=== PATIENT | female | born 1935 | race Caucasian/White ===

== ENCOUNTER 2018-12-02 11:49 | Inpatient (IN) | payer OTHER, BC ==
--- NOTE | 2018-12-02 12:26 | PDOC ---
History of Present Illness - General Stated Complaint: POSS CVA WEAKNESS History Source: Patient, Family Exam Limitations: No Limitations - History of Present Illness Initial Comments: 12/02/18 12:31 83 year old woman with a history of HTN, HLD, vertebral compression fractures ( followed by Dr. Joe) who presents with worsening confusion, weakness and worsening of chronic neck and back pain for the past 3 days. The patient lives with her son who called EMS today because the patient was refusing to medications and symptoms were worsened. When EMS arrived they noted that the patient was having difficulty holding herself up and was short of breath and had foul smelling urine. Back pain was previously managed with percocets but patient has been off of those medications for over a year. The patient is not on anticoagulants. Per son the patient has been having progressive worsening of the ability to walk over the past year and has required a walker. Denies fever, cough, congestion, headaches, chest pain, vomiting. Patient has chronic abdominal pain and occasional diarrhea. PCP: Kelin Adhikari tPA Exclusion checklist 3-4.5h - Time Elapsed Date last known well: 11/30/18 Time last known well: 12:00 Elaspsed time: 2 Day(s) and 6 Hour(s) and 36 Minutes - Thrombolytic Therapy Candidate Is patient eligible for thrombolytic therapy: No - Exclusion Criteria 3-4.5 hr SBP greater than 185 or DBP greater than 110mmHg despite tx: Yes Hx IC hemorrhage, IC neoplasm, AV malformation or aneurysm: No Active internal bleeding: No Blding diathesis(low plt ct, inc PTT,INR>1.7 or use of NOAC): No Symptoms suggest subarachnoid hemorrhage: No CT demonstrates multilobar infarct(>1/3 cerebral hemiphere): No Arterial puncture at noncompressible site in previous 7 days: No Blood glucose concentration less than 50mg/dL (2.7mmol/L): No - Relative Exclusion Criteria 3-4.5 hr Life expectancy <1 yr or severe co-morbid illness: No : No Patient/family refused: No Rapid improvement: No Stroke severity too mild: Yes Recent acute TN (w/in previous 3 months): No Seizure at onset with postictal residual neuro impairments: No Major surgery or serious trauma w/in previous 14 days: No Recent GI or hemorrhage (w/in previous 21 days): No - Add'l Relative Exclusion 3-4.5 hr Age > 80: Yes Hx of both diabetes AND prior ischemic stroke: No Taking an oral anticoagulant regardless of INR: No NIHSS >25: No - Ineligibility reason(s) Reasons No tPA given: Outside of window - delayed arrival NIH Stroke Scale - Last Known Well Date/Time & Onset Date Last Known Well: 11/30/18 Time Last Known Well: 12:00 - Initial Evaluation Level of consciousness: Alert Ask patient the month and their age: Answers both correctly Ask patient to open & close eyes; make fist and let go: Obeys both correctly Best gaze (horizontal eye movement): Normal Visual field testing: No visual field loss Facial paresis (Show teeth/raise eyebrows/close eyes tight): Normal symmetrical movement Motor Function: Left Arm: Normal Motor Function: Right Arm: Normal (extends arm 90 (or 45) degrees for 10 seconds without drift Motor Function: Left Leg: Normal (extends leg 30 degrees for 5 seconds without drift) Motor Function: Right Leg: Normal (extends leg 30 degrees for 5 seconds without drift) Limb Ataxia: No ataxia Sensory(Use pinprick test arms,legs,trunk,face/side to side): Normal Best language (Describe picture, name items, read sentences): No Aphasia Dysarthria (read several words): Normal articulation Extinction and Inattention: No abnormality - Total Score NIH Stroke Scale Score: 0 Past History - Past Medical History Allergies/Adverse Reactions: Allergies Allergy/AdvReac Type Severity Reaction Status Date / Time No Known Allergies Allergy Verified 06/04/15 15:52 Home Medications: Ambulatory Orders Amlodipine Besylate [Norvasc -] 5 mg PO DAILY 09/30/12 Atorvastatin Ca [Lipitor] 20 mg PO HS 05/03/14 Acetaminophen [Tylenol -] 500 mg PO Q6H #20 tablet 06/04/15 Methocarbamol [Robaxin -] 500 mg PO BID #14 tablet 06/04/15 GI Disorders: Yes ("STOMACHACHES-REFLUX") HTN: Yes Hypercholesterolemia: Yes - Suicide/Smoking/Psychosocial Hx Smoking Status: No Smoking History: Never smoked Number of Cigarettes Smoked Daily: 0 Hx Alcohol Use: No Drug/Substance Use Hx: No Substance Use Type: None Hx Substance Use Treatment: No Review of Systems - Review of Systems Able to Perform ROS?: Yes Comments:: 12/02/18 12:48 GENERAL/CONSTITUTIONAL: No fever or chills. No weakness. HEAD, EYES, EARS, NOSE AND THROAT: No change in vision. No ear pain or discharge. No sore throat. CARDIOVASCULAR: No chest pain + shortness of breath RESPIRATORY: No cough, wheezing, or hemoptysis. GASTROINTESTINAL: No vomiting, constipation. GENITOURINARY: No dysuria, frequency, or change in urination. MUSCULOSKELETAL: No joint or muscle swelling or pain. No neck or back pain. SKIN: No rash NEUROLOGIC: No headache, vertigo, loss of consciousness, or change in strength/ sensation. ENDOCRINE: No increased thirst. No abnormal weight change HEMATOLOGIC/LYMPHATIC: No anemia, easy bleeding, or history of blood clots. ALLERGIC/IMMUNOLOGIC: No hives or skin allergy. Is the patient limited Frisian proficient: No *Physical Exam - Physical Exam Comments: 12/02/18 12:49 GENERAL: Awake, alert, and fully oriented, in no acute distress HEAD: No signs of trauma, normocephalic, atraumatic EYES: PERRLA, EOMI, sclera anicteric, conjunctiva clear ENT: oropharynx clear without exudates. Moist mucosa NECK: Normal ROM, supple LUNGS: No distress, speaks full sentences, clear to auscultation bilaterally HEART: Regular rate and rhythm, normal S1 and S2, no murmurs, rubs or gallops, peripheral pulses normal and equal bilaterally. ABDOMEN: Soft, slight R sided tenderness (chronic), normoactive bowel sounds. No guarding, no rebound. No masses EXTREMITIES : Normal inspection, Normal range of motion, no edema. No clubbing or cyanosis. NEUROLOGICAL: Cranial nerves II through XII grossly intact. patient unable to perform cerebellar function 2/2 comprehension, Normal speech, no focal sensorimotor deficits SKIN: Warm, Dry, normal turgor, no rashes or lesions noted ED Treatment Course - LABORATORY CBC & Chemistry Diagram: 12/02/18 12:57 12/02/18 12:57 Medical Decision Making - Medical Decision Making 12/02/18 12:50 83 year old woman with a history of HTN, HLD, vertebral compression fractures ( followed by Dr. Joe) who presents with worsening confusion, weakness and worsening of chronic neck and back pain for the past 3 days. The patient lives with her son who called EMS today because the patient was refusing to take ibuprofen for pain and symptoms were worsened. When EMS arrived they noted that the patient was having difficulty holding herself up and was short of breath. The patient is not on anticoagulants. ED Course: ddx ibnlt: consider cva vs infectious vs acs vs arrythmia vs electrolyte derangement patient with elevated bp of 200/103 taking norvasc 5 and atorvastatin sepsis set, trop, ekg, cxr, head ct ivf, tylenol, norvasc 12/02/18 13:30 patient with unremarkable cbc no leukocytosis 12/02/18 13:39 ua - unremarkable- does not show uti lactic negative CXR: midline airway, appropriate vascular markings, no blunting of costophrenic angle, no cardiomegaly- per radiology reading poor inspiratory effort and with small hilar bronchial cuffing on L lungfield pending ekg, cmp, CT 12/02/18 13:50 consider other possible etiologies of fever consider help desk specialist disease - pending head CT patient had some abdominal tenderness- will order CTAP cxr read as negative, however will order chest CT for better visualization as patient tahcypneic and requiring oxygen defer LP at this time as patient without meningismus and uncooperative. trop negaitive, bnp negative pending ekg 12/02/18 15:[address]: no evidence of acute intracranial hemorrhage, edema, midline shift, mass effect or skull fracture/ Moderate supratentorial chronic diffuse white matter microangiopathic ischemic changes gliosis. This CSF spaces unchanged from 2015, no evidence of hydrocephalus. 12/02/18 15:[address] chest: chronic lung disease, no evidence of pna, large hiatal hernia , R ovarian cyst will plan to order urine dipstick as patient without urine findings and Plan to admit for fever of unkown origin and ams. 12/02/18 15:47 patient unable to comply with ekg 12/02/18 16:33 repeat bp of 203/100 Discusssed case with neurology Dr. Joe who recommends htn control with labetolol consider posterior reversible encephalopathy syndrome Pending ID call back 12/02/18 17:25 will cover with vancomycin, rocephin and acyclovir for empiric mengitits coverage pending ID call back and admission repeat ekg attempt: nsr without significant findings or ST segment elevations bp recheck at 160s/80s 12/02/18 17:44 Dr. Bradshaw ID at bedside evaluating patient Recommending d/c vancomycin and acyclovir, maintain ceftriaxone Lumbar compression fx in the lower thoracic and upper lumbar spine Therefore will defer LP unless otherwise indicated. Patient admitted to medicine. *DC/Admit/Observation/Transfer Diagnosis at time of Disposition: Altered mental status, Hypertension, Fever of unknown origin - Discharge Dispostion Condition at time of disposition: Stable Decision to Admit order: Yes - Referrals Referrals: Kelin Adhikari MD [Primary Care Provider] - - Patient Instructions - Post Discharge Activity
[2018-12-02] MEDS ORDERED: amLODIPine BESYLATE 5 MG TABLET (FP) PO ONE (12:53)
[2018-12-02] MEDS ORDERED: ACETAMINOPHEN 1000 MG/100 ML VIAL (NON FORMULARY) IVPB ONE (12:53)
[2018-12-02] MEDS ORDERED: SODIUM CHLORIDE 1,000 ML IV SCH ×2 (13:00→19:45)
[2018-12-02 13:23] LABS: BASO % 0.5 % (0-2.0); EOS % 0.5 % (0-4.5); HEMATOCRIT 42.4 % (32.4-45.2); HEMOGLOBIN 13.7 GM/dL (10.7-15.3); LYMPH % 15.1 % (8-40); MCH 29.7 pg (25.7-33.7); MCHC 32.3 g/dl (32.0-36.0); MEAN CELL VOLUME 91.8 fl (80-96); MEAN PLT VOLUME 7.5 fl (7.5-11.1); MONO % 9.7 % (3.8-10.2); NEUT % 74.2 % (42.8-82.8); PLATELET COUNT 301 K/MM3 (134-434); RBC 4.62 M/mm3 (3.60-5.2); RDW 14.6 % (11.6-15.6); WHITE BLOOD COUNT 7.4 K/mm3 (4.0-10.0)
[2018-12-02 13:24] LABS: PH,URINE 7.5 (5.0-8.0); URINE APPEARANCE CLEAR; URINE BILIRUBIN NEGATIVE (NEGATIVE); URINE COLOR YELLOW; URINE GLUCOSE (UA) NEGATIVE (NEGATIVE); URINE KETONE NEGATIVE (NEGATIVE); URINE LEUK ESTERASE NEGATIVE (NEGATIVE); URINE NITRITE NEGATIVE (NEGATIVE); URINE PROTEIN NEGATIVE (NEGATIVE); URINE UROBILINOGEN 0.2 mg/dL (0.2-1.0)
[2018-12-02] MEDS ORDERED: amLODIPine BESYLATE 5 MG TABLET (FP) ONE (13:28)
[2018-12-02] MEDS ORDERED: ACETAMINOPHEN INJECTION 100 ML IVPB ONE (13:29)
[2018-12-02 13:33] LABS: VENOUS PH 7.37 (7.31-7.41)
[2018-12-02 13:34] LABS: VENOUS PO2 25.2 mmHg (30-40)
[2018-12-02 13:38] LABS: INR 0.97 (0.83-1.09); PROTHROMBIN TIME (PATIENT) 11.5 SEC (9.7-13.0)
[2018-12-02 13:40] LABS: ACTIVATED PTT 32.1 SECONDS (25.2-36.5)
[2018-12-02 13:43] LABS: ALBUMIN 3.5 g/dl (3.4-5.0); ALK PHOS 108 U/L (45-117); ANION GAP 6 MMOL/L (8-16); BILIRUBIN,TOTAL 0.6 mg/dL (0.2-1); BLOOD UREA NITROGEN 10 mg/dL (7-18); CALCIUM 8.9 mg/dL (8.5-10.1); CHLORIDE 106 mmol/L (98-107); CO2 28 mmol/L (21-32); CREATININE 0.9 mg/dL (0.55-1.3); GLUCOSE,RANDOM 97 mg/dL (74-106); POTASSIUM 4.5 mmol/L (3.5-5.1); SGOT/AST 16 U/L (15-37); SGPT/ALT 23 U/L (13-61); SODIUM 140 mmol/L (136-145); TOT PROT 6.7 g/dl (6.4-8.2)
--- NOTE | 2018-12-02 15:45 | PDOC ---
Documentation entered by Og Spear SCRIBE, acting as scribe for Yaniv Lawrence MD. Yaniv Lawrence MD: This documentation has been prepared by the Rainer rose Renju, SCRIBE, under my direction and personally reviewed by me in its entirety. I confirm that the documentation accurately reflects all work, treatment, procedures, and medical decision making performed by me. Attending Attestation - Resident Resident Name: Rosa Webster - ED Attending Attestation I have performed the following: I have examined & evaluated the patient, The case was reviewed & discussed with the resident, I agree w/resident's findings & plan, Exceptions are as noted - HPI HPI: 12/02/18 15:15 The patient is an 83 year old female with a significant past medical history of HTN, hypoglossal EMEA, osteoporosis, and vertebral compression fractures who presents to the emergency department for evaluation of altered mental status since Saturday. As per son at bedside, patient has had worsening confusion and has been complaining of severe back pain since Saturday. Per son, the patient has been taking ibuprofen with minimal alleviation to her back pain, which is chronic due to compression fxs. Patients son activated EMS as patient refused to take medications this morning. Patients son denies history of UTIs or recent infections. Denies prior back surgeries. PCP: Kelin Adhikari - Physicial Exam PE: 12/02/18 15:16 GENERAL: Awake, alert, in no acute distress. HEAD: No signs of trauma EYES: PERRLA, EOMI, sclera anicteric, conjunctiva clear ENT: Auricles normal inspection, hearing grossly normal, nares patent, oropharynx clear without exudates. Moist mucosa NECK: Nontender, no stepoffs, Normal ROM, supple, no lymphadenopathy, JVD, or masses LUNGS: Breath sounds equal, clear to auscultation bilaterally. No wheezes, and no crackles HEART: Regular rate and rhythm, normal S1 and S2, no murmurs, rubs or gallops ABDOMEN: + mild diffuse TTP, normoactive bowel sounds. No guarding, no rebound. No masses EXTREMITIES: Normal range of motion, no edema. No clubbing or cyanosis. No cords, erythema, or tenderness NEUROLOGICAL: Cranial nerves II through XII intact. 5/5 strength and sensation in all extremities, Normal speech, normal gait, normal cerebellar function SKIN: Warm, Dry, normal turgor, no rashes or lesions noted. - Critical Care Time Total Critical Care Time: 60 Critical Care Statement: The care of this patient involved high complexity decision making to prevent further life threatening deterioration of the patient 's condition and/or to evaluate & treat vital organ system(s) failure or risk of failure. - Medical Decision Making 12/02/18 15:22 83 F with AMS x 2 days. No new neuro deficits on exam. Given fever in ED, suspect infectious process. - Labs, cultures - CXR, UA - CTAP - CT head - IV tylenol 12/02/18 16:18 Labs wnl UA unremarkable CTAP and chest normal AMS may be 2/[address] Joe consulted, recommends aggressive BP control Labetalol IV given Meningitis remains on ddx, though is unlikely as pt without neck stiffness or other signs of meningismus at this time. LP cannot be obtained 2/2 pt agitation Will consult ID for further management of FUO Admit to hospitalist
[2018-12-02] MEDS ORDERED: LABETALOL HCL 5 MG/1 ML (100MG/20 ML VIAL) IVPUSH ONE (16:32)
[2018-12-02] MEDS ORDERED: LABETALOL HCL 5 MG/1 ML (200MG/40ML VIAL) IVPB ONE (16:40)
[2018-12-02] MEDS ORDERED: VANCOMYCIN 1 GM in D5W (PRE-DOCKED) 1,000 MG/250 ML IVPB ONE ×2 (17:13→17:16)
[2018-12-02 17:22] LABS: PH,URINE 7.5 (5.0-8.0); URINE APPEARANCE CLEAR; URINE BILIRUBIN NEGATIVE (NEGATIVE); URINE COLOR YELLOW; URINE GLUCOSE (UA) NEGATIVE (NEGATIVE); URINE KETONE NEGATIVE (NEGATIVE); URINE LEUK ESTERASE NEGATIVE (NEGATIVE); URINE NITRITE NEGATIVE (NEGATIVE); URINE PROTEIN NEGATIVE (NEGATIVE); URINE UROBILINOGEN 0.2 mg/dL (0.2-1.0)
[2018-12-02] MEDS ORDERED: CEFTRIAXONE 2 GM-D5W BAG 2 GM/50 ML BAG IVPB ONE (17:22)
[2018-12-02] MEDS ORDERED: CEFTRIAXONE 2 GM/100 ML BAG IVPB ONE (17:29)
[2018-12-02] MEDS ORDERED: ACYCLOVIR INJECTION 800 MG in DEXTROSE 5%-WATER - 100 ML IVPB SCH (17:30)
[2018-12-02] MEDS ORDERED: ACYCLOVIR INJECTION 800 MG in DEXTROSE 5%-WATER - 250 ML IVPB SCH (18:00)
--- NOTE | 2018-12-02 18:41 | PN ---
Progress Note (short form) - Note Progress Note: ID consult dictated Elderly woman with compression fractures since 2011, severe headaches and back pain uses a walker at home hitsory of chronic urinary incontinence admitted with worsening confusion and intermittent garbled speech since Saturday night she was in May 2018 and lives at home with her son followed by dr Adhikari and dr varghese but has not seen either doctor in months son is not sure of her meds or weather she is taking them regularly in ED she had a temp of 100.6 she is alert knows she is at the hospital able to tell me her age and the names of her PMD and address follows commands no neck pain back pain and headaches have been worsening over last several years used to take percocet but has not had any narcotics for over one year BP in ED 203/100 isolated fever- resolved not encephalopathic no signs of meningitis l no signs UTI ct scan chest abd/pelvis no acute pathology head ct chronic changes 2 old cvas noted agree with cultures received ceftriaoxne in ED would hold further antibiotics ?secondary to HTN, ?CVA- consider MRI but will defer to neurology would await neurology opinion see no need for LP at this point but if she has further fever or confusion worsens would consider LP and treatment with rocephin/vanco/acyclovir
--- NOTE | 2018-12-02 19:13 | PN ---
Teaching Attending Note Name of Resident: Michelle Otero ATTENDING PHYSICIAN STATEMENT I saw and evaluated the patient. I reviewed the resident's note and discussed the case with the resident. I agree with the resident's findings and plan as documented. SUBJECTIVE: Patient is an 83 year old woman with a PMH of HTN, HLD, vertebral compression fractures (followed by Dr. Joe) who presents with worsening confusion, weakness and worsening of chronic neck and back pain for the past 3 days. The patient lives with her son who called EMS today because the patient was refusing to medications and symptoms were worsened. When EMS arrived they noted that the patient was having difficulty holding herself up and was short of breath and had foul smelling urine. Back pain was previously managed with Percocet but patient has been off of those medications for over a year. The patient is not on anticoagulants. Per son the patient has been having progressive worsening of the ability to walk over the past year and has required a walker. Denies fever, cough, congestion, headaches, chest pain or vomiting. Has chronic abdominal pain and occasional diarrhea. OBJECTIVE: Alert Vital Signs Period Temp Pulse Resp BP Sys/Vera Pulse Ox Last 24 Hr 98.7 F-100.6 F 78-82 16-24 125-213/83-110 98-98 HEENT: No Jaundice, eye redness or discharge, PERRLA, EOMI. Normocephalic, atraumatic. External ears are normal and hearing is grossly intact. No nasal discharge. Neck: Supple, nontender. No palpable adenopathy or thyromegaly. No JVD Chest: Good effort. Clear to auscultation and percussion. Heart: Regular. No S3, rub or murmur Abdomen: Not distended, soft, nontender and no HSM. No rebound or guarding. Normal bowel sounds. Ext: Peripheral pulses intact. No leg edema. Skin: Warm and dry. No petechiae, rash or ecchymosis. Neuro: Alert. Oriented x3. CN 2-12 grossly intact. Sensation grossly intact in all four extremities and DTR are symmetric. Psych: Appropriate mood and affect. Good insight. Home Medications Medication Instructions Recorded Amlodipine Besylate [Norvasc -] 5 mg PO DAILY 09/30/12 Atorvastatin Ca [Lipitor] 20 mg PO HS 05/03/14 Acetaminophen [Tylenol -] 500 mg PO Q6H #20 tablet 06/04/15 Methocarbamol [Robaxin -] 500 mg PO BID #14 tablet 06/04/15 Abnormal Lab Results 12/02/18 12/02/18 12:57 12:57 POC VBG pO2 25.2 L VBG O2 Sat (Marilee) 37.2 L Anion Gap 6 L ASSESSMENT AND PLAN: 1. Altered Mental Status - Etiology is unclear. No acute pathology on CXR, head or abdomen/pelvis CT. NIHSS in the ER was 0. EKG is NSR with no significant ST- T wave changes. Patient being evaluated by Neurology and ID. Got one dose of IV Rocephin in the ER. As per ID will not treat empirically for meningitis at this time, but do an LP if patient spikes a fever or has worsening confusion. Will get a brain MRI to rule out CVA and practice permissive hypertension. Consult PT , do speech and swallow evaluation, get fasting lipids, ECHO and carotid doppler. 2. Obesity Counseled on the risks associated with obesity. Will provide patient all the necessary assistance, counseling and positive reinforcement to facilitate weight loss. Consult desktop support engineer. 3. Hypertension - Will practice permissive hypertension for now pending brain MRI. Nonpharmacologic measures to control hypertension like weight loss, salt restriction and exercise discussed. 4. DVT prophylaxis - Lovenox 40 mg SQ q 24 hours. 5. Advance directives - Full code
--- NOTE | 2018-12-02 19:37 | CONS ---
INFECTIOUS DISEASE CONSULTATION DATE OF CONSULTATION: 12/02/2018 This is an 83-year-old woman admitted from home. She lives with her son. She was in May 2018. She has a history of compression fractures since 2011. Son reports she has lost 6 inches in height. This is all thought to be secondary to osteoporosis. She has a history of severe headaches and severe back pain since that time. Most recently, she has been using a walker at home. She has had worsening difficulty ambulating which was felt to be a combination of muscle control and pain by her son. She last saw her doctors in May. She sees Dr. Joe and Dr. Adhikari who is her PMD. She has a long history as well of abdominal pain. She has chronic urinary incontinence, but not fecal incontinence. She used to take Percocet, but has not been on any pain medications for at least a year. The son reports since May she has been worsening. Her headaches have worsened. Her back pain has worsened, and she is overall declining. Over the weekend, he noted that she had several episodes of that these symptoms of her neck and back pain were worse. He also noted that she had several episodes where her speech became dysarthric and then corrected. He also thought she was periodically was having episodes of confusion. She refused any pain medications this morning, which upset her son, and he brought her to the emergency room. In the ER, she was noted to have a temperature of 100.6. 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 She has loss of volume of the brain parenchyma; moderate, diffuse, chronic white matter changes. There was no evidence of any sinusitis. She had a CT of her chest, abdomen, and pelvis as well, looking for a source of her temperature of 100.6. That showed chronic lung disease, no evidence of pneumonia, large hiatal hernia, right ovarian cyst, and she was noted to have multiple compression fractures of the lower thoracic and upper lumbar spine. ALLERGIES: She has no known drug allergies. MEDICATIONS: Include Robaxin, Lipitor, Norvasc, and Tylenol. She apparently takes several other medications, but the son is not sure what. PAST MEDICAL HISTORY: She has a history of hypertension. She has a history of hyperlipidemia, vertebral compression fractures, chronic back pain, chronic headaches. SOCIAL HISTORY: She lives with her son. She is . She is from [facility], and she has been in this country [place] years. She was able to give me her social history. There is no history of any cigarette or substance use. REVIEW OF SYSTEMS: She has had no nausea, vomiting, diarrhea. She has had no chest pain or cough. PHYSICAL EXAMINATION: General: She is awake and alert. She is able to hold a conversation. Complains of the headache. Notes no neck pain. Denies any cough. Denies any difficulty swallowing. Vital Signs: Her temperature is 98.8. Pulse is 78. Blood pressure was 203/100; it is now 180/89. Respiratory rate is non-labored and 16. She is saturating 98% on 2 L. HEENT: She is normocephalic. Her eyes are anicteric. She has no thrush. Neck: Supple. Lungs: Clear to auscultation. Heart: Regular rate and rhythm. Abdomen: Soft, nontender. Skin: She has no rash. Extremities: Without edema. LABORATORY DATA: White count is 7.4, hemoglobin 13.7, platelets are 301. Her INR is 0.9. Her BUN is 10 and creatinine 0.9 with normal LFTs, and her urinalysis is negative. IMAGING: As previously reported. In summary, this is an elderly woman admitted with chronic compression fractures, chronic headaches, chronic back pain, and hypertension, admitted with a blood pressure of 203/100 with some intermittent confusion. She is not encephalopathic, she is not lethargic, and she is able to hold a conversation and follow commands. No signs of meningitis. No signs of UTI. Imaging shows no acute pathology. I would agree with cultures. She received ceftriaxone in the emergency room. Would hold further antibiotics. I am suspicious that her symptoms are secondary to hypertension or perhaps stroke. I would consider MRI, but will defer to Neurology. Would await neurology opinion. I do not think she needs a spinal tap at this point, but if she has further fever or her confusion worsens, would consider LP and empiric treatment for meningitis and encephalitis. NORMA HEATH M.D. [id number]
--- NOTE | 2018-12-02 19:46 | CONSULT ---
Consult - text type - Consultation Consultation Note: NEUROLOGY CONSULT APPRECIATED: Events reviewed and discussed with Dr. Webster and DEEDEE Lawler. Son Jaylen at bedside. Last seen in consult at office 08/22/18. This 83 yo RH F is known to me with migraine headaches, Restless limbs, chronic low back pain, depression, urinary incontinence. Surgical history includes removal of basal cell carcinoma on nose and compression fractures Thoracic/LS spine treated conservatively. Maintained on nadolol 40 mg, pramipexole 0.25 BID, amlodipine, ASA, bupropion 150 mg ER. Presents to ED per son with new confusional state with generalized weakness and poor appetite x 2 days. Noted BP on admission 200/103. Last office visit BP noted 170/100. (07/31/18) Head CT in ED (reviewed)= Mild atrophy. 2 chronic R cerebellar infarcts with encephalomalacia. Supratentorial chronic ischemic changes. Pt unable to provide cogent history at this time. WBC= 7.6 UA x 2 neg. LINDSEY: T 100.6->98.8. BP 203/103. Cor reg. No bruit. -Kernigs. +/- Hunter's on L. NEURO: Awake, alert, responsive. Ox "H[facility]." "[facility]" corrected to "[facility] November,. TRUMP->PURT. 0/3 recall @ 3 min. CNII-CNXII: EOM full without nystagmus. Full Melgar. No facial. Motor: No drift. Strong grasps. Strength normal. Reflexes normal. Toes downgoing. Coordination: No FTN dystaxia. Sensation: Decreased sensation in toes. Impression: Mild B/L Cerebral dysfunction (Chronic R cerebellar infarcts, VIDEO PRODUCTION INTERN microvascular changes) Hypertensive encephalopathy vs. Seizure vs. CVA Chronic Thoracic/LS compression fractures. Gait dysfunction secondary to above. Migraine Headaches Suggest: Aggressively reduce systolic BP < 140s Admit and monitor on telemetry MRI of brain (C-) Carotid duplex Pt eval for gait safety with walker web services manager eval for [facility] Thank you very much, David Joe MD
--- NOTE | 2018-12-02 19:49 | HP ---
CHIEF COMPLAINT: confusion, weakness, neck and back pain PCP: HISTORY OF PRESENT ILLNESS: 83 y/o F with PMH HTN, HLD, facial basal cell CA (s/p MOH), vertebral compression fx (lower thoracic, upper lumbar. has had past (-) EMG per neuro) , osteopenia and osteoporosis, migraines (follows with Dr. Joe), who presents to the ED with worsening confusion, weakness, neck and back pain that has acutely worsened over the last three days. Hx provided by son at bedside. As per son, pt has baseline has had these sx for "many years," however they acutely worsened over the last three days. Without any inciting or exacerbating fx. At baseline, pt is selective about what she "chooses to verbalize," and during t his time, she kept telling her son that she felt miserable, pointing to her back. States that her physical fnc has been limited for this reason. Once pt became so debilitated that she was unable to take ibuprofen for her pain , he became worried, deciding to call EMS for fear that he was "missing something big" that was going on with her. When EMS arrived, pt was found to be SOB and with foul smelling urine. At baseline, she is incontinent. Endorses intermittent migraines, however without known hx of fever, chills, chest pain or pressure, or changes in bowel function. Lives with son. Ambulates using a walker. ER course was notable for: (1) BP 200/100 > given norvasc 5, labetalol 10 (2) IV NS 1L (3) IV Tylenol (4) LP not attempted by ED d/t agitation Recent Travel: denies PAST MEDICAL HISTORY: as above PAST SURGICAL HISTORY: moh's surgery facial BCC Social History: used to work as a beauty culture teacher in past. Smoking: denies Alcohol: denies Drugs: denies Family History: father young, mother - osteoporosis - broke ribs when coughed, migraine hx Allergies No Known Allergies Allergy (Verified 06/04/15 15:52) HOME MEDICATIONS: Home Medications Medication Instructions Recorded Amlodipine Besylate [Norvasc -] 5 mg PO DAILY 09/30/12 Atorvastatin Ca [Lipitor] 20 mg PO HS 05/03/14 Acetaminophen [Tylenol -] 500 mg PO Q6H #20 tablet 06/04/15 Methocarbamol [Robaxin -] 500 mg PO BID #14 tablet 06/04/15 son does not know pt medications need to be confirmed with [facility] REVIEW OF SYSTEMS CONSTITUTIONAL: Absent: fever, chills, diaphoresis, generalized weakness, malaise, loss of appetite, weight change HEENT: Absent: rhinorrhea, nasal congestion, throat pain, throat swelling, difficulty swallowing, mouth swelling, ear pain, eye pain, visual changes CARDIOVASCULAR: Absent: chest pain, syncope, palpitations, irregular heart rate, lightheadedness , peripheral edema RESPIRATORY: Absent: cough, shortness of breath, dyspnea with exertion, orthopnea, wheezing, stridor, hemoptysis GASTROINTESTINAL: Absent: abdominal pain, abdominal distension, nausea, vomiting, diarrhea, constipation, melena, hematochezia GENITOURINARY: Absent: dysuria, frequency, urgency, hesitancy, hematuria, flank pain, genital pain MUSCULOSKELETAL: +back pain, neck pain Absent: myalgia, arthralgia, joint swelling, back pain, neck pain SKIN: Absent: rash, itching, pallor HEMATOLOGIC/IMMUNOLOGIC: Absent: easy bleeding, easy bruising, lymphadenopathy, frequent infections ENDOCRINE: Absent: unexplained weight gain, unexplained weight loss, heat intolerance, cold intolerance NEUROLOGIC: +confusion Absent: headache, focal weakness or paresthesias, dizziness, unsteady gait, seizure, mental status changes, bladder or bowel incontinence PSYCHIATRIC: Absent: anxiety, depression, suicidal or homicidal ideation, hallucinations. PHYSICAL EXAMINATION Vital Signs 12/02/18 12/02/18 15:30 16:38 Temperature 98.8 F 98.8 F Pulse Rate Pulse Rate [ 78 78 Apical] Respiratory 16 23 H Rate Blood Pressure Blood Pressure 181/103 H 203/100 H [Left Arm] O2 Sat by Pulse 98 98 Oximetry (%) GENERAL: AAO x 3. in NAD HEAD: Normal with no signs of trauma. EYES: Pupils equal, round and reactive to light, extraocular movements intact, sclera anicteric, conjunctiva clear. EARS, NOSE, THROAT: Ears normal, nares patent, oropharynx clear without exudates. Moist mucous membranes. NECK: Normal range of motion, supple. +without nuchal rigidity LUNGS: Breath sounds equal, clear to auscultation bilaterally. No wheezes, and no crackles. No accessory muscle use. poor insp effort HEART: Regular rate and rhythm, normal S1 and S2 without murmur, rub or gallop. ABDOMEN: Soft, obese, nontender, not distended, normoactive bowel sounds MUSCULOSKELETAL: +decreased ROM RLE LOWER EXTREMITIES: 2+ pt pulses, warm, well-perfused. trace pedal edema NEUROLOGICAL: Cranial nerves II-XII intact. +RUE pronator drift. 2+ reflexes. + decreased ROM RLE. +decreased sensation in feet b/l. (-) Brudzinski, and kernig signs. selectively follows commands. PSYCHIATRIC: Cooperative at times Laboratory Results 12/02/18 12/02/18 12/02/18 12:57 12:57 12:57 WBC 7.4 Hgb 13.7 Hct 42.4 D Plt Count 301 D Sodium 140 Potassium 4.5 Chloride 106 Carbon Dioxide 28 Anion Gap 6 L BUN 10 Creatinine 0.9 Lactic Acid 1.1 Urine Color 12/02/18 16:17 Lactic Acid Urine Color Yellow Urine Appearance Clear Urine pH 7.5 Ur Specific [place] 1.026 Urine Protein Negative Urine Glucose (UA) Negative Urine Ketones Negative Urine Blood Negative Urine Nitrite Negative Urine Bilirubin Negative Urine Urobilinogen 0.2 Ur Leukocyte Esterase Negative head ct: chronic diffuse white matter ischemic changes. chronic cerebellar infarcts. CTAP, chest CT: chronic lung dz (interstitial), large hiatal hernia, R ovarian cyst. mult compression fx in lower thoracic and upper lumbar spine - chronic. ASSESSMENT/PLAN: 83 y/o F with PMH HTN, HLD, facial basal cell CA (s/p MOH), vertebral compression fx (lower thoracic, upper lumbar. has had past (-) EMG per neuro) , osteopenia and osteoporosis, migraines (follows with Dr. Joe), who presents to the ED with worsening confusion, weakness, neck and back pain that has acutely worsened over the last three days. #AMS r/o meningitis -without meningeal signs, fever improved with IV tylenol prior to rocephin. however as w/confusion need to r/o meningitis -s/p ceftriaxone 2gm IVPB x 1 in ED -seen by ID, rec to hold off on abx at this time. if pt spikes temp, or becomes more confused then c/w empiric tx rocephin/vanc/acyclovir and LP. coags done -f/u ucx, blood cx. -iso precautions -freq neurochecks -ID: Dr. Bradshaw -Neuro: Dr. Joe possible 2/2 hypertensive encephalopathy, HTN urgency -as per neuro, aggressive BP control rec systolic <140. -s/p labetalol 10, norvasc 5 in ED -c/w home norvasc 5. however confirm home dose. son not aware. need to call pharma in AM -monitor on tele r/o CVA -without new acute changes on CTH -f/u carotid duplex, brain MRI, lipid profile -PT, NPO, S/S -as per neuro, rec aggressive BP control < 140. not rec permissive htn at this time. #HLD -as per neuro, pt was taken off statin by cardio recently #F/E/N no IVF at this time as w/elev BP cont to follow lytes NPO, S/S consult #PPX DVT: SCD's in case of procedure #Dispo admit to tele Visit type - Emergency Visit Emergency Visit: Yes ED Registration Date: 12/02/18 Care time: The patient presented to the Emergency Department on the above date and was hospitalized for further evaluation of their emergent condition. - New Patient This patient is new to me today: Yes Date on this admission: 12/02/18 - Critical Care Critical Care patient: No
[2018-12-02 22:53] LABS: CHOLESTEROL 243 mg/dL (50-200); HDL CHOLESTEROL 50 mg/dL (40-60); TRIGLYCERIDES 229 mg/dL (0-150)
[2018-12-02] MEDS ORDERED: hydrALAZINE HCL 20 MG/ML VIAL IVPUSH ONE (23:58)
[2018-12-03] MEDS: ACETAMINOPHEN 325 MG TABLET (FP) PO PRN ×2 (00:30→09:43)
[2018-12-03 02:13] VITALS: BMI 25.0
[2018-12-03 06:47] LABS: BASO % 0.5 % (0-2.0); EOS % 0.5 % (0-4.5); HEMATOCRIT 41.9 % (32.4-45.2); HEMOGLOBIN 13.9 GM/dL (10.7-15.3); LYMPH % 13.5 % (8-40); MCH 30.2 pg (25.7-33.7); MCHC 33.1 g/dl (32.0-36.0); MEAN PLT VOLUME 7.5 fl (7.5-11.1); MONO % 9.6 % (3.8-10.2); NEUT % 75.9 % (42.8-82.8); PLATELET COUNT 323 K/MM3 (134-434); RBC 4.61 M/mm3 (3.60-5.2); RDW 14.5 % (11.6-15.6); WHITE BLOOD COUNT 9.7 K/mm3 (4.0-10.0)
[2018-12-03 07:13] LABS: CALCIUM 9.1 mg/dL (8.5-10.1); PHOSPHOROUS 3.3 mg/dL (2.5-4.9); POTASSIUM 4.2 mmol/L (3.5-5.1)
--- NOTE | 2018-12-03 08:28 | EKG ---
Test Reason : Blood Pressure : / mmHG Vent. Rate : 083 BPM Atrial Rate : 083 BPM P-R Int : 142 ms QRS Dur : 114 ms QT Int : 410 ms P-R-T Axes : 017 -13 002 degrees QTc Int : 481 ms POOR DATA QUALITY, INTERPRETATION MAY BE ADVERSELY AFFECTED NORMAL SINUS RHYTHM POSSIBLE LATERAL INFARCT , AGE UNDETERMINED ABNORMAL ECG WHEN COMPARED WITH ECG OF 30-SEP-2012 12:28, QRS DURATION HAS INCREASED BORDERLINE CRITERIA FOR LATERAL INFARCT ARE NOW PRESENT NONSPECIFIC T WAVE ABNORMALITY, WORSE IN ANTERIOR LEADS NONSPECIFIC T WAVE ABNORMALITY NO LONGER EVIDENT IN LATERAL LEADS QT HAS LENGTHENED Confirmed by PAULA GALLEGOS, VANDANA ([id number]) on 12/03/2018 8:28:23 AM Referred By: Confirmed By:VANDANA MITCHELL MD
--- NOTE | 2018-12-03 08:29 | EKG ---
Test Reason : Blood Pressure : / mmHG Vent. Rate : 075 BPM Atrial Rate : 075 BPM P-R Int : 184 ms QRS Dur : 088 ms QT Int : 376 ms P-R-T Axes : -02 -03 043 degrees QTc Int : 419 ms NORMAL SINUS RHYTHM NORMAL ECG WHEN COMPARED WITH ECG OF 02-DEC-2018 15:37, ST NO LONGER DEPRESSED IN INFERIOR LEADS NONSPECIFIC T WAVE ABNORMALITY, IMPROVED IN ANTERIOR LEADS QT HAS SHORTENED Confirmed by PAULA GALLEGOS, VANDANA ([id number]) on 12/03/2018 8:28:38 AM Referred By: Confirmed By:VANDANA MITCHELL MD
--- NOTE | 2018-12-03 09:07 | CONSULT ---
Admitting History and Physical - Primary Care Physician PCP: Kelby Delaney - Admission History of Present Illness: Per EMR- 83 y/o F with PMH HTN, HLD, facial basal cell CA (s/p MOH), vertebral compression fx (lower thoracic, upper lumbar. has had past (-) EMG per neuro) , osteopenia and osteoporosis, migraines , who presents to the ED with worsening confusion, weakness, neck and back pain that has acutely worsened over the last three days. Selected Entries 12/02/18 12/02/18 12/02/18 11:49 12:26 15:30 Breakfast Temperature 100.6 F H 100.6 F H 98.8 F Blood Pressure 213/110 H Blood Pressure 181/103 H [Left Arm] 12/02/18 12/02/18 12/02/18 16:38 19:43 21:30 Breakfast Temperature 98.8 F 98.7 F 98.2 F Blood Pressure Blood Pressure 203/100 H 125/83 120/82 [Left Arm] 12/02/18 12/03/18 12/03/18 23:30 01:50 05:00 Breakfast Temperature 97.9 F 97.6 F 98.6 F Blood Pressure 200/107 H 121/70 156/80 Blood Pressure [Left Arm] 12/03/18 12/03/18 09:00 11:52 Breakfast 100% Temperature 98 F Blood Pressure 156/100 Blood Pressure [Left Arm] Laboratory Tests 12/02/18 12/03/18 12:57 05:30 WBC 7.4 9.7 History Source: Medical Record Limitations to Obtaining History: Clinical Condition - Smoking History Smoking history: Never smoked Have you smoked in the past 12 months: No Aproximately how many cigarettes per day: 0 - Alcohol/Substance Use Hx Alcohol Use: No History - Admission Reason For Visit: FEVER OF UNKN ORIGIN/ALTERED MENTAL STATE - Diagnostics X-ray: Report Reviewed CT Scan: Report Reviewed (Head CT in ED (reviewed)= Mild atrophy. 2 chronic R cerebellar infarcts with encephalomalacia. Supratentorial chronic ischemic changes.) MRI: Report Reviewed (includes Left Parietal subacute/acute infarct at level of [place]. Moderate MV changes.) - General Mental Status: Alert and Oriented ("yonkers" "trump" "September," Knows she came in for back pain), Awake and Alert, Able to Follow Commands (intermittent) Attention: Distractible, Mild Impairment - Hearing Hearing: Normal Hearing Aide: No With Patient: No Speech Evaluation - Communication Primary Language: AZERI Communication: Yes: Aphasia Oral Expression Ability: Yes: Mild Impairment, Moderate Impairment - Speech Production Able to Make Needs Known: Yes: Mildly Impaired, Moderately Impaired Intelligibility: Yes: WNL - Speech Characteristics Voice Loudness: Normal Voice Pitch: Yes: Normal Voice Phonatory-based Quality: Yes: Normal Speech Pattern: Impaired Nasal Resonance: Normal Articulation: Yes: Precise Rate of Speech: Intact - Language/Auditory Comprehension Observation: Able to respond to yes/no queries: Yes (intermittent), Yes/No Confusion: Yes, Comprehends Conversational Speech: Yes (simple), Benefits from Slow Speech: Yes, Benefits from Repetiton: Yes - Language/Verbal Expression Aphasia: Yes: Fluent, Anomia, Paraphrasic Errors, Neologisms Able to Respond to Simple Queries: Yes: Mildly Impaired, Moderately Impaired Able to Communicate Wants and Needs: Yes: Mildly Impaired, Moderately Impaired Functional Communication Status: Yes: Mildly Impaired, Moderately Impaired Aware of Errors: No - Swallow Evaluation/Bedside Assessment Current Nutritional Intake: NPO Oral Secretions: Yes: WFL Dentition: Yes: Adequate Facial Symmetry at Rest: Symmetrical Lingual Movement: Symmetric Lingual Speed of Movement: Normal Lingual Movement Strgth Against Opposition: Normal Velopharyngeal Movement: Normal Laryngeal Movement: Labored,delay initiation Labial Seal: WFL Oral Prep Time: WFL A-P Transit: WFL Timing of Swallow: Delayed Coughing/Throat Clear: Yes (1 instance with thin liquid. limited acceptance) Recommendations - Speech Evaluation, Impression/Plan Impression: Pt following simple 1 stage commands intermittently but not 2 stage or fluent conversation. Speech is fluent with neologisms, paraphasic errors and Spanish words interspersed without awareness. Anomia in conversation and upon confrontation.Able to provide fluent appropriate sentences at times. No dysarthria. Little po trials accepted. 1 instance of responsive cough with thin liquid, may have become distracted. Oriented to age,trump, not date. Poor insight. Impulsive. MRI-Left Parietal subacute/acute infarct at level of [place] - Disposition Discharge to: To be Determined - Dysphagia Impressions/Plan Dysphagia Impressions: Mild Impairment, Risk of Aspiration *Silent aspiration: cannot be R/O at bedside Dysphagia Treatment Plan: OOB for meals, OOB for 1 h. after meals - Recommendations Diet Consistency: Dysphagia Pureed Liquids: Thin Liquids (trial. If cough, downgrade to nectar)
[2018-12-03] MEDS: amLODIPine BESYLATE 10 MG TABLET (FP) PO SCH (09:43)
[2018-12-03] MEDS ORDERED: amLODIPine BESYLATE 5 MG TABLET (FP) PO SCH (10:00)
[2018-12-03 10:10] LABS: CREATININE 0.9 mg/dL (0.55-1.3)
[2018-12-03] MEDS ORDERED: CEFTRIAXONE 1 GM in DEXTROSE 5%-WATER - 50 ML IVPB SCH (11:45)
[2018-12-03] MEDS ORDERED: DEXTROSE 5%-WATER - 50 ML IVPB ONE ×2 (12:16→14:30)
[2018-12-03] MEDS ORDERED: cefTRIAXone SODIUM 1 GM VIAL ONE ×2 (12:16→14:30)
--- NOTE | 2018-12-03 13:49 | PN ---
Physical Exam: SUBJECTIVE: Patient seen and examined. Pt. states she "hadn't slept a wink." Pt. endorses severe back ache, in middle of spine. Pt denies any pain now in the neck but says she did have some yesterday and it was only slight pain. Pt. state she leaks urine and last a BM yesterday. OBJECTIVE: Vital Signs Period Temp Pulse Resp BP Sys/Vera Pulse Ox Last 24 Hr 97.6 F-98.8 F 77-97 16-23 120-203/70-107 94-98 GENERAL: The patient is awake, alert, and oriented to name only, in no acute distress. HEAD: Normal with no signs of trauma. EYES: PERRL, extraocular movements intact, sclera anicteric, conjunctiva clear. No ptosis. ENT: Ears normal, nares patent, oropharynx clear without exudates, moist mucous membranes. NECK: Trachea midline, full range of motion, supple, no spinal or paraspinal tenderness LUNGS: Breath sounds equal, clear to auscultation bilaterally, no wheezes, no crackles, no accessory muscle use. HEART: Tachycardic, regular rate and rhythm, S1, S2 without murmur ABDOMEN: Soft, nontender, nondistended, normoactive bowel sounds, no guarding, no rebound, no hepatosplenomegaly, no masses. EXTREMITIES: 2+ radial pulses, warm, no calf tenderness well-perfused, b/l trace edema. NEUROLOGICAL: Cranial nerves II through XII grossly intact. Normal speech, gait not observed. PSYCH: Normal mood, normal affect. SKIN: Warm, dry, normal turgor, no rashes or lesions noted Laboratory Results - last 24 hr 12/02/18 12/02/18 12/02/18 12:57 16:17 20:23 WBC RBC Hgb Hct MCV MCH MCHC RDW Plt Count MPV Absolute Neuts (auto) Neutrophils % Lymphocytes % Monocytes % Eosinophils % Basophils % Nucleated RBC % Sodium 140 Potassium 4.5 Chloride 106 Carbon Dioxide 28 Anion Gap 6 L BUN 10 Creatinine 0.9 Creat Clearance w eGFR 59.51 Est GFR (CKD-EPI)AfAm Est GFR (CKD-EPI)NonAf Random Glucose 97 Calcium 8.9 Phosphorus Magnesium Total Bilirubin 0.6 AST 16 ALT 23 Alkaline Phosphatase 108 Total Protein 6.7 Albumin 3.5 Triglycerides 229 H Cholesterol 243 H Total LDL Cholesterol 166 H HDL Cholesterol 50 Urine Color Yellow Urine Appearance Clear Urine pH 7.5 Ur Specific [place] 1.026 Urine Protein Negative Urine Glucose (UA) Negative Urine Ketones Negative Urine Blood Negative Urine Nitrite Negative Urine Bilirubin Negative Urine Urobilinogen 0.2 Ur Leukocyte Esterase Negative Influenza A (Rapid) Influenza B (Rapid) Blood Type O POSITIVE Antibody Screen Negative 12/02/18 12/03/18 12/03/18 21:26 05:30 05:30 WBC 9.7 RBC 4.61 Hgb 13.9 Hct 41.9 MCV 91.0 MCH 30.2 MCHC 33.1 RDW 14.5 Plt Count 323 MPV 7.5 Absolute Neuts (auto) 7.3 Neutrophils % 75.9 Lymphocytes % 13.5 Monocytes % 9.6 Eosinophils % 0.5 Basophils % 0.5 Nucleated RBC % 0 Sodium Potassium Chloride Carbon Dioxide Anion Gap BUN Creatinine Creat Clearance w eGFR Est GFR (CKD-EPI)AfAm Est GFR (CKD-EPI)NonAf Random Glucose Calcium Phosphorus Magnesium Total Bilirubin AST ALT Alkaline Phosphatase Total Protein Albumin Triglycerides Cholesterol Total LDL Cholesterol HDL Cholesterol Urine Color Urine Appearance Urine pH Ur Specific [place] Urine Protein Urine Glucose (UA) Urine Ketones Urine Blood Urine Nitrite Urine Bilirubin Urine Urobilinogen Ur Leukocyte Esterase Influenza A (Rapid) Negative Influenza B (Rapid) Negative Blood Type O POSITIVE Antibody Screen 12/03/18 05:30 WBC RBC Hgb Hct MCV MCH MCHC RDW Plt Count MPV Absolute Neuts (auto) Neutrophils % Lymphocytes % Monocytes % Eosinophils % Basophils % Nucleated RBC % Sodium 140 Potassium 4.2 Chloride 107 Carbon Dioxide 25 Anion Gap 7 L BUN 10 Creatinine 0.9 Creat Clearance w eGFR Est GFR (CKD-EPI)AfAm 67.57 Est GFR (CKD-EPI)NonAf 58.30 Random Glucose 106 Calcium 9.1 Phosphorus 3.3 Magnesium 2.0 Total Bilirubin AST ALT Alkaline Phosphatase Total Protein Albumin Triglycerides 174 H Cholesterol 255 H Total LDL Cholesterol 176 H HDL Cholesterol 53 Urine Color Urine Appearance Urine pH Ur Specific [place] Urine Protein Urine Glucose (UA) Urine Ketones Urine Blood Urine Nitrite Urine Bilirubin Urine Urobilinogen Ur Leukocyte Esterase Influenza A (Rapid) Influenza B (Rapid) Blood Type Antibody Screen Active Medications Home Medications Medication Instructions Recorded Unobtainable 12/02/18 Current Medications Acetaminophen (Tylenol -) 650 mg PO Q6H PRN PRN Reason: PAIN LEVEL 6-10 Last Admin: 12/03/18 09:43 Dose: 650 mg Amlodipine Besylate (Norvasc -) 10 mg PO DAILY BHAVYA Last Admin: 12/03/18 09:43 Dose: 10 mg Ceftriaxone Sodium 1 gm/ (Dextrose) 50 mls @ 100 mls/hr IVPB DAILY BHAVYA; Protocol Last Admin: 12/03/18 12:17 Dose: 100 mls/hr ASSESSMENT/PLAN: 83 y/o F with PMH HTN, HLD, facial basal cell CA (s/p MOH), vertebral compression fx (lower thoracic, upper lumbar. has had past (-) EMG per neuro) , osteopenia and osteoporosis, migraines (Dr. Joe), who presents to the ED with worsening confusion, weakness, neck and back pain that has acutely worsened over the last three days. #Acute Encephalopathy 2/2 Hypertensive Emergency vs. UTI w. Progressive dementia as baseline cannot r/o meningitis without meningeal signs, fever improved with IV tylenol prior to rocephin. s/p ceftriaxone 2 gm IVPB x 1 in ED C/w Ceftriaxone 2 gm f/u BCx. UCx growing Proteus Mirabalis. Freq Neurochecks BP went to 200s/100s x 3 ID Consult (Dr. Bradshaw) appreciated- D/c Abx. can reinstate if spiking fevers or mental status worsens. Would do LP at this time. Neuro Consult (Dr. Joe) appreciated- aggressive BP control without new acute changes on CTH f/u carotid duplex, and brain MRI to r/o CVA (consider echo?) Elevated Trigs, cholesterol and LDL f/u Physical Therapy as per neuro, rec aggressive BP control < 140. not rec permissive htn at this time. CT A/P- shows chronic lung disease w/o acute pathology, large hiatal hernia, R. ovarian 3.6cm cyst w/o acute pathology. #HTN As per neuro, aggressive BP control rec systolic <140. s/p Labetalol 10mg, Norvasc 5mg in ED Increased Norvasc to 10mg Telemetry monitoring #HLD As per neuro, Pt. was taken off statin by Cardio recently? Per Pt.'s son Pt. takes Lipitor 20mg #F/E/N no IVF at this time as w/elev BP cont to follow lytes Dysphagia Puree Diet #PPX DVT: SCD's #Dispo admit to tele Visit type - Emergency Visit Emergency Visit: Yes ED Registration Date: 12/02/18 Care time: The patient presented to the Emergency Department on the above date and was hospitalized for further evaluation of their emergent condition. - New Patient This patient is new to me today: Yes Date on this admission: 12/03/18 - Critical Care Critical Care patient: No - Discharge Referral Referred to [facility] No
[2018-12-03] MEDS ORDERED: CEFTRIAXONE 1 GM in DEXTROSE 5%-WATER - 50 ML IVPB ONE (14:20)
[2018-12-03] MEDS ORDERED: LORazepam 2 MG/ML SDV VIAL IVPUSH ONE (14:23)
--- NOTE | 2018-12-03 14:59 | PN ---
Teaching Attending Note Name of Resident: David Mena ATTENDING PHYSICIAN STATEMENT I saw and evaluated the patient. I reviewed the resident's note and discussed the case with the resident. I agree with the resident's findings and plan as documented. SUBJECTIVE: Confused, unable to participate fully in medical interview. No complaints. OBJECTIVE: Afebrile, Hemodynamically Stable. Last Vital Signs Temp Pulse Resp BP Pulse Ox 98 F 97 H 18 156/100 94 L 12/03/18 09:00 12/03/18 09:00 12/03/18 09:00 12/03/18 09:00 12/03/18 09:00 HEENT - Atraumatic, Normocephalic, scar on tip of nose sec to prior dermatological procedure Heart - S1, S2, RRR, SM Lungs - clear to auscultation Abdomen - High BMI. Soft, non-tender. bowel Sounds normal. Extremities - no calf tenderness. Laboratory Results - last 24 hr 12/02/18 12/02/18 12/02/18 12:57 16:17 20:23 WBC RBC Hgb Hct MCV MCH MCHC RDW Plt Count MPV Absolute Neuts (auto) Neutrophils % Lymphocytes % Monocytes % Eosinophils % Basophils % Nucleated RBC % Sodium 140 Potassium 4.5 Chloride 106 Carbon Dioxide 28 Anion Gap 6 L BUN 10 Creatinine 0.9 Creat Clearance w eGFR 59.51 Est GFR (CKD-EPI)AfAm Est GFR (CKD-EPI)NonAf Random Glucose 97 Calcium 8.9 Phosphorus Magnesium Total Bilirubin 0.6 AST 16 ALT 23 Alkaline Phosphatase 108 Total Protein 6.7 Albumin 3.5 Triglycerides 229 H Cholesterol 243 H Total LDL Cholesterol 166 H HDL Cholesterol 50 Urine Color Yellow Urine Appearance Clear Urine pH 7.5 Ur Specific [place] 1.026 Urine Protein Negative Urine Glucose (UA) Negative Urine Ketones Negative Urine Blood Negative Urine Nitrite Negative Urine Bilirubin Negative Urine Urobilinogen 0.2 Ur Leukocyte Esterase Negative Influenza A (Rapid) Influenza B (Rapid) Blood Type O POSITIVE Antibody Screen Negative 12/02/18 12/03/18 12/03/18 21:26 05:30 05:30 WBC 9.7 RBC 4.61 Hgb 13.9 Hct 41.9 MCV 91.0 MCH 30.2 MCHC 33.1 RDW 14.5 Plt Count 323 MPV 7.5 Absolute Neuts (auto) 7.3 Neutrophils % 75.9 Lymphocytes % 13.5 Monocytes % 9.6 Eosinophils % 0.5 Basophils % 0.5 Nucleated RBC % 0 Sodium Potassium Chloride Carbon Dioxide Anion Gap BUN Creatinine Creat Clearance w eGFR Est GFR (CKD-EPI)AfAm Est GFR (CKD-EPI)NonAf Random Glucose Calcium Phosphorus Magnesium Total Bilirubin AST ALT Alkaline Phosphatase Total Protein Albumin Triglycerides Cholesterol Total LDL Cholesterol HDL Cholesterol Urine Color Urine Appearance Urine pH Ur Specific [place] Urine Protein Urine Glucose (UA) Urine Ketones Urine Blood Urine Nitrite Urine Bilirubin Urine Urobilinogen Ur Leukocyte Esterase Influenza A (Rapid) Negative Influenza B (Rapid) Negative Blood Type O POSITIVE Antibody Screen 12/03/18 05:30 WBC RBC Hgb Hct MCV MCH MCHC RDW Plt Count MPV Absolute Neuts (auto) Neutrophils % Lymphocytes % Monocytes % Eosinophils % Basophils % Nucleated RBC % Sodium 140 Potassium 4.2 Chloride 107 Carbon Dioxide 25 Anion Gap 7 L BUN 10 Creatinine 0.9 Creat Clearance w eGFR Est GFR (CKD-EPI)AfAm 67.57 Est GFR (CKD-EPI)NonAf 58.30 Random Glucose 106 Calcium 9.1 Phosphorus 3.3 Magnesium 2.0 Total Bilirubin AST ALT Alkaline Phosphatase Total Protein Albumin Triglycerides 174 H Cholesterol 255 H Total LDL Cholesterol 176 H HDL Cholesterol 53 Urine Color Urine Appearance Urine pH Ur Specific [place] Urine Protein Urine Glucose (UA) Urine Ketones Urine Blood Urine Nitrite Urine Bilirubin Urine Urobilinogen Ur Leukocyte Esterase Influenza A (Rapid) Influenza B (Rapid) Blood Type Antibody Screen Current Medications Generic Name Dose Route Start Last Admin Trade Name Freq PRN Reason Stop Dose Admin Acetaminophen 650 mg 12/02/18 23:58 12/03/18 09:43 Tylenol - PO 650 mg Q6H PRN Administration PAIN LEVEL 6-10 Amlodipine Besylate 10 mg 12/03/18 10:00 12/03/18 09:43 Norvasc - PO 10 mg DAILY BHAVYA Administration Ceftriaxone Sodium 1 gm/ 50 mls @ 100 mls/hr 12/03/18 14:20 12/03/18 14:32 Dextrose IVPB 12/03/18 14:49 100 mls/hr ONCE ONE Administration Protocol Ceftriaxone Sodium 2 gm/ 100 mls @ 200 mls/hr 12/04/18 10:00 Dextrose IVPB DAILY BHAVYA Protocol ASSESSMENT/PLAN: 83 year old female with HTN, HLD, Basal Cell Ca s/p MOHS, Hx vertebral compression fractures, Osteoporosis, Migraines, presented with increasing confusion, lethargy, generalized weakness, and fever. CT HEAD - chronic diffuse white matter ischemic changes. chronic cerebellar infarcts. CT C/A/P - chronic lung dz (interstitial), large hiatal hernia, R ovarian cyst, multiple compression fractures in lower thoracic and upper lumbar spine. 1. Acute Encephalopathy, multifactorial - sec to hypertensive encephalopathy + likely UTI BP on presentation >200 systolic Given IV labetalol and Hydralazine overnight Started on oral Norvasc 10mg. Will monitor BP response. Urine Cx positive for Proteus - awaiting final ID and sens Fever resolved, CXR - no infiltrate, Blood Cx negative Day 2 Ceftriaxone Evaluated by ID - no signs of meningitis currently. Evaluated by Neuro - MRI Brain/Carotid Duplex recommended to exclude CVA. 2. HLD - Statin recently stopped apparently. All medications to be confirmed with PCP/Pharmacy. DVT Px - Heparin SQ.
--- NOTE | 2018-12-03 19:11 | CONSULT ---
Consult - text type - Consultation Consultation Note: NEUROLOGY PROGRESS: Events reviewed and patient examined. Case discussed with Ms. Dunlap and son, Raul. Her son provides a list of home medications and notes Pt "ran out" of amlodipine. BP's now controlled but patient remains confused. MRI of brain (Reviewed): Chronic posterior fossa strokes with encephalomalacia. Severe, diffuse, supratentorial microvascular disease and cortical infarcts. EXAM: Awake, alert. Follows commands. Forms sentences but is confused Full melgoza to treat. No facial weakness. Full EOM's. Gag OK Moves all 4's well. Normal grasps. Normal reflexes except AJ's. Toes downgoing. IMP: Non-focal exam. Cannot exclude a contribution from aphasia but exam, with comprehension preserved is more c/w a diffuse encephalopathy, possibly on the basis of hypertension. SUGGEST: Check B12, TSH, ESR, CRP Give thiamine 250mg IVPB q 8 hrs x 3 days. PT for gait with walker. Thank you very much, David Joe MD
[2018-12-03] MEDS: HEPARIN NA (PORCINE) 5,000 UNITS/ML 1ML VIAL SQ SCH (21:45)
[2018-12-03] MEDS: THIAMINE HCL 200 MG/2 ML VIAL IVPB SCH (21:45)
[2018-12-04] MEDS: HEPARIN NA (PORCINE) 5,000 UNITS/ML 1ML VIAL SQ SCH ×3 (06:18→21:24)
[2018-12-04] MEDS: THIAMINE HCL 200 MG/2 ML VIAL IVPB SCH ×3 (06:18→21:24)
[2018-12-04 06:56] LABS: BASO % 0.7 % (0-2.0); EOS % 1.1 % (0-4.5); HEMATOCRIT 41.9 % (32.4-45.2); HEMOGLOBIN 13.8 GM/dL (10.7-15.3); LYMPH % 14.7 % (8-40); MCH 30.1 pg (25.7-33.7); MEAN CELL VOLUME 91.2 fl (80-96); MEAN PLT VOLUME 7.5 fl (7.5-11.1); MONO % 9.6 % (3.8-10.2); NEUT % 73.9 % (42.8-82.8); PLATELET COUNT 316 K/MM3 (134-434); RBC 4.59 M/mm3 (3.60-5.2); WHITE BLOOD COUNT 7.6 K/mm3 (4.0-10.0)
[2018-12-04 07:41] LABS: ALBUMIN 3.3 g/dl (3.4-5.0); BILIRUBIN,TOTAL 0.6 mg/dL (0.2-1); CALCIUM 8.8 mg/dL (8.5-10.1); CREATININE 0.9 mg/dL (0.55-1.3); MAGNESIUM 2.3 mg/dL (1.8-2.4); POTASSIUM 4.1 mmol/L (3.5-5.1); TOT PROT 6.6 g/dl (6.4-8.2)
[2018-12-04] MEDS ORDERED: DEXTROSE 5%-WATER 100 ML IVPB ONE (09:24)
[2018-12-04] MEDS: CEFTRIAXONE 2 GM in DEXTROSE 5%-WATER 100 ML IVPB SCH (09:45)
[2018-12-04] MEDS: amLODIPine BESYLATE 10 MG TABLET (FP) PO SCH (09:46)
[2018-12-04] MEDS: CYANOCOBALAMIN 1,000 MCG TABLET (FP) PO SCH (09:46)
--- NOTE | 2018-12-04 11:47 | PN ---
Physical Exam: SUBJECTIVE: Patient seen and examined. Pt. endorses headache yesterday around midday. Pt. endorses cough w/ sputum production. Pt. denies any complaints at this time. OBJECTIVE: Vital Signs Period Temp Pulse Resp BP Sys/Vera Pulse Ox Last 24 Hr 98.1 F-98.4 F 72-110 18-20 123-144/68-94 95-95 GENERAL: The patient is awake, alert, and oriented to name only, in no acute distress. HEAD: Normal with no signs of trauma. EYES: PERRL, extraocular movements intact, sclera anicteric, conjunctiva clear. ENT: Ears normal, nares patent, oropharynx clear without exudates, moist mucous membranes. NECK: Trachea midline, full range of motion, supple, no spinal or paraspinal tenderness LUNGS: Breath sounds equal, clear to auscultation bilaterally, no wheezes, no crackles, no accessory muscle use. HEART: Tachycardic, regular rate and rhythm, S1, S2 without murmur ABDOMEN: Soft, nontender, nondistended, normoactive bowel sounds, no guarding, no rebound EXTREMITIES: 2+ radial pulses, warm, no calf tenderness well-perfused, b/l trace edema. NEUROLOGICAL: Cranial nerves II through XII grossly intact. Normal speech, gait not observed. PSYCH: Normal mood, normal affect. SKIN: Warm, dry, normal turgor Laboratory Results - last 24 hr 12/03/18 12/04/18 12/04/18 05:30 05:30 05:30 WBC 7.6 RBC 4.59 Hgb 13.8 Hct 41.9 MCV 91.2 MCH 30.1 MCHC 33.0 RDW 15.0 Plt Count 316 MPV 7.5 Absolute Neuts (auto) 5.6 Neutrophils % 73.9 Lymphocytes % 14.7 Monocytes % 9.6 Eosinophils % 1.1 D Basophils % 0.7 Nucleated RBC % 0 ESR Sodium 138 Potassium 4.1 Chloride 107 Carbon Dioxide 26 Anion Gap 5 L BUN 17 Creatinine 0.9 Est GFR (CKD-EPI)AfAm 67.57 Est GFR (CKD-EPI)NonAf 58.30 Random Glucose 85 Calcium 8.8 Phosphorus 4.0 Magnesium 2.3 Total Bilirubin 0.6 AST 22 ALT 25 Alkaline Phosphatase 99 C-Reactive Protein 2.8 H Total Protein 6.6 Albumin 3.3 L Vitamin B12 323 TSH 2.23 Blood Type O POSITIVE 12/04/18 12/04/18 05:30 05:30 WBC RBC Hgb Hct MCV MCH MCHC RDW Plt Count MPV Absolute Neuts (auto) Neutrophils % Lymphocytes % Monocytes % Eosinophils % Basophils % Nucleated RBC % ESR 57 H Sodium Potassium Chloride Carbon Dioxide Anion Gap BUN Creatinine Est GFR (CKD-EPI)AfAm Est GFR (CKD-EPI)NonAf Random Glucose Calcium Phosphorus Magnesium Total Bilirubin AST ALT Alkaline Phosphatase C-Reactive Protein Cancelled Total Protein Albumin Vitamin B12 Cancelled TSH Cancelled Blood Type Active Medications Home Medications Medication Instructions Recorded Amlodipine Besylate [Norvasc -] 5 mg PO DAILY 12/03/18 Atorvastatin Calcium [Lipitor] 20 mg PO DAILY 12/03/18 Nadolol [Corgard -] 40 mg PO DAILY 12/03/18 Pramipexole Dihydrochloride 0.25 mg PO HS 12/03/18 [Mirapex -] Current Medications Acetaminophen (Tylenol -) 650 mg PO Q6H PRN PRN Reason: PAIN LEVEL 6-10 Last Admin: 12/03/18 09:43 Dose: 650 mg Amlodipine Besylate (Norvasc -) 10 mg PO DAILY [facility] Last Admin: 12/04/18 09:46 Dose: 10 mg Cyanocobalamin (Vitamin B12 -) 1,000 mcg PO DAILY [facility] Last Admin: 12/04/18 09:46 Dose: 1,000 mcg Heparin Sodium (Porcine) (Heparin -) 5,000 unit SQ TID [facility] Last Admin: 12/04/18 06:18 Dose: 5,000 unit Ceftriaxone Sodium 2 gm/ (Dextrose) 100 mls @ 200 mls/hr IVPB DAILY BHAVYA; Protocol Last Admin: 12/04/18 09:45 Dose: 200 mls/hr Thiamine HCl (Vitamin B1 Injection -) 200 mg IVPB TID [facility] Stop: 12/06/18 21:59 Last Admin: 12/04/18 06:18 Dose: 200 mg ASSESSMENT/PLAN: 83 y.o. F with PMHx. of HTN, HLD, facial basal cell CA (s/p MOH), vertebral compression fx (lower thoracic, upper lumbar. has had past (-) EMG per neuro), osteopenia and osteoporosis, migraines (Dr. Joe), who presents to the ED with worsening confusion, weakness, neck and back pain that has acutely worsened over the last three days. #Acute Encephalopathy 2/2 Hypertensive Emergency vs. UTI w/ Progressive dementia at baseline cannot r/o meningitis without meningeal signs, fever improved with IV tylenol prior to rocephin. s/p ceftriaxone 2 gm IVPB x 1 in ED C/w Ceftriaxone 2 gm f/u BCx. UCx growing Proteus Mirabalis. Freq Neurochecks BP went to 200s/100s x 3 during initial 24 hours of presentation ID Consult (Dr. Bradshaw) appreciated- D/c Abx. can reinstate if spiking fevers or mental status worsens. Would do LP at this time. Neuro Consult (Dr. Joe) appreciated- aggressive BP control without new acute changes on CTH f/u carotid duplex, and brain MRI to r/o CVA (consider echo?) Elevated Trigs, cholesterol and LDL f/u Physical Therapy Neuro recommends aggressive BP control < 140. not recommending permissive htn at this time. CT A/P- shows chronic lung disease w/o acute pathology, large hiatal hernia, R. ovarian 3.6cm cyst w/o acute pathology. #HTN As per neuro, aggressive BP control rec systolic <140. s/p Labetalol 10mg, Norvasc 5mg in ED C/w Norvasc to 10mg Telemetry monitoring - Irregular HR in sinus rhythm noted overnight. #HLD Restarted Lipitor 20mg Per Pt.'s son Pt. takes Lipitor 20mg #F/E/N no IVF at this time as w/elev BP cont to follow lytes Dysphagia Puree Diet #PPX DVT: SCD's #Dispo Tele Visit type - Emergency Visit Emergency Visit: Yes ED Registration Date: 12/02/18 Care time: The patient presented to the Emergency Department on the above date and was hospitalized for further evaluation of their emergent condition. - New Patient This patient is new to me today: No - Critical Care Critical Care patient: No - Discharge Referral Referred to [facility] No
--- NOTE | 2018-12-04 12:03 | PN ---
Progress Note, [employer] MEDIA SPECIALIST - Note Progress Note: Selected Entries 12/04/18 12/04/18 12/04/18 01:00 05:00 08:22 Breakfast Diet Tolerated Temperature 98.4 F 98.1 F 98.1 F 12/04/18 08:27 Breakfast 100% Diet Tolerated Well Temperature Laboratory Tests 12/04/18 05:30 WBC 7.6 MRI results-includes Left Parietal subacute/acute infarct at level of Centrum [place]ov[place]. Moderate MV changes. Pt seen bedside. Initially comprehension and language formulation was accurate, stating that "I had a miserable time speaking" telling me she saw me while she was in a W/C outside her room. She recalled seeing Dr. Joe. She was able to name upon confrontation, (unable yesterday consistently) and followed commands and responded to questions. As I continued to work with her, language expression broke down, with paraphasic errors eg brother for son, and neologisms without awareness. Improving language function but still Aphasic. Seems good cognitively to me with "confusion" seeming to be more so language based although pt was more confused yesterday as well. Tolerating diet. Upgrade to Trial of regular Chopped/thin liquid, OOB for meals. Continued Aphasia tx upon d/c. I discussed case with pt's son, Raul.There was a "big change on Saturday" at times able to speak, at times she rambled and made no sense. She agitated easily , and was labile. Prior to this she had some changes cognitively since Apr/May, crying when she couldn't manage her checkbook. He reported that function varied over the last few months. (Mod Microvasular changes)
--- NOTE | 2018-12-04 13:42 | PN ---
Teaching Attending Note Name of Resident: David Mena ATTENDING PHYSICIAN STATEMENT I saw and evaluated the patient. I reviewed the resident's note and discussed the case with the resident. I agree with the resident's findings and plan as documented. SUBJECTIVE: More lucid. No complaints. More interactive in medical interview. OBJECTIVE: Afebrile, Hemodynamically Stable. AAO x 2 Last Vital Signs Temp Pulse Resp BP Pulse Ox 98 F 112 H 18 159/84 95 12/04/18 12:52 12/04/18 12:52 12/04/18 12:52 12/04/18 12:52 12/04/18 08:22 HEENT - Atraumatic, Normocephalic, scar on tip of nose sec to prior dermatological procedure Heart - S1, S2, RRR, SM Lungs - decreased air entry at bases Abdomen - High BMI. Soft, non-tender. bowel Sounds normal. Extremities - no edema, no calf tenderness. Laboratory Results - last 24 hr 12/04/18 12/04/18 12/04/18 05:30 05:30 05:30 WBC 7.6 RBC 4.59 Hgb 13.8 Hct 41.9 MCV 91.2 MCH 30.1 MCHC 33.0 RDW 15.0 Plt Count 316 MPV 7.5 Absolute Neuts (auto) 5.6 Neutrophils % 73.9 Lymphocytes % 14.7 Monocytes % 9.6 Eosinophils % 1.1 D Basophils % 0.7 Nucleated RBC % 0 ESR Sodium 138 Potassium 4.1 Chloride 107 Carbon Dioxide 26 Anion Gap 5 L BUN 17 Creatinine 0.9 Est GFR (CKD-EPI)AfAm 67.57 Est GFR (CKD-EPI)NonAf 58.30 Random Glucose 85 Calcium 8.8 Phosphorus 4.0 Magnesium 2.3 Total Bilirubin 0.6 AST 22 ALT 25 Alkaline Phosphatase 99 C-Reactive Protein 2.8 H Cancelled Total Protein 6.6 Albumin 3.3 L Vitamin B12 323 Cancelled TSH 2.23 Cancelled 12/04/18 05:30 WBC RBC Hgb Hct MCV MCH MCHC RDW Plt Count MPV Absolute Neuts (auto) Neutrophils % Lymphocytes % Monocytes % Eosinophils % Basophils % Nucleated RBC % ESR 57 H Sodium Potassium Chloride Carbon Dioxide Anion Gap BUN Creatinine Est GFR (CKD-EPI)AfAm Est GFR (CKD-EPI)NonAf Random Glucose Calcium Phosphorus Magnesium Total Bilirubin AST ALT Alkaline Phosphatase C-Reactive Protein Total Protein Albumin Vitamin B12 TSH Current Medications Generic Name Dose Route Start Last Admin Trade Name [place] PRN Reason Stop Dose Admin Acetaminophen 650 mg 12/02/18 23:58 12/03/18 09:43 Tylenol - PO 650 mg Q6H PRN Administration PAIN LEVEL 6-10 Amlodipine Besylate 10 mg 12/03/18 10:00 12/04/18 09:46 Norvasc - PO 10 mg DAILY BHAVYA Administration Cyanocobalamin 1,000 mcg 12/04/18 10:00 12/04/18 09:46 Vitamin B12 - PO 1,000 mcg DAILY BHAVYA Administration Heparin Sodium (Porcine) 5,000 unit 12/03/18 22:00 12/04/18 06:18 Heparin - SQ 5,000 unit TID BHAVYA Administration Ceftriaxone Sodium 2 gm/ 100 mls @ 200 mls/hr 12/04/18 10:00 12/04/18 09:45 Dextrose IVPB 200 mls/hr DAILY BHAVYA Administration Protocol Thiamine HCl 200 mg 12/03/18 22:00 12/04/18 06:18 Vitamin B1 Injection - IVPB 12/06/18 21:59 200 mg TID BHAVYA Administration ASSESSMENT/PLAN: 83 year old female with HTN, HLD, Basal Cell Ca s/p MOHS, Hx vertebral compression fractures, Osteoporosis, Migraines, presented with increasing confusion, lethargy, generalized weakness, and fever. CT HEAD - chronic diffuse white matter ischemic changes. chronic cerebellar infarcts. CT C/A/P - chronic lung dz (interstitial), large hiatal hernia, R ovarian cyst, multiple compression fractures in lower thoracic and upper lumbar spine. 1. Acute Encephalopathy on background Dementia - multifactorial - sec to hypertensive encephalopathy + likely UTI - Improving. BP on presentation >200 systolic Given IV labetalol and Hydralazine in ED - now BP better controlled on Norvac 10mg. Urine Cx positive for Proteus Fever resolved, CXR - no infiltrate, Blood Cx negative Day 3 Ceftriaxone Evaluated by Neuro and ID - no signs of meningitis currently. 2. Hx Cerebrovascular Disease Unclear how much this is contributing to her acute mental status deterioration. MRI - focal cystic encephalomalacia, tiny thalamic lacunar infarcts, L parietal acute/subacute infarct. Carotid Duplex - moderately large plaques with no evidence of significant stenosis. Neurology to comment on infarct acuity and further recommendations regarding need for further work-up. 3. HLD - LDL > 60. Statin recently stopped apparently. All medications to be confirmed with PCP/Pharmacy. 4. B12 level borderline - replacement started. DVT Px - Heparin SQ. Dispo - will discuss current living circumstance with CM and start discharge arrangements for SNF.
[2018-12-04] MEDS: ATORVASTATIN CA 20 MG TABLET (FP) PO SCH (14:07)
[2018-12-04] MEDS ORDERED: FUROSEMIDE 40 MG/4 ML INJECTABLE VIAL IVPUSH ONE (14:50)
[2018-12-04] MEDS ORDERED: ACETAMINOPHEN 325 MG TABLET (FP) PO PRN (18:21)
[2018-12-04] MEDS: LIDOCAINE 5% TOPICAL PATCH TP SCH (18:55)
[2018-12-04] MEDS ORDERED: LIDOCAINE PATCH REMOVAL MC SCH (22:00)
[2018-12-05] MEDS: HEPARIN NA (PORCINE) 5,000 UNITS/ML 1ML VIAL SQ SCH ×2 (06:16→14:41)
[2018-12-05] MEDS: THIAMINE HCL 200 MG/2 ML VIAL IVPB SCH ×2 (06:16→14:41)
[2018-12-05 07:09] LABS: BASO % 0.6 % (0-2.0); EOS % 1.2 % (0-4.5); HEMATOCRIT 41.3 % (32.4-45.2); HEMOGLOBIN 13.6 GM/dL (10.7-15.3); LYMPH % 14.6 % (8-40); MCHC 32.9 g/dl (32.0-36.0); MEAN CELL VOLUME 91.4 fl (80-96); MEAN PLT VOLUME 7.5 fl (7.5-11.1); MONO % 9.1 % (3.8-10.2); NEUT % 74.5 % (42.8-82.8); PLATELET COUNT 327 K/MM3 (134-434); RBC 4.52 M/mm3 (3.60-5.2); RDW 14.3 % (11.6-15.6); WHITE BLOOD COUNT 8.3 K/mm3 (4.0-10.0)
[2018-12-05 07:59] LABS: ALBUMIN 3.3 g/dl (3.4-5.0); CALCIUM 8.7 mg/dL (8.5-10.1); CREATININE 1.2 mg/dL (0.55-1.3); MAGNESIUM 2.1 mg/dL (1.8-2.4); PHOSPHOROUS 3.6 mg/dL (2.5-4.9); POTASSIUM 4.3 mmol/L (3.5-5.1); TOT PROT 6.3 g/dl (6.4-8.2)
[2018-12-05] MEDS ORDERED: ASPIRIN 81 MG CHEWABLE TABLETS PO SCH (10:00)
[2018-12-05] MEDS ORDERED: DEXTROSE 5%-WATER 100 ML IVPB ONE (10:06)
[2018-12-05] MEDS: LIDOCAINE 5% TOPICAL PATCH TP SCH (10:07)
[2018-12-05] MEDS: CEFTRIAXONE 2 GM in DEXTROSE 5%-WATER 100 ML IVPB SCH (10:07)
[2018-12-05] MEDS: CYANOCOBALAMIN 1,000 MCG TABLET (FP) PO SCH (10:07)
[2018-12-05] MEDS: ATORVASTATIN CA 20 MG TABLET (FP) PO SCH (10:07)
[2018-12-05] MEDS: amLODIPine BESYLATE 10 MG TABLET (FP) PO SCH (10:07)
[2018-12-05] MEDS ORDERED: CYCLOBENZAPRINE HCL 10 MG TABLET (FP) PO ONE (11:40)
--- NOTE | 2018-12-05 11:46 | PN ---
Progress Note (short form) - Note Progress Note: NEUROLOGY PROGRESS: Events reviewed. Pt ambulated with PT 80 feet yesterday and minimal assist to bathroom. BP's better controlled with amlodipine 10 mg. (120s-140s/8s) Pt still reporting vague back complaints and difficulty sleeping. Knows she recently came up from Xray of back. Still with intermittent headaches. Xray of LS spine: Multi-level DJD and osteopenia. ESr= 57; B12= 323 CNG=416 EXAM: Awake, alert. Follows commands. OX "[facility]." "May" "9" Year "33." Trump. 08/31 recall @ 3. Full melgoza to treat. No facial weakness. Full EOM's. Gag OK Moves all 4's well. Normal grasps. Normal reflexes except AJ's. Toes downgoing. 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 Pending discharge to SNF for rehab Neuro f/u as out-patient Thank you very much, David Joe MD
--- NOTE | 2018-12-05 12:16 | PN ---
Progress Note, BIG DATA DEVELOPER - Note Progress Note: Selected Entries 12/04/18 12/04/18 12/04/18 08:27 13:25 19:54 Breakfast 100% Lunch 75% Supper 50% Temperature 12/05/18 12/05/18 12/05/18 02:00 06:00 10:00 Breakfast Lunch Supper Temperature 98.1 F 98.1 F 98.1 F Laboratory Tests 12/05/18 06:19 WBC 8.3 Continued improvement in language vfunction with appropriate responses today. No neologisms/paraphgic errors.Attempted to assess writing function, seated up, with table in front of her. Initially she wrote remember as REMBER, wrote one more word but then said I can't do this, and . session was cut short by pt grimacing in pain, which seemed to improve when HOB was lowered. Significant improvement in language function. Tolerating diet. Please upgrade to reg/thin liquid.
--- NOTE | 2018-12-05 13:47 | PN ---
Teaching Attending Note Name of Resident: David Mena ATTENDING PHYSICIAN STATEMENT I saw and evaluated the patient. I reviewed the resident's note and discussed the case with the resident. I agree with the resident's findings and plan as documented. SUBJECTIVE: Lucid. Complains of back pain. Interactive in medical interview. OBJECTIVE: Afebrile, Hemodynamically Stable. AAO x 2 Last Vital Signs Temp Pulse Resp BP Pulse Ox 98.1 F 83 20 137/74 95 12/05/18 10:00 12/05/18 10:00 12/05/18 10:00 12/05/18 10:00 12/05/18 09:00 HEENT - Atraumatic, Normocephalic, scar on tip of nose sec to prior dermatological procedure Heart - S1, S2, RRR, SM Lungs - decreased air entry at bases Abdomen - High BMI. Soft, non-tender. bowel Sounds normal. Extremities - no edema, no calf tenderness. Laboratory Results - last 24 hr 12/05/18 12/05/18 06:19 06:19 WBC 8.3 RBC 4.52 Hgb 13.6 Hct 41.3 MCV 91.4 MCH 30.0 MCHC 32.9 RDW 14.3 Plt Count 327 MPV 7.5 Absolute Neuts (auto) 6.2 Neutrophils % 74.5 Lymphocytes % 14.6 Monocytes % 9.1 Eosinophils % 1.2 Basophils % 0.6 Nucleated RBC % 0 Sodium 139 Potassium 4.3 Chloride 106 Carbon Dioxide 26 Anion Gap 7 L BUN 24 H Creatinine 1.2 Est GFR (CKD-EPI)AfAm 47.72 Est GFR (CKD-EPI)NonAf 41.18 Random Glucose 96 Calcium 8.7 Phosphorus 3.6 Magnesium 2.1 Total Bilirubin 1.0 AST 20 ALT 21 Alkaline Phosphatase 96 Total Protein 6.3 L Albumin 3.3 L Current Medications Generic Name Dose Route Start Last Admin Trade Name Freq PRN Reason Stop Dose Admin Acetaminophen 650 mg 12/02/18 23:58 12/03/18 09:43 Tylenol - PO 650 mg Q6H PRN Administration PAIN LEVEL 6-10 Acetaminophen 650 mg 12/04/18 18:21 Tylenol - PO Q4H PRN FEVER Amlodipine Besylate 10 mg 12/03/18 10:00 12/05/18 10:07 Norvasc - PO 10 mg DAILY BHAVYA Administration Aspirin 81 mg 12/05/18 10:00 12/05/18 10:07 Asa - PO 81 mg DAILY BHAVYA Administration Atorvastatin Calcium 20 mg 12/04/18 14:00 12/05/18 10:07 Lipitor - PO 20 mg DAILY BHAVYA Administration Cyanocobalamin 1,000 mcg 12/04/18 10:00 12/05/18 10:07 Vitamin B12 - PO 1,000 mcg DAILY BHAVYA Administration Heparin Sodium (Porcine) 5,000 unit 12/03/18 22:00 12/05/18 06:16 Heparin - SQ 5,000 unit TID BHAVYA Administration Ceftriaxone Sodium 2 gm/ 100 mls @ 200 mls/hr 12/04/18 10:00 12/05/18 10:07 Dextrose IVPB 200 mls/hr DAILY BHAVYA Administration Protocol Lidocaine 1 patch 12/04/18 18:30 12/05/18 10:07 Lidoderm Patch - TP 1 patch DAILY BHAVYA Administration Miscellaneous 1 each 12/04/18 22:00 12/04/18 22:00 Lidoderm Patch Removal MC 1 each DAILY@2200 BHAVYA Administration Nadolol 20 mg 12/06/18 10:00 Corgard - PO DAILY BHAVYA Thiamine HCl 200 mg 12/03/18 22:00 12/05/18 06:16 Vitamin B1 Injection - IVPB 12/06/18 21:59 200 mg TID BHAVYA Administration ASSESSMENT/PLAN: 83 year old female with HTN, HLD, Basal Cell Ca s/p MOHS, Hx vertebral compression fractures, Osteoporosis, Migraines, presented with increasing confusion, lethargy, generalized weakness, and fever. CT HEAD - chronic diffuse white matter ischemic changes. chronic cerebellar infarcts. CT C/A/P - chronic lung dz (interstitial), large hiatal hernia, R ovarian cyst, multiple compression fractures in lower thoracic and upper lumbar spine. 1. Acute Encephalopathy on background Dementia - multifactorial - sec to hypertensive encephalopathy + likely UTI - Improving. BP on presentation >200 systolic Given IV labetalol and Hydralazine in ED - now BP better controlled on Norvac 10mg. Urine Cx positive for Proteus Fever resolved, CXR - no infiltrate, Blood Cx negative Day 4 Ceftriaxone - for 1 additional day of oral cephalosporin Evaluated by Neuro and ID - no signs of meningitis. 2. Subacute CVA on Imaging with reported Expressive Dysphasia Unclear how much this is contributing to her acute mental status deterioration. MRI - focal cystic encephalomalacia, tiny thalamic lacunar infarcts, L parietal acute/subacute infarct. Carotid Duplex - moderately large plaques with no evidence of significant stenosis. Discussed patient with Dr. Joe who recommends discharge on Aspirin/Plavix, with no further intervention required. Importance of medication compliance expressed to patient and her son. 3. HLD - LDL > 160. Resumed on Statin 4. B12 level borderline - replacement started - to continue on discharge. 5. Chronic Back Pain secondary to chronic compression fractures of the lumbar T spine and upper lumbosacral spine. Chronicity of fractures confirmed on CT A/P imaging. Analgesia. Medically and Neurologically Stable for discharge to SNF with Neurology out- patient follow up.
--- NOTE | 2018-12-05 14:09 | DS ---
Physical Exam: SUBJECTIVE: Patient seen and examined OBJECTIVE: Vital Signs Period Temp Pulse Resp BP Sys/Vera Pulse Ox Last 24 Hr 97.9 F-98.1 F 77-92 18-20 127-147/74-90 95-95 PHYSICAL EXAM GENERAL: The patient is awake, alert, and oriented to name only, in no acute distress. HEAD: Normal with no signs of trauma. EYES: extraocular movements intact, sclera anicteric, conjunctiva clear. ENT: Ears normal, nares patent, oropharynx clear without exudates, moist mucous membranes. NECK: Trachea midline, full range of motion, supple, no spinal or paraspinal tenderness LUNGS: Breath sounds equal, clear to auscultation bilaterally, no wheezes, no crackles, no accessory muscle use. HEART: Tachycardic, regular rate and rhythm, S1, S2 without murmur ABDOMEN: Soft, nontender, nondistended, normoactive bowel sounds, no guarding, no rebound EXTREMITIES: 2+ radial pulses, warm, no calf tenderness well-perfused, b/l trace edema. NEUROLOGICAL: Cranial nerves II through XII grossly intact. Normal speech, gait not observed. PSYCH: Normal mood, normal affect. SKIN: Warm, dry, normal turgor LABS Laboratory Results - last 24 hr 12/05/18 12/05/18 06:19 06:19 WBC 8.3 RBC 4.52 Hgb 13.6 Hct 41.3 MCV 91.4 MCH 30.0 MCHC 32.9 RDW 14.3 Plt Count 327 MPV 7.5 Absolute Neuts (auto) 6.2 Neutrophils % 74.5 Lymphocytes % 14.6 Monocytes % 9.1 Eosinophils % 1.2 Basophils % 0.6 Nucleated RBC % 0 Sodium 139 Potassium 4.3 Chloride 106 Carbon Dioxide 26 Anion Gap 7 L BUN 24 H Creatinine 1.2 Est GFR (CKD-EPI)AfAm 47.72 Est GFR (CKD-EPI)NonAf 41.18 Random Glucose 96 Calcium 8.7 Phosphorus 3.6 Magnesium 2.1 Total Bilirubin 1.0 AST 20 ALT 21 Alkaline Phosphatase 96 Total Protein 6.3 L Albumin 3.3 L HOSPITAL COURSE: Date of Admission:12/02/18 Date of Discharge: 12/05/18 You came in for worsening confusion, fever, back pain and high blood pressure. We found that you were growing bacteria in your urine. We treated you for a UTI. We imaged your brain and found that you have had signs of old "mini-strokes" in the past. We are starting you back on ASA 81 mg ONCE a day. We are starting you back on Atorvastatin 20mg ONCE a day. We are starting you on B12 1,000 mcg ONCE a Day. Please take Cefuroxime 250mg TWICE a day for 1 Day. Please resume your home medications as prescribed. Please follow up with your PCP within 1 week. Please follow up with your Neurologist, Dr. Joe, within 1 week. Discharge Summary Reason For Visit: FEVER OF UNKN ORIGIN/ALTERED MENTAL STATE Current Active Problems Altered mental status (Acute) Fever of unknown origin (Acute) Hypertension (Acute) Condition: Improved - Instructions Diet, Activity, Other Instructions: You came in for worsening confusion, fever, back pain and high blood pressure. We found that you were growing bacteria in your urine. We treated you for a UTI. We imaged your brain and found that you have had signs of old "mini-strokes" in the past. We are starting you back on ASA 81 mg ONCE a day. We are starting you back on Atorvastatin 20mg ONCE a day. We are starting you on B12 1,000 mcg ONCE a Day. Please take Cefuroxime 250mg TWICE a day for 1 Day. Please resume your home medications as prescribed. Please follow up with your PCP within 1 week. Please follow up with your Neurologist, Dr. Joe, within 1 week. Please return to the ED if you are having worsening weakness in your legs, numbness and tingling or any concerning symptoms. Referrals: David Joe MD [Staff Physician] - 1 Week Disposition: HALF-WAY FACILITY - Home Medications Comprehensive Discharge Medication List: Ambulatory Orders Amlodipine Besylate [Norvasc -] 5 mg PO DAILY 12/03/18 Atorvastatin Calcium [Lipitor] 20 mg PO DAILY 12/03/18 Nadolol [Corgard -] 40 mg PO DAILY 12/03/18 Pramipexole Dihydrochloride [Mirapex -] 0.25 mg PO HS 12/03/18 Aspirin [ASA -] 81 mg PO DAILY #0 tab.chew 12/05/18 Cefuroxime Axetil [Cefuroxime] 250 mg PO BID #2 tablet 12/05/18 Cyanocobalamin (Vitamin B-12) [B-12] 1,000 mcg PO DAILY #30 tablet 12/05/18 Lidocaine 5% Patch [Lidoderm -] 1 patch TP DAILY PRN patch 12/05/18
--- NOTE | 2018-12-05 14:53 | EKG ---
Test Reason : Blood Pressure : / mmHG Vent. Rate : 094 BPM Atrial Rate : 094 BPM P-R Int : 180 ms QRS Dur : 100 ms QT Int : 356 ms P-R-T Axes : 018 -13 005 degrees QTc Int : 445 ms NORMAL SINUS RHYTHM INCOMPLETE RIGHT BUNDLE BRANCH BLOCK WHEN COMPARED WITH ECG OF 02-DEC-2018 17:02, NON-SPECIFIC CHANGE IN ST SEGMENT IN INFERIOR LEADS INVERTED T WAVES HAVE REPLACED NONSPECIFIC T WAVE ABNORMALITY IN INFERIOR LEADS Confirmed by GONZALO GUNTER MD ([id number]) on 12/05/2018 2:52:47 PM Referred By: MARLEN MARS Confirmed By:GONZALO GUNTER MD
[2018-12-05 15:56] VITALS: BP 115/75; PULSE 96; TEMP 98.8
[2018-12-06] MEDS ORDERED: NADOLOL 20 MG TABLET (FP) PO SCH (10:00)
== END 2018-12-05 16:41 | DRG 77 ==
LOC: JER 11:49 → JERBED 18:19 → J8W 22:01 → J4W 23:22
DX: I67.4 Hypertensive encephalopathy (principal); I63.89 Other cerebral infarction; N39.0 Urinary tract infection, site not specified; R47.01 Aphasia; J84.9 Interstitial pulmonary disease, unspecified; I16.1 Hypertensive emergency; B96.4 Proteus (mirabilis) (morganii) as the cause of diseases classified elsewhere; R13.19 Other dysphagia; I10 Essential (primary) hypertension; E78.5 Hyperlipidemia, unspecified; R45.1 Restlessness and agitation; E66.9 Obesity, unspecified; Z68.25 Body mass index [BMI] 25.0-25.9, adult; R32 Unspecified urinary incontinence; M85.80 Other specified disorders of bone density and structure, unspecified site; M81.0 Age-related osteoporosis without current pathological fracture; K44.9 Diaphragmatic hernia without obstruction or gangrene; Z85.828 Personal history of other malignant neoplasm of skin; N83.201 Unspecified ovarian cyst, right side; G43.909 Migraine, unspecified, not intractable, without status migrainosus; M54.5 Low back pain; F32.9 Major depressive disorder, single episode, unspecified; Z86.73 Personal history of transient ischemic attack (TIA), and cerebral infarction without residual deficits
CPT/HCPCS: 36415; 70450-TC; 70551-TC; 71045-TC-FY; 71260-TC; 72100-TC-FY; 74177-TC; 80048; 80053; 80061; 81003; 82607; 82803; 83605; 83721; 83735; 83880; 84100; 84443; 84484; 85025; 85610; 85651; 85730; 86140; 86850; 86900; 86901; 87040; 87086; 87186; 87804; 93005; 93010; 93880-TC; 97116-GP; 97161-GP; 99285-25; J0131; J1644; J7030

== ENCOUNTER 2019-03-16 15:37 | Inpatient (IN) | payer OTHER, BC ==
--- NOTE | 2019-03-16 16:22 | PDOC ---
History of Present Illness - General Chief Complaint: Shortness of Breath Stated Complaint: BACK PAIN Time Seen by Provider: 03/16/19 16:21 - History of Present Illness Initial Comments: 03/16/19 17:24 HPI 83 year old woman with a history of HTN, HLD, vertebral compression fractures ( followed by Dr. Joe) baseline walks with a walker who presents with L hip and pelvic pain s/p a fall last night while getting up from the bed and walking to the bathroom. She reports that she was leaned on a door knob that was not closed and she fell backward and landed on your buttocks. She was unable to stand up and was on the ground for approx 2-3 hours. Her son found her and helped her up but noted that she had L leg weakness. She takes percocet for her back pain. She last took percocet at 1400. She endorses 12/10 pain to the L hip and pelvis. She dnies any chest pain. She reports occasional shortness of breath but nothing different from baseline. She has no other complaints. ROS GENERAL/CONSTITUTIONAL: No fever or chills. No weakness. HEAD, EYES, EARS, NOSE AND THROAT: No change in vision. No ear pain or discharge. No sore throat. CARDIOVASCULAR: No chest pain or shortness of breath RESPIRATORY: No cough, wheezing, or hemoptysis. GASTROINTESTINAL: No nausea, vomiting, diarrhea or constipation. GENITOURINARY: No dysuria, frequency, or change in urination. MUSCULOSKELETAL: See HPI SKIN: No rash NEUROLOGIC: No headache, vertigo, loss of consciousness, or change in strength/ sensation. PE GENERAL: Awake, alert, and fully oriented, in no acute distress HEAD: No signs of trauma, normocephalic, atraumatic EYES: EOMI, sclera anicteric, conjunctiva clear ENT: oropharynx clear without exudates. Moist mucosa NECK: Normal ROM, supple LUNGS: No distress, speaks full sentences, clear to auscultation bilaterally HEART: Regular rate and rhythm, normal S1 and S2, no murmurs, rubs or gallops, peripheral pulses normal and equal bilaterally. ABDOMEN: Soft, slight RUQ tenderness, no rebound. No masses EXTREMITIES : L hip tenderness to palpation, limited hip ROM 2/2 pain, FROM of the L knee, palpable pulses. NEUROLOGICAL: Cranial nerves II through XII grossly intact. Normal speech, no focal sensorimotor deficits SKIN: Warm, Dry, normal turgor, no rashes or lesions noted MDM 83 year old woman with a history of HTN, HLD, vertebral compression fractures ( followed by Dr. Joe) baseline walks with a walker who presents with L hip and pelvic pain s/p a fall last night while getting up from the bed and walking to the bathroom. DDX including but not limited to: L hip fx vs sprain r/o intracranial pathology r/o acs r/o infectious W/U: - cbc, cmp, trop, ekg, cxr, bnp, ua, ucrulture, XR hip and femur, CT spine, CT head TX: - tylenol ED Course: Ammontent satting 88 on RA, per son baseline, 3L NC for comfort labs largely wnl Head CT: chronic R cerebellar infarct, no acute findings CT spine: acute/subacute T7 vertebral body compression fx since 12/02/2018, chronic vertebral body compression on T5, T8, T9, T10, T11, T12, L1, L2 ABD pelvis CT: inferior and superior pubic rami fx patient discussed with resident Dr. Castellanos plan for admission Rosa Webster, PGY2 Emergency Medicine Past History - Past Medical History Allergies/Adverse Reactions: Allergies Allergy/AdvReac Type Severity Reaction Status Date / Time No Known Allergies Allergy Verified 06/04/15 15:52 Home Medications: Ambulatory Orders Amlodipine Besylate [Norvasc -] 5 mg PO DAILY 12/03/18 Atorvastatin Calcium [Lipitor] 20 mg PO DAILY 12/03/18 Nadolol [Corgard -] 40 mg PO DAILY 12/03/18 Pramipexole Dihydrochloride [Mirapex -] 0.25 mg PO HS 12/03/18 Aspirin [ASA -] 81 mg PO DAILY #0 tab.chew 12/05/18 Cefuroxime Axetil [Cefuroxime] 250 mg PO BID #2 tablet 12/05/18 Cyanocobalamin (Vitamin B-12) [B-12] 1,000 mcg PO DAILY #30 tablet 12/05/18 Lidocaine 5% Patch [Lidoderm -] 1 patch TP DAILY PRN patch 12/05/18 COPD: No GI Disorders: Yes ("STOMACHACHES-REFLUX") HTN: Yes Hypercholesterolemia: Yes - Suicide/Smoking/Psychosocial Hx Smoking Status: No Smoking History: Never smoked Have you smoked in the past 12 months: No Number of Cigarettes Smoked Daily: 0 Hx Alcohol Use: No Drug/Substance Use Hx: No Substance Use Type: None Hx Substance Use Treatment: No *Physical Exam - Vital Signs Last Vital Signs Temp Pulse Resp BP Pulse Ox 97.1 F L 76 28 H 152/78 92 L 03/16/19 15:43 03/16/19 15:43 03/16/19 15:43 03/16/19 15:43 03/16/19 15:43 ED Treatment Course - LABORATORY CBC & Chemistry Diagram: 03/16/19 16:50 03/16/19 16:50 *DC/Admit/Observation/Transfer Diagnosis at time of Disposition: Pubic ramus fracture - Discharge Dispostion Condition at time of disposition: Stable Decision to Admit order: Yes - Referrals - Patient Instructions - Post Discharge Activity
[2019-03-16] MEDS ORDERED: ACETAMINOPHEN 1000 MG/100 ML VIAL (NON FORMULARY) IVPB ONE (16:39)
[2019-03-16] MEDS ORDERED: ACETAMINOPHEN 500 MG TABLET (FP) PO ONE (16:56)
[2019-03-16] MEDS ORDERED: ACETAMINOPHEN 325 MG TABLET (FP) ONE (16:57)
[2019-03-16 17:14] LABS: BASO % 0.8 % (0-2.0); EOS % 1.7 % (0-4.5); HEMATOCRIT 36.6 % (32.4-45.2); HEMOGLOBIN 12.1 GM/dL (10.7-15.3); LYMPH % 11.9 % (8-40); MCH 30.1 pg (25.7-33.7); MCHC 33.1 g/dl (32.0-36.0); MEAN PLT VOLUME 7.6 fl (7.5-11.1); MONO % 6.6 % (3.8-10.2); PLATELET COUNT 261 K/MM3 (134-434); RBC 4.02 M/mm3 (3.60-5.2); RDW 15.4 % (11.6-15.6)
[2019-03-16 17:22] LABS: EPI CELLS 9.6 /HPF (0-5/HPF); HYALINE CASTS 125 /lpf (0-8); URINE APPEARANCE CLOUDY; URINE BACTERIA 3134.3 /hpf (NEGATIVE); URINE BILIRUBIN 1+ (NEGATIVE); URINE COLOR DK YELLOW; URINE GLUCOSE (UA) NEGATIVE (NEGATIVE); URINE KETONE TRACE (NEGATIVE); URINE LEUK ESTERASE TRACE (NEGATIVE); URINE NITRITE NEGATIVE (NEGATIVE); URINE PROTEIN TRACE (NEGATIVE); URINE RBC 4 /hpf (0-4); URINE WBC 0 /hpf (0-5)
[2019-03-16 17:24] LABS: INR 1.03 (0.83-1.09); PROTHROMBIN TIME (PATIENT) 12.1 SEC (9.7-13.0)
[2019-03-16 17:36] LABS: ALBUMIN 3.2 g/dl (3.4-5.0); BILIRUBIN,TOTAL 0.7 mg/dL (0.2-1); BLOOD UREA NITROGEN 22.8 mg/dL (7-18); CALCIUM 9.1 mg/dL (8.5-10.1); CREATININE 1.2 mg/dL (0.55-1.3); N-TERMINAL BNP 315.8 pg/ml (5-450); POTASSIUM 4.9 mmol/L (3.5-5.1); TOT PROT 6.1 g/dl (6.4-8.2)
--- NOTE | 2019-03-16 19:58 | PDOC ---
Documentation entered by Dominga Suarez SCRIBE, acting as scribe for Maricruz Persaud DO. Maricruz Persaud DO: This documentation has been prepared by the Daniela rose Adrianna, SCRIBE, under my direction and personally reviewed by me in its entirety. I confirm that the documentation accurately reflects all work, treatment, procedures, and medical decision making performed by me. Attending Attestation - Resident Resident Name: Rosa Webster - ED Attending Attestation I have performed the following: I have examined & evaluated the patient, The case was reviewed & discussed with the resident, I agree w/resident's findings & plan - HPI HPI: The patient is an 83 year old female, with a significant PMH of HTN, hypoglossal EMEA, osteoporosis, and vertebral compression fractures who presents to the ED for evaluation s/p unwitnessed fall last night. Patient notes she got up from bed to use the bathroom, when she fell onto her buttocks. Patient states she was on the floor for approximately 2-3 hours secondary to being unable to stand up. Her son found her on the floor and helped her get up, but reports she was having weakness of the left weakness. She endorses left hip and pelvic pain following the fall. Patient ambulates with a walker at baseline. Allergies: NKA, NKDA Surgical History: None reported Social History: Denies EtOH, tobacco, or illicit drug use PCP: Dr. Kelin Adhikari - Physicial Exam PE: Agree with resident exam. - Medical Decision Making 03/16/19 19:55 83 yo female s/p fall with left pelvic pain per family pt has ambulated independently since the fall plan for CT head/cspine c/a/p will likely admit even if negative for PT eval
--- NOTE | 2019-03-16 22:30 | PN ---
Teaching Attending Note Name of Resident: Emmy Rosario ATTENDING PHYSICIAN STATEMENT I saw and evaluated the patient. I reviewed the resident's note and discussed the case with the resident. I agree with the resident's findings and plan as documented. SUBJECTIVE: Patient is an 83 year old woman with a PMH of HTN, HLD, Osteoporosis and Vertebral compression fractures (followed by Dr. Joe) presents with left hip and pelvic pain after a fall last night while getting up from the bed and walking to the bathroom. Walks with a walker. Patient reports that she leaned on a door knob that was not closed and she fell backward and landed on your buttocks. She was unable to stand up and was on the ground for approx 2-3 hours. Her son found her and helped her up but noted that she had left leg weakness. She takes Percocet for her back pain. She last took Percocet at 1400. She has 12/10 pain to the left hip and pelvis. She denies any chest pain, fever , chills, nausea, vomiting, dysuria or diarrhea. She reports occasional shortness of breath but nothing different from baseline. Per family patient has ambulated independently since the fall. OBJECTIVE: Alert Vital Signs Period Temp Pulse Resp BP Sys/Vera Pulse Ox Last 24 Hr 97.1 F 76-82 18-28 132-152/78-84 92-98 HEENT: No Jaundice, eye redness or discharge, PERRLA, EOMI. Deformed nose. Normocephalic, atraumatic. External ears are normal and hearing is grossly intact. No nasal discharge. Neck: Supple, nontender. No palpable adenopathy or thyromegaly. No JVD Chest: Good effort. Clear to auscultation and percussion. Heart: Regular. No S3, rub or murmur Abdomen: Not distended, soft, nontender and no HSM. No rebound or guarding. Normal bowel sounds. Ext: Peripheral pulses intact. No leg edema. Left hip tenderness and reduced range of motion. Distal sensory and motor function intact. Skin: Warm and dry. No petechiae, rash or ecchymosis. Neuro: Alert. Oriented x3. CN 2-12 grossly intact. Sensation grossly intact in all four extremities and DTR are symmetric. Psych: Appropriate mood and affect. Good insight. Home Medications Medication Instructions Recorded Amlodipine Besylate [Norvasc -] 5 mg PO DAILY 12/03/18 Atorvastatin Calcium [Lipitor] 20 mg PO DAILY 12/03/18 Nadolol [Corgard -] 40 mg PO DAILY 12/03/18 Pramipexole Dihydrochloride 0.25 mg PO HS 12/03/18 [Mirapex -] Aspirin [ASA -] 81 mg PO DAILY #0 tab.chew 12/05/18 Cefuroxime Axetil [Cefuroxime] 250 mg PO BID #2 tablet 12/05/18 Cyanocobalamin (Vitamin B-12) 1,000 mcg PO DAILY #30 tablet 12/05/18 [B-12] Lidocaine 5% Patch [Lidoderm -] 1 patch TP DAILY PRN patch 12/05/18 Abnormal Lab Results 03/16/19 03/16/19 03/16/19 16:50 16:50 17:05 WBC 12.0 H Absolute Neuts (auto) 9.5 H Anion Gap 7 L BUN 22.8 H Random Glucose 112 H Total Protein 6.1 L Albumin 3.2 L Urine Ketones Trace H Urine Bilirubin 1+ H ASSESSMENT AND PLAN: 1. Fall/Pubic Rami Fracture - Falls likely mechanical. Pelvic CT showed Pubic rami fracture with associated hematoma. Noncontrast Head CT showed chronic right cerebellar infarct, but no acute abnormality. CT of the spine showed acute /subacute T7 vertebral body compression fx since 12/02/2018, chronic vertebral body compression on T5, T8, T9, T10, T11, T12, L1, L2. Will use tylenol to control pain and consult Ortho and PT. Will repeat CT pelvis/abdomen in 24 hours to assess the hematoma. Will continue comprehensive care of all her comorbid conditions. Leukocytosis likely stress related - will repeat. 2. Hypoalbuminemia - Possibly due to combined effects of malnutrition and inflammation associated with comorbid chronic conditions. Will ensure adequate dietary protein intake and also consult cruise coordinator. 3. Obesity Counseled on the risks associated with obesity. Will provide patient all the necessary assistance, counseling and positive reinforcement to facilitate weight loss. Consult cruise coordinator. 4. Hypertension - Restart suitable outpatient antihypertensive drugs when clinically appropriate. Revise regimen to ensure [id number] excellent BP control and executive assistant to general counsel patient on the injurious effects of uncontrolled hypertension. Nonpharmacologic measures to control hypertension like weight loss , salt restriction and exercise discussed. Importance of adherence to treatment regimen and attainment of normotension emphasized. 5. DVT prophylaxis - Her hematocrit is stable for now, so will use Lovenox 40 mg SQ q 24 hours. 6. Advance directives - Full code
--- NOTE | 2019-03-16 23:39 | HP ---
CHIEF COMPLAINT: L hip pain s/p fall PCP: Dr. Adhikari Neurology: Dr. Joe HISTORY OF PRESENT ILLNESS: Patient is an 83 year old female with PMH of HTN, HLD, multiple chronic vertebral compression fractures, who presents with L hip and pelvic pain s/p fall last night. Pt was getting up to go to the bathroom around midnight. She leaned on the door knob that was not closed and fell through, landing on her buttocks. She was unable to stand up after the fall and was on the ground for 2 hours before her son found her and helped her back to bed. Pt denies hitting her head and denies LOC. She complains of LLE weakness and severe L hip and pelvic pain, exacerbated by movement. She typically amblulates well with a walker, but is unable to bear weight or ambulate since the fall. No numbness or tingling in her lower extremities. She denies any recent urinary symptoms and denies any incontinence or hematuria since the fall. She had no pre-syncopal symptoms (chest pain, palpitations, SOB, lightheadedness or dizziness). Pt does not have a history of falls. ER course was notable for: (1) CTAP: acue fx in L superior and inferior pubic rami, associated acute extraperitoneal hematoma (2) CT spine: Acute/subacute T7 verteral body compression fx not seen on prior imaging. Unchanged chronic vertebral body compression fx's at T5, T8-L2. (3) CT head: neg Recent Travel: denies PAST MEDICAL HISTORY: HTN HLD Chronic vertebral compression fractures (follows up with Dr. Joe) PAST SURGICAL HISTORY: Tonsillectomy Social History: Smoking: denies Alcohol: occasional Drugs: denies Family History: Denies a significant family medical hx Allergies No Known Allergies Allergy (Verified 06/04/15 15:52) HOME MEDICATIONS: Home Medications Medication Instructions Recorded Amlodipine Besylate [Norvasc -] 5 mg PO DAILY 12/03/18 Atorvastatin Calcium [Lipitor] 20 mg PO DAILY 12/03/18 Nadolol [Corgard -] 40 mg PO DAILY 12/03/18 Pramipexole Dihydrochloride 0.25 mg PO HS 12/03/18 [Mirapex -] Aspirin [ASA -] 81 mg PO DAILY #0 tab.chew 12/05/18 Cefuroxime Axetil [Cefuroxime] 250 mg PO BID #2 tablet 12/05/18 Cyanocobalamin (Vitamin B-12) 1,000 mcg PO DAILY #30 tablet 12/05/18 [B-12] Lidocaine 5% Patch [Lidoderm -] 1 patch TP DAILY PRN patch 12/05/18 REVIEW OF SYSTEMS CONSTITUTIONAL: Absent: fever, chills, diaphoresis, generalized weakness, malaise, loss of appetite, weight change HEENT: Absent: rhinorrhea, nasal congestion, throat pain, throat swelling, difficulty swallowing, mouth swelling, ear pain, eye pain, visual changes CARDIOVASCULAR: Absent: chest pain, syncope, palpitations, irregular heart rate, lightheadedness , peripheral edema RESPIRATORY: Absent: cough, shortness of breath, dyspnea with exertion, orthopnea, wheezing, stridor, hemoptysis GASTROINTESTINAL: Absent: abdominal pain, abdominal distension, nausea, vomiting, diarrhea, constipation, melena, hematochezia GENITOURINARY: Absent: dysuria, frequency, urgency, hesitancy, hematuria, flank pain, genital pain MUSCULOSKELETAL: L hip pain Absent: myalgia, arthralgia, joint swelling, back pain, neck pain SKIN: Absent: rash, itching, pallor HEMATOLOGIC/IMMUNOLOGIC: Absent: easy bleeding, easy bruising, lymphadenopathy, frequent infections ENDOCRINE: Absent: unexplained weight gain, unexplained weight loss, heat intolerance, cold intolerance NEUROLOGIC: Absent: headache, focal weakness or paresthesias, dizziness, unsteady gait, seizure, mental status changes, bladder or bowel incontinence PSYCHIATRIC: Absent: anxiety, depression, suicidal or homicidal ideation, hallucinations. PHYSICAL EXAMINATION Vital Signs - 24 hr 03/16/19 03/16/19 15:43 20:43 Temperature 97.1 F L Pulse Rate 76 Pulse Rate [ 82 Right Radial] Respiratory 28 H 18 Rate Blood Pressure 152/78 Blood Pressure 132/84 [Right Arm] O2 Sat by Pulse 92 L 98 Oximetry (%) GENERAL: Awake, alert, and fully oriented, in no acute distress. Breathing on 3L NC. HEAD: Normal with no signs of trauma. EYES: Pupils equal, round and reactive to light, extraocular movements intact, sclera anicteric, conjunctiva clear. No lid lag. EARS, NOSE, THROAT: Ears normal, nares patent, oropharynx clear without exudates. Moist mucous membranes. R nostril is deformed from prior skin biopsy. NECK: Normal range of motion, supple without lymphadenopathy, JVD, or masses. LUNGS: Breath sounds equal, clear to auscultation bilaterally. No wheezes, and no crackles. No accessory muscle use. HEART: Regular rate and rhythm, normal S1 and S2 without murmur, rub or gallop. ABDOMEN: Soft, nontender, not distended, normoactive bowel sounds, no guarding, no rebound, no masses. No hepatomegaly or splenomegaly. MUSCULOSKELETAL: No bony deformities. No CVA tenderness. Decreased ROM in LLE. Tenderness to palpation at L hip and pelvic area. UPPER EXTREMITIES: 2+ pulses, warm, well-perfused. No cyanosis. No clubbing. No peripheral edema. LOWER EXTREMITIES: 2+ pulses, warm, well-perfused. No calf tenderness. No peripheral edema. 5/5 strength in BL dorsi- and plantar flex, 2/5 strength at L hip flexion, 4/5 R hip flexion. Sensation intact and equal BL. NEUROLOGICAL: Cranial nerves II-XII intact. Normal speech. Gait not observed. PSYCHIATRIC: Cooperative. Good eye contact. Appropriate mood and affect. SKIN: Warm, dry, normal turgor, no rashes or lesions noted, normal capillary refill. Laboratory Results - last 24 hr CBC, BMP 03/16/19 16:50 03/16/19 16:50 Urine Test Results Urine Color Dk yellow Urine Appearance Cloudy Urine pH 5.0 (5.0-8.0) D Ur Specific [place] 1.031 (1.010-1.035) Urine Protein Trace (NEGATIVE) Urine Glucose (UA) Negative (NEGATIVE) Urine Ketones Trace (NEGATIVE) H Urine Blood Negative (NEGATIVE) Urine Nitrite Negative (NEGATIVE) Urine Bilirubin 1+ (NEGATIVE) H Ur Leukocyte Esterase Trace (NEGATIVE) ASSESSMENT/PLAN: Patient is an 83 year old female with PMH of HTN, HLD, multiple chronic vertebral compression fractures, who presents with L hip and pelvic pain s/p fall last night. #Fall Likely mechanical given pt's story. No pre-syncopal symptoms. Pt does not show any signs of infection (UTI) that could cause fall. No prior hx of falls. On review of meds, no medication side effects for fall are noted, but will med rec in am. PT eval in am to discuss possible rehab Pt's leukocytosis (WBC: 12) likely reactive #Pelvic fracture CTAP: acute fx in L superior and inferior pubic rami, associated acute extraperitoneal hematoma Consulting ortho for evaluation of fx in am and whether surgery is necessary Recommend repeat CT tomorrow to assess for extension of extraperitoneal hematoma Continuous bedrest and fall precautions Pt is on percocet 5mg at home for chronic back pain, will cont for pain control #Vertebral compression fractures Pt has history of multiple chronic vertebral compression fractures. Follows up with Dr. Joe CT spine: Acute/subacute T7 verteral body compression fx not seen on prior imaging. Unchanged chronic vertebral body compression fx's at T5, T8-L2 With new T7 fx, will have Dr. Joe see her in am Pt is on percocet 5mg at home for chronic back pain, will cont for pain control #HTN Cont home meds: nadolol 40mg daily #HLD Cont home meds: lipitor 20mg daily #FEN IV NS @ 42ml/hr (given mildly elevated BUN and Cr) Sodium-controlled diet #DVT ppx Lovenox 40mg SQ #Dispo Monitor on med-surg Visit type - Emergency Visit Emergency Visit: Yes ED Registration Date: 03/16/19 Care time: The patient presented to the Emergency Department on the above date and was hospitalized for further evaluation of their emergent condition. - New Patient This patient is new to me today: Yes Date on this admission: 03/17/19 - Critical Care Critical Care patient: No ATTENDING PHYSICIAN STATEMENT I saw and evaluated the patient. I reviewed the resident's note and discussed the case with the resident. I agree with the resident's findings and plan as documented. SUBJECTIVE: OBJECTIVE: ASSESSMENT AND PLAN:
[2019-03-17] MEDS: SODIUM CHLORIDE 1,000 ML IV SCH (00:30)
[2019-03-17] MEDS ORDERED: ACETAMINOPHEN 325 MG TABLET (FP) ONE (00:39)
[2019-03-17] MEDS ORDERED: oxyCODONE HCL 5 MG TABLET PO ONE (01:17)
[2019-03-17] MEDS ORDERED: ACETAMINOPHEN 325 MG TABLET (FP) PO ONE (01:18)
[2019-03-17] MEDS: ACETAMINOPHEN 325 MG TABLET (FP) PO PRN ×2 (01:49→22:12)
[2019-03-17 07:53] LABS: BASO % 0.9 % (0-2.0); EOS % 3.2 % (0-4.5); HEMATOCRIT 35.8 % (32.4-45.2); HEMOGLOBIN 11.8 GM/dL (10.7-15.3); LYMPH % 11.4 % (8-40); MCH 30.7 pg (25.7-33.7); MCHC 32.9 g/dl (32.0-36.0); MEAN CELL VOLUME 93.2 fl (80-96); MEAN PLT VOLUME 7.7 fl (7.5-11.1); NEUT % 77.5 % (42.8-82.8); PLATELET COUNT 222 K/MM3 (134-434); RBC 3.84 M/mm3 (3.60-5.2); RDW 15.1 % (11.6-15.6)
[2019-03-17 08:00] LABS: BILIRUBIN,TOTAL 0.9 mg/dL (0.2-1); BLOOD UREA NITROGEN 26.8 mg/dL (7-18); CALCIUM 8.9 mg/dL (8.5-10.1); CREATININE 1.2 mg/dL (0.55-1.3); POTASSIUM 4.6 mmol/L (3.5-5.1); TOT PROT 6.1 g/dl (6.4-8.2)
[2019-03-17] MEDS ORDERED: ENOXAPARIN NA (PORCINE) 40 MG/0.4 ML DISP.SYRIN SQ SCH (10:00)
[2019-03-17] MEDS: NADOLOL 40 MG TABLET (FP) PO SCH (10:00)
[2019-03-17] MEDS: ASPIRIN 81 MG CHEWABLE TABLETS PO SCH (10:00)
[2019-03-17] MEDS: amLODIPine BESYLATE 5 MG TABLET (FP) PO SCH (10:00)
--- NOTE | 2019-03-17 12:05 | CONSULT ---
Consult - text type - Consultation Consultation Note: ORTHOPEDIC SURGERY CONSULTATION NOTE Department of Orthopedic Surgery HISTORY OF PRESENT ILLNESS Ms. Ponce is a 83 year old female with PMH of HTN, HLD, multiple chronic vertebral compression fractures, who presents with L hip and pelvic pain s/p fall last night. She presents to [facility] with a left superior/inferior pubic rami fracture. The injury occurred yesterday after a mechanical fall onto her buttocks. The patient notes pain in the left side of her pelvis, and difficulty ambulating. Denies any other injuries. Denies numbness, tingling or other constitutional complaints. The patient is retired. Denies tobacco use, drug use , alcohol abuse. The patient lives with her son at home, and uses a walker for assistive devices at baseline. FAMILY HISTORY non-contributory REVIEW OF SYMPTOMS A twelve-point review of systems was performed and was negative except as noted in HPI. PHYSICAL EXAM Constitutional: Alert and oriented to person, place, and time. Appears well- developed and well-nourished. No acute distress, appropriate mood and affect. Right Upper Extremity: Skin warm, dry, and intact; no lesions, rashes or ulcers noted. Muscle mass equal and symmetric to contralateral side. No atrophy noted. No masses or effusions noted. No tenderness to palpation all joints; nontender throughout rest of extremity. Full passive and active ROM, free from pain. Joints stable with no pathologic laxity. M/R/U/MSK/AX motor intact; SILT distally; 2+ radial pulses; Cap refill brisk. Tone and reflexes normal. Left Upper Extremity: Skin warm, dry, and intact; no lesions, rashes or ulcers noted. Muscle mass equal and symmetric to contralateral side. No atrophy noted. No masses or effusions noted. No tenderness to palpation all joints; nontender throughout rest of extremity. Full passive and active ROM, free from pain. Joints stable with no pathologic laxity. M/R/U/MSK/AX motor intact; SILT distally; 2+ radial pulses; Cap refill brisk. Tone and reflexes normal. Right Lower Extremity: Skin warm, dry, and intact; no lesions, rashes or ulcers noted. Muscle mass equal and symmetric to contralateral side. No atrophy noted. No masses or effusions noted. No tenderness to palpation all joints; nontender throughout rest of extremity. No cords or calf tenderness No significant calf/ankle edema. Full passive and active ROM, free from pain. Patient is able to SLR with mild discomfort in the left side of her pelvis. Negative log roll test. Joints stable with no pathologic laxity. EHL/TA/GS motor intact; SILT distally; 2+ DP pulses; Cap refill brisk. Tone and reflexes normal. Left Lower Extremity: Skin warm, dry, and intact; no lesions, rashes or ulcers noted. Muscle mass equal and symmetric to contralateral side. No atrophy noted. No masses or effusions noted. Tender to palpation at tge left pelvis near pubic bone; nontender throughout rest of extremity. No cords or calf tenderness No significant calf/ankle edema. Full passive and active ROM of the knee, ankle , and toes, free from pain. Unable to SLR; Negative log roll test. Joints stable with no pathologic laxity. EHL/TA/GS motor intact; SILT distally; 2+ DP pulses; Cap refill brisk. Tone and reflexes normal. Social History Smoking history Never smoked Aproximately how many 0 cigarettes per day Hx Alcohol Use No Allergies Allergy/AdvReac Type Severity Reaction Status Date / Time No Known Allergies Allergy Verified 06/04/15 15:52 Active Medications Generic Name Dose Route Start Last Admin Trade Name Freq PRN Reason Stop Dose Admin Acetaminophen 650 mg 03/16/19 23:28 03/17/19 01:49 Tylenol - PO 325 mg Q6H PRN Administration PAIN LEVEL 4 - 6 Amlodipine Besylate 5 mg 03/17/19 10:00 03/17/19 10:00 Norvasc - PO 5 mg DAILY BHAVYA Administration Aspirin 81 mg 03/17/19 10:00 03/17/19 10:00 Asa - PO 81 mg DAILY BHAVYA Administration Atorvastatin Calcium 20 mg 03/17/19 22:00 Lipitor - PO HS BHAVYA Enoxaparin Sodium 40 mg 03/17/19 10:00 03/17/19 10:00 Lovenox - SQ 40 mg DAILY BHAVYA Administration Sodium Chloride 1,000 mls @ 42 mls/hr 03/16/19 23:30 03/17/19 00:30 Normal Saline - IV 42 mls/hr ASDIR BHAVYA Administration Nadolol 40 mg 03/17/19 10:00 03/17/19 10:00 Corgard - PO 40 mg DAILY BHAVYA Administration Pramipexole Dihydrochloride 0.25 mg 03/17/19 22:00 Mirapex - PO HS BHAVYA Vital Signs (last) Temp Pulse Resp BP Pulse Ox 98.4 F 71 18 158/80 97 03/17/19 09:15 03/17/19 09:15 03/17/19 09:15 03/17/19 09:15 03/17/19 09:15 Intake and Output 03/15/19 03/16/19 03/17/19 23:59 23:59 23:59 Other: Voiding Method Bedpan Weight 343 lb 14.738 oz Height 5 ft 6 in Body Mass Index (BMI) 55.5 Laboratory 03/17/19 07:06 03/17/19 07:00 PT with INR 12.10 SEC (9.7-13.0) 03/16/19 16:50 PTT (Actin FS) 32.3 SECONDS (25.2-36.5) 03/16/19 16:50 IMAGING I personally reviewed all radiographs, CT, and other imaging. They demonstrate a left superior/inferior pubic rami fracture, minimally displaced. There is also an acute/subacute T7 VCF. ASSESSMENT AND PLAN Ms. Ponce is a 83 year old female presenting status post mechanical fall with a left sided superior/inferior pubic rami fracture. There is also a T7 VCF; We have reviewed the imaging and clinical findings in detail, as well as their potential implications. After appropriate informed discussion, we agreed on the following plan: 1. Pain control 2. DVT ppx 3. WBAT b/l LE 4. Recommend neurosurgery consult for T7 VCF 5. Recommend urology consult for intrapelvic hematoma with effacement of bladder 6. No further orthopedic intervention at this time. All questions were answered. Thank you for involving our team in the care of this patient. Please have patient follow up in our office in 1-2 weeks . Please have the patient obtain Pelvic X-rays prior to office appointment after discharge from the hospital, and bring CD with images to her visit.
[2019-03-17 12:35] VITALS: BMI 24.0
--- NOTE | 2019-03-17 13:03 | PN ---
Physical Exam: SUBJECTIVE: 83 y/o F w PMH HTN, HLD, multiple vertebral compression fractures, whom presented to the ED w LEFT hip, pelvic, and inguinal pain s/p mechanical fall at home. Pt leaned on open door and fell on her buttocks. NO LOC, syncope, pre-syncope, and head trauma. She states her LEFT leg hurts w movement but has no pain otherwise. She reports she has NO loss of sensation. She denies numbness , tingling, and external bleeding. CT on admission demonstrates LEFT superior and inferior pubic rami with acute extraperitoneal hematoma. She denies stool and urinary incontinence, and NVFD. OBJECTIVE: Vital Signs Temp Pulse Resp BP Pulse Ox 98.5 F 71 18 158/80 96 03/17/19 11:55 03/17/19 09:15 03/17/19 11:55 03/17/19 09:15 03/17/19 11:55 GENERAL: Awake, alert, and fully oriented, in no acute distress. HEAD: Normal with no signs of trauma. EYES: YOVANI, EOMI, sclera anicteric, conjunctiva clear. No lid lag. EARS, NOSE, THROAT: Ears normal, nares patent, oropharynx clear without exudates. Moist mucous membranes. RIGHT nostril is deformity. NECK: Normal range of motion, supple without lymphadenopathy, JVD, or masses. LUNGS: Breath sounds equal, clear to auscultation bilaterally. No wheezes, and no crackles. No accessory muscle use. HEART: RRR, normal S1 and S2 without murmur, rub or gallop. ABDOMEN: Soft, tender medially in lower quadrants, not distended, normoactive bowel sounds, no guarding, no rebound, no masses. No hepatomegaly or splenomegaly. MUSCULOSKELETAL: No bony deformities. No CVA tenderness. Decreased ROM in LEFT LE. Tenderness to palpation at LEFT hip and pelvic area. UPPER EXTREMITIES: 2+ pulses, warm, well-perfused. No cyanosis. No clubbing. No peripheral edema. LOWER EXTREMITIES: 2+ pulses, warm, well-perfused. No calf tenderness. No peripheral edema. 5/5 strength in BL dorsi- and plantar flex, 2/5 strength at LEFT hip flexion, 4/5 RIGHT hip flexion. Sensation intact and equal BL. NEUROLOGICAL: Cranial nerves III-XII intact. Normal speech. Gait not observed. PSYCHIATRIC: Cooperative. Good eye contact. Appropriate mood and affect. SKIN: Diffuse solar lentigines. Warm, dry, normal turgor, no rashes or lesions noted, normal capillary refill. Laboratory Results - last 24 hr 03/16/19 03/16/19 03/16/19 16:50 16:50 16:50 WBC 12.0 H RBC 4.02 Hgb 12.1 Hct 36.6 MCV 91.0 MCH 30.1 MCHC 33.1 RDW 15.4 Plt Count 261 D MPV 7.6 Absolute Neuts (auto) 9.5 H Neutrophils % 79.0 Lymphocytes % 11.9 Monocytes % 6.6 Eosinophils % 1.7 Basophils % 0.8 Nucleated RBC % 0 PT with INR 12.10 INR 1.03 PTT (Actin FS) Sodium 139 Potassium 4.9 Chloride 107 Carbon Dioxide 26 Anion Gap 7 L BUN 22.8 H Creatinine 1.2 Est GFR (CKD-EPI)AfAm 47.72 Est GFR (CKD-EPI)NonAf 41.18 Random Glucose 112 H Calcium 9.1 Total Bilirubin 0.7 AST 18 ALT 23 Alkaline Phosphatase 90 Troponin I 0.04 B-Natriuretic Peptide 315.8 Total Protein 6.1 L Albumin 3.2 L Urine Color Urine Appearance Urine pH Ur Specific [place] Urine Protein Urine Glucose (UA) Urine Ketones Urine Blood Urine Nitrite Urine Bilirubin Urine Urobilinogen Ur Leukocyte Esterase Urine WBC (Auto) Urine RBC (Auto) Urine Casts (Auto) U Pathogenic Cast Auto U Epithel Cells (Auto) Urine Bacteria (Auto) 03/16/19 03/16/19 03/17/19 16:50 17:05 07:00 WBC RBC Hgb Hct MCV MCH MCHC RDW Plt Count MPV Absolute Neuts (auto) Neutrophils % Lymphocytes % Monocytes % Eosinophils % Basophils % Nucleated RBC % PT with INR INR PTT (Actin FS) 32.3 Sodium 142 Potassium 4.6 Chloride 109 H Carbon Dioxide 25 Anion Gap 8 BUN 26.8 H Creatinine 1.2 Est GFR (CKD-EPI)AfAm 47.72 Est GFR (CKD-EPI)NonAf 41.18 Random Glucose 100 Calcium 8.9 Total Bilirubin 0.9 AST 19 ALT 20 Alkaline Phosphatase 87 Troponin I B-Natriuretic Peptide Total Protein 6.1 L Albumin 3.0 L Urine Color Dk yellow Urine Appearance Cloudy Urine pH 5.0 D Ur Specific [place] 1.031 Urine Protein Trace Urine Glucose (UA) Negative Urine Ketones Trace H Urine Blood Negative Urine Nitrite Negative Urine Bilirubin 1+ H Urine Urobilinogen 1.0 Ur Leukocyte Esterase Trace Urine WBC (Auto) 0 Urine RBC (Auto) 4 Urine Casts (Auto) 125 U Pathogenic Cast Auto None seen U Epithel Cells (Auto) 9.6 Urine Bacteria (Auto) 3134.3 03/17/19 07:06 WBC 10.0 RBC 3.84 Hgb 11.8 Hct 35.8 MCV 93.2 MCH 30.7 MCHC 32.9 RDW 15.1 Plt Count 222 MPV 7.7 Absolute Neuts (auto) 7.8 Neutrophils % 77.5 Lymphocytes % 11.4 Monocytes % 7.0 Eosinophils % 3.2 D Basophils % 0.9 Nucleated RBC % 0 PT with INR INR PTT (Actin FS) Sodium Potassium Chloride Carbon Dioxide Anion Gap BUN Creatinine Est GFR (CKD-EPI)AfAm Est GFR (CKD-EPI)NonAf Random Glucose Calcium Total Bilirubin AST ALT Alkaline Phosphatase Troponin I B-Natriuretic Peptide Total Protein Albumin Urine Color Urine Appearance Urine pH Ur Specific [place] Urine Protein Urine Glucose (UA) Urine Ketones Urine Blood Urine Nitrite Urine Bilirubin Urine Urobilinogen Ur Leukocyte Esterase Urine WBC (Auto) Urine RBC (Auto) Urine Casts (Auto) U Pathogenic Cast Auto U Epithel Cells (Auto) Urine Bacteria (Auto) Active Medications Acetaminophen (Tylenol -) 650 mg PO Q6H PRN PRN Reason: PAIN LEVEL 4 - 6 Last Admin: 03/17/19 01:49 Dose: 325 mg Amlodipine Besylate (Norvasc -) 5 mg PO DAILY [facility] Last Admin: 03/17/19 10:00 Dose: 5 mg Aspirin (Asa -) 81 mg PO DAILY [facility] Last Admin: 03/17/19 10:00 Dose: 81 mg Atorvastatin Calcium (Lipitor -) 20 mg PO [facility] Enoxaparin Sodium (Lovenox -) 40 mg SQ DAILY [facility] Last Admin: 03/17/19 10:00 Dose: 40 mg Sodium Chloride (Normal Saline -) 1,000 mls @ 42 mls/hr IV ASDIR [facility] Last Admin: 03/17/19 00:30 Dose: 42 mls/hr Nadolol (Corgard -) 40 mg PO DAILY [facility] Last Admin: 03/17/19 10:00 Dose: 40 mg Pramipexole Dihydrochloride (Mirapex -) 0.25 mg PO HS BHAVYA ASSESSMENT/PLAN: 83 y/o F w PMH HTN, HLD, multiple vertebral compression fractures, whom presented to the ED w LEFT hip, pelvic, and inguinal pain s/p fall at home, and CT finding of pubic rami fracture with extraperitoneal hematoma admitted for mechanical fall. # Mechanical fall, pelvic fx, and hematoma - Mechanical fall w NO LOC, syncope, pre-syncope, and head trauma. - CT: Acute fx in LEFT superior & inferior pubic rami, acute extraperitoneal hematoma. T7 VCF new - Ortho on board (Dr. Mcgregor). Agreed on plan for pain control, WBAT b/l LE, neurosurgery consult rec for T7 VCF, urology consult for intrapelvic hematoma w effacement of bladder. Otherwise no further surgical intervention advised. f/u in ortho office in 1-2 W. - Pt wetting pull-up/Depends well. Bladder scan 178 cc - Pt agrees to rehab - Pt's leukocytosis (WBC: 12) likely reactive - CT in 24 hours to assess for evolution of extraperitoneal hematoma - Cont. bedrest and fall precautions - Cont. percocet for pain, [place], (pt is on percocet 5mg at home for chronic back pain; known pt of Dr. Joe) #HTN - Cont. nadolol 40mg QD #HLD - Cont. Lipitor 20mg QD #F/E/N - IV NS @ 42ml/hr (given mildly elevated BUN and Cr) - Sodium-controlled diet #DVT ppx - SCD Yuniel Petty MD Visit type - Emergency Visit Emergency Visit: No - New Patient This patient is new to me today: No - Critical Care Critical Care patient: No - Discharge Referral Referred to [facility] Med [facility] No ATTENDING PHYSICIAN STATEMENT I saw and evaluated the patient. I reviewed the resident's note and discussed the case with the resident. I agree with the resident's findings and plan as documented. SUBJECTIVE: OBJECTIVE: ASSESSMENT AND PLAN:
--- NOTE | 2019-03-17 15:05 | PN ---
Teaching Attending Note Name of Resident: Yuniel Petty ATTENDING PHYSICIAN STATEMENT I saw and evaluated the patient. I reviewed the resident's note and discussed the case with the resident. I agree with the resident's findings and plan as documented. SUBJECTIVE:c/o suprapubic tenderness. very adamant she wont do any surgeries. denies Cp, SOB, fever, chills, N/V/C/D staets she takes motrin once or twice a week as needed for pain. does not take asa or other products OBJECTIVE: Last Vital Signs Temp Pulse Resp BP Pulse Ox 98.5 F 68 20 143/73 96 03/17/19 11:55 03/17/19 11:55 03/17/19 11:55 03/17/19 11:55 03/17/19 11:55 General NAD CV S1 S2 RRR lungs CTA Anteriorly Abdomen +suprapubic tenderness no rebound or guarding soft Extremities no pedal edema ASSESSMENT AND PLAN: 83yo F wtih PMH HTN. osteoporosis, dyslipidemia, vertebral compression fractures presented to the ER after mechanical fall and found to have pelvic rami fracture with hematoma 1. pelvic rami fracture- due to mechanical fall. likely no intervention. awaiting ortho recommendations for weight bearing status. pain control 2. pelvic hematoma- likely due to fall. will repeat imaging to see if increasing. check bladder scan as imaging states its pressing on bladder but pt has no urinary symptoms. trend Hgb. if worsening will need urology vs IR for intervention 3. LLL nodule- will need repeat CT chest in 3-6months 4. R ovarin cyst- can workup as outpatient 5. HTN- controlled. cont home medication 6. dyslipidemia- statin 7. DVT ppx- EAM 8. will need EMILEE when medically cleared. spoke with SHANELLE about sending out ROSE
--- NOTE | 2019-03-17 16:13 | EKG ---
Test Reason : Blood Pressure : / mmHG Vent. Rate : 078 BPM Atrial Rate : 078 BPM P-R Int : 174 ms QRS Dur : 092 ms QT Int : 374 ms P-R-T Axes : -05 -18 005 degrees QTc Int : 426 ms NORMAL SINUS RHYTHM NORMAL ECG WHEN COMPARED WITH ECG OF 05-DEC-2018 09:03, NONSPECIFIC T WAVE ABNORMALITY NOW EVIDENT IN ANTERIOR LEADS Confirmed by MD ANTONIO, VERO ([id number]) on 03/17/2019 4:13:03 PM Referred By: Confirmed By:VERO ALVAREZ MD
--- NOTE | 2019-03-17 18:09 | CON.NEURO ---
Consult - History of Present Illness History of Present Illness: Neurology Coverage for DR FUENTES 83 year old female with PMH of HTN, HLD, multiple chronic vertebral compression fractures, who presents with L hip and pelvic pain s/p fall last night. Pt was getting up to go to the bathroom around midnight. She leaned on the door knob that was not closed and fell through, landing on her buttocks. She was unable to stand up after the fall and was on the ground for 2 hours before her son found her and helped her back to bed. Pt denies hitting her head and denies LOC. She complains of LLE weakness and severe L hip and pelvic pain, exacerbated by movement. She typically amblulates well with a walker, but is unable to bear weight or ambulate since the fall. No numbness or tingling in her lower extremities. She denies any recent urinary symptoms and denies any incontinence or hematuria since the fall. She had no pre-syncopal symptoms ( chest pain, palpitations, SOB, lightheadedness or dizziness). Pt does not have a history of falls. CT SPINE Impression: No cervical spine fracture is identified. In comparison to a chest CT exam of 12/02/2018 interval development of an acute/subacute marked T7 vertebral body compression fracture is noted with mild bony retropulsion. Moderate to marked unchanged chronic vertebral body compression fractures are seen at levels T5, T8 , T9, T10, T11, T12, L1 and L2. CT ABD PELVIS Impression: Mildly diminished size of an acute extraperitoneal hematoma is noted within the left lower pelvis currently measuring 11 x 5 x 3 cm, previously 11 x 5 x 4 cm. A small amount of left-sided extraperitoneal hematoma is seen ventrally without interval change. Acute left superior and inferior pubic rami are again visualized. Note is again made of a small amount of presacral soft tissue edema. 3.7 cm right adnexal cyst without obvious interval change. Correlation with 3 month follow-up CT or sonography is suggested to document continued stability. Large hiatal hernia. Multilevel thoracolumbar vertebral body compression fractures. Please refer to the thoracolumbar spine CT reports of 03/16/2019 in this regard. - Alcohol/Substance Use Hx Alcohol Use: No - Smoking History Smoking history: Never smoked Have you smoked in the past 12 months: No Aproximately how many cigarettes per day: 0 Home Medications - Allergies Allergies/Adverse Reactions: Allergies Allergy/AdvReac Type Severity Reaction Status Date / Time No Known Allergies Allergy Verified 06/04/15 15:52 - Home Medications Home Medications: Ambulatory Orders Amlodipine Besylate [Norvasc -] 5 mg PO DAILY 12/03/18 Atorvastatin Calcium [Lipitor] 20 mg PO DAILY 12/03/18 Nadolol [Corgard -] 40 mg PO DAILY 12/03/18 Pramipexole Dihydrochloride [Mirapex -] 0.25 mg PO HS 12/03/18 Aspirin [ASA -] 81 mg PO DAILY #0 tab.chew 12/05/18 Cefuroxime Axetil [Cefuroxime] 250 mg PO BID #2 tablet 12/05/18 Cyanocobalamin (Vitamin B-12) [B-12] 1,000 mcg PO DAILY #30 tablet 12/05/18 Lidocaine 5% Patch [Lidoderm -] 1 patch TP DAILY PRN patch 12/05/18 Ibandronate Sodium 150 mg PO MONTHLY 03/17/19 Physical Exam-Neuro Vital Signs: Vital Signs Temperature 74 F L 03/17/19 14:37 Pulse Rate 87 03/17/19 14:37 Respiratory Rate 18 03/17/19 14:37 Blood Pressure 137/77 03/17/19 14:37 O2 Sat by Pulse Oximetry (%) 96 03/17/19 11:55 Labs: CBC, BMP 03/17/19 07:06 03/17/19 07:00 INR, PTT INR 1.03 (0.83-1.09) 03/16/19 16:50 - Neuro Exam Level Of Consciousness: Yes: Alert (awake, alert, EOMI, no facial, UE 5/5, LE RLE 5/5, LLE , limited motion left hip flexion bc of pain, hams/quads appaer 5/5 , L tA 5/5, reduced reflexes throughout ) Imaging - Results Cat Scan: Report Reviewed, Image Reviewed Problem List - Problems (1) Thoracic vertebral fracture Code(s): S22.009A - UNSP FRACTURE OF UNSP THORACIC VERTEBRA, INIT FOR CLOS FX (2) Gait disorder Code(s): R26.9 - UNSPECIFIED ABNORMALITIES OF GAIT AND MOBILITY (3) Hematoma Code(s): T14.8XXA - OTHER INJURY OF UNSPECIFIED BODY REGION, INITIAL ENCOUNTER Assessment/Plan 83 year old female with PMH of HTN, HLD, multiple chronic vertebral compression fractures, who presents with L hip and pelvic pain s/p fall last night. Pt was getting up to go to the bathroom around midnight. She leaned on the door knob that was not closed and fell through, landing on her buttocks. She was unable to stand up after the fall and was on the ground for 2 hours before her son found her and helped her back to bed. Pt denies hitting her head and denies LOC. She complains of LLE weakness and severe L hip and pelvic pain, exacerbated by movement. She typically amblulates well with a walker, but is unable to bear weight or ambulate since the fall. No numbness or tingling in her lower extremities. She denies any recent urinary symptoms and denies any incontinence or hematuria since the fall. She had no pre-syncopal symptoms ( chest pain, palpitations, SOB, lightheadedness or dizziness). Pt does not have a history of falls. CT SPINE Impression: No cervical spine fracture is identified. In comparison to a chest CT exam of 12/02/2018 interval development of an acute/subacute marked T7 vertebral body compression fracture is noted with mild bony retropulsion. Moderate to marked unchanged chronic vertebral body compression fractures are seen at levels T5, T8 , T9, T10, T11, T12, L1 and L2. CT ABD PELVIS Impression: Mildly diminished size of an acute extraperitoneal hematoma is noted within the left lower pelvis currently measuring 11 x 5 x 3 cm, previously 11 x 5 x 4 cm. A small amount of left-sided extraperitoneal hematoma is seen ventrally without interval change. Acute left superior and inferior pubic rami are again visualized. Note is again made of a small amount of presacral soft tissue edema. 3.7 cm right adnexal cyst without obvious interval change. Correlation with 3 month follow-up CT or sonography is suggested to document continued stability. Large hiatal hernia. Multilevel thoracolumbar vertebral body compression fractures. Please refer to the thoracolumbar spine CT reports of 03/16/2019 in this regard. AP : s/p fall with thoracic VB acute fracture and sup and inf pubic L fracture - - along with extrpertoneal hematoma-stable no evidence of cord compression,acute radiculopathy serial CT as needed ORTHO follow up , she is reluctant for any surgical intervention pain control , cautious use of opioids /bowel regimen neurology sign off DR JEWELL
[2019-03-17] MEDS: oxyCODONE HCL 5 MG TABLET PO PRN (18:21)
[2019-03-17] MEDS: ATORVASTATIN CA 20 MG TABLET (FP) PO SCH (22:13)
[2019-03-17] MEDS: PRAMIPEXOLE DIHYDROCHLORIDE 0.25 MG TABLET PO SCH (22:13)
[2019-03-18] MEDS: SODIUM CHLORIDE 1,000 ML IV SCH (02:51)
[2019-03-18] MEDS ORDERED: MELATONIN 5 MG TABLETS PO ONE (02:58)
[2019-03-18] MEDS: oxyCODONE HCL 5 MG TABLET PO PRN ×3 (03:13→18:46)
[2019-03-18] MEDS ORDERED: PT OWN MED DRAWER 7, Y5N ONE (09:24)
[2019-03-18] MEDS: ASPIRIN 81 MG CHEWABLE TABLETS PO SCH (09:25)
[2019-03-18] MEDS: amLODIPine BESYLATE 5 MG TABLET (FP) PO SCH (09:25)
[2019-03-18] MEDS: ACETAMINOPHEN 325 MG TABLET (FP) PO PRN ×3 (09:26→18:47)
[2019-03-18] MEDS: NADOLOL 40 MG TABLET (FP) PO SCH (09:26)
[2019-03-18 09:32] LABS: BASO % 0.7 % (0-2.0); EOS % 2.7 % (0-4.5); HEMATOCRIT 36.7 % (32.4-45.2); HEMOGLOBIN 11.8 GM/dL (10.7-15.3); LYMPH % 10.9 % (8-40); MCH 30.5 pg (25.7-33.7); MCHC 32.3 g/dl (32.0-36.0); MEAN CELL VOLUME 94.4 fl (80-96); MEAN PLT VOLUME 7.9 fl (7.5-11.1); MONO % 9.2 % (3.8-10.2); NEUT % 76.5 % (42.8-82.8); PLATELET COUNT 196 K/MM3 (134-434); RBC 3.88 M/mm3 (3.60-5.2); RDW 15.1 % (11.6-15.6)
[2019-03-18 10:01] LABS: ALBUMIN 3.1 g/dl (3.4-5.0); BILIRUBIN,TOTAL 1.1 mg/dL (0.2-1); BLOOD UREA NITROGEN 16.3 mg/dL (7-18); CREATININE 0.8 mg/dL (0.55-1.3); MAGNESIUM 2.2 mg/dL (1.8-2.4); PHOSPHOROUS 3.2 mg/dL (2.5-4.9); POTASSIUM 4.6 mmol/L (3.5-5.1); TOT PROT 6.5 g/dl (6.4-8.2)
--- NOTE | 2019-03-18 11:23 | PN ---
Physical Exam: SUBJECTIVE: 83 y/o F w PMH HTN, HLD, multiple vertebral compression fractures, whom presented to the ED w LEFT hip, pelvic, and inguinal pain s/p mechanical fall at home. Pt leaned on open door and fell on her buttocks. NO LOC, syncope, pre-syncope, and head trauma. She states her LEFT leg hurts w movement but has no pain otherwise. She reports she has NO loss of sensation. She denies numbness , tingling, and external bleeding. CT on admission demonstrates LEFT superior and inferior pubic rami with acute extraperitoneal hematoma. Today she reports some dyspnea at rest. This started shortly after breakfast. She has no cough or CP. She has also not passed stool since admission and declines stool softener. She denies stool and urinary incontinence, and NVFD. OBJECTIVE: Vital Signs Temp Pulse Resp BP Pulse Ox 97.7 F 73 28 H 96/60 95 03/18/19 10:04 03/18/19 10:29 03/18/19 10:29 03/18/19 10:29 03/17/19 21:00 GENERAL: Awake, alert, and fully oriented, in no acute distress. HEAD: Normal with no signs of trauma. EYES: YOVANI, EOMI, sclera anicteric, conjunctiva clear. No lid lag. EARS, NOSE, THROAT: Ears normal, nares patent, oropharynx clear without exudates. Moist mucous membranes. RIGHT nostril is deformity. NECK: Normal range of motion, supple without lymphadenopathy, JVD, or masses. LUNGS: Breath sounds equal, clear to auscultation bilaterally. No wheezes, and no crackles. No accessory muscle use. HEART: RRR, normal S1 and S2 without murmur, rub or gallop. ABDOMEN: Soft, tender medially in lower quadrants, not distended, normoactive bowel sounds, no guarding, no rebound, no masses. No hepatomegaly or splenomegaly. MUSCULOSKELETAL: No bony deformities. No CVA tenderness. Decreased ROM in LEFT LE. Tenderness to palpation at LEFT hip and pelvic area. UPPER EXTREMITIES: 2+ pulses, warm, well-perfused. No cyanosis. No clubbing. No peripheral edema. LOWER EXTREMITIES: 2+ pulses, warm, well-perfused. No calf tenderness. No peripheral edema. 5/5 strength in BL dorsi- and plantar flex, 2/5 strength at LEFT hip flexion, 4/5 RIGHT hip flexion. Sensation intact and equal BL. NEUROLOGICAL: Cranial nerves III-XII intact. Normal speech. Gait not observed. PSYCHIATRIC: Cooperative. Good eye contact. Appropriate mood and affect. SKIN: Diffuse solar lentigines. Warm, dry, normal turgor, no rashes or lesions noted, normal capillary refill. Laboratory Results - last 24 hr 03/18/19 03/18/19 09:00 09:00 WBC 10.0 RBC 3.88 Hgb 11.8 Hct 36.7 MCV 94.4 MCH 30.5 MCHC 32.3 RDW 15.1 Plt Count 196 MPV 7.9 Absolute Neuts (auto) 7.6 Neutrophils % 76.5 Lymphocytes % 10.9 Monocytes % 9.2 Eosinophils % 2.7 Basophils % 0.7 Nucleated RBC % 0 Sodium 139 Potassium 4.6 Chloride 105 Carbon Dioxide 27 Anion Gap 7 L BUN 16.3 Creatinine 0.8 Est GFR (CKD-EPI)AfAm 77.92 Est GFR (CKD-EPI)NonAf 67.23 Random Glucose 101 Calcium 9.0 Phosphorus 3.2 Magnesium 2.2 Total Bilirubin 1.1 H AST 17 ALT 20 Alkaline Phosphatase 90 Total Protein 6.5 Albumin 3.1 L Active Medications Acetaminophen (Tylenol -) 650 mg PO Q6H PRN PRN Reason: PAIN LEVEL 4 - 6 Last Admin: 03/18/19 09:26 Dose: 650 mg Acetaminophen (Tylenol -) 325 mg PO Q8H PRN PRN Reason: PAIN LEVEL 6-10 Amlodipine Besylate (Norvasc -) 5 mg PO DAILY [facility] Last Admin: 03/18/19 09:25 Dose: 5 mg Atorvastatin Calcium (Lipitor -) 20 mg PO [facility] Last Admin: 03/17/19 22:13 Dose: 20 mg Nadolol (Corgard -) 40 mg PO DAILY [facility] Last Admin: 03/18/19 09:26 Dose: 40 mg Oxycodone HCl (Roxicodone -) 5 mg PO Q4H PRN PRN Reason: PAIN LEVEL 6-10 Pramipexole Dihydrochloride (Mirapex -) 0.25 mg PO [facility] Last Admin: 03/17/19 22:13 Dose: 0.25 mg ASSESSMENT/PLAN: 83 y/o F w PMH HTN, HLD, multiple vertebral compression fractures, whom presented to the ED w LEFT hip, pelvic, and inguinal pain s/p fall at home, and CT finding of pubic rami fracture with extraperitoneal hematoma admitted for mechanical fall. # Mechanical fall and pelvic fx - Mechanical fall w NO LOC, syncope, pre-syncope, and head trauma. - CT: Acute fx in LEFT superior & inferior pubic rami, acute extraperitoneal hematoma. T7 VCF new - Ortho on board (Dr. Mcgregor). Agreed on plan for pain control, WBAT b/l LE, neurosurgery consult rec for T7 VCF, urology consult for intrapelvic hematoma w effacement of bladder. Otherwise no further surgical intervention advised. f/u in ortho office in 1-2 W. - Plan to d/c to [facility] when medically optimized. Pt agrees to rehab - Pt's leukocytosis rending down WBC: 10 today likely reactive - Cont. bedrest and fall precautions - Cont. percocet for pain, [place], (pt is on percocet 5mg at home for chronic back pain; known pt of Dr. Joe) # Intrapelvic hematoma - Intrapelvic hematoma w effacement of bladder - Not retaining urine - Pt wetting pull-up/Depends well. Bladder scan 178 cc - Hb stable - Repeat CT demonstrates slow but resolving extraperitoneal hematoma # Acute hypoxic respiratory failure - Requiring 2L NC to maintain SpO2 95% - CXR demonstrates - Encourage incentive spirometer - Titrate down oxygen as tolerated # LLL nodule - Repeat CT chest in 3-6 months # RIGHT ovarin cyst - F/u out-pt #HTN - Cont. nadolol 40mg QD #HLD - Cont. Lipitor 20mg QD #F/E/N - IV NS @ 42ml/hr (given mildly elevated BUN and Cr) - Sodium-controlled diet #DVT ppx - SCD Yuniel Petty MD Visit type - Emergency Visit Emergency Visit: No - New Patient This patient is new to me today: No - Critical Care Critical Care patient: No - Discharge Referral Referred to [facility] Med P.C.: No ATTENDING PHYSICIAN STATEMENT I saw and evaluated the patient. I reviewed the resident's note and discussed the case with the resident. I agree with the resident's findings and plan as documented. SUBJECTIVE: OBJECTIVE: ASSESSMENT AND PLAN:
--- NOTE | 2019-03-18 11:29 | PN ---
Teaching Attending Note Name of Resident: Yuniel Petty ATTENDING PHYSICIAN STATEMENT I saw and evaluated the patient. I reviewed the resident's note and discussed the case with the resident. I agree with the resident's findings and plan as documented. SUBJECTIVE:c/o dyspnea at rest. started shortly after breakfast. no cough or CP , denies fever or chills OBJECTIVE: Last Vital Signs Temp Pulse Resp BP Pulse Ox 97.7 F 73 28 H 96/60 95 03/18/19 10:04 03/18/19 10:29 03/18/19 10:29 03/18/19 10:29 03/17/19 21:00 General slightly tachypnic CV S1 S2 RRR lungs corase breath sounds, decreased bases Abdomen soft NT/ND no suprapubic distention of tenderness Extremities no pedal edema ASSESSMENT AND PLAN: 83yo F wtih PMH HTN. osteoporosis, dyslipidemia, vertebral compression fractures presented to the ER after mechanical fall and found to have pelvic rami fracture with hematoma 1. pelvic rami fracture- due to mechanical fall. seen by ortho no intervention WBAT. encouraged patient to request pain medications if needed. only able to stand with PT. will need [facility]. 2. pelvic hematoma- likely due to fall. repeat imaging showed some small improvement. hgb stable. not retaining urine. bladder scan <200cc. will monitor should have repeat scan in a few weeks if concerned. 3. Acute hypoxic respiratory failure- requiring 2L NC to maintain SpO2 95%. marcial get stat CXR. incentive spirometer. titrate down oxygen as tolerated 4. LLL nodule- will need repeat CT chest in 3-6months 5. R ovarin cyst- can workup as outpatient 6. HTN- controlled. cont home medication 7. dyslipidemia- statin 8. DVT ppx- EAM 9. will need [facility] when medically cleared. spoke with SW about sending out [facility]
[2019-03-18 12:47] LABS: ARTERIAL BLD GAS O2 SATURATION 94.6 % (95-98); ARTERIAL BLOOD GAS BASE EXCESS 0 meq/l (-2-2); ARTERIAL BLOOD GAS PCO2 39.3 mmHg (35-45); ARTERIAL BLOOD GAS PO2 77.6 mmHg (80-100)
[2019-03-18 12:51] LABS: ALLENS TEST POSITIVE
[2019-03-18] MEDS ORDERED: cefTRIAXone SODIUM 1 GM VIAL ONE (13:39)
[2019-03-18] MEDS ORDERED: DEXTROSE 5%-WATER - 50 ML IVPB ONE (13:39)
[2019-03-18] MEDS: CEFTRIAXONE 1 GM in DEXTROSE 5%-WATER - 50 ML IVPB SCH (13:42)
[2019-03-18] MEDS: ATORVASTATIN CA 20 MG TABLET (FP) PO SCH (21:58)
[2019-03-18] MEDS: PRAMIPEXOLE DIHYDROCHLORIDE 0.25 MG TABLET PO SCH (21:58)
[2019-03-19] MEDS: oxyCODONE HCL 5 MG TABLET PO PRN ×2 (08:49→18:43)
[2019-03-19 08:58] LABS: BASO % 0.7 % (0-2.0); EOS % 3.1 % (0-4.5); HEMATOCRIT 33.5 % (32.4-45.2); HEMOGLOBIN 11.1 GM/dL (10.7-15.3); LYMPH % 10.1 % (8-40); MCH 30.7 pg (25.7-33.7); MEAN CELL VOLUME 92.8 fl (80-96); MEAN PLT VOLUME 7.9 fl (7.5-11.1); MONO % 8.1 % (3.8-10.2); PLATELET COUNT 244 K/MM3 (134-434); RBC 3.61 M/mm3 (3.60-5.2); WHITE BLOOD COUNT 10.9 K/mm3 (4.0-10.0)
[2019-03-19] MEDS ORDERED: PT OWN MED DRAWER 7, Y5N ONE (09:11)
[2019-03-19] MEDS ORDERED: cefTRIAXone SODIUM 1 GM VIAL ONE (09:12)
[2019-03-19] MEDS ORDERED: DEXTROSE 5%-WATER - 50 ML IVPB ONE (09:12)
[2019-03-19 09:23] LABS: BLOOD UREA NITROGEN 17.1 mg/dL (7-18); CALCIUM 8.6 mg/dL (8.5-10.1); CREATININE 0.7 mg/dL (0.55-1.3); MAGNESIUM 2.1 mg/dL (1.8-2.4); PHOSPHOROUS 2.9 mg/dL (2.5-4.9); POTASSIUM 4.5 mmol/L (3.5-5.1)
[2019-03-19] MEDS: amLODIPine BESYLATE 5 MG TABLET (FP) PO SCH ×2 (09:35→09:45)
[2019-03-19] MEDS: NADOLOL 40 MG TABLET (FP) PO SCH ×2 (09:35→09:45)
[2019-03-19] MEDS: CEFTRIAXONE 1 GM in DEXTROSE 5%-WATER - 50 ML IVPB SCH (09:36)
[2019-03-19] MEDS ORDERED: DOCUSATE NA 100 MG/10 ML UNIT-DOSE CUPS PO PRN (12:05)
--- NOTE | 2019-03-19 13:02 | PN ---
Physical Exam: SUBJECTIVE: 83 y/o F w PMH HTN, HLD, multiple vertebral compression fractures, whom presented to the ED w LEFT hip, pelvic, and inguinal pain s/p mechanical fall at home. She states her LEFT leg hurts w movement but has no pain otherwise. She reports she has NO loss of sensation. She denies numbness, tingling, and external bleeding. CT on admission demonstrates LEFT superior and inferior pubic rami with acute extraperitoneal hematoma, which has been shown to be slowly resolving on repeat imaging. Her dyspnea has decreased today and she offers no complaints but upon removal of NC, she has a harder time breathing. She has no cough or CP. She has also not passed stool since admission and agrees to stool softener today. She denies stool and urinary incontinence, and NVFD. OBJECTIVE: Vital Signs Temp Pulse Resp BP Pulse Ox 97.6 F 80 21 H 99/62 93 L 03/19/19 09:36 03/19/19 09:36 03/19/19 09:36 03/19/19 09:36 03/18/19 21:00 GENERAL: Awake, alert, and fully oriented, in no acute distress. HEAD: Normal with no signs of trauma. EYES: YOVANI, EOMI, sclera anicteric, conjunctiva clear. No lid lag. EARS, NOSE, THROAT: Ears normal, nares patent, oropharynx clear without exudates. Moist mucous membranes. RIGHT nostril is deformity. NECK: Normal range of motion, supple without lymphadenopathy, JVD, or masses. LUNGS: Breath sounds equal, clear to auscultation bilaterally. No wheezes, and no crackles. No accessory muscle use. HEART: RRR, normal S1 and S2 without murmur, rub or gallop. ABDOMEN: Soft, tender medially in lower quadrants, not distended, normoactive bowel sounds, no guarding, no rebound, no masses. No hepatomegaly or splenomegaly. MUSCULOSKELETAL: No bony deformities. No CVA tenderness. Decreased ROM in LEFT LE. Tenderness to palpation at LEFT hip and pelvic area. UPPER EXTREMITIES: 2+ pulses, warm, well-perfused. No cyanosis. No clubbing. No peripheral edema. LOWER EXTREMITIES: 2+ pulses, warm, well-perfused. No calf tenderness. No peripheral edema. 5/5 strength in BL dorsi- and plantar flex, 2/5 strength at LEFT hip flexion, 4/5 RIGHT hip flexion. Sensation intact and equal BL. NEUROLOGICAL: Cranial nerves III-XII intact. Normal speech. Gait not observed. PSYCHIATRIC: Cooperative. Good eye contact. Appropriate mood and affect. SKIN: Diffuse solar lentigines. Warm, dry, normal turgor, no rashes or lesions noted, normal capillary refill. Laboratory Results - last 24 hr 03/19/19 03/19/19 08:15 08:15 WBC 10.9 H RBC 3.61 Hgb 11.1 Hct 33.5 MCV 92.8 MCH 30.7 MCHC 33.0 RDW 15.0 Plt Count 244 D MPV 7.9 Absolute Neuts (auto) 8.5 H Neutrophils % 78.0 Lymphocytes % 10.1 Monocytes % 8.1 Eosinophils % 3.1 Basophils % 0.7 Nucleated RBC % 0 Sodium 140 Potassium 4.5 Chloride 108 H Carbon Dioxide 26 Anion Gap 7 L BUN 17.1 Creatinine 0.7 Est GFR (CKD-EPI)AfAm 91.57 Est GFR (CKD-EPI)NonAf 79.00 Random Glucose 102 Calcium 8.6 Phosphorus 2.9 Magnesium 2.1 Active Medications Acetaminophen (Tylenol -) 650 mg PO Q6H PRN PRN Reason: PAIN LEVEL 4 - 6 Last Admin: 03/18/19 09:26 Dose: 650 mg Acetaminophen (Tylenol -) 325 mg PO Q8H PRN PRN Reason: PAIN LEVEL 6-10 Last Admin: 03/18/19 18:47 Dose: 325 mg Amlodipine Besylate (Norvasc -) 5 mg PO DAILY [facility] Last Admin: 03/19/19 09:45 Dose: Not Given Atorvastatin Calcium (Lipitor -) 20 mg PO HS [facility] Last Admin: 03/18/19 21:58 Dose: 20 mg Docusate Sodium (Colace Liquid -) 100 mg PO DAILY PRN PRN Reason: CONSTIPATION Ceftriaxone Sodium 1 gm/ (Dextrose) 50 mls @ 100 mls/hr IVPB DAILY [facility]; Protocol Last Admin: 03/19/19 09:36 Dose: 100 mls/hr Nadolol (Corgard -) 40 mg PO DAILY [facility] Last Admin: 03/19/19 09:45 Dose: Not Given Oxycodone HCl (Roxicodone -) 5 mg PO Q4H PRN PRN Reason: PAIN LEVEL 6-10 Last Admin: 03/19/19 08:49 Dose: 5 mg Pramipexole Dihydrochloride (Mirapex -) 0.25 mg PO HS [facility] Last Admin: 03/18/19 21:58 Dose: 0.25 mg Senna (Senna -) 1 tab PO BID [facility] ASSESSMENT/PLAN: 83 y/o F w PMH HTN, HLD, multiple vertebral compression fractures, whom presented to the ED w LEFT hip, pelvic, and inguinal pain s/p fall at home, and CT finding of pubic rami fracture with extraperitoneal hematoma admitted for mechanical fall. # Mechanical fall and pelvic fx - Mechanical fall w NO LOC, syncope, pre-syncope, and head trauma. - Bed rest, pain management, and plan for dc to SNF/rehab if no other medical concerns - CT: Acute fx in LEFT superior & inferior pubic rami, acute extraperitoneal hematoma. T7 VCF new - Ortho on board (Dr. Mcgregor). Agreed on plan for pain control, WBAT b/l LE, neurosurgery consult rec for T7 VCF, urology consult for intrapelvic hematoma w effacement of bladder. Otherwise no further surgical intervention advised. f/u in ortho office in 1-2 W. - Elevated WBC 10.9 today poss lung infection vs UTI vs poss reactive. Currently on ceftriaxone. - Cont. bedrest and fall precautions - Cont. percocet for pain, [place], (pt is on percocet 5mg at home for chronic back pain; known pt of Dr. Joe) # Intrapelvic hematoma - Intrapelvic hematoma w effacement of bladder - Not retaining urine - Pt wetting pull-up/Depends well. Bladder scan 178 cc - Hb stable - Repeat CT demonstrates slow but resolving extraperitoneal hematoma # Acute hypoxic respiratory failure - Requiring 2L NC to maintain SpO2 95% - Desat to 85% off NC - CXR demonstrates tree in bud nodular infiltrate consistent w bronchiolitis/ PNA - Encourage incentive spirometer - Pre/post pending # UTI - Urine positive for lactose fermenting negative bacilli 100K+ colonies - Asymptomatic - Receiving ceftriaxone for PNA # LLL nodule - Repeat CT chest in 3-6 months # RIGHT ovarin cyst - F/u out-pt #HTN - Cont. nadolol 40mg QD #HLD - Cont. Lipitor 20mg QD #F/E/N - IV NS - Sodium-controlled diet #DVT ppx - SCD Yuniel Petty MD Visit type - Emergency Visit Emergency Visit: No - New Patient This patient is new to me today: No - Critical Care Critical Care patient: No - Discharge Referral Referred to [facility] Med P.C.: No ATTENDING PHYSICIAN STATEMENT I saw and evaluated the patient. I reviewed the resident's note and discussed the case with the resident. I agree with the resident's findings and plan as documented. SUBJECTIVE: OBJECTIVE: ASSESSMENT AND PLAN:
--- NOTE | 2019-03-19 15:05 | PN ---
Teaching Attending Note Name of Resident: Yuniel Petty ATTENDING PHYSICIAN STATEMENT I saw and evaluated the patient. I reviewed the resident's note and discussed the case with the resident. I agree with the resident's findings and plan as documented. SUBJECTIVE:claims asymptomatic. states breathing is much better today. no cough. denies Cp, SOB, fever, chills, N/V/C/D OBJECTIVE: Last Vital Signs Temp Pulse Resp BP Pulse Ox 97.6 F 80 21 H 99/62 93 L 03/19/19 09:36 03/19/19 09:36 03/19/19 09:36 03/19/19 09:36 03/18/19 21:00 General slightly tachypnic CV S1 S2 RRR lungs corase breath sounds, decreased bases. no accessory muscle use Abdomen soft NT/ND no suprapubic distention of tenderness Extremities no pedal edema ASSESSMENT AND PLAN: 83yo F wtih PMH HTN. osteoporosis, dyslipidemia, vertebral compression fractures presented to the ER after mechanical fall and found to have pelvic rami fracture with hematoma 1. pelvic rami fracture- due to mechanical fall. seen by ortho no intervention WBAT. encouraged patient to request pain medications if needed. only able to stand with PT. will need [facility]. 2. pelvic hematoma- likely due to fall. repeat imaging showed some small improvement. hgb stable. not retaining urine. bladder scan <200cc. will monitor should have repeat scan in a few weeks if concerned. 3. Acute hypoxic respiratory failure-currently 92% on RA. ABG done yesterday no hypercapnia. CXR showing questionable PNA. reports breathing is fine but noted to still be tachypnic. on ceftriaxone day 2. will monitor for now and re-assess incentive spirometer. 4. LLL nodule- will need repeat CT chest in 3-6months 5. R ovarin cyst- can workup as outpatient 6. HTN- controlled. cont home medication 7. dyslipidemia- statin 8. DVT ppx- EAM 9. will re-assess later today and if breathing is stable and improved can d/c to [facility]
[2019-03-19] MEDS ORDERED: DOCUSATE SODIUM 100 MG CAPSULE (FP) PO ONE (15:13)
[2019-03-19] MEDS: SENNOSIDES 8.6MG TABLET (FP) PO SCH ×2 (16:50→21:53)
[2019-03-19] MEDS: PRAMIPEXOLE DIHYDROCHLORIDE 0.25 MG TABLET PO SCH (21:53)
[2019-03-19] MEDS: ATORVASTATIN CA 20 MG TABLET (FP) PO SCH (21:53)
[2019-03-19] MEDS ORDERED: SENNOSIDES 8.6MG TABLET (FP) PO SCH (22:00)
[2019-03-20] MEDS: oxyCODONE HCL 5 MG TABLET PO PRN (04:58)
[2019-03-20] MEDS: ACETAMINOPHEN 325 MG TABLET (FP) PO PRN (04:58)
[2019-03-20 08:33] LABS: BASO % 0.8 % (0-2.0); EOS % 2.6 % (0-4.5); HEMATOCRIT 32.9 % (32.4-45.2); LYMPH % 12.7 % (8-40); MCH 30.8 pg (25.7-33.7); MCHC 33.3 g/dl (32.0-36.0); MEAN CELL VOLUME 92.4 fl (80-96); MEAN PLT VOLUME 7.5 fl (7.5-11.1); MONO % 9.7 % (3.8-10.2); NEUT % 74.2 % (42.8-82.8); PLATELET COUNT 275 K/MM3 (134-434); RBC 3.56 M/mm3 (3.60-5.2); RDW 14.6 % (11.6-15.6); WHITE BLOOD COUNT 10.5 K/mm3 (4.0-10.0)
[2019-03-20 09:04] LABS: ALBUMIN 2.7 g/dl (3.4-5.0); BILIRUBIN,TOTAL 0.6 mg/dL (0.2-1); BLOOD UREA NITROGEN 19.1 mg/dL (7-18); CALCIUM 8.6 mg/dL (8.5-10.1); CREATININE 0.9 mg/dL (0.55-1.3); MAGNESIUM 2.2 mg/dL (1.8-2.4); PHOSPHOROUS 3.2 mg/dL (2.5-4.9); POTASSIUM 4.4 mmol/L (3.5-5.1); TOT PROT 5.8 g/dl (6.4-8.2)
[2019-03-20] MEDS ORDERED: cefTRIAXone SODIUM 1 GM VIAL ONE (09:04)
[2019-03-20] MEDS ORDERED: DEXTROSE 5%-WATER - 50 ML IVPB ONE (09:04)
[2019-03-20] MEDS ORDERED: PT OWN MED DRAWER 7, Y5N ONE (09:05)
[2019-03-20] MEDS: CEFTRIAXONE 1 GM in DEXTROSE 5%-WATER - 50 ML IVPB SCH (09:36)
[2019-03-20] MEDS: amLODIPine BESYLATE 5 MG TABLET (FP) PO SCH (09:36)
[2019-03-20] MEDS: NADOLOL 40 MG TABLET (FP) PO SCH (09:36)
[2019-03-20] MEDS ORDERED: FLUTICASONE PROP 0.05% 16 GM NASAL SPRAY NS SCH (10:45)
--- NOTE | 2019-03-20 11:38 | DS ---
Physical Exam: SUBJECTIVE: 83 y/o F OBJECTIVE: Vital Signs Temp Pulse Resp BP Pulse Ox 97.6 F 71 20 128/72 93 L 03/20/19 06:00 03/20/19 06:00 03/20/19 06:00 03/20/19 06:00 03/19/19 21:00 PHYSICAL EXAM GENERAL: The patient is awake, alert, and fully oriented, in no acute distress. HEAD: Normal with no signs of trauma. EYES: PERRL, extraocular movements intact, sclera anicteric, conjunctiva clear. ENT: Ears normal, nares patent, oropharynx clear without exudates, moist mucous membranes. NECK: Trachea midline, full range of motion, supple. LUNGS: Breath sounds equal, clear to auscultation bilaterally, no wheezes, no crackles, no accessory muscle use. HEART: Regular rate and rhythm, S1, S2 without murmur, rub or gallop. ABDOMEN: Soft, nontender, nondistended, normoactive bowel sounds, no guarding, no rebound, no hepatosplenomegaly, no masses. EXTREMITIES: 2+ pulses, warm, well-perfused, no edema. NEUROLOGICAL: Cranial nerves II through XII grossly intact. Normal speech, gait not observed. PSYCH: Normal mood, normal affect. SKIN: Warm, dry, normal turgor, no rashes or lesions noted. LABS Laboratory Results - last 24 hr 03/20/19 03/20/19 07:57 07:57 WBC 10.5 H RBC 3.56 L Hgb 11.0 Hct 32.9 MCV 92.4 MCH 30.8 MCHC 33.3 RDW 14.6 Plt Count 275 MPV 7.5 Absolute Neuts (auto) 7.8 Neutrophils % 74.2 Lymphocytes % 12.7 D Monocytes % 9.7 Eosinophils % 2.6 Basophils % 0.8 Nucleated RBC % 0 Sodium 143 Potassium 4.4 Chloride 107 Carbon Dioxide 30 Anion Gap 6 L BUN 19.1 H Creatinine 0.9 Est GFR (CKD-EPI)AfAm 67.57 Est GFR (CKD-EPI)NonAf 58.30 Random Glucose 103 Calcium 8.6 Phosphorus 3.2 Magnesium 2.2 Total Bilirubin 0.6 AST 14 L ALT 16 Alkaline Phosphatase 82 Total Protein 5.8 L Albumin 2.7 L HOSPITAL COURSE: Date of Admission:03/16/19 83 y/o F Date of Discharge: 03/20/19 Discharge Summary Reason For Visit: FRACTURE PUBIC RAMUS Current Active Problems Gait disorder (Acute) Hematoma (Acute) Thoracic vertebral fracture (Acute) Condition: Improved - Instructions Diet, Activity, Other Instructions: YOUR VISIT You were brought to the hospital because you had a fall. Imaging done in the emergency room showed that you had broken a bone in your pelvis and in your spine. You were seen by an orthopedic surgeon and neurosurgeon whom determined you did not need an operation. You will be discharged to a group home facility to continue rehab. You also developed shortness of breath and was found that you had an infection in your lungs. Your urine also had an infection. You were started on antibiotics , please continue taking the antibiotic, Keflex for 4 more days. Xray showed a nodule in your left lung. CT scan also showed a cyst on your ovary. Please follow up with your primary care doctor for further evaluation. MEDICATIONS Please take the following medications: 1. Keflex 500mg twice a day for 4 more days starting tomorrow (03/21). 2. Flonase nasal spray daily for 2 weeks. Please continue to take your home medications as prescribed - Norvasc 5 mg by mouth every day - Lipitor 20 mg by mouth every day - Boniva 150 mg by mouth ever month - Nadolol 40 mg by mouth every day ADDITIONAL CARE Please make an appointment to see your primary care provider 1 week from today. Please make an appointment to see Dr. Joe to follow up on your vertebral fractures. Please make an appointment with a retanner to follow up on the lung nodule seen on xray. Please make an appointment to see an fruit loader to follow up on the ovarian cyst seen on CT scan. Please follow up with orthopedic surgeon (Dr. Mcgregor) in 1 week. Please call . Please repeat pelvic Xrays prior to office appointment, and bring CD with the images to your visit. ADDITIONAL INFORMATION Please call 911 or come directly to the emergency department if you feel short of breath, chest pains, headache, loss of alertness, change in vision, tingling numbness, or any other alarming symptoms. Referrals: Kelin Adhikari MD [Primary Care Provider] - Abhi Mcgregor DO [Staff Physician] - Disposition: [facility] - Home Medications Comprehensive Discharge Medication List: Ambulatory Orders Amlodipine Besylate [Norvasc -] 5 mg PO DAILY 12/03/18 Atorvastatin Calcium [Lipitor] 20 mg PO DAILY 12/03/18 Nadolol [Corgard -] 40 mg PO DAILY 12/03/18 Pramipexole Dihydrochloride [Mirapex -] 0.25 mg PO HS 12/03/18 Cyanocobalamin (Vitamin B-12) [B-12] 1,000 mcg PO DAILY #30 tablet 12/05/18 Ibandronate Sodium 150 mg PO MONTHLY 03/17/19 Acetaminophen [Tylenol .Regular Strength -] 650 mg PO Q6H PRN tablet 03/20/19 Cephalexin [Keflex] 500 mg PO BID 4 Days #8 capsule 03/20/19 Docusate Liquid [Colace Liquid -] 100 mg PO DAILY PRN ud 03/20/19 Fluticasone Prop 0.05% Nasal [Flonase -] 2 spray NS DAILY 14 Days spray Sennosides [Senna -] 1 tab PO BID tablet 03/20/19 oxyCODONE HCL [Roxicodone -] 5 mg PO Q4H PRN tablet MDD 20 03/20/19 - Discharge Referral Referred to [facility] No ATTENDING PHYSICIAN STATEMENT I saw and evaluated the patient. I reviewed the resident's note and discussed the case with the resident. I agree with the resident's findings and plan as documented. SUBJECTIVE: OBJECTIVE: ASSESSMENT AND PLAN:
--- NOTE | 2019-03-20 12:25 | PN ---
Teaching Attending Note Name of Resident: Yuniel Petty ATTENDING PHYSICIAN STATEMENT I saw and evaluated the patient. I reviewed the resident's note and discussed the case with the resident. I agree with the resident's findings and plan as documented. SUBJECTIVE:c/o nasal congestion. denies CP, SOB, fever,c hills, N/V/C/D OBJECTIVE: Last Vital Signs Temp Pulse Resp BP Pulse Ox 97.6 F 71 20 128/72 93 L 03/20/19 06:00 03/20/19 06:00 03/20/19 06:00 03/20/19 06:00 03/19/19 21:00 General NAD HEENT nares look hyperemic and swollen, +rhinorrhea. no sinus tenderness no pharynx erythema CV S1 S2 RRR lungs coarse breath sounds. no accessory muscle use Abdomen soft NT/ND no suprapubic distention of tenderness Extremities no pedal edema ASSESSMENT AND PLAN: 83yo F wtih PMH HTN. osteoporosis, dyslipidemia, vertebral compression fractures presented to the ER after mechanical fall and found to have pelvic rami fracture with hematoma 1. pelvic rami fracture- due to mechanical fall. seen by ortho no intervention WBAT. encouraged patient to request pain medications if needed. only able to stand with PT. will need [facility]. 2. pelvic hematoma- likely due to fall. repeat imaging showed some small improvement. hgb stable. not retaining urine. bladder scan <200cc. will monitor should have repeat scan in a few weeks if concerned. 3. Acute hypoxic respiratory failure-clinially improved. no longer tachypnic. has some congestion will give flonase. on ceftriaxone day 3 will switch to keflex to complete 7 day course. titrate down supplemental oxygen as tolerated. will need repeat CXR in 4-6 weeks to ensure resolution. 4. LLL nodule- will need repeat CT chest in 3-6months 5. R ovarin cyst- can workup as outpatient 6. HTN- controlled. cont home medication 7. dyslipidemia- statin 8. DVT ppx- EAM 9. d/c to [facility]
[2019-03-20 20:26] VITALS: BP 137/71; PULSE 18; TEMP 98.8
== END 2019-03-20 15:49 | DRG 535 ==
LOC: JER 15:37 → JERBED 22:28 → J5S 03-17 11:30
PROVIDERS: ADMIT Internal Medicine; ATTEND Internal Medicine
DX: S32.512A Fracture of superior rim of left pubis, initial encounter for closed fracture (principal); J96.01 Acute respiratory failure with hypoxia; J18.9 Pneumonia, unspecified organism; S22.068A Other fracture of T7-T8 thoracic vertebra, initial encounter for closed fracture; S22.009A Unspecified fracture of unspecified thoracic vertebra, initial encounter for closed fracture; N39.0 Urinary tract infection, site not specified; S30.0XXA Contusion of lower back and pelvis, initial encounter; I10 Essential (primary) hypertension; E78.5 Hyperlipidemia, unspecified; K44.9 Diaphragmatic hernia without obstruction or gangrene; R91.1 Solitary pulmonary nodule; R26.9 Unspecified abnormalities of gait and mobility; N83.201 Unspecified ovarian cyst, right side; E66.8 Other obesity; Z68.24 Body mass index [BMI] 24.0-24.9, adult; M81.8 Other osteoporosis without current pathological fracture; W18.39XA Other fall on same level, initial encounter; Y92.091 Bathroom in other non-institutional residence as the place of occurrence of the external cause
CPT/HCPCS: 36415; 36600; 70450-TC; 71045-TC-FY; 71250-TC; 72125-TC; 72128-TC; 72131-TC; 73523-TC-FY; 73552-TC-LT-FY; 73610-TC-LT-FY; 74176-TC; 80048; 80053; 81003; 82803; 83735; 83880; 84100; 84484; 85025; 85610; 85730; 87086; 87186; 93005; 93010; 97116-GP; 97161-GP; 99285-25; J7030

== ENCOUNTER 2019-07-26 13:40 | Inpatient (IN) | payer OTHER, BC ==
[2019-07-26 14:31] VITALS: BMI 25.4
--- NOTE | 2019-07-26 14:44 | PDOC ---
History of Present Illness - General Chief Complaint: Lethargy Stated Complaint: LETHARGIC Time Seen by Provider: 07/26/19 14:12 - History of Present Illness Initial Comments: 07/26/19 23:37 83F PMH HTN, HLD, Vertebral compression fx, DVT on Eliquis, COPD BIBEMS for altered mental status. Family at bedside states pt always in pain (everwhere) but today she had severe pain of the LLE. Was noticed to be less responsive today than usual. Has had diarrhea / loose stools for the past few days. baseline incontinent, baseline requires assistance for ambulation. No f/c. Pt denies cp/sob/abd pain. Limited hx from pt 2/ minimal responses. No falls. NKDA Past History - Past Medical History Allergies/Adverse Reactions: Allergies Allergy/AdvReac Type Severity Reaction Status Date / Time No Known Allergies Allergy Verified 06/04/15 15:52 Home Medications: Ambulatory Orders Amlodipine Besylate [Norvasc -] 5 mg PO DAILY 12/03/18 Atorvastatin Calcium [Lipitor] 20 mg PO HS 12/03/18 Nadolol [Corgard -] 40 mg PO DAILY 12/03/18 Albuterol 2.5/Ipratropium 0.5 [Duoneb -] 1 unit NEB TID 07/26/19 Alendronate Sodium [Fosamax] 70 mg PO WEEKLY 07/26/19 Apixaban [Eliquis] 5 mg PO BID 07/26/19 Bupropion HCl [Bupropion Xl] 1 tab PO DAILY 07/26/19 Diclofenac Sodium [Voltaren] 1 applic TP ASDIR 07/26/19 Furosemide [Lasix] 40 mg PO DAILY 07/26/19 Gabapentin [Neurontin] 100 mg PO TID 07/26/19 Ranitidine HCl [Zantac] 150 mg PO DAILY 07/26/19 oxyCODONE HCL [Roxicodone -] 5 mg PO DAILY PRN MDD 20 07/26/19 COPD: No GI Disorders: Yes ("STOMACHACHES-REFLUX") HTN: Yes Hypercholesterolemia: Yes - Immunization History Immunization Up to Date: Yes - Psycho Social/Smoking Cessation Hx Smoking Status: No Smoking History: Never smoked Have you smoked in the past 12 months: No Number of Cigarettes Smoked Daily: 0 Information on smoking cessation initiated: No Hx Alcohol Use: No Drug/Substance Use Hx: No Substance Use Type: None Hx Substance Use Treatment: No Review of Systems - Review of Systems Able to Perform ROS?: No Comments:: 07/26/19 23:37 Limited ROS 2/2 minimal pt responses Denies f/c Denies chest pain, shortness of breath Denies abdominal pain *Physical Exam - Vital Signs Last Vital Signs Temp Pulse Resp BP Pulse Ox 101.4 F H 85 20 114/70 100 07/26/19 14:21 07/26/19 14:21 07/26/19 14:21 07/26/19 14:21 07/26/19 14:21 - Physical Exam 07/26/19 23:37 GEN: NAD, awake, alert, oriented to person and place. HEENT: NC/AT. CN II, III, IV, , and VII grossly intact, limited CN exam 2/2 limited cooperation. EOMI, PERRLA. No facial asymmetry. Weak voice. Resting tremor of the mouth. CV: S1/S2, RRR, no m/r/g LUNG: CTAB, no wheezes, crackles, rales, rhonchi. GI: soft, ndnt, +BS, no guarding, no rebound. EXTREMITIES: 2+ distal pulses. RLE trace pitting edema. LLE 2+ pitting edema up to the ankle w/o erythema. LLE is slightly warmer than RLE. +TTP of the left calf in background of TTP of entire LLE. No obvious deformities of all extremities. SKIN: warm, dry, normal turgor PSYCH: speaks in short simple responses, minimally cooperative NEURO: limited exam 2/2 minimal cooperation; moves all extremities. LLE ROM limited 2/2 pain. ED Treatment Course - LABORATORY CBC & Chemistry Diagram: 07/26/19 15:19 07/26/19 15:19 - RADIOLOGY Radiology Studies Ordered: Category Date Time Status HEAD CT WITHOUT CONTRAST [CT] Stat CT Scan 07/26/19 14:39 Ordered CHEST X-RAY PORTABLE* [RAD] Stat Radiology 07/26/19 14:40 Ordered DUPLEX VASCUL US-1 LEG [US] Stat Ultrasound 07/26/19 14:39 Ordered Medical Decision Making - Medical Decision Making 07/26/19 14:43 83F HTN, HLD, COPD, vertebral compression fx, DVT on Eliquis BIBEMS for altered mental status and increased pain of the LLE. There is pitting edema LLE > RLE. + TTP of the LLE calf and entire LLE. AAOx2 with minimal responses. - Sepsis labs - CT head - LLE doppler - pain ctrl 07/26/19 16:08 Pt resting comfortable s/p tylenol labs reviewed WBC 18 CXR reviewed 07/26/19 16:25 add ESR and CRP likely admit 07/26/19 17:16 LLE Doppler IOC - no DVT 07/26/19 17:26 ESR and CRP negative 07/26/19 17:56 CT head neg for acute pathology; b/l maxillary sinus opacification 07/26/19 18:18 ED team uncovered h/o recent productive cough that has been improving possible source? will cover empirically for HCAP // admitted to hospitalists Discharge - Discharge Information Problems reviewed: Yes Clinical Impression/Diagnosis: Sepsis Qualifiers: Sepsis type: sepsis due to unspecified organism Sepsis acute organ dysfunction status: unspecified Qualified Code(s): A41.9 - Sepsis, unspecified organism - Admission Yes - Follow up/Referral - Patient Discharge Instructions - Post Discharge Activity
[2019-07-26] MEDS ORDERED: ACETAMINOPHEN 1000 MG/100 ML VIAL (NON FORMULARY) IVPB ONE (14:48)
[2019-07-26] MEDS ORDERED: ACETAMINOPHEN INJECTION 100 ML IVPB ONE (14:59)
[2019-07-26 15:24] LABS: VENOUS PH 7.42 (7.31-7.41)
[2019-07-26 15:25] LABS: BASO % 1.4 % (0-2.0); EOS % 0.2 % (0-4.5); HEMOGLOBIN 11.5 GM/dL (10.7-15.3); LYMPH % 5.5 % (8-40); MCH 27.4 pg (25.7-33.7); MCHC 31.2 g/dl (32.0-36.0); MEAN CELL VOLUME 87.9 fl (80-96); MEAN PLT VOLUME 7.1 fl (7.5-11.1); MONO % 10.4 % (3.8-10.2); NEUT % 82.5 % (42.8-82.8); PLATELET COUNT 498 K/MM3 (134-434); RBC 4.21 M/mm3 (3.60-5.2); RDW 16.6 % (11.6-15.6); WHITE BLOOD COUNT 18.2 K/mm3 (4.0-10.0)
--- NOTE | 2019-07-26 15:27 | PDOC ---
Documentation entered by Sheryl Aguiar SCRIBE, acting as scribe for Stacia Thomson MD. Stacia Thomson MD: This documentation has been prepared by the Cosme rose Joy, SCRIBE, under my direction and personally reviewed by me in its entirety. I confirm that the documentation accurately reflects all work, treatment, procedures, and medical decision making performed by me. Attending Attestation - Resident Resident Name: Nomi - ED Attending Attestation I have performed the following: I have examined & evaluated the patient, The case was reviewed & discussed with the resident, I agree w/resident's findings & plan, Exceptions are as noted - HPI HPI: 07/26/19 15:44 The patient is a 83 year old female coming from home with significant past medical history of falls, left hip fracture, chronic back pain, chronic leg pain , DVT (on Eliquis) who presents to the ED with acute on chronic left greater than right leg pain and left greater than right leg swelling for the last couple of days. As per the patients son, since last night the patient has not been responding to questions and was more altered than normal. The patients son states that this has happened in the past and that she becomes less responsive and non-verbal because of the pain. The patients son endorses that this has gotten progressively worse than before. The patients son also states that she has been bedridden for the last couple of days and is worried about recurrence of DVT. The patients son adds that earlier in the morning the patients feet and toes were purple this morning. The patients son also adds that she has been coughing and has cold like symptoms, which is slowly resolving. The patients son denies sick contact but does add that she has been in contact by 3 different nurses from [facility]. Allergies: NKA PCP: Zeynep - Physicial Exam PE: 07/26/19 15:47 CONSTITUTIONAL: 83 y/o female seen lying on stretcher, tearfful at times in distress but unable to articulate cause of distress HEAD: Normocephalic; atraumatic EYES: PERRL; EOMI intact ENMT: External appears normal; dry mucus membranes NECK: Supple; non-tender; no cervical lymphadenopathy CARD: Normal S1, S2; no murmurs, rubs, or gallops RESP: Normal chest excursion with respiration; breath sounds clear and equal bilaterally; no wheezes, rhonchi, or rales ABD: Soft, non-distended; non-tender; no palpable organomegaly, no palpable hernias EXT: +Left leg is warm to touch and larger than rt leg. Normal ROM in all four extremities; distal pulses palpable SKIN: +No erythema. Warm, dry, no rash NEURO: pt is awake and alert, is cooperative with exam but slow to respond at time maybe secondary to pain as per son 07/26/19 16:08 - Medical Decision Making 07/26/19 16:16 83 y/o female brought to ED by EMS from home for evaluation of pain. Pt crying at times cannot seen to verbalize what is hurting her, pt was able to say her back hurts but this is a chronic pain. Pt has a fever but son was not aware of the fever. MDS: Pt with chronic pain, leg swelling and fever. No contacts other than son and Visiting nurses. Will obtain blood cx, flu swab, cbc, cmp, inr, cxr, sonogram of left leg,Tylenol ivpb for fever. Pt's labs noted except for flu swab, esr , crp, and sono which are all pending. Pt with elevated wbc and is febrile with no etiology for fever at present. Case endorsed to on coming team to f/u remaining labs and study. Pt will probably require admission to hospital.
[2019-07-26 15:30] LABS: VENOUS PO2 < 49 mmHg (28-48)
[2019-07-26 15:39] LABS: INR 2.01 (0.83-1.09); PROTHROMBIN TIME (PATIENT) 23.9 SEC (9.7-13.0)
[2019-07-26 15:41] LABS: ACTIVATED PTT 38.8 SECONDS (25.2-36.5)
[2019-07-26 15:43] LABS: URINE APPEARANCE CLEAR; URINE BILIRUBIN NEGATIVE (NEGATIVE); URINE COLOR YELLOW; URINE GLUCOSE (UA) NEGATIVE (NEGATIVE); URINE KETONE NEGATIVE (NEGATIVE); URINE LEUK ESTERASE NEGATIVE (NEGATIVE); URINE NITRITE NEGATIVE (NEGATIVE); URINE PROTEIN NEGATIVE (NEGATIVE); URINE UROBILINOGEN 0.2 mg/dL (0.2-1.0)
[2019-07-26 15:52] LABS: ALK PHOS 109 U/L (45-117); ANION GAP 7 MMOL/L (8-16); BILIRUBIN,TOTAL 0.6 mg/dL (0.2-1); BLOOD UREA NITROGEN 18.4 mg/dL (7-18); CALCIUM 8.5 mg/dL (8.5-10.1); CHLORIDE 103 mmol/L (98-107); CO2 30 mmol/L (21-32); CREATININE 1.2 mg/dL (0.55-1.3); GLUCOSE,RANDOM 101 mg/dL (74-106); POTASSIUM 4.2 mmol/L (3.5-5.1); SGOT/AST 13 U/L (15-37); SGPT/ALT 17 U/L (13-61); SODIUM 140 mmol/L (136-145); TOT PROT 7.1 g/dl (6.4-8.2)
[2019-07-26 17:18] LABS: ERYTHROCYTE SEDIMENTATION RATE 84 mm/hr (0-30)
[2019-07-26] MEDS ORDERED: SODIUM CHLORIDE 0.9% 500 ML INFUS.BAG IV ONE (18:18)
[2019-07-26] MEDS ORDERED: PIPERACILLIN/TAZOB 3.375 GM 3.375 GM in DEXTROSE 5%-WATER - 50 ML IVPB ONE (18:25)
[2019-07-26] MEDS ORDERED: VANCOMYCIN 1 GM in D5W (PRE-DOCKED) 1,000 MG/250 ML IVPB ONE (18:25)
[2019-07-26] MEDS ORDERED: PIPERACILLIN/TAZOB 3.375 GM 3.375 GM/50 ML BAG IVPB ONE (18:43)
[2019-07-26] MEDS ORDERED: VANCOMYCIN 1 GRAM (PRE-DOCKED) 1,000 MG/250 ML BAG IVPB ONE (18:43)
[2019-07-26] MEDS ORDERED: ACETAMINOPHEN 325 MG TABLET (FP) PO PRN (20:45)
--- NOTE | 2019-07-26 20:57 | HP ---
CHIEF COMPLAINT:LLE pain and ams PCP:Dr. Adhikari HISTORY OF PRESENT ILLNESS: 83 yo F PMH COPD ( not on home O2) , HTN, HLD, osteoporosis, vertebral compression fractures, DVT (04/2019 on Eliquis ) presenting to ED with LLE pain and altered mental status. Pt was unable to provide much history, but son at bedside was able to provide hx. Pt was complaining of worsening LLE pain this morning. son states that she was having increased inability to walk this morning bc of pain. he states last time she had this pain was when she had the DVT. the son also states that she has been having many health problems since she was DC from [facility] ( 07/10). he states that she has been having worsening dysnea and orthopnea . she completed 5 days of prednisone and improved although still has sxs. he states she had been having a productive cough which is improving. he endorses diarrhea x 3 days, he states shes also been having chills and nausea. son states that pt has also been altered, not as verbally responsive. ER course was notable for: (1)CT head : neg for acute pathology (2)LLE Duplex: neg for LLE DVT (3)vanc/ zosyn Recent Travel:denies PAST MEDICAL HISTORY: PAST SURGICAL HISTORY: nasal surgery , tonsillectomy Social History: Smoking:denies Alcohol:denies Drugs: denies Allergies No Known Allergies Allergy (Verified 06/04/15 15:52) HOME MEDICATIONS: Home Medications Medication Instructions Recorded Amlodipine Besylate [Norvasc -] 5 mg PO DAILY 12/03/18 Atorvastatin Calcium [Lipitor] 20 mg PO HS 12/03/18 Nadolol [Corgard -] 40 mg PO DAILY 12/03/18 Albuterol 2.5/Ipratropium 0.5 1 unit NEB TID 07/26/19 [Duoneb -] Alendronate Sodium [Fosamax] 70 mg PO WEEKLY 07/26/19 Apixaban [Eliquis] 5 mg PO BID 07/26/19 Bupropion HCl [Bupropion Xl] 1 tab PO DAILY 07/26/19 Diclofenac Sodium [Voltaren] 1 applic TP ASDIR 07/26/19 Furosemide [Lasix] 40 mg PO DAILY 07/26/19 Gabapentin [Neurontin] 100 mg PO TID 07/26/19 Ranitidine HCl [Zantac] 150 mg PO DAILY 07/26/19 oxyCODONE HCL [Roxicodone -] 5 mg PO DAILY PRN MDD 20 07/26/19 REVIEW OF SYSTEMS CONSTITUTIONAL: Present: chills, generalized weakness Absent: fever, diaphoresis, malaise, loss of appetite, weight change HEENT: Present: nasal congestion Absent: rhinorrhea,throat pain, throat swelling, difficulty swallowing, mouth swelling, ear pain, eye pain, visual changes CARDIOVASCULAR: Absent: chest pain, syncope, palpitations, irregular heart rate, lightheadedness , peripheral edema RESPIRATORY: PresentL cough, dyspnea, dyspnea with exertion, orthopnea Absent: cough, wheezing, stridor, hemoptysis GASTROINTESTINAL: present: abdominal pain, nausea, diarrhea Absent: abdominal distension, vomiting, constipation, melena, hematochezia GENITOURINARY: Absent: dysuria, frequency, urgency, hesitancy, hematuria, flank pain, genital pain MUSCULOSKELETAL: Present: myalgia, arthralgia, back pain Absent: joint swelling, neck pain SKIN: Absent: rash, itching, pallor HEMATOLOGIC/IMMUNOLOGIC: Absent: easy bleeding, easy bruising, lymphadenopathy, frequent infections ENDOCRINE: Absent: unexplained weight gain, unexplained weight loss, heat intolerance, cold intolerance NEUROLOGIC: Absent: headache, focal weakness or paresthesias, dizziness, unsteady gait, seizure, mental status changes, bladder or bowel incontinence PSYCHIATRIC: Absent: anxiety, depression, suicidal or homicidal ideation, hallucinations. PHYSICAL EXAMINATION Vital Signs - 24 hr 07/26/19 07/26/19 07/26/19 14:21 15:00 15:41 Temperature 101.4 F H Pulse Rate 85 85 Pulse Rate [ 96 H Right Radial] Respiratory 20 20 Rate Blood Pressure 114/70 Blood Pressure 113/81 [Right Arm] O2 Sat by Pulse 100 96 97 Oximetry (%) 07/26/19 07/26/19 07/26/19 15:44 16:26 17:30 Temperature 99 F Pulse Rate Pulse Rate [ 72 66 Right Radial] Respiratory 20 20 Rate Blood Pressure Blood Pressure 88/58 L 97/62 [Right Arm] O2 Sat by Pulse 98 96 97 Oximetry (%) 07/26/19 07/26/19 07/26/19 17:35 18:00 19:00 Temperature 99.2 F Pulse Rate Pulse Rate [ 64 64 Right Radial] Respiratory 20 20 Rate Blood Pressure Blood Pressure 98/58 L 99/63 [Right Arm] O2 Sat by Pulse 97 96 Oximetry (%) GENERAL: Awake, alert, and oriented to self, in no acute distress. obese, elderly female HEAD: Normal with no signs of trauma. EYES: Pupils equal, round and reactive to light, extraocular movements intact, sclera anicteric, conjunctiva clear. EARS, NOSE, THROAT: nares patent, nasal ala deformity, oropharynx clear without exudates. Moist mucous membranes. NECK: Normal range of motion, supple without lymphadenopathy, JVD, or masses. LUNGS: Breath sounds equal, decreased expiratory sounds. b.l basilar crackles, No accessory muscle use. HEART: Regular rate and rhythm, + S1 and S2 , systolic murmur appreciated ABDOMEN: Soft, tender to deep palpation RUQ, not distended, normoactive bowel sounds. No hepatomegaly or splenomegaly. MUSCULOSKELETAL: No bony deformities or tenderness. No CVA tenderness. UPPER EXTREMITIES: 2+ pulses, warm, well-perfused. No cyanosis. No clubbing. No peripheral edema. LOWER EXTREMITIES: 2+ pulses, warm, well-perfused.tenderness to palpation of LLE , LLE pain with passive and active ROM, 2+ peripheral edema L>R NEUROLOGICAL: Cranial nerves II-XII intact. Normal speech. PSYCHIATRIC: Cooperative. Good eye contact. Appropriate mood and affect. SKIN: Warm, dry, normal turgor, no rashes or lesions noted, normal capillary refill. Laboratory Last Values WBC 18.2 K/mm3 (4.0-10.0) H 07/26/19 15:19 RBC 4.21 M/mm3 (3.60-5.2) 07/26/19 15:19 Hgb 11.5 GM/dL (10.7-15.3) 07/26/19 15: Hct 37.0 % (32.4-45.2) 07/26/19 15:19 MCV 87.9 fl (80-96) 07/26/19 15:19 MCH 27.4 pg (25.7-33.7) D 07/26/19 15:19 MCHC 31.2 g/dl (32.0-36.0) L 07/26/19 15:19 RDW 16.6 % (11.6-15.6) H 07/26/19 15:19 Plt Count 498 K/MM3 (134-434) H D 07/26/19 15:19 MPV 7.1 fl (7.5-11.1) L 07/26/19 15:19 Absolute Neuts (auto) 15.0 K/mm3 (1.5-8.0) H 07/26/19 15:19 Neutrophils % 82.5 % (42.8-82.8) 07/26/19 15:19 Lymphocytes % 5.5 % (8-40) L D 07/26/19 15:19 Monocytes % 10.4 % (3.8-10.2) H 07/26/19 15:19 Eosinophils % 0.2 % (0-4.5) D 07/26/19 15:19 Basophils % 1.4 % (0-2.0) 07/26/19 15:19 Nucleated RBC % 0 % (0-0) 07/26/19 15:19 ESR 84 mm/hr (0-30) H 07/26/19 15:19 PT with INR 23.90 SEC (9.7-13.0) H 07/26/19 15:19 INR 2.01 (0.83-1.09) H 07/26/19 15:19 PTT (Actin FS) 38.8 SECONDS (25.2-36.5) H 07/26/19 15:19 VBG pH 7.42 (7.31-7.41) H 07/26/19 15:19 POC VBG pCO2 47.0 mmHg (38-52) 07/26/19 15:19 POC VBG pO2 < 49 mmHg (28-48) H 07/26/19 15:19 VBG HCO3 29.8 mmol/L (23-29) H 07/26/19 15:19 VBG O2 Sat (Marilee) 23.5 % (70-80) L 07/26/19 15:19 VBG Base Excess 5.0 meq/l (-2-2) H 07/26/19 15:19 Sodium 140 mmol/L (136-145) 07/26/19 15:19 Potassium 4.2 mmol/L (3.5-5.1) 07/26/19 15:19 Chloride 103 mmol/L (98-107) 07/26/19 15:19 Carbon Dioxide 30 mmol/L (21-32) 07/26/19 15:19 Anion Gap 7 MMOL/L (8-16) L 07/26/19 15:19 BUN 18.4 mg/dL (7-18) H 07/26/19 15:19 Creatinine 1.2 mg/dL (0.55-1.3) 07/26/19 15:19 Est GFR (CKD-EPI)AfAm 47.72 07/26/19 15:19 Est GFR (CKD-EPI)NonAf 41.18 07/26/19 15:19 Random Glucose 101 mg/dL (74-106) 07/26/19 15:19 Lactic Acid 1.9 mmol/L (0.4-2.0) 07/26/19 15:19 Calcium 8.5 mg/dL (8.5-10.1) 07/26/19 15:19 Total Bilirubin 0.6 mg/dL (0.2-1) 07/26/19 15:19 AST 13 U/L (15-37) L 07/26/19 15:19 ALT 17 U/L (13-61) 07/26/19 15:19 Alkaline Phosphatase 109 U/L (45-117) 07/26/19 15:19 C-Reactive Protein 12.6 MG/DL (0.00-0.3) H 07/26/19 15:19 Total Protein 7.1 g/dl (6.4-8.2) 07/26/19 15:19 Albumin 3.0 g/dl (3.4-5.0) L 07/26/19 15:19 Urine Color Yellow 07/26/19 15:30 Urine Appearance Clear 07/26/19 15:30 Urine pH 6.0 (5.0-8.0) 07/26/19 15:30 Ur Specific [place] 1.009 (1.010-1.035) L 07/26/19 15:30 Urine Protein Negative (NEGATIVE) 07/26/19 15:30 Urine Glucose (UA) Negative (NEGATIVE) 07/26/19 15:30 Urine Ketones Negative (NEGATIVE) 07/26/19 15:30 Urine Blood Negative (NEGATIVE) 07/26/19 15:30 Urine Nitrite Negative (NEGATIVE) 12/29/19 15:30 Urine Bilirubin Negative (NEGATIVE) 07/26/19 15:30 Urine Urobilinogen 0.2 mg/dL (0.2-1.0) 07/26/19 15:30 Ur Leukocyte Esterase Negative (NEGATIVE) 07/26/19 15:30 Influenza A (Rapid) Negative (Negative) 07/26/19 16:13 Influenza B (Rapid) Negative (Negative) 07/26/19 16:[address]: Intracranial hemorrhage: None. Mass effect: None. Brain parenchyma: Likely chronic ischemic changes. Bilateral maxillary sinus opacification seen. CT Chest, abdomen , pelvis: Lungs: Diffuse interstitial and patchy opacities, most prominent in the right upper lobe. There are tree-in-bud opacities and interstitial nodules. Compatible with interstitial pneumonia. Cannot exclude tuberculosis or neoplasm. Mediastinum: Borderline dilation of ascending aorta, 43 mm. Hiatal hernia. Abdominal organs: Small left nephrolithiasis. Bowel: No bowel obstruction. No sign of colitis. Other findings: Multiple thoracic and lumbar compression fractures are present, of uncertain age. ASSESSMENT/PLAN: 83 yo F PMH COPD ( not on home O2) , HTN, HLD,osteoporosis, vertebral compression fractures, DVT (04/2019 on Eliquis ) presenting to ED with LLE pain and altered mental status.pt is admitted to medicine for fever of unknown origin SIRS, likely 2/2 PNA - Tmax 101.4, WBC 18.2 - CXR reviewed, improved from prior CXR, cannot r.o pna; Chest CT reviewed, will treat for pna - c/w zosyn and azithro - pending BCx, UCx - influenza neg - pending legionella - pending Stool culture, Cdif, ova parasites - CT abdomen/ pelvis to r/o colitis . - UA neg - ESR and CRP elevated, RF neg. pending AURA and CK. to r/o connective tissue disorder -ID recs appreciated Worsening dyspnea likely COPD vs Acute on Chronic HF - systolic murmur appreciated, son states this is chronic finding. will eval with Echo. BNP 611.5 - CT chest reviewed - On 2L NC currently . not on home O2, taper as tolerated - duonebs - ventolin prn LLE pain - LLE Duplex neg for DVT - Hx of recent pelvis fx ( 02/2019) and hematoma. will eval w/ CT pelvis - pt reports chronic pain of LLE - consider further imaging of spine, LLE. - PT eval appreciated HTN - continue home meds as BP permits HLD -c/w statin as prescribed CYNTHIA - continue to monitor -gentle hydration - avoid nephrotoxic agents Hx of Compression fx - continue neurontin - pain control as per primary team DVT ppx: continue home eliquis Dispo: admit to medicine Visit type - Emergency Visit Emergency Visit: Yes ED Registration Date: 07/26/19 Care time: The patient presented to the Emergency Department on the above date and was hospitalized for further evaluation of their emergent condition. - New Patient This patient is new to me today: Yes Date on this admission: 07/27/19 - Critical Care Critical Care patient: No ATTENDING PHYSICIAN STATEMENT I saw and evaluated the patient. I reviewed the resident's note and discussed the case with the resident. I agree with the resident's findings and plan as documented. SUBJECTIVE: OBJECTIVE: ASSESSMENT AND PLAN:
[2019-07-26] MEDS ORDERED: ALBUTEROL SO4 0.083% IH SOL 2.5 MG/3 ML VIAL.NEB. NEB PRN (21:34)
[2019-07-26] MEDS ORDERED: ALENDRONATE SODIUM 70 MG PO SCH (21:45)
[2019-07-26] MEDS ORDERED: HEPARIN NA (PORCINE) 5,000 UNITS/ML 1ML VIAL SQ SCH (22:00)
--- NOTE | 2019-07-26 22:03 | PN ---
Teaching Attending Note Name of Resident: Gisele Dodson ATTENDING PHYSICIAN STATEMENT I saw and evaluated the patient. I reviewed the resident's note and discussed the case with the resident. I agree with the resident's findings and plan as documented. SUBJECTIVE: This is an 83 year old woman with a history of HTN, hyperlipidemia, LLE DVT, thoracolumbar vertebral compression fractures, left superior/inferior pubic rami fractures 02/2019, osteoporosis who comes to the ED today because of multiple complaints. The patient is unable to provide much history which is obtained from her son. The patient had been admitted here on 12/02/18 with encephalopathy secondary to UTI and was treated with ceftriaxone/cefuroxime x 5 days. She was discharged to [facility] on 12/05/18. She was admitted again on with pelvic fractures and pelvic hematoma after a fall. She was discharged on 03/20/19 to [facility]. As per her son, she is now having brown watery diarrhea, a productive cough, worsening LLE pain where she is now unable to move the leg. In the ED, she had a temp 101.4. CTAP in 11/2018 showed chronic lung disease, large hiatal hernia, right ovarian cyst. CTAP in 02/2019 showed several small bilateral pulmonary infiltrates, 0.7 cm LLL nodule, moderate to large hiatal hernia, 3.7 cm right ovarian cyst, presacral soft tissue edema, acute left superior and inferior pubic rami fracures, 11 x 5 x 4 cm acute extraperitoneal hematoma in left lower pelvis. OBJECTIVE: Vital Signs Period Temp Pulse Resp BP Sys/Vera Pulse Ox Last 24 Hr 99 F-101.4 F 64-96 20-22 88-114/58-81 96-100 GENERAL: Awake, alert, in no distress, hard of hearing and forgetful HEART: S1S2, RRR, (+) 2/6 SM LUNGS: Scattered crackles ABDOMEN: Soft, non-tender, non-distended, normal BS EXTREMITIES: LLE larger than RLE. Unable to actively raise LLE off bed and has significant pain in LLE with passive movement Laboratory Tests 07/26/19 07/26/19 07/26/19 15:19 15:19 15:19 WBC 18.2 H RBC 4.21 Hgb 11.5 Hct 37.0 MCV 87.9 MCH 27.4 D MCHC 31.2 L RDW 16.6 H Plt Count 498 H D MPV 7.1 L Absolute Neuts (auto) 15.0 H Neutrophils % 82.5 Lymphocytes % 5.5 L D Monocytes % 10.4 H Eosinophils % 0.2 D Basophils % 1.4 Nucleated RBC % 0 ESR 84 H PT with INR INR PTT (Actin FS) VBG pH POC VBG pCO2 POC VBG pO2 VBG HCO3 VBG O2 Sat (Marilee) VBG Base Excess Sodium 140 Potassium 4.2 Chloride 103 Carbon Dioxide 30 Anion Gap 7 L BUN 18.4 H Creatinine 1.2 Est GFR (CKD-EPI)AfAm 47.72 Est GFR (CKD-EPI)NonAf 41.18 Random Glucose 101 Lactic Acid 1.9 Calcium 8.5 Total Bilirubin 0.6 AST 13 L ALT 17 Alkaline Phosphatase 109 C-Reactive Protein 12.6 H Total Protein 7.1 Albumin 3.0 L Urine Color Urine Appearance Urine pH Ur Specific [place] Urine Protein Urine Glucose (UA) Urine Ketones Urine Blood Urine Nitrite Urine Bilirubin Urine Urobilinogen Ur Leukocyte Esterase Influenza A (Rapid) Influenza B (Rapid) 07/26/19 07/26/19 07/26/19 15:19 15:19 15:30 WBC RBC Hgb Hct MCV MCH MCHC RDW Plt Count MPV Absolute Neuts (auto) Neutrophils % Lymphocytes % Monocytes % Eosinophils % Basophils % Nucleated RBC % ESR PT with INR 23.90 H INR 2.01 H PTT (Actin FS) 38.8 H VBG pH 7.42 H POC VBG pCO2 47.0 POC VBG pO2 < 49 H VBG HCO3 29.8 H VBG O2 Sat (Marilee) 23.5 L VBG Base Excess 5.0 H Sodium Potassium Chloride Carbon Dioxide Anion Gap BUN Creatinine Est GFR (CKD-EPI)AfAm Est GFR (CKD-EPI)NonAf Random Glucose Lactic Acid Calcium Total Bilirubin AST ALT Alkaline Phosphatase C-Reactive Protein Total Protein Albumin Urine Color Yellow Urine Appearance Clear Urine pH 6.0 Ur Specific [place] 1.009 L Urine Protein Negative Urine Glucose (UA) Negative Urine Ketones Negative Urine Blood Negative Urine Nitrite Negative Urine Bilirubin Negative Urine Urobilinogen 0.2 Ur Leukocyte Esterase Negative Influenza A (Rapid) Influenza B (Rapid) 07/26/19 16:13 WBC RBC Hgb Hct MCV MCH MCHC RDW Plt Count MPV Absolute Neuts (auto) Neutrophils % Lymphocytes % Monocytes % Eosinophils % Basophils % Nucleated RBC % ESR PT with INR INR PTT (Actin FS) VBG pH POC VBG pCO2 POC VBG pO2 VBG HCO3 VBG O2 Sat (Marilee) VBG Base Excess Sodium Potassium Chloride Carbon Dioxide Anion Gap BUN Creatinine Est GFR (CKD-EPI)AfAm Est GFR (CKD-EPI)NonAf Random Glucose Lactic Acid Calcium Total Bilirubin AST ALT Alkaline Phosphatase C-Reactive Protein Total Protein Albumin Urine Color Urine Appearance Urine pH Ur Specific [place] Urine Protein Urine Glucose (UA) Urine Ketones Urine Blood Urine Nitrite Urine Bilirubin Urine Urobilinogen Ur Leukocyte Esterase Influenza A (Rapid) Negative Influenza B (Rapid) Negative Home Medications Medication Instructions Recorded Amlodipine Besylate [Norvasc -] 5 mg PO DAILY 12/03/18 Atorvastatin Calcium [Lipitor] 20 mg PO HS 12/03/18 Nadolol [Corgard -] 40 mg PO DAILY 12/03/18 Albuterol 2.5/Ipratropium 0.5 1 unit NEB TID 07/26/19 [Duoneb -] Alendronate Sodium [Fosamax] 70 mg PO WEEKLY 07/26/19 Apixaban [Eliquis] 5 mg PO BID 07/26/19 Bupropion HCl [Bupropion Xl] 1 tab PO DAILY 07/26/19 Diclofenac Sodium [Voltaren] 1 applic TP ASDIR 07/26/19 Furosemide [Lasix] 40 mg PO DAILY 07/26/19 Gabapentin [Neurontin] 100 mg PO TID 07/26/19 Ranitidine HCl [Zantac] 150 mg PO DAILY 07/26/19 oxyCODONE HCL [Roxicodone -] 5 mg PO DAILY PRN MDD 20 07/26/19 ASSESSMENT AND PLAN: This is an 83 year old woman with a history of HTN, hyperlipidemia, LLE DVT, thoracolumbar vertebral compression fractures, left superior/inferior pubic rami fractures 02/2019, osteoporosis who presented to the ED with change in mental status, worsening left leg pain, watery brown diarrhea, and productive cough as per family. 1. SIRS (fever, leukocytosis) with no clear source of infection - ? viral syndrome, ? pneumonia - No evidence of UTI - Productive cough and diarrhea reported by son - CXR shows changes at right base and RUL (? chronic changes seen on prior CTs) - Zosyn, vancomycin given in ED - Will continue with Zosyn empirically for possible pneumonia - CT chest/abdomen/pelvis to evaluate for pneumonia, colitis - Check Legionella, Pneumococcus Ag - Stool culture, O&P, C. difficile - Follow-up blood cultures - Consider connective tissue disorder given elevated ESR and CRP - check AURA , RF, CK - No evidence of DVT 2. LLE pain - No evidence of DVT - Possibly secondary to lumbar compression fractures - Continue Neurontin, Wellbutrin, oxycodone as needed - CT pelvis given recent pelvic fractures with hematoma - Consider re-imaging lumbar spine - PT evaluation 3. Systolic murmur - Also noted in 11/2018 and son states he is aware that she has had one - Check echo 4. HTN - Continue Norvasc, Corgard, Lasix 5. Hyperlipidemia - Continue Lipitor 6. History of LLE DVT - Continue Eliquis 7. History of thoracolumbar vertebral compression fractures - Continue Neurontin, Wellbutrin, oxycodone as needed 8. History of left superior/inferior pubic rami fractures 9. Osteoporosis
[2019-07-26] MEDS ORDERED: DEXTROSE 5%-WATER - 50 ML IVPB ONE (22:10)
[2019-07-26] MEDS ORDERED: PIPERACILLIN/TAZOBACTAM 2.25 GM VIAL IVPB ONE (22:10)
[2019-07-26 22:16] LABS: N-TERMINAL BNP 611.5 pg/ml (5-450)
[2019-07-26] MEDS: PIPERACILLIN/TAZOB 2.25 GM 2.25 GM in DEXTROSE 5%-WATER - 50 ML IVPB SCH (22:56)
[2019-07-26] MEDS: APIXABAN 5 MG TABLET PO SCH (22:56)
[2019-07-26] MEDS: GABAPENTIN 100 MG CAPSULE (FP) PO SCH (22:56)
[2019-07-26] MEDS: ATORVASTATIN CA 20 MG TABLET (FP) PO SCH (22:56)
[2019-07-26] MEDS ORDERED: AZITHROMYCIN IVPB 500 MG/250 ML BAG IVPB ONE (23:45)
[2019-07-27] MEDS ORDERED: AZITHROMYCIN IVPB 500 MG/250 ML BAG IVPB ONE (01:30)
[2019-07-27] MEDS ORDERED: DEXTROSE 5%-WATER - 50 ML IVPB ONE ×4 (02:44→20:18)
[2019-07-27] MEDS ORDERED: PIPERACILLIN/TAZOBACTAM 2.25 GM VIAL IVPB ONE ×4 (02:44→20:18)
[2019-07-27] MEDS: PIPERACILLIN/TAZOB 2.25 GM 2.25 GM in DEXTROSE 5%-WATER - 50 ML IVPB SCH ×6 (02:48→20:27)
[2019-07-27] MEDS: GABAPENTIN 100 MG CAPSULE (FP) PO SCH ×3 (05:36→21:25)
[2019-07-27] MEDS: ALBUTEROL SO4 2.5/IPRATROPIUM 0.5 INH SOL 3 ML VIAL.NEB. NEB SCH ×3 (07:35→22:17)
[2019-07-27 08:29] LABS: BASO % 1.1 % (0-2.0); EOS % 0.5 % (0-4.5); HEMATOCRIT 31.7 % (32.4-45.2); HEMOGLOBIN 9.9 GM/dL (10.7-15.3); LYMPH % 5.2 % (8-40); MCH 27.2 pg (25.7-33.7); MCHC 31.2 g/dl (32.0-36.0); MEAN CELL VOLUME 87.1 fl (80-96); MEAN PLT VOLUME 6.9 fl (7.5-11.1); MONO % 10.3 % (3.8-10.2); NEUT % 82.9 % (42.8-82.8); PLATELET COUNT 374 K/MM3 (134-434); RBC 3.64 M/mm3 (3.60-5.2); RDW 17.1 % (11.6-15.6); WHITE BLOOD COUNT 14.7 K/mm3 (4.0-10.0)
[2019-07-27 09:08] LABS: ALBUMIN 2.4 g/dl (3.4-5.0); BILIRUBIN,TOTAL 0.9 mg/dL (0.2-1); CREATININE 1.1 mg/dL (0.55-1.3); MAGNESIUM 2.1 mg/dL (1.8-2.4); PHOSPHOROUS 3.7 mg/dL (2.5-4.9); TOT PROT 5.8 g/dl (6.4-8.2)
--- NOTE | 2019-07-27 10:51 | PN ---
Physical Exam: SUBJECTIVE: Patient seen and examined at the bedside. denies any pain or discomfort. OBJECTIVE: Patient is an 83 year old male with a significant past medical history of COPD ( not on home O2) , HTN, HLD, osteoporosis, vertebral compression fractures, DVT ( 04/2019 on Eliquis ) presenting to ED with LLE pain, altered mental status and loose stools. Per chart, patient's son reports that patient has been having worsening dyspnea, orthopnea, productive cough and diarrhea at home. imaging: Head CT: no acute pathology, chronic ischemic changes. bilateral maxillary sinus opacification seen. CT Chest/ct abd/pelvis: multilevel compression fracture, new inferior endplate of L3, multiple lung nodules with some increased in size, findings could represent mucous plugging, underlying malignancy not excluded, non obstructing nephrolithiasis, aneurysmal dilation of the ascending aorta present previously, Vital Signs Period Temp Pulse Resp BP Sys/Vera Pulse Ox Last 24 Hr 97.6 F-101.4 F 64-96 18-22 88-114/57-81 96-100 GENERAL: The patient is awake, alert, and fully oriented, in no acute distress. HEAD: Normal with no signs of trauma. EYES: PERRL, extraocular movements intact, sclera anicteric, conjunctiva clear. No ptosis. ENT: Ears normal, nares patent, oropharynx clear without exudates, moist mucous membranes. NECK: Trachea midline, full range of motion, supple. LUNGS: diminished bilaterally, on 2 liters of nasal cannula HEART: Regular rate and rhythm ABDOMEN: Soft, nontender, nondistended, normoactive bowel sounds EXTREMITIES: +1 lower ext edema bilaterally NEUROLOGICAL: Normal speech, gait not observed. PSYCH: Normal mood, normal affect. SKIN: dry skin turgor Laboratory Results - last 24 hr 07/26/19 07/26/19 07/26/19 15:19 15:19 15:19 WBC 18.2 H RBC 4.21 Hgb 11.5 Hct 37.0 MCV 87.9 MCH 27.4 D MCHC 31.2 L RDW 16.6 H Plt Count 498 H D MPV 7.1 L Absolute Neuts (auto) 15.0 H Neutrophils % 82.5 Lymphocytes % 5.5 L D Monocytes % 10.4 H Eosinophils % 0.2 D Basophils % 1.4 Nucleated RBC % 0 ESR 84 H PT with INR INR PTT (Actin FS) VBG pH POC VBG pCO2 POC VBG pO2 VBG HCO3 VBG O2 Sat (Marilee) VBG Base Excess Sodium 140 Potassium 4.2 Chloride 103 Carbon Dioxide 30 Anion Gap 7 L BUN 18.4 H Creatinine 1.2 Est GFR (CKD-EPI)AfAm 47.72 Est GFR (CKD-EPI)NonAf 41.18 Random Glucose 101 Lactic Acid 1.9 Calcium 8.5 Phosphorus Magnesium Total Bilirubin 0.6 AST 13 L ALT 17 Alkaline Phosphatase 109 Creatine Kinase 20 L C-Reactive Protein 12.6 H B-Natriuretic Peptide 611.5 H Total Protein 7.1 Albumin 3.0 L Urine Color Urine Appearance Urine pH Ur Specific [place] Urine Protein Urine Glucose (UA) Urine Ketones Urine Blood Urine Nitrite Urine Bilirubin Urine Urobilinogen Ur Leukocyte Esterase Rheumatoid Factor < 10.0 Influenza A (Rapid) Influenza B (Rapid) 07/26/19 07/26/19 07/26/19 15:19 15:19 15:30 WBC RBC Hgb Hct MCV MCH MCHC RDW Plt Count MPV Absolute Neuts (auto) Neutrophils % Lymphocytes % Monocytes % Eosinophils % Basophils % Nucleated RBC % ESR PT with INR 23.90 H INR 2.01 H PTT (Actin FS) 38.8 H VBG pH 7.42 H POC VBG pCO2 47.0 POC VBG pO2 < 49 H VBG HCO3 29.8 H VBG O2 Sat (Marilee) 23.5 L VBG Base Excess 5.0 H Sodium Potassium Chloride Carbon Dioxide Anion Gap BUN Creatinine Est GFR (CKD-EPI)AfAm Est GFR (CKD-EPI)NonAf Random Glucose Lactic Acid Calcium Phosphorus Magnesium Total Bilirubin AST ALT Alkaline Phosphatase Creatine Kinase C-Reactive Protein B-Natriuretic Peptide Total Protein Albumin Urine Color Yellow Urine Appearance Clear Urine pH 6.0 Ur Specific [place] 1.009 L Urine Protein Negative Urine Glucose (UA) Negative Urine Ketones Negative Urine Blood Negative Urine Nitrite Negative Urine Bilirubin Negative Urine Urobilinogen 0.2 Ur Leukocyte Esterase Negative Rheumatoid Factor Influenza A (Rapid) Influenza B (Rapid) 07/26/19 07/27/19 07/27/19 16:13 06:00 08:00 WBC 14.7 H RBC 3.64 Hgb 9.9 L Hct 31.7 L MCV 87.1 MCH 27.2 MCHC 31.2 L RDW 17.1 H Plt Count 374 D MPV 6.9 L Absolute Neuts (auto) 12.2 H Neutrophils % 82.9 H Lymphocytes % 5.2 L Monocytes % 10.3 H Eosinophils % 0.5 D Basophils % 1.1 Nucleated RBC % 0 ESR PT with INR INR PTT (Actin FS) VBG pH POC VBG pCO2 POC VBG pO2 VBG HCO3 VBG O2 Sat (Marilee) VBG Base Excess Sodium 138 Potassium 4.0 Chloride 103 Carbon Dioxide 27 Anion Gap 7 L BUN 20.0 H Creatinine 1.1 Est GFR (CKD-EPI)AfAm 53.02 Est GFR (CKD-EPI)NonAf 45.74 Random Glucose 98 Lactic Acid Calcium 8.0 L Phosphorus 3.7 Magnesium 2.1 Total Bilirubin 0.9 AST 12 L ALT 11 L Alkaline Phosphatase 92 Creatine Kinase C-Reactive Protein B-Natriuretic Peptide Total Protein 5.8 L Albumin 2.4 L Urine Color Urine Appearance Urine pH Ur Specific [place] Urine Protein Urine Glucose (UA) Urine Ketones Urine Blood Urine Nitrite Urine Bilirubin Urine Urobilinogen Ur Leukocyte Esterase Rheumatoid Factor Influenza A (Rapid) Negative Influenza B (Rapid) Negative Active Medications Generic Name Dose Route Start Last Admin Trade Name Freq PRN Reason Stop Dose Admin Acetaminophen 650 mg 07/26/19 20:45 07/26/19 23:03 Tylenol - PO 650 mg Q6H PRN Administration PAIN LEVEL 6-10 Albuterol Sulfate 1 amp 07/26/19 21:34 Ventolin 0.083% Nebulizer Soln - NEB Q4H PRN SHORT OF BREATH/WHEEZING Albuterol/Ipratropium 1 amp 07/27/19 08:00 07/27/19 07:35 Duoneb - NEB 1 amp RTID BHAVYA Administration Amlodipine Besylate 5 mg 07/27/19 10:00 Norvasc - PO DAILY BHAVYA Apixaban 5 mg 07/26/19 22:00 07/26/19 22:56 Eliquis - PO 5 mg BID BHAVYA Administration Atorvastatin Calcium 20 mg 07/26/19 22:00 07/26/19 22:56 Lipitor - PO 20 mg HS BHAVYA Administration Bupropion HCl 150 mg 07/27/19 10:00 Wellbutrin Xl - PO DAILY [facility] Famotidine 20 mg 07/27/19 10:00 Pepcid - PO DAILY [facility] Furosemide 40 mg 07/27/19 10:00 Lasix - PO DAILY BHAVYA Gabapentin 100 mg 07/26/19 22:00 07/27/19 05:36 Neurontin - PO 100 mg TID BHAVYA Administration Piperacillin Sod/Tazobactam 50 mls @ 100 mls/hr 07/26/19 21:00 Sod 2.25 gm/ Dextrose IVPB Q6H-IV BHAVYA Protocol Azithromycin 250 mg/ Dextrose 250 mls @ 250 mls/hr 07/27/19 10:00 IVPB DAILY BHAVYA Nadolol 40 mg 07/27/19 10:00 Corgard - PO DAILY BHAVYA ASSESSMENT/PLAN: Problem List - Problems (1) Pneumonia Assessment/Plan: on Zosyn, Azithoromycin follow up blood cultures Maintain supplemental oxygen to keep spo2 > 90% [facility] Code(s): J18.9 - PNEUMONIA, UNSPECIFIED ORGANISM (2) Acute pain of left lower extremity Assessment/Plan: reports chronic pain of this left lower extremity takes oxycodone at home prn Code(s): M79.605 - PAIN IN LEFT LEG (3) Altered mental status Assessment/Plan: mentation appears to be improving Code(s): R41.82 - ALTERED MENTAL STATUS, UNSPECIFIED (4) History of DVT of lower extremity Assessment/Plan: on eliquis bid Code(s): Z86.718 - PERSONAL HISTORY OF OTHER VENOUS THROMBOSIS AND EMBOLISM (5) Sepsis Assessment/Plan: blood and urine cultures pending, follow up results on zosyn/azithromycin for pneumonia Code(s): A41.9 - SEPSIS, UNSPECIFIED ORGANISM Qualifiers: Sepsis type: sepsis due to unspecified organism Sepsis acute organ dysfunction status: unspecified Qualified Code(s): A41.9 - Sepsis, unspecified organism (6) Prophylactic measure Code(s): Z29.9 - ENCOUNTER FOR PROPHYLACTIC MEASURES, UNSPECIFIED Visit type - Emergency Visit Emergency Visit: Yes ED Registration Date: 07/26/19 Care time: The patient presented to the Emergency Department on the above date and was hospitalized for further evaluation of their emergent condition. - New Patient This patient is new to me today: Yes Date on this admission: 07/27/19 - Critical Care Critical Care patient: No - Discharge Referral Referred to [facility] Med [facility].C.: No
[2019-07-27] MEDS: amLODIPine BESYLATE 5 MG TABLET (FP) PO SCH (11:25)
[2019-07-27] MEDS: APIXABAN 5 MG TABLET PO SCH ×2 (11:25→21:25)
[2019-07-27] MEDS: NADOLOL 40 MG TABLET (FP) PO SCH (11:25)
[2019-07-27] MEDS: FUROSEMIDE 40 MG TABLET (FP) PO SCH (11:25)
[2019-07-27] MEDS: AZITHROMYCIN IVPB 250 MG in DEXTROSE 5%-WATER - 250 ML IVPB SCH (11:26)
[2019-07-27] MEDS: FAMOTIDINE 20 MG TABLET PO SCH (11:26)
--- NOTE | 2019-07-27 11:30 | EKG ---
Test Reason : Blood Pressure : / mmHG Vent. Rate : 072 BPM Atrial Rate : 072 BPM P-R Int : 182 ms QRS Dur : 088 ms QT Int : 396 ms P-R-T Axes : 002 -10 002 degrees QTc Int : 433 ms NORMAL SINUS RHYTHM POSSIBLE LEFT ATRIAL ENLARGEMENT BORDERLINE ECG WHEN COMPARED WITH ECG OF 16-MAR-2019 16:51, NO SIGNIFICANT CHANGE WAS FOUND Confirmed by RJ ACEVEDO MD ([id number]) on 07/27/2019 11:29:54 AM Referred By: Confirmed By:RJ ACEVEDO MD
--- NOTE | 2019-07-27 12:51 | CON.PULM ---
Consult Consult Specialty:: PULMONARY Referred by:: ANNETTE Bender Reason for Consultation:: pneumonia - History of Present Illness Chief Complaint: altered mental status History of Present Illness: 83yo female with h/o HTN, hyperlipidemia, h/o DVT, COPD who was admitted with altered mental status. Reports some shortness of breath, cough which has resolved with nebulizer treatments. Febrile to 101.3 on admission. She denies history of asthma or COPD. She is a never smoker. No chest pain or discomfort. CT chest showing some chronic changes but also with RUL infiltrate. She denies coughing or choking with eating. - History Source History Provided By: Patient, Medical Record Limitations to Obtaining History: No Limitations - Past Medical History Cardio/Vascular: Yes: HTN, Hyperlipdemia ...: No - Alcohol/Substance Use Hx Alcohol Use: No - Smoking History Smoking history: Never smoked Have you smoked in the past 12 months: No Aproximately how many cigarettes per day: 0 Home Medications - Allergies Allergies/Adverse Reactions: Allergies Allergy/AdvReac Type Severity Reaction Status Date / Time No Known Allergies Allergy Verified 06/04/15 15:52 - Home Medications Home Medications: Ambulatory Orders Amlodipine Besylate [Norvasc -] 5 mg PO DAILY 12/03/18 Atorvastatin Calcium [Lipitor] 20 mg PO HS 12/03/18 Nadolol [Corgard -] 40 mg PO DAILY 12/03/18 Albuterol 2.5/Ipratropium 0.5 [Duoneb -] 1 unit NEB TID 07/26/19 Alendronate Sodium [Fosamax] 70 mg PO WEEKLY 07/26/19 Apixaban [Eliquis] 5 mg PO BID 07/26/19 Bupropion HCl [Bupropion Xl] 1 tab PO DAILY 07/26/19 Diclofenac Sodium [Voltaren] 1 applic TP ASDIR 07/26/19 Furosemide [Lasix] 40 mg PO DAILY 07/26/19 Gabapentin [Neurontin] 100 mg PO TID 07/26/19 Ranitidine HCl [Zantac] 150 mg PO DAILY 07/26/19 oxyCODONE HCL [Roxicodone -] 5 mg PO DAILY PRN MDD 20 07/26/19 Review of Systems - Review of Systems Constitutional: reports: Weakness. denies: Chills, Fever Eyes: denies: Recent Change in Vision HENT: denies: Nasal Congestion, Throat Pain Neck: denies: Stiffness, Tenderness Cardiovascular: reports: Shortness of Breath. denies: Chest Pain, Edema, Palpitations Respiratory: reports: Cough, SOB. denies: Hemoptysis, Wheezing Gastrointestinal: denies: Abdominal Pain, Nausea, Vomiting Genitourinary: denies: Dysuria, Hematuria Neurological: denies: Dizziness, Headache Endocrine: denies: Unexplained Weight Loss Physical Exam Vital Sings: Vital Signs Temperature 97.6 F 07/26/19 21:30 Pulse Rate 66 07/26/19 21:30 Respiratory Rate 18 07/26/19 21:30 Blood Pressure 100/57 L 07/26/19 21:30 O2 Sat by Pulse Oximetry (%) 98 07/26/19 21:30 Constitutional: Yes: Other (mildly tachypneic with speaking) Eyes: Yes: Conjunctiva Clear, EOM Intact HENT: Yes: Atraumatic, Normocephalic Neck: Yes: Supple, Trachea Midline Cardiovascular: Yes: Regular Rate and Rhythm Respiratory: Yes: Diminished (decreased breath sounds at the bases) ...Clubbing: No Gastrointestinal: Yes: Normal Bowel Sounds, Soft. No: Tenderness Edema: No Labs: CBC, BMP 07/27/19 08:00 07/27/19 06:00 Imaging - Results Chest X-ray: Report Reviewed, Image Reviewed Cat Scan: Image Reviewed (patchy multilobar infiltrates, RUL consolidation increased from prior) Problem List - Problems (1) Pneumonia Code(s): J18.9 - PNEUMONIA, UNSPECIFIED ORGANISM Assessment/Plan Pneumonia Sepsis Lung Nodules HTN Hyperlipidemia h/o DVT - IV antibiotics - f/u cultures - O2 to keep SpO2 >90% - inhaled bronchodilators - can defer systemic steroids at this time - outpt f/u of chest imaging - continue anticoagulation Thank you for this consult Geovanny Jay MD
--- NOTE | 2019-07-27 13:45 | ECHO ---
Name: CLEMENCIA CASANOVA Exam:Adult Echocardiogram Study Date: 07/27/2019 09:36 AM Age: 83 yrs Height: 65 in Weight: 153 lb BSA: 1.8 m2 MMode/2D Measurements & Calculations IVSd: 0.65 cm Ao root diam: 2.4 cm LVIDd: 4.0 cm LA dimension: 2.4 cm LVIDs: 2.6 cm LVPWd: 0.95 cm LVPWs: 0.90 cm EDV(Teich): 70.4 ml ESV(Teich): 24.9 ml LVOT diam: 1.8 cm Doppler Measurements & Calculations MV E max derrick: 75.0 cm/sec Ao V2 max: 222.5 cm/sec MV A max derrick: 106.6 cm/sec Ao max P.8 mmHg MV E/A: 0.70 AI P1/2t: 514.2 msec MV dec time: 0.21 sec MASON(V,D): 1.1 cm2 AI max edrrick: 429.7 cm/sec LV V1 max P.5 mmHg AI max P.9 mmHg LV V1 max: 93.8 cm/sec AI dec slope: 244.8 cm/sec2 PA V2 max: 152.0 cm/sec PI end-d derrick: 135.7 cm/sec PA max P.2 mmHg Procedure There was technical limitations during this study due to uncooperative patient. Left Ventricle The left ventricle is normal in size. Left ventricular systolic function is normal. Ejection Fraction = 60- 65%. No regional wall motion abnormalities noted. Right Ventricle The right ventricle is normal size. The right ventricular systolic function is normal. Atria The left atrial size is normal. Right atrial size is normal. Mitral Valve There is mild to moderate mitral annular calcification. There is no mitral regurgitation noted. Tricuspid Valve The tricuspid valve is normal in structure and function. No tricuspid regurgitation. Aortic Valve There is mild to moderate aortic sclerosis.;. Mild aortic regurgitation. Pulmonic Valve The pulmonic valve is not well visualized. Great Vessels The aortic root is normal size. Pericardium/Pleura There is no pericardial effusion. Interpretation Summary There was technical limitations during this study due to uncooperative patient. The left ventricle is normal in size. Left ventricular systolic function is normal. No regional wall motion abnormalities noted. Ejection Fraction = 60-65%. The right ventricular systolic function is normal. The left atrial size is normal. Right atrial size is normal. There is mild to moderate mitral annular calcification. There is mild to moderate aortic sclerosis. Mild aortic regurgitation. There is no pericardial effusion. Rebel Estrada MD 07/27/2019 01:44 PM
[2019-07-27] MEDS: oxyCODONE HCL 5 MG TABLET PO PRN ×2 (14:09→20:26)
--- NOTE | 2019-07-27 14:32 | PN ---
Progress Note (short form) - Note Progress Note: ID consult dictated imp/reccd fever, LLE pain, loose stools and cough now alert duplex no dvt head ct with acute maxillary sinusitis chest ct with RUL infiltrate she has continued LLe pain denies trauma to the leg, denies gout pneumonia sinusitis LLE pain continue zosyn/zithromax check cultures, check urinary antigens influenza antigens are negative xray LLE consider ortho evaluation Problem List - Problems (1) Pneumonia Code(s): J18.9 - PNEUMONIA, UNSPECIFIED ORGANISM (2) Sinusitis, acute maxillary Code(s): J01.00 - ACUTE MAXILLARY SINUSITIS, UNSPECIFIED (3) Acute pain of left lower extremity Code(s): M79.605 - PAIN IN LEFT LEG
--- NOTE | 2019-07-27 15:25 | CONS ---
INFECTIOUS DISEASE CONSULTATION DATE OF CONSULTATION: DATE OF DICTATION: 07/27/2019 HISTORY: This is an 83-year-old woman. She lives at home with her son. She has a history of compression fractures of her back. She has a history of UTI this summer followed by a fall in February and fracture of her left superior and inferior pubic rami with an associated intraperitoneal hematoma. She has been home since the 10 of July from the alf. Her son brought her to the ER with lethargy. She has had several days of loose stools, diarrhea, cough, and pain in her left lower extremity. She was febrile to 101.4 in the ER. He was not aware that she had fever at home. She is currently awake and alert. She continues to have pain in the left leg. She denies any trauma to the leg. She did not fall or twist her ankle. Her cough is improved. She received vancomycin, Zosyn, and Zithromax in the emergency room. I am asked to see her for further evaluation. PAST MEDICAL HISTORY: Notable for the history of hypertension, hyperlipidemia, osteoporosis, vertebral compression fractures, DVT in 2019 on Eliquis, history of COPD. SURGICAL HISTORY: Notable for nasal surgery and tonsillectomy. SOCIAL HISTORY: There is no history of cigarette, alcohol, or substance use. She lives with her son. ALLERGIES: She has no known drug allergies. MEDICATIONS: At home include amlodipine, Lipitor, Corgard, Fosamax, Eliquis, Bupropion, Voltaren, Lasix, Neurontin, Zantac, and Roxicodone. REVIEW OF SYSTEMS: She notes persistent pain in her left leg. She denies any further diarrhea, and her cough is improved. PHYSICAL EXAMINATION: Vital Signs: Her temperature is 97.6, pulse 66, blood pressure 100/57, respiratory rate 18. She is saturating 98% on 2 L. General: She is a pleasant woman in no acute distress. HEENT: She is normocephalic. Her eyes are anicteric. Neck: Supple. Lungs: Diminished breath sounds to the bases. Heart: Regular rate and rhythm. Abdomen: Soft, nontender. Extremities: She has no edema of either leg. She complains of exquisite pain when you touch the left leg. There is no swelling of the big toe. The left knee does appear to be a little enlarged compared to the right, but there is no erythema or any ecchymosis to explain this degree of pain. Her white count on admission was 18.2, repeat is 14.7 today, hemoglobin 9.9, platelets 347, INR is 2, BUN 20, creatinine 1.1. Her LFTs are normal. Urinalysis is negative. Influenza screen is negative. She had urine and blood cultures sent. Her Influenza screen is pending. Duplex of her legs were negative for DVT. Head CT was notable for bilateral maxillary air-fluid levels consistent with maxillary sinusitis. CT of the chest was notable for right upper lobe infiltrate. In summary, this is an elderly woman with evidence of pneumonia, maxillary sinusitis to explain her fever, but this does not explain her left lower extremity pain. Would x-ray the leg and would consider orthopaedic evaluation. Would check urinary antigens as well and continue Zosyn and Zithromax. NORMA HEATH M.D. KARTIK/[id number]
[2019-07-27] MEDS ORDERED: ACETAMINOPHEN 325 MG TABLET (FP) PO PRN (16:30)
[2019-07-27] MEDS: ATORVASTATIN CA 20 MG TABLET (FP) PO SCH (21:25)
[2019-07-28] MEDS: oxyCODONE HCL 5 MG TABLET PO PRN ×3 (03:12→21:30)
[2019-07-28] MEDS: PIPERACILLIN/TAZOB 2.25 GM 2.25 GM in DEXTROSE 5%-WATER - 50 ML IVPB SCH ×4 (03:14→23:28)
[2019-07-28] MEDS: GABAPENTIN 100 MG CAPSULE (FP) PO SCH ×3 (05:28→21:29)
[2019-07-28] MEDS: ALBUTEROL SO4 2.5/IPRATROPIUM 0.5 INH SOL 3 ML VIAL.NEB. NEB SCH ×2 (07:35→21:10)
[2019-07-28 07:57] LABS: BASO % 0.6 % (0-2.0); EOS % 1.1 % (0-4.5); HEMATOCRIT 31.6 % (32.4-45.2); HEMOGLOBIN 9.9 GM/dL (10.7-15.3); LYMPH % 6.7 % (8-40); MCH 27.4 pg (25.7-33.7); MCHC 31.3 g/dl (32.0-36.0); MEAN CELL VOLUME 87.6 fl (80-96); MEAN PLT VOLUME 7.3 fl (7.5-11.1); MONO % 10.1 % (3.8-10.2); NEUT % 81.5 % (42.8-82.8); PLATELET COUNT 401 K/MM3 (134-434); RDW 16.7 % (11.6-15.6); WHITE BLOOD COUNT 14.5 K/mm3 (4.0-10.0)
[2019-07-28 08:14] LABS: ALBUMIN 2.3 g/dl (3.4-5.0); BILIRUBIN,TOTAL 0.3 mg/dL (0.2-1); BLOOD UREA NITROGEN 17.3 mg/dL (7-18); CALCIUM 8.4 mg/dL (8.5-10.1); CREATININE 0.9 mg/dL (0.55-1.3); MAGNESIUM 2.3 mg/dL (1.8-2.4); TOT PROT 5.8 g/dl (6.4-8.2)
[2019-07-28] MEDS ORDERED: PIPERACILLIN/TAZOBACTAM 2.25 GM VIAL IVPB ONE ×3 (09:54→21:22)
[2019-07-28] MEDS ORDERED: DEXTROSE 5%-WATER - 50 ML IVPB ONE ×3 (09:54→21:22)
[2019-07-28] MEDS ORDERED: PT OWN MED DRAWER 7, Y5N ONE ×2 (09:54→13:54)
[2019-07-28] MEDS: APIXABAN 5 MG TABLET PO SCH ×2 (10:02→21:29)
[2019-07-28] MEDS: AZITHROMYCIN IVPB 250 MG in DEXTROSE 5%-WATER - 250 ML IVPB SCH (10:03)
[2019-07-28] MEDS: amLODIPine BESYLATE 5 MG TABLET (FP) PO SCH (10:04)
[2019-07-28] MEDS: FAMOTIDINE 20 MG TABLET PO SCH (10:04)
[2019-07-28] MEDS: NADOLOL 40 MG TABLET (FP) PO SCH (10:05)
--- NOTE | 2019-07-28 11:41 | PN ---
Progress Note (short form) - Note Progress Note: PULMONARY VSS/AFEBRILE Eyes: Yes: Conjunctiva Clear, EOM Intact HENT: Yes: Atraumatic, Normocephalic Neck: Yes: Supple, Trachea Midline Cardiovascular: Yes: Regular Rate and Rhythm Respiratory: Yes: Diminished (decreased breath sounds at the bases) ...Clubbing: No Gastrointestinal: Yes: Normal Bowel Sounds, Soft. No: Tenderness Edema: No Labs: noted Imaging - Results Chest X-ray: Report Reviewed, Image Reviewed Cat Scan: Image Reviewed (patchy multilobar infiltrates, RUL consolidation increased from prior) Problem List - Problems (1) Pneumonia Code(s): J18.9 - PNEUMONIA, UNSPECIFIED ORGANISM Assessment/Plan Pneumonia Sepsis Lung Nodules HTN Hyperlipidemia h/o DVT - IV antibiotics - f/u cultures - O2 to keep SpO2 >90% - inhaled bronchodilators - can defer systemic steroids at this time - outpt f/u of chest imaging - continue anticoagulation Rene GARCIA MD
[2019-07-28] MEDS: FUROSEMIDE 40 MG TABLET (FP) PO SCH (12:47)
--- NOTE | 2019-07-28 13:35 | PN ---
Physical Exam: SUBJECTIVE: Patient seen and examined at the bedside.having pain on her right shoulder and right upper arm for 2 days. per son, this pain is new and there have been no falls at home. he confirmed that patient is a dnr/dni per [facility] form signed 11/2018 OBJECTIVE: Patient is an 83 year old male with a significant past medical history of COPD ( not on home O2) , HTN, HLD, osteoporosis, vertebral compression fractures, DVT ( 04/2019 on Eliquis ) presenting to ED with LLE pain, altered mental status and loose stools. Per chart, patient's son reports that patient has been having worsening dyspnea, orthopnea, productive cough and diarrhea at home. imaging: Head CT: no acute pathology, chronic ischemic changes. bilateral maxillary sinus opacification seen. CT Chest/ct abd/pelvis: multilevel compression fracture, new inferior endplate of L3, multiple lung nodules with some increased in size, findings could represent mucous plugging, underlying malignancy not excluded, non obstructing nephrolithiasis, aneurysmal dilation of the ascending aorta present previously, Vital Signs Period Temp Pulse Resp BP Sys/Vera Pulse Ox Last 24 Hr 98.3 F-99.5 F 67-72 20-20 95-126/46-70 98-98 GENERAL: The patient is awake, alert, and fully oriented, in no acute distress. HEAD: Normal with no signs of trauma. EYES: PERRL, extraocular movements intact, sclera anicteric, conjunctiva clear. No ptosis. ENT: Ears normal, nares patent, oropharynx clear without exudates, moist mucous membranes. NECK: Trachea midline, full range of motion, supple. LUNGS: diminished bilaterally, on 2 liters of nasal cannula HEART: Regular rate and rhythm ABDOMEN: Soft, nontender, nondistended, normoactive bowel sounds EXTREMITIES: +1 lower ext edema bilaterally NEUROLOGICAL: Normal speech, gait not observed. PSYCH: Normal mood, normal affect. SKIN: dry skin turgor Laboratory Results - last 24 hr 07/28/19 07/28/19 06:30 06:30 WBC 14.5 H RBC 3.60 Hgb 9.9 L Hct 31.6 L MCV 87.6 MCH 27.4 MCHC 31.3 L RDW 16.7 H Plt Count 401 MPV 7.3 L Absolute Neuts (auto) 11.8 H Neutrophils % 81.5 Lymphocytes % 6.7 L D Monocytes % 10.1 Eosinophils % 1.1 D Basophils % 0.6 Nucleated RBC % 0 Sodium 137 Potassium 4.0 Chloride 102 Carbon Dioxide 27 Anion Gap 8 BUN 17.3 Creatinine 0.9 Est GFR (CKD-EPI)AfAm 67.57 Est GFR (CKD-EPI)NonAf 58.30 Random Glucose 98 Calcium 8.4 L Magnesium 2.3 Total Bilirubin 0.3 AST 14 L ALT 12 L Alkaline Phosphatase 94 Total Protein 5.8 L Albumin 2.3 L Active Medications Generic Name Dose Route Start Last Admin Trade Name Freq PRN Reason Stop Dose Admin Acetaminophen 650 mg 07/27/19 16:30 Tylenol - PO Q6H PRN FEVER Albuterol Sulfate 1 amp 07/26/19 21:34 Ventolin 0.083% Nebulizer Soln - NEB Q4H PRN SHORT OF BREATH/WHEEZING Albuterol/Ipratropium 1 amp 07/27/19 08:00 07/28/19 07:35 Duoneb - NEB 1 amp RTID BHAVYA Administration Amlodipine Besylate 5 mg 07/27/19 10:00 07/28/19 10:04 Norvasc - PO Not Given DAILY BHAVYA Apixaban 5 mg 07/26/19 22:00 07/28/19 10:02 Eliquis - PO 5 mg BID BHAVYA Administration Atorvastatin Calcium 20 mg 07/26/19 22:00 07/27/19 21:25 Lipitor - PO 20 mg HS BHAVYA Administration Bupropion HCl 150 mg 07/27/19 10:00 07/28/19 10:03 Wellbutrin Xl - PO 150 mg DAILY BHAVYA Administration Famotidine 20 mg 07/27/19 10:00 07/28/19 10:04 Pepcid - PO 20 mg DAILY BHAVYA Administration Furosemide 40 mg 07/27/19 10:00 07/28/19 12:47 Lasix - PO 40 mg DAILY BHAVYA Administration Gabapentin 100 mg 07/26/19 22:00 07/28/19 05:28 Neurontin - PO 100 mg TID BHAVYA Administration Piperacillin Sod/Tazobactam 50 mls @ 100 mls/hr 07/26/19 21:00 07/28/19 10:03 Sod 2.25 gm/ Dextrose IVPB 100 mls/hr Q6H-IV BHAVYA Administration Protocol Azithromycin 250 mg/ Dextrose 250 mls @ 250 mls/hr 07/27/19 10:00 07/28/19 10 :03 IVPB 250 mls/hr DAILY BHAVYA Administration Nadolol 40 mg 07/27/19 10:00 07/28/19 10:05 Corgard - PO Not Given DAILY BHAVYA Oxycodone HCl 5 mg 07/27/19 12:05 07/28/19 03:12 Roxicodone - PO 5 mg Q6H PRN Administration PAIN LEVEL 7 - 10 ASSESSMENT/PLAN: Problem List - Problems (1) Pneumonia Assessment/Plan: on Zosyn per ID on 2 liters of nasal cannula blood cultures negative Maintain supplemental oxygen to keep spo2 > 90% duonebs for any shortness of breath not home oxygen dependent Code(s): J18.9 - PNEUMONIA, UNSPECIFIED ORGANISM (2) Acute pain of left lower extremity Assessment/Plan: reports chronic pain of this left lower extremity takes oxycodone at home prn Code(s): M79.605 - PAIN IN LEFT LEG (3) Altered mental status Assessment/Plan: mentation appears to be improving, has episodes of confusion at home also per son. Code(s): R41.82 - ALTERED MENTAL STATUS, UNSPECIFIED (4) History of DVT of lower extremity Assessment/Plan: on eliquis bid Code(s): Z86.718 - PERSONAL HISTORY OF OTHER VENOUS THROMBOSIS AND EMBOLISM (5) Sepsis Assessment/Plan: blood and urine cultures negative to date on zosyn for pneumonia Code(s): A41.9 - SEPSIS, UNSPECIFIED ORGANISM Qualifiers: Sepsis type: sepsis due to unspecified organism Sepsis acute organ dysfunction status: unspecified Qualified Code(s): A41.9 - Sepsis, unspecified organism (6) Shoulder pain, right Assessment/Plan: right shoulder and humerus negative for acute fracture, having increased pain x 2 days per patient without any falls reported start lidoderm patch and pain management with oxycodone based on pain scale given morphine 0.5mg x 1 Code(s): M25.511 - PAIN IN RIGHT SHOULDER (7) Prophylactic measure Assessment/Plan: fen tolerating po monitor electrolytes on eliquis bowel regimen: colace dnr/dnr per molst form dated 11/2018 Code(s): Z29.9 - ENCOUNTER FOR PROPHYLACTIC MEASURES, UNSPECIFIED Visit type - Emergency Visit Emergency Visit: Yes ED Registration Date: 07/26/19 Care time: The patient presented to the Emergency Department on the above date and was hospitalized for further evaluation of their emergent condition. - New Patient This patient is new to me today: No - Critical Care Critical Care patient: No - Discharge Referral Referred to [facility] Med P.C.: No
--- NOTE | 2019-07-28 14:47 | PN ---
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 and some knee swelling , today with right shoulder swelling and pain Vital Signs Period Temp Pulse Resp BP Sys/Vera Pulse Ox Last 24 Hr 97.5 F-99.5 F 67-81 20-22 95-126/45-70 98-98 cor-rrr llungs decreased bs at bases abd soft,nt ext +swelling right shoulder CBC, BMP 07/28/19 06:30 07/28/19 06:30 Microbiology 07/26/19 15:30 Urine - Urine - Catheterized Urine Culture - Final NO GROWTH OBTAINED 07/27/19 16:00 Urine For Antigen Detection Legionella Antigen - Final 07/27/19 16:00 Urine For Antigen Detection Streptococcus pneumoniae Antigen (M - Final 07/26/19 15:19 Blood - Peripheral Venous Blood Culture - Preliminary NO GROWTH OBTAINED AFTER 24 HOURS, INCUBATION TO CONTINUE FOR 4 DAYS. 07/26/19 15:19 Blood - Peripheral Venous Blood Culture - Preliminary NO GROWTH OBTAINED AFTER 24 HOURS, INCUBATION TO CONTINUE FOR 4 DAYS. duplex no dvt head ct with acute maxillary sinusitis chest ct with RUL infiltrate Laboratory Tests 07/26/19 07/26/19 15:19 15:19 ESR 84 H C-Reactive Protein 12.6 H a/p ?migratory arthritis- elevated inflammatory markers- would consider rheumatology consult pneumonia-continue zosyn,/zithromax sinusitis history multiple vertebral fractures continue zosyn/zithromax d/w son at bedside Problem List - Problems (1) Pneumonia Code(s): J18.9 - PNEUMONIA, UNSPECIFIED ORGANISM (2) Sinusitis, acute maxillary Code(s): J01.00 - ACUTE MAXILLARY SINUSITIS, UNSPECIFIED (3) Acute pain of left lower extremity Code(s): M79.605 - PAIN IN LEFT LEG
[2019-07-28] MEDS ORDERED: LIDOCAINE 5% TOPICAL PATCH TP SCH (17:30)
[2019-07-28] MEDS ORDERED: MORPHINE SULFATE 2 MG/ML VIAL IVPUSH ONE (17:41)
[2019-07-28] MEDS ORDERED: oxyCODONE HCL 5 MG TABLET PO PRN (18:15)
[2019-07-28] MEDS: ATORVASTATIN CA 20 MG TABLET (FP) PO SCH (21:29)
[2019-07-28] MEDS: LIDOCAINE PATCH REMOVAL MC SCH (21:31)
[2019-07-29] MEDS ORDERED: PIPERACILLIN/TAZOBACTAM 2.25 GM VIAL IVPB ONE ×4 (03:51→20:16)
[2019-07-29] MEDS ORDERED: DEXTROSE 5%-WATER - 50 ML IVPB ONE ×4 (03:51→20:16)
[2019-07-29] MEDS: oxyCODONE HCL 5 MG TABLET PO PRN ×2 (03:59→22:36)
[2019-07-29] MEDS: PIPERACILLIN/TAZOB 2.25 GM 2.25 GM in DEXTROSE 5%-WATER - 50 ML IVPB SCH ×4 (03:59→20:35)
[2019-07-29] MEDS: GABAPENTIN 100 MG CAPSULE (FP) PO SCH ×3 (05:58→22:36)
[2019-07-29] MEDS: ALBUTEROL SO4 2.5/IPRATROPIUM 0.5 INH SOL 3 ML VIAL.NEB. NEB SCH ×3 (07:53→20:36)
[2019-07-29 09:01] LABS: BASO % 0.5 % (0-2.0); EOS % 0.3 % (0-4.5); HEMATOCRIT 32.5 % (32.4-45.2); HEMOGLOBIN 10.2 GM/dL (10.7-15.3); LYMPH % 4.4 % (8-40); MCH 27.3 pg (25.7-33.7); MCHC 31.5 g/dl (32.0-36.0); MEAN CELL VOLUME 86.5 fl (80-96); MONO % 12.1 % (3.8-10.2); NEUT % 82.7 % (42.8-82.8); PLATELET COUNT 431 K/MM3 (134-434); RBC 3.75 M/mm3 (3.60-5.2); RDW 16.4 % (11.6-15.6); WHITE BLOOD COUNT 13.8 K/mm3 (4.0-10.0)
[2019-07-29 09:27] LABS: ALBUMIN 2.1 g/dl (3.4-5.0); BILIRUBIN,TOTAL 0.6 mg/dL (0.2-1); BLOOD UREA NITROGEN 11.3 mg/dL (7-18); CALCIUM 8.4 mg/dL (8.5-10.1); CREATININE 0.8 mg/dL (0.55-1.3); MAGNESIUM 2.4 mg/dL (1.8-2.4); POTASSIUM 4.3 mmol/L (3.5-5.1)
[2019-07-29] MEDS: NADOLOL 40 MG TABLET (FP) PO SCH (09:50)
[2019-07-29] MEDS: FUROSEMIDE 40 MG TABLET (FP) PO SCH (09:50)
[2019-07-29] MEDS: amLODIPine BESYLATE 5 MG TABLET (FP) PO SCH (09:50)
[2019-07-29] MEDS: FAMOTIDINE 20 MG TABLET PO SCH (09:51)
[2019-07-29] MEDS: LIDOCAINE 5% TOPICAL PATCH TP SCH (09:51)
[2019-07-29] MEDS: APIXABAN 5 MG TABLET PO SCH ×2 (09:51→22:36)
--- NOTE | 2019-07-29 11:55 | PN ---
Progress Note (short form) - Note Progress Note: Breathing feels OK today. Diffuse joint pain. No acute events overnight. Intake & Output 07/26/19 07/27/19 07/28/19 07/29/19 23:59 23:59 23:59 23:59 Intake Total 150 Balance 150 Weight 153 lb 163 lb 14.4 oz Last Vital Signs Temp Pulse Resp BP Pulse Ox 98.7 F 74 22 H 137/80 98 07/29/19 06:00 07/29/19 06:00 07/29/19 06:00 07/29/19 06:00 07/28/19 21:00 Active Medications Acetaminophen (Tylenol -) 650 mg PO Q6H PRN PRN Reason: FEVER Albuterol Sulfate (Ventolin 0.083% Nebulizer Soln -) 1 amp NEB Q4H PRN PRN Reason: SHORT OF BREATH/WHEEZING Albuterol/Ipratropium (Duoneb -) 1 amp NEB RTID [facility] Last Admin: 07/29/19 07:53 Dose: 1 amp Amlodipine Besylate (Norvasc -) 5 mg PO DAILY [facility] Last Admin: 07/29/19 09:50 Dose: 5 mg Apixaban (Eliquis -) 5 mg PO BID [facility] Last Admin: 07/29/19 09:51 Dose: 5 mg Atorvastatin Calcium (Lipitor -) 20 mg PO HS [facility] Last Admin: 07/28/19 21:29 Dose: 20 mg Bupropion HCl (Wellbutrin Xl -) 150 mg PO DAILY [facility] Last Admin: 07/29/19 09:51 Dose: 150 mg Famotidine (Pepcid -) 20 mg PO DAILY [facility] Last Admin: 07/29/19 09:51 Dose: 20 mg Furosemide (Lasix -) 40 mg PO DAILY [facility] Last Admin: 07/29/19 09:50 Dose: 40 mg Gabapentin (Neurontin -) 100 mg PO TID [facility] Last Admin: 07/29/19 05:58 Dose: Not Given Piperacillin Sod/Tazobactam (Sod 2.25 gm/ Dextrose) 50 mls @ 100 mls/hr IVPB Q6H-IV BHAVYA; Protocol Last Admin: 07/29/19 09:49 Dose: 100 mls/hr Lidocaine (Lidoderm Patch -) 2 patch TP DAILY [facility] Last Admin: 07/29/19 09:51 Dose: 2 patch Miscellaneous (Lidoderm Patch Removal) 1 each MC DAILY@2200 [facility] Last Admin: 07/28/19 21:31 Dose: Not Given Nadolol (Corgard -) 40 mg PO DAILY [facility] Last Admin: 07/29/19 09:50 Dose: 40 mg Oxycodone HCl (Roxicodone -) 5 mg PO Q6H PRN PRN Reason: PAIN LEVEL 4 - 6 Last Admin: 07/29/19 09:50 Dose: 5 mg Oxycodone HCl (Roxicodone -) 10 mg PO Q6H PRN PRN Reason: PAIN LEVEL 7 - 10 Last Admin: 07/29/19 03:59 Dose: 10 mg Eyes: Yes: Conjunctiva Clear, EOM Intact HENT: Yes: Atraumatic, Normocephalic Neck: Yes: Supple, Trachea Midline Cardiovascular: Yes: Regular Rate and Rhythm Respiratory: Yes: Diminished (decreased breath sounds at the bases) ...Clubbing: No Gastrointestinal: Yes: Normal Bowel Sounds, Soft. No: Tenderness Edema: No Labs: Laboratory Results - last 24 hr 07/29/19 07/29/19 07:40 07:40 WBC 13.8 H RBC 3.75 Hgb 10.2 L Hct 32.5 MCV 86.5 MCH 27.3 MCHC 31.5 L RDW 16.4 H Plt Count 431 MPV 7.0 L Absolute Neuts (auto) 11.4 H Neutrophils % 82.7 Lymphocytes % 4.4 L D Monocytes % 12.1 H Eosinophils % 0.3 Basophils % 0.5 Nucleated RBC % 0 Sodium 134 L Potassium 4.3 Chloride 98 Carbon Dioxide 28 Anion Gap 8 BUN 11.3 Creatinine 0.8 Est GFR (CKD-EPI)AfAm 77.92 Est GFR (CKD-EPI)NonAf 67.23 Random Glucose 88 Calcium 8.4 L Magnesium 2.4 Total Bilirubin 0.6 AST 12 L ALT 14 Alkaline Phosphatase 97 Total Protein 6.0 L Albumin 2.1 L Problem List - Problems (1) Pneumonia Code(s): J18.9 - PNEUMONIA, UNSPECIFIED ORGANISM Assessment/Plan Pneumonia Sepsis Lung Nodules HTN Hyperlipidemia h/o DVT - IV antibiotics per ID - f/u cultures - O2 to keep SpO2 >90% - inhaled bronchodilators - can defer systemic steroids at this time - outpt f/u of chest imaging - continue anticoagulation - Consider Rheumatology evaluation Dr Cuello
[2019-07-29] MEDS ORDERED: MORPHINE SULFATE 2 MG/ML VIAL IVPUSH PRN ×2 (12:32→17:09)
--- NOTE | 2019-07-29 12:33 | PN ---
Physical Exam: SUBJECTIVE: Patient seen and examined. having alot of pain today, uncomfortable. but unable to localize where pain is. also appears very anxious. OBJECTIVE: Patient is an 83 year old male with a significant past medical history of COPD ( not on home O2) , HTN, HLD, osteoporosis, vertebral compression fractures, DVT ( 04/2019 on Eliquis ) presenting to ED with LLE pain, altered mental status and loose stools. Per chart, patient's son reports that patient has been having worsening dyspnea, orthopnea, productive cough and diarrhea at home. She is being admitted for acute pneumonia. imaging: Head CT: no acute pathology, chronic ischemic changes. bilateral maxillary sinus opacification seen. CT Chest/ct abd/pelvis: multilevel compression fracture, new inferior endplate of L3, multiple lung nodules with some increased in size, findings could represent mucous plugging, underlying malignancy not excluded, non obstructing nephrolithiasis, aneurysmal dilation of the ascending aorta present previously, Vital Signs Period Temp Pulse Resp BP Sys/Vera Pulse Ox Last 24 Hr 97.5 F-99.9 F 70-81 20-22 103-137/45-80 98 GENERAL: The patient is awake, alert, and fully oriented, in no acute distress. HEAD: Normal with no signs of trauma. EYES: PERRL, extraocular movements intact, sclera anicteric, conjunctiva clear. No ptosis. ENT: Ears normal, nares patent, oropharynx clear without exudates, moist mucous membranes. NECK: Trachea midline, full range of motion, supple. LUNGS: diminished bilaterally, on 2 liters of nasal cannula HEART: Regular rate and rhythm ABDOMEN: Soft, nontender, nondistended, normoactive bowel sounds EXTREMITIES: +1 lower ext edema bilaterally NEUROLOGICAL: Normal speech, gait not observed. PSYCH: Normal mood, normal affect. SKIN: dry skin turgor Laboratory Results - last 24 hr 07/29/19 07/29/19 07:40 07:40 WBC 13.8 H RBC 3.75 Hgb 10.2 L Hct 32.5 MCV 86.5 MCH 27.3 MCHC 31.5 L RDW 16.4 H Plt Count 431 MPV 7.0 L Absolute Neuts (auto) 11.4 H Neutrophils % 82.7 Lymphocytes % 4.4 L D Monocytes % 12.1 H Eosinophils % 0.3 Basophils % 0.5 Nucleated RBC % 0 Sodium 134 L Potassium 4.3 Chloride 98 Carbon Dioxide 28 Anion Gap 8 BUN 11.3 Creatinine 0.8 Est GFR (CKD-EPI)AfAm 77.92 Est GFR (CKD-EPI)NonAf 67.23 Random Glucose 88 Calcium 8.4 L Magnesium 2.4 Total Bilirubin 0.6 AST 12 L ALT 14 Alkaline Phosphatase 97 Total Protein 6.0 L Albumin 2.1 L Active Medications Generic Name Dose Route Start Last Admin Trade Name Freq PRN Reason Stop Dose Admin Acetaminophen 650 mg 07/27/19 16:30 Tylenol - PO Q6H PRN FEVER Albuterol Sulfate 1 amp 07/26/19 21:34 Ventolin 0.083% Nebulizer Soln - NEB Q4H PRN SHORT OF BREATH/WHEEZING Albuterol/Ipratropium 1 amp 07/27/19 08:00 07/29/19 07:53 Duoneb - NEB 1 amp RTID BHAVYA Administration Amlodipine Besylate 5 mg 07/27/19 10:00 07/29/19 09:50 Norvasc - PO 5 mg DAILY BHAVYA Administration Apixaban 5 mg 07/26/19 22:00 07/29/19 09:51 Eliquis - PO 5 mg BID BHAVYA Administration Atorvastatin Calcium 20 mg 07/26/19 22:00 07/28/19 21:29 Lipitor - PO 20 mg HS BHAVYA Administration Bupropion HCl 150 mg 07/27/19 10:00 07/29/19 09:51 Wellbutrin Xl - PO 150 mg DAILY BHAVYA Administration Famotidine 20 mg 07/27/19 10:00 07/29/19 09:51 Pepcid - PO 20 mg DAILY BHAVYA Administration Furosemide 40 mg 07/27/19 10:00 07/29/19 09:50 Lasix - PO 40 mg DAILY BHAVYA Administration Gabapentin 100 mg 07/26/19 22:00 07/29/19 05:58 Neurontin - PO Not Given TID BHAVYA Piperacillin Sod/Tazobactam 50 mls @ 100 mls/hr 07/26/19 21:00 07/29/19 09:49 Sod 2.25 gm/ Dextrose IVPB 100 mls/hr Q6H-IV BHAVYA Administration Protocol Lidocaine 2 patch 07/28/19 17:30 07/29/19 09:51 Lidoderm Patch - TP 2 patch DAILY BHAVYA Administration Miscellaneous 1 each 07/28/19 22:00 07/28/19 21:31 Lidoderm Patch Removal MC Not Given DAILY@2200 [facility] Morphine Sulfate 1 mg 07/29/19 12:32 Morphine Injection - IVPUSH 07/30/19 12:31 Q4H PRN PAIN Nadolol 40 mg 07/27/19 10:00 07/29/19 09:50 Corgard - PO 40 mg DAILY BHAVYA Administration Oxycodone HCl 5 mg 07/28/19 18:15 07/29/19 09:50 Roxicodone - PO 5 mg Q6H PRN Administration PAIN LEVEL 4 - 6 Oxycodone HCl 10 mg 07/28/19 18:15 07/29/19 03:59 Roxicodone - PO 10 mg Q6H PRN Administration PAIN LEVEL 7 - 10 ASSESSMENT/PLAN: Problem List - Problems (1) Pneumonia Assessment/Plan: on Zosyn per ID on 2 liters of nasal cannula blood cultures negative Maintain supplemental oxygen to keep spo2 > 90% duonebs for any shortness of breath not home oxygen dependent Code(s): J18.9 - PNEUMONIA, UNSPECIFIED ORGANISM (2) Acute pain of left lower extremity Assessment/Plan: reports chronic pain of this left lower extremity takes oxycodone at home prn Code(s): M79.605 - PAIN IN LEFT LEG (3) Altered mental status Assessment/Plan: mentation appears to be improving, has episodes of confusion at home also per son. Code(s): R41.82 - ALTERED MENTAL STATUS, UNSPECIFIED (4) History of DVT of lower extremity Assessment/Plan: on eliquis bid Code(s): Z86.718 - PERSONAL HISTORY OF OTHER VENOUS THROMBOSIS AND EMBOLISM (5) Sepsis Assessment/Plan: blood and urine cultures negative to date on zosyn for pneumonia Code(s): A41.9 - SEPSIS, UNSPECIFIED ORGANISM Qualifiers: Sepsis type: sepsis due to unspecified organism Sepsis acute organ dysfunction status: unspecified Qualified Code(s): A41.9 - Sepsis, unspecified organism (6) Shoulder pain, right Assessment/Plan: right shoulder and humerus negative for acute fracture, having increased pain x 2 days per patient without any falls reported pain management with morphine, oxycodone Code(s): M25.511 - PAIN IN RIGHT SHOULDER (7) Arthritis Assessment/Plan: generalized pain arthritis of right shoulder, severe elevated inflammatory markers, rheumatology consulted Code(s): M19.90 - UNSPECIFIED OSTEOARTHRITIS, UNSPECIFIED SITE (8) DVT prophylaxis Assessment/Plan: on eliquis for dvt prophylaxis no SCDs Code(s): Z29.9 - ENCOUNTER FOR PROPHYLACTIC MEASURES, UNSPECIFIED (9) Prophylactic measure Assessment/Plan: fen tolerating po monitor electrolytes on eliquis bowel regimen: colace dnr/dnr per molst form dated 11/2018 Code(s): Z29.9 - ENCOUNTER FOR PROPHYLACTIC MEASURES, UNSPECIFIED Visit type - Emergency Visit Emergency Visit: Yes ED Registration Date: 07/26/19 Care time: The patient presented to the Emergency Department on the above date and was hospitalized for further evaluation of their emergent condition. - New Patient This patient is new to me today: No - Critical Care Critical Care patient: No - Discharge Referral Referred to [facility] Med P.C.: No
[2019-07-29] MEDS ORDERED: ACETAMINOPHEN 1000 MG/100 ML VIAL (NON FORMULARY) IVPB ONE (12:40)
[2019-07-29] MEDS: ACETAMINOPHEN 325 MG TABLET (FP) PO SCH ×2 (14:53→17:42)
[2019-07-29] MEDS ORDERED: LORazepam 0.5 MG TABLET PO PRN (17:09)
[2019-07-29] MEDS ORDERED: PT OWN MED DRAWER 7, Y5N ONE (22:31)
[2019-07-29] MEDS: ATORVASTATIN CA 20 MG TABLET (FP) PO SCH (22:36)
[2019-07-29] MEDS: LIDOCAINE PATCH REMOVAL MC SCH (22:37)
[2019-07-30] MEDS ORDERED: DEXTROSE 5%-WATER - 50 ML IVPB ONE ×4 (01:10→20:02)
[2019-07-30] MEDS ORDERED: PIPERACILLIN/TAZOBACTAM 2.25 GM VIAL IVPB ONE ×4 (01:10→20:01)
[2019-07-30] MEDS: ACETAMINOPHEN 325 MG TABLET (FP) PO SCH ×5 (01:13→23:58)
[2019-07-30] MEDS: PIPERACILLIN/TAZOB 2.25 GM 2.25 GM in DEXTROSE 5%-WATER - 50 ML IVPB SCH ×4 (03:31→20:34)
[2019-07-30] MEDS: GABAPENTIN 100 MG CAPSULE (FP) PO SCH ×3 (05:37→21:43)
[2019-07-30 07:38] LABS: BASO % 0.4 % (0-2.0); EOS % 0.5 % (0-4.5); HEMATOCRIT 31.8 % (32.4-45.2); HEMOGLOBIN 9.8 GM/dL (10.7-15.3); LYMPH % 5.1 % (8-40); MCH 26.9 pg (25.7-33.7); MCHC 30.9 g/dl (32.0-36.0); MEAN CELL VOLUME 87.1 fl (80-96); MEAN PLT VOLUME 7.1 fl (7.5-11.1); MONO % 10.7 % (3.8-10.2); NEUT % 83.3 % (42.8-82.8); PLATELET COUNT 418 K/MM3 (134-434); RBC 3.66 M/mm3 (3.60-5.2); RDW 16.5 % (11.6-15.6); WHITE BLOOD COUNT 14.6 K/mm3 (4.0-10.0)
[2019-07-30] MEDS: ALBUTEROL SO4 2.5/IPRATROPIUM 0.5 INH SOL 3 ML VIAL.NEB. NEB SCH ×3 (08:15→21:38)
[2019-07-30 08:30] LABS: BILIRUBIN,TOTAL 0.4 mg/dL (0.2-1); BLOOD UREA NITROGEN 19.2 mg/dL (7-18); CALCIUM 8.3 mg/dL (8.5-10.1); CREATININE 1.2 mg/dL (0.55-1.3); MAGNESIUM 2.4 mg/dL (1.8-2.4); POTASSIUM 4.4 mmol/L (3.5-5.1); TOT PROT 5.7 g/dl (6.4-8.2)
[2019-07-30] MEDS: LIDOCAINE 5% TOPICAL PATCH TP SCH (10:45)
[2019-07-30] MEDS: APIXABAN 5 MG TABLET PO SCH ×2 (10:45→21:43)
[2019-07-30] MEDS: NADOLOL 40 MG TABLET (FP) PO SCH ×2 (10:45→14:57)
[2019-07-30] MEDS: FUROSEMIDE 40 MG TABLET (FP) PO SCH ×2 (10:45→14:57)
[2019-07-30] MEDS: amLODIPine BESYLATE 5 MG TABLET (FP) PO SCH ×2 (10:45→14:57)
[2019-07-30] MEDS: FAMOTIDINE 20 MG TABLET PO SCH (10:46)
--- NOTE | 2019-07-30 11:13 | PN ---
Progress Note (short form) - Note Progress Note: PULMONARY Denies shortness of breath, cough. No fevers recorded. Vital Signs Period Temp Pulse Resp BP Sys/Vera Pulse Ox Last 24 Hr 98 F-99.8 F 63-77 20-22 89-131/55-69 98 Gen: NAD at rest Heart: RRR Lung: decreased breath sounds at the bases Abd: soft, nontender Ext: no edema CBC, BMP 07/30/19 06:30 07/30/19 06:30 Active Medications Acetaminophen (Tylenol -) 650 mg PO Q6HPO [facility] Last Admin: 07/30/19 05:37 Dose: 650 mg Albuterol Sulfate (Ventolin 0.083% Nebulizer Soln -) 1 amp NEB Q4H PRN PRN Reason: SHORT OF BREATH/WHEEZING Albuterol/Ipratropium (Duoneb -) 1 amp NEB RTID [facility] Last Admin: 07/30/19 08:15 Dose: 1 amp Amlodipine Besylate (Norvasc -) 5 mg PO DAILY [facility] Last Admin: 07/29/19 09:50 Dose: 5 mg Apixaban (Eliquis -) 5 mg PO BID [facility] Last Admin: 07/30/19 10:45 Dose: 5 mg Atorvastatin Calcium (Lipitor -) 20 mg PO HS [facility] Last Admin: 07/29/19 22:36 Dose: 20 mg Bupropion HCl (Wellbutrin Xl -) 150 mg PO DAILY [facility] Last Admin: 07/30/19 10:45 Dose: 150 mg Famotidine (Pepcid -) 20 mg PO DAILY [facility] Last Admin: 07/30/19 10:46 Dose: 20 mg Furosemide (Lasix -) 40 mg PO DAILY [facility] Last Admin: 07/29/19 09:50 Dose: 40 mg Gabapentin (Neurontin -) 100 mg PO TID [facility] Last Admin: 07/30/19 05:37 Dose: 100 mg Piperacillin Sod/Tazobactam (Sod 2.25 gm/ Dextrose) 50 mls @ 100 mls/hr IVPB Q6H-IV BHAVYA; Protocol Last Admin: 07/30/19 09:45 Dose: 100 mls/hr Lidocaine (Lidoderm Patch -) 2 patch TP DAILY [facility] Last Admin: 07/30/19 10:45 Dose: 2 patch Lorazepam (Ativan -) 0.5 mg PO BID PRN PRN Reason: ANXIETY Miscellaneous (Lidoderm Patch Removal) 1 each MC DAILY@2200 [facility] Last Admin: 07/29/19 22:37 Dose: 1 each Morphine Sulfate (Morphine Sulfate) 1 mg IVPUSH Q4H PRN PRN Reason: PAIN LEVEL 7 - 10 Stop: 07/30/19 12:31 Nadolol (Corgard -) 40 mg PO DAILY [facility] Last Admin: 07/29/19 09:50 Dose: 40 mg Oxycodone HCl (Roxicodone -) 5 mg PO Q6H PRN PRN Reason: PAIN LEVEL 7 - 10 Last Admin: 07/29/19 22:36 Dose: 5 mg A/P Pneumonia Sepsis Lung Nodules HTN Hyperlipidemia h/o DVT - continue antibiotics - f/u cultures - O2 to keep SpO2 >90% - inhaled bronchodilators - can defer systemic steroids at this time - outpt f/u of chest imaging - continue anticoagulation Problem List - Problems (1) Pneumonia Code(s): J18.9 - PNEUMONIA, UNSPECIFIED ORGANISM
[2019-07-30] MEDS: oxyCODONE HCL 5 MG TABLET PO PRN ×2 (12:26→20:03)
--- NOTE | 2019-07-30 13:47 | PN ---
Physical Exam: SUBJECTIVE: Patient seen and examined at the bedside. feels better today, pain better controlled. states pain is her neck mostly. OBJECTIVE: Patient is an 83 year old male with a significant past medical history of COPD ( not on home O2) , HTN, HLD, osteoporosis, vertebral compression fractures, DVT ( 04/2019 on Eliquis ) presenting to ED with LLE pain, altered mental status and loose stools. Per chart, patient's son reports that patient has been having worsening dyspnea, orthopnea, productive cough and diarrhea at home. She is being admitted for acute pneumonia. imaging: Head CT: no acute pathology, chronic ischemic changes. bilateral maxillary sinus opacification seen. CT Chest/ct abd/pelvis: multilevel compression fracture, new inferior endplate of L3, multiple lung nodules with some increased in size, findings could represent mucous plugging, underlying malignancy not excluded, non obstructing nephrolithiasis, aneurysmal dilation of the ascending aorta present previously, Vital Signs Period Temp Pulse Resp BP Sys/Vera Pulse Ox Last 24 Hr 98 F-99.8 F 63-77 20-22 89-131/55-69 98-98 GENERAL: The patient is awake, alert, in no acute distress. HEAD: Normal with no signs of trauma. EYES: PERRL, extraocular movements intact, sclera anicteric, conjunctiva clear. No ptosis. ENT: Ears normal, nares patent, oropharynx clear without exudates, moist mucous membranes. NECK: Trachea midline, full range of motion, supple. LUNGS: diminished bilaterally, on 2 liters of nasal cannula HEART: Regular rate and rhythm ABDOMEN: Soft, nontender, nondistended, normoactive bowel sounds EXTREMITIES: +1 lower ext edema bilaterally NEUROLOGICAL: Normal speech, gait not observed. PSYCH: Normal mood, normal affect. SKIN: dry skin turgor Laboratory Results - last 24 hr 07/30/19 07/30/19 06:30 06:30 WBC 14.6 H RBC 3.66 Hgb 9.8 L Hct 31.8 L MCV 87.1 MCH 26.9 MCHC 30.9 L RDW 16.5 H Plt Count 418 MPV 7.1 L Absolute Neuts (auto) 12.2 H Neutrophils % 83.3 H Lymphocytes % 5.1 L Monocytes % 10.7 H Eosinophils % 0.5 Basophils % 0.4 Nucleated RBC % 0 Sodium 135 L Potassium 4.4 Chloride 100 Carbon Dioxide 26 Anion Gap 9 BUN 19.2 H Creatinine 1.2 Est GFR (CKD-EPI)AfAm 47.72 Est GFR (CKD-EPI)NonAf 41.18 Random Glucose 96 Calcium 8.3 L Magnesium 2.4 Total Bilirubin 0.4 AST 12 L ALT 11 L Alkaline Phosphatase 112 Total Protein 5.7 L Albumin 2.0 L Active Medications Generic Name Dose Route Start Last Admin Trade Name Freq PRN Reason Stop Dose Admin Acetaminophen 650 mg 07/29/19 12:45 07/30/19 12:27 Tylenol - PO 650 mg Q6HPO BHAVYA Administration Albuterol Sulfate 1 amp 07/26/19 21:34 Ventolin 0.083% Nebulizer Soln - NEB Q4H PRN SHORT OF BREATH/WHEEZING Albuterol/Ipratropium 1 amp 07/27/19 08:00 07/30/19 08:15 Duoneb - NEB 1 amp RTID BHAVYA Administration Amlodipine Besylate 5 mg 07/27/19 10:00 07/29/19 09:50 Norvasc - PO 5 mg DAILY BHAVYA Administration Apixaban 5 mg 07/26/19 22:00 07/30/19 10:45 Eliquis - PO 5 mg BID BHAVYA Administration Atorvastatin Calcium 20 mg 07/26/19 22:00 07/29/19 22:36 Lipitor - PO 20 mg HS BHAVYA Administration Bupropion HCl 150 mg 07/27/19 10:00 07/30/19 10:45 Wellbutrin Xl - PO 150 mg DAILY BHAVYA Administration Famotidine 20 mg 07/27/19 10:00 07/30/19 10:46 Pepcid - PO 20 mg DAILY BHAVYA Administration Furosemide 40 mg 07/27/19 10:00 07/29/19 09:50 Lasix - PO 40 mg DAILY BHAVYA Administration Gabapentin 100 mg 07/26/19 22:00 07/30/19 05:37 Neurontin - PO 100 mg TID BHAVYA Administration Piperacillin Sod/Tazobactam 50 mls @ 100 mls/hr 07/26/19 21:00 07/30/19 09:45 Sod 2.25 gm/ Dextrose IVPB 100 mls/hr Q6H-IV BHAVYA Administration Protocol Lidocaine 2 patch 07/28/19 17:30 07/30/19 10:45 Lidoderm Patch - TP 2 patch DAILY BHAVYA Administration Lorazepam 0.5 mg 07/29/19 17:09 Ativan - PO BID PRN ANXIETY Miscellaneous 1 each 07/28/19 22:00 07/29/19 22:37 Lidoderm Patch Removal MC 1 each DAILY@2200 BHAVYA Administration Nadolol 40 mg 07/27/19 10:00 07/29/19 09:50 Corgard - PO 40 mg DAILY BHAVYA Administration Oxycodone HCl 5 mg 07/29/19 17:09 07/30/19 12:26 Roxicodone - PO 5 mg Q6H PRN Administration PAIN LEVEL 7 - 10 ASSESSMENT/PLAN: Problem List - Problems (1) Pneumonia Assessment/Plan: on Zosyn per ID on 2 liters of nasal cannula blood cultures negative Maintain supplemental oxygen to keep spo2 > 90% duonebs for any shortness of breath not home oxygen dependent Code(s): J18.9 - PNEUMONIA, UNSPECIFIED ORGANISM (2) Acute pain of left lower extremity Assessment/Plan: reports chronic pain of this left lower extremity on oxycodone prn based on pain levels Code(s): M79.605 - PAIN IN LEFT LEG (3) Altered mental status Assessment/Plan: mentation appears to be improving, has episodes of confusion at home also per son. Code(s): R41.82 - ALTERED MENTAL STATUS, UNSPECIFIED (4) History of DVT of lower extremity Assessment/Plan: on eliquis bid Code(s): Z86.718 - PERSONAL HISTORY OF OTHER VENOUS THROMBOSIS AND EMBOLISM (5) Sepsis Assessment/Plan: blood and urine cultures negative to date on zosyn for pneumonia Code(s): A41.9 - SEPSIS, UNSPECIFIED ORGANISM Qualifiers: Sepsis type: sepsis due to unspecified organism Sepsis acute organ dysfunction status: unspecified Qualified Code(s): A41.9 - Sepsis, unspecified organism (6) Shoulder pain, right Assessment/Plan: right shoulder and humerus negative for acute fracture, having increased pain x 2 days per patient without any falls reported pain management with oxycodone prn Code(s): M25.511 - PAIN IN RIGHT SHOULDER (7) Arthritis Assessment/Plan: generalized pain arthritis of right shoulder, severe elevated inflammatory markers, rheumatology consulted Code(s): M19.90 - UNSPECIFIED OSTEOARTHRITIS, UNSPECIFIED SITE (8) DVT prophylaxis Assessment/Plan: on eliquis for dvt prophylaxis no SCDs Code(s): Z29.9 - ENCOUNTER FOR PROPHYLACTIC MEASURES, UNSPECIFIED (9) Prophylactic measure Assessment/Plan: fen tolerating po monitor electrolytes on eliquis bowel regimen: colace dnr/dnr per molst form dated 11/2018 Code(s): Z29.9 - ENCOUNTER FOR PROPHYLACTIC MEASURES, UNSPECIFIED Visit type - Emergency Visit Emergency Visit: Yes ED Registration Date: 07/26/19 Care time: The patient presented to the Emergency Department on the above date and was hospitalized for further evaluation of their emergent condition. - New Patient This patient is new to me today: No - Critical Care Critical Care patient: No - Discharge Referral Referred to [facility] Med P.C.: No
--- NOTE | 2019-07-30 16:57 | PN ---
Progress Note (short form) - Note Progress Note: much more alert today still with right shoulder pain Vital Signs Period Temp Pulse Resp BP Sys/Vera Pulse Ox Last 24 Hr 97.9 F-99.3 F 63-82 18-22 89-131/53-69 98-98 cor-rrr lungs decreased bs at bases abd soft,nt ext swelling right shoulder- +effusion CBC, BMP 07/30/19 06:30 07/30/19 06:30 duplex no dvt head ct with acute maxillary sinusitis chest ct with RUL infiltrate Laboratory Tests 07/26/19 07/26/19 15:19 15:19 ESR 84 H C-Reactive Protein 12.6 H Current Medications Acetaminophen (Tylenol -) 650 mg PO Q6HPO [facility] Last Admin: 07/30/19 12:27 Dose: 650 mg Albuterol Sulfate (Ventolin 0.083% Nebulizer Soln -) 1 amp NEB Q4H PRN PRN Reason: SHORT OF BREATH/WHEEZING Albuterol/Ipratropium (Duoneb -) 1 amp NEB RTID [facility] Last Admin: 07/30/19 14:30 Dose: 1 amp Amlodipine Besylate (Norvasc -) 5 mg PO DAILY [facility] Last Admin: 07/30/19 14:57 Dose: Not Given Apixaban (Eliquis -) 5 mg PO BID [facility] Last Admin: 07/30/19 10:45 Dose: 5 mg Atorvastatin Calcium (Lipitor -) 20 mg PO HS [facility] Last Admin: 07/29/19 22:36 Dose: 20 mg Bupropion HCl (Wellbutrin Xl -) 150 mg PO DAILY [facility] Last Admin: 07/30/19 10:45 Dose: 150 mg Docusate Sodium (Colace -) 100 mg PO BID [facility] Famotidine (Pepcid -) 20 mg PO DAILY [facility] Last Admin: 07/30/19 10:46 Dose: 20 mg Furosemide (Lasix -) 40 mg PO DAILY [facility] Last Admin: 07/30/19 14:57 Dose: Not Given Gabapentin (Neurontin -) 100 mg PO TID [facility] Last Admin: 07/30/19 15:15 Dose: 100 mg Piperacillin Sod/Tazobactam (Sod 2.25 gm/ Dextrose) 50 mls @ 100 mls/hr IVPB Q6H-IV BHAVYA; Protocol Last Admin: 07/30/19 17:00 Dose: 100 mls/hr Lidocaine (Lidoderm Patch -) 2 patch TP DAILY [facility] Last Admin: 07/30/19 10:45 Dose: 2 patch Lorazepam (Ativan -) 0.5 mg PO BID PRN PRN Reason: ANXIETY Miscellaneous (Lidoderm Patch Removal) 1 each MC DAILY@2200 [facility] Last Admin: 07/29/19 22:37 Dose: 1 each Nadolol (Corgard -) 40 mg PO DAILY [facility] Last Admin: 07/30/19 14:57 Dose: Not Given Oxycodone HCl (Roxicodone -) 5 mg PO Q6H PRN PRN Reason: PAIN LEVEL 7 - 10 Last Admin: 07/30/19 12:26 Dose: 5 mg Polyethylene Glycol (Miralax (For Daily Use) -) 17 gm PO DAILY [facility] Senna (Senna -) 1 tab PO HS BHAVYA 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
--- NOTE | 2019-07-30 18:08 | CONSULT ---
Consult Consult Specialty:: Rheumatology - History of Present Illness History of Present Illness: 83 year old female with a significant past medical history of COPD (not on home O2) , HTN, HLD, osteoporosis, s/p vertebral compression fractures, and pelvis fracture, GERD, DVT (04/2019 on Eliquis ) admitted with severe knee pain and inability to walk, pain in the right shoulder radiated to the right arm and progressive SOB. On admission she was diagnosed with pneumonia. CT with multiple lung nodules - etiology? She is in Zosyn and Eliquis. HPI. Knee pain. One year history of bilateral knee pain related to walking. Until recently she was able to walk for room to room with a walked however in the last 2 days she has had severe pain mainly in the left knee with difficulty even in walking to the bathroom. X rays of the knees from 04/21/19 revealed Mild narrowing of the medial compartment (however it is not clear if they are weight bearing) and severe chondrocalcinosis in both knees. Most likely the pain is related to pseudogout. Right shoulder pain. Two day history of severe pain radiated to the right arm and great difficulty in moving the shoulder. X ray of the right shoulder - difficult to evaluate gleno-humeral space, probable mild calcification of the rotator cuff,. 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 Osteporosis. The patient's son reports that since [address] report of compression fractures. On February 2019 [facility] and had a pelvis fracture apparently in 3 sites. In the present admission CT of chest and pelvis reported with multilevel compression fractures New in inferior endplate in L3. Bone densitometry (02/09/16): T score: Lumbar spine: -1.9, right femur: -2.9, Left femur: -2.6, Right femoral neck: -3.9, left femoral neck: - 2.8. Two months ago she was started on Alendronate 70 mg once per week. The patient has history of GERD recently not very symptomatic. She takes the medication sitting erect in the bed. On admission ESR was 84 and CRP 12.6. eGFR 41. Even though I cannot rule out polymyalgia rheumatica, it is more likely that ESR and CRP are elevated 2o to pseudogout. - History Source History Provided By: Significant Other, Medical Record - Past Medical History Cardio/Vascular: Yes: HTN, Hyperlipdemia ...: No - Alcohol/Substance Use Hx Alcohol Use: No - Smoking History Smoking history: Never smoked Have you smoked in the past 12 months: No Aproximately how many cigarettes per day: 0 Home Medications - Allergies Allergies/Adverse Reactions: Allergies Allergy/AdvReac Type Severity Reaction Status Date / Time No Known Allergies Allergy Verified 06/04/15 15:52 - Home Medications Home Medications: Ambulatory Orders Amlodipine Besylate [Norvasc -] 5 mg PO DAILY 12/03/18 Atorvastatin Calcium [Lipitor] 20 mg PO HS 12/03/18 Nadolol [Corgard -] 40 mg PO DAILY 12/03/18 Albuterol 2.5/Ipratropium 0.5 [Duoneb -] 1 unit NEB TID 07/26/19 Alendronate Sodium [Fosamax] 70 mg PO WEEKLY 07/26/19 Apixaban [Eliquis] 5 mg PO BID 07/26/19 Bupropion HCl [Bupropion Xl] 1 tab PO DAILY 07/26/19 Diclofenac Sodium [Voltaren] 1 applic TP ASDIR 07/26/19 Furosemide [Lasix] 40 mg PO DAILY 07/26/19 Gabapentin [Neurontin] 100 mg PO TID 07/26/19 Ranitidine HCl [Zantac] 150 mg PO DAILY 07/26/19 oxyCODONE HCL [Roxicodone -] 5 mg PO DAILY PRN MDD 20 07/26/19 Review of Systems - Review of Systems Constitutional: reports: Malaise Eyes: reports: No Symptoms HENT: reports: No Symptoms Neck: reports: No Symptoms Cardiovascular: reports: No Symptoms Respiratory: reports: SOB Gastrointestinal: reports: No Symptoms Musculoskeletal: reports: Other (See HPI) Physical Exam Vital Signs: Vital Signs Temperature 97.9 F 07/30/19 14:22 Pulse Rate 82 07/30/19 14:22 Respiratory Rate 18 07/30/19 14:22 Blood Pressure 90/53 L 07/30/19 14:22 O2 Sat by Pulse Oximetry (%) 98 07/30/19 09:00 Constitutional: Yes: Mild Distress Eyes: Yes: WNL HENT: Yes: WNL Neck: Yes: WNL Cardiovascular: Yes: WNL Respiratory: Yes: Other (Few crackles in bases.) Musculoskeletal: Yes: Other (Tenderness and probable small effusion in theright shoulder with significant tenderness with any movement. Tenderness and swelling of the left knee. No other active joitns.) Labs: CBC, BMP 07/30/19 06:30 07/30/19 06:30 Laboratory Tests 07/26/19 07/26/19 07/26/19 15:19 15:19 15:30 ESR 84 H Calcium Magnesium Total Bilirubin AST ALT Alkaline Phosphatase Creatine Kinase 20 L C-Reactive Protein 12.6 H Total Protein Urine Color Yellow Urine Appearance Clear Urine pH 6.0 Ur Specific [place] 1.009 L Urine Protein Negative Urine Glucose (UA) Negative Urine Ketones Negative Urine Blood Negative Urine Nitrite Negative Urine Bilirubin Negative Urine Urobilinogen 0.2 Ur Leukocyte Esterase Negative Rheumatoid Factor < 10.0 07/30/19 06:30 ESR Calcium 8.3 L Magnesium 2.4 Total Bilirubin 0.4 AST 12 L ALT 11 L Alkaline Phosphatase 112 Creatine Kinase C-Reactive Protein Total Protein 5.7 L Urine Color Urine Appearance Urine pH Ur Specific [place] Urine Protein Urine Glucose (UA) Urine Ketones Urine Blood Urine Nitrite Urine Bilirubin Urine Urobilinogen Ur Leukocyte Esterase Rheumatoid Factor Problem List - Problems (1) Pseudogout involving multiple joints Assessment/Plan: Acute arthritis of the right shoulder and left knee. X rays of knees with severe chondrocalcinosis and X ray ofthe right shoulder with probable calcification of the rotator cuff. History of GERD and eGFR 41. Plan: Prednisone 40 mg/d for 3 days then tapering schedule. She might need Colchicine as outpatient. Code(s): M11.89 - OTHER SPECIFIED CRYSTAL ARTHROPATHIES, MULTIPLE SITES (2) Osteoporosis with pathological fracture Assessment/Plan: Osteoporosis with mcc history of compression vertebral fractures and s/p fracture of the pelvis. She was started 2 months ago on Alendronate. As she has history of GERD and cannot stand up while taking the medication, I suggest to start Zoledronic acid, (IV yearly). New bone densitometry as outpatient. Code(s): M80.00XA - AGE-REL OSTEOPOR W CURRENT PATH FRACTURE, UNSP SITE, INIT
[2019-07-30] MEDS: predniSONE 20 MG TABLET (UD) PO SCH (20:04)
[2019-07-30] MEDS: SENNOSIDES 8.6MG TABLET (FP) PO SCH (21:43)
[2019-07-30] MEDS: ATORVASTATIN CA 20 MG TABLET (FP) PO SCH (21:43)
[2019-07-30] MEDS: LIDOCAINE PATCH REMOVAL MC SCH (21:43)
[2019-07-30] MEDS: DOCUSATE SODIUM 100 MG CAPSULE (FP) PO SCH (21:43)
[2019-07-31] MEDS ORDERED: DEXTROSE 5%-WATER - 50 ML IVPB ONE ×4 (01:01→21:15)
[2019-07-31] MEDS ORDERED: PIPERACILLIN/TAZOBACTAM 2.25 GM VIAL IVPB ONE ×4 (01:01→21:14)
[2019-07-31] MEDS: PIPERACILLIN/TAZOB 2.25 GM 2.25 GM in DEXTROSE 5%-WATER - 50 ML IVPB SCH ×4 (02:29→21:26)
[2019-07-31] MEDS: ACETAMINOPHEN 325 MG TABLET (FP) PO SCH ×4 (06:13→23:53)
[2019-07-31] MEDS: GABAPENTIN 100 MG CAPSULE (FP) PO SCH ×3 (06:13→21:26)
[2019-07-31] MEDS: oxyCODONE HCL 5 MG TABLET PO PRN ×3 (06:19→21:26)
[2019-07-31] MEDS: ALBUTEROL SO4 2.5/IPRATROPIUM 0.5 INH SOL 3 ML VIAL.NEB. NEB SCH ×3 (08:03→20:22)
--- NOTE | 2019-07-31 08:26 | PN ---
Progress Note, Physician Chief Complaint: States her voice is very hoarse and throat is dry History of Present Illness: Patient is an 83 year old male with a significant past medical history of COPD ( not on home O2) , HTN, HLD, osteoporosis, vertebral compression fractures, DVT ( 04/2019 on Eliquis ) presenting to ED with LLE pain, altered mental status and loose stools. Per chart, patient's son reports that patient has been having worsening dyspnea, orthopnea, productive cough and diarrhea at home. She is being admitted for acute pneumonia. - Current Medication List Current Medications: Active Medications Acetaminophen (Tylenol -) 650 mg PO Q6HPO [facility] Last Admin: 07/31/19 06:13 Dose: 650 mg Albuterol Sulfate (Ventolin 0.083% Nebulizer Soln -) 1 amp NEB Q4H PRN PRN Reason: SHORT OF BREATH/WHEEZING Albuterol/Ipratropium (Duoneb -) 1 amp NEB RTID [facility] Last Admin: 07/31/19 08:03 Dose: 1 amp Amlodipine Besylate (Norvasc -) 5 mg PO DAILY [facility] Last Admin: 07/30/19 14:57 Dose: Not Given Apixaban (Eliquis -) 5 mg PO BID [facility] Last Admin: 07/30/19 21:43 Dose: 5 mg Atorvastatin Calcium (Lipitor -) 20 mg PO HS [facility] Last Admin: 07/30/19 21:43 Dose: 20 mg Bupropion HCl (Wellbutrin Xl -) 150 mg PO DAILY [facility] Last Admin: 07/30/19 10:45 Dose: 150 mg Docusate Sodium (Colace -) 100 mg PO BID [facility] Last Admin: 07/30/19 21:43 Dose: 100 mg Famotidine (Pepcid -) 20 mg PO DAILY [facility] Last Admin: 07/30/19 10:46 Dose: 20 mg Furosemide (Lasix -) 40 mg PO DAILY [facility] Last Admin: 07/30/19 14:57 Dose: Not Given Gabapentin (Neurontin -) 100 mg PO TID [facility] Last Admin: 07/31/19 06:13 Dose: 100 mg Piperacillin Sod/Tazobactam (Sod 2.25 gm/ Dextrose) 50 mls @ 100 mls/hr IVPB Q6H-IV BHAVYA; Protocol Last Admin: 07/31/19 02:29 Dose: 100 mls/hr Lidocaine (Lidoderm Patch -) 2 patch TP DAILY [facility] Last Admin: 07/30/19 10:45 Dose: 2 patch Lorazepam (Ativan -) 0.5 mg PO BID PRN PRN Reason: ANXIETY Miscellaneous (Lidoderm Patch Removal) 1 each MC DAILY@2200 [facility] Last Admin: 07/30/19 21:43 Dose: 1 each Nadolol (Corgard -) 40 mg PO DAILY [facility] Last Admin: 07/30/19 14:57 Dose: Not Given Oxycodone HCl (Roxicodone -) 5 mg PO Q6H PRN PRN Reason: PAIN LEVEL 7 - 10 Last Admin: 07/31/19 06:19 Dose: 5 mg Polyethylene Glycol (Miralax (For Daily Use) -) 17 gm PO DAILY [facility] Prednisone (Deltasone -) 40 mg PO DAILY [facility] Stop: 08/01/19 10:01 Last Admin: 07/30/19 20:04 Dose: 40 mg Prednisone (Deltasone -) 20 mg PO DAILY [facility] Stop: 08/04/19 10:01 Prednisone (Deltasone -) 10 mg PO DAILY [facility] Stop: 08/07/19 10:01 Prednisone (Deltasone -) 5 mg PO DAILY [facility] Stop: 08/10/19 10:01 Senna (Senna -) 1 tab PO HS [facility] Last Admin: 07/30/19 21:43 Dose: 1 tab - Objective Vital Signs: Vital Signs Temperature 98.0 F 07/31/19 06:00 Pulse Rate 65 07/31/19 06:00 Respiratory Rate 20 07/31/19 06:00 Blood Pressure 93/51 L 07/31/19 06:00 O2 Sat by Pulse Oximetry (%) 98 07/30/19 21:00 Constitutional: Yes: Well Nourished, No Distress, Calm Eyes: Yes: WNL, Conjunctiva Clear HENT: Yes: WNL, Atraumatic, Normocephalic Neck: Yes: WNL, Supple, Trachea Midline Cardiovascular: Yes: WNL, Regular Rate and Rhythm Respiratory: Yes: Regular, Diminished (at bases L>R) Gastrointestinal: Yes: WNL, Normal Bowel Sounds ...Rectal Exam: Yes: Deferred Genitourinary: Yes: WNL Breast(s): Yes: WNL Musculoskeletal: Yes: Muscle Weakness (generalized weakness) Extremities: Yes: WNL Edema: No Peripheral Pulses WNL: Yes Peripheral Pulses: Left Radial: 2+, Right Radial: 2+, Left Doralis Pedis: 2+, Right Dorsalis Pedis: 2+, Left Femoral: 2+, Right Femoral: 2+ Integumentary: Yes: WNL Neurological: Yes: WNL, Alert, Oriented ...Motor Strength: LLE (decreased duo to pain) Psychiatric: Yes: WNL Labs: CBC, BMP 07/30/19 06:30 07/30/19 06:30 INR, PTT INR 2.01 (0.83-1.09) H 07/26/19 15:19 - ....Imaging Cat Scan: Report Reviewed (Head CT: no acute pathology, chronic ischemic changes. bilateral maxillary sinus opacification seen. CT Chest/ct abd/pelvis: multilevel compression fracture, new inferior endplate of L3, multiple lung nodules with some increased in size, findings could represent mucous plugging, underlying malignancy not excluded, non obstructing nephrolithiasis, aneurysmal dilation of the ascending aorta present previously,) Problem List - Problems (1) COPD (chronic obstructive pulmonary disease) Assessment/Plan: c/w duonebs supplemental O@ to maintain SPO2 >88% Code(s): J44.9 - CHRONIC OBSTRUCTIVE PULMONARY DISEASE, UNSPECIFIED (2) HLD (hyperlipidemia) Assessment/Plan: c/w atorvastatin Code(s): E78.5 - HYPERLIPIDEMIA, UNSPECIFIED (3) Acute diarrhea Assessment/Plan: resolved Code(s): R19.7 - DIARRHEA, UNSPECIFIED (4) Shoulder pain Assessment/Plan: right shoulder and humerus negative for acute fracture states pain is better today pain management with oxycodone prn Code(s): M25.519 - PAIN IN UNSPECIFIED SHOULDER (5) Acute pain of left lower extremity Assessment/Plan: seen by rhemotology pain most likely r/t penudogout c/w lidocaine patches/gabapentin Prednisone 40 mg/d for 3 days then tapering schedule Code(s): M79.605 - PAIN IN LEFT LEG (6) History of DVT of lower extremity Assessment/Plan: c/w eliquis Code(s): Z86.718 - PERSONAL HISTORY OF OTHER VENOUS THROMBOSIS AND EMBOLISM (7) Osteoporosis with pathological fracture Code(s): M80.00XA - AGE-REL OSTEOPOR W CURRENT PATH FRACTURE, UNSP SITE, INIT (8) Pneumonia Assessment/Plan: supplemental O2 c/w zosyn ID following Code(s): J18.9 - PNEUMONIA, UNSPECIFIED ORGANISM (9) Hypertension Assessment/Plan: c/w belia singh Code(s): I10 - ESSENTIAL (PRIMARY) HYPERTENSION Visit type - Emergency Visit Emergency Visit: Yes ED Registration Date: 07/26/19 Care time: The patient presented to the Emergency Department on the above date and was hospitalized for further evaluation of their emergent condition. - New Patient This patient is new to me today: Yes Date on this admission: 07/31/19 - Critical Care Critical Care patient: No - Discharge Referral Referred to [facility] Med P.C.: No
[2019-07-31 09:10] LABS: BASO % 0.4 % (0-2.0); HEMATOCRIT 32.4 % (32.4-45.2); HEMOGLOBIN 10.2 GM/dL (10.7-15.3); LYMPH % 2.6 % (8-40); MCH 27.3 pg (25.7-33.7); MCHC 31.5 g/dl (32.0-36.0); MEAN CELL VOLUME 86.8 fl (80-96); MEAN PLT VOLUME 7.2 fl (7.5-11.1); MONO % 1.4 % (3.8-10.2); NEUT % 95.6 % (42.8-82.8); PLATELET COUNT 523 K/MM3 (134-434); RBC 3.74 M/mm3 (3.60-5.2); RDW 16.6 % (11.6-15.6); WHITE BLOOD COUNT 13.6 K/mm3 (4.0-10.0)
[2019-07-31 09:19] LABS: BILIRUBIN,TOTAL 0.2 mg/dL (0.2-1); BLOOD UREA NITROGEN 28.6 mg/dL (7-18); CALCIUM 8.5 mg/dL (8.5-10.1); CREATININE 1.1 mg/dL (0.55-1.3); MAGNESIUM 2.9 mg/dL (1.8-2.4); POTASSIUM 4.8 mmol/L (3.5-5.1); TOT PROT 6.1 g/dl (6.4-8.2)
[2019-07-31] MEDS: NADOLOL 40 MG TABLET (FP) PO SCH (09:20)
[2019-07-31] MEDS: FUROSEMIDE 40 MG TABLET (FP) PO SCH (09:21)
[2019-07-31] MEDS: APIXABAN 5 MG TABLET PO SCH ×2 (09:21→21:26)
[2019-07-31] MEDS: predniSONE 20 MG TABLET (UD) PO SCH (09:21)
[2019-07-31] MEDS: FAMOTIDINE 20 MG TABLET PO SCH (09:22)
[2019-07-31] MEDS: amLODIPine BESYLATE 5 MG TABLET (FP) PO SCH (09:22)
[2019-07-31] MEDS: DOCUSATE SODIUM 100 MG CAPSULE (FP) PO SCH ×2 (09:22→21:26)
[2019-07-31] MEDS: POLYETHYLENE GLYCOL 3350 119 GM BTL PO SCH (09:23)
[2019-07-31] MEDS: LIDOCAINE 5% TOPICAL PATCH TP SCH (09:52)
[2019-07-31] MEDS ORDERED: SODIUM CHLORIDE NASAL SPRAY 44 ML BOTTLE NS PRN (12:29)
--- NOTE | 2019-07-31 13:19 | PN ---
Progress Note (short form) - Note Progress Note: PULMONARY VSS/AFEBRILE Eyes: Yes: Conjunctiva Clear, EOM Intact HENT: Yes: Atraumatic, Normocephalic Neck: Yes: Supple, Trachea Midline Cardiovascular: Yes: Regular Rate and Rhythm Respiratory: Yes: Diminished (decreased breath sounds at the bases) ...Clubbing: No Gastrointestinal: Yes: Normal Bowel Sounds, Soft. No: Tenderness Edema: No Labs: noted Imaging - Results Chest X-ray: Report Reviewed, Image Reviewed Cat Scan: Image Reviewed (patchy multilobar infiltrates, RUL consolidation increased from prior) Problem List - Problems (1) Pneumonia Code(s): J18.9 - PNEUMONIA, UNSPECIFIED ORGANISM Assessment/Plan Pneumonia Sepsis Lung Nodules HTN Hyperlipidemia h/o DVT - IV antibiotics - O2 to keep SpO2 >90% - inhaled bronchodilators - taper steroids - outpt f/u of chest imaging - continue anticoagulation Rene GARCIA MD
[2019-07-31 13:41] LABS: ANISOCYTOSIS 0; MACROCYTOSIS 0; PLATELET ESTIMATE NORMAL
--- NOTE | 2019-07-31 14:52 | PN ---
Progress Note (short form) - Note Progress Note: still with joint pains started on prednisone cough improved Vital Signs Period Temp Pulse Resp BP Sys/Vera Pulse Ox Last 24 Hr 98.0 F-98.2 F 65-76 20-20 93-98/51-60 98 cor-rrr lungs decreased bs at bases abd soft,nt ext right shoulder swelling unchanged CBC, BMP 07/31/19 07:28 07/31/19 07:28 Microbiology 07/26/19 15:19 Blood - Peripheral Venous Blood Culture - Preliminary NO GROWTH OBTAINED AFTER 96 HOURS, INCUBATION TO CONTINUE FOR 1 DAYS. 07/26/19 15:19 Blood - Peripheral Venous Blood Culture - Preliminary NO GROWTH OBTAINED AFTER 96 HOURS, INCUBATION TO CONTINUE FOR 1 DAYS. 07/26/19 15:30 Urine - Urine - Catheterized Urine Culture - Final NO GROWTH OBTAINED 07/27/19 16:00 Urine For Antigen Detection Legionella Antigen - Final 07/27/19 16:00 Urine For Antigen Detection Streptococcus pneumoniae Antigen (M - Final a/p pseudogout per rheum- now on prednisone pneumonia-continue zosyn day #5- finish 7 days sinusitis-on antibiotics-conplete 7 days history multiple vertebral fractures continue zosyn please call back if needed Problem List - Problems (1) Pneumonia Code(s): J18.9 - PNEUMONIA, UNSPECIFIED ORGANISM (2) Sinusitis, acute maxillary Code(s): J01.00 - ACUTE MAXILLARY SINUSITIS, UNSPECIFIED (3) Acute pain of left lower extremity Code(s): M79.605 - PAIN IN LEFT LEG
[2019-07-31] MEDS ORDERED: PT OWN MED DRAWER 7, Y5N ONE (15:37)
[2019-07-31] MEDS: SENNOSIDES 8.6MG TABLET (FP) PO SCH (21:26)
[2019-07-31] MEDS: ATORVASTATIN CA 20 MG TABLET (FP) PO SCH (21:26)
[2019-07-31] MEDS: LIDOCAINE PATCH REMOVAL MC SCH (21:27)
[2019-08-01] MEDS ORDERED: DEXTROSE 5%-WATER - 50 ML IVPB ONE ×4 (02:42→20:45)
[2019-08-01] MEDS ORDERED: PIPERACILLIN/TAZOBACTAM 2.25 GM VIAL IVPB ONE ×4 (02:42→20:45)
[2019-08-01] MEDS: PIPERACILLIN/TAZOB 2.25 GM 2.25 GM in DEXTROSE 5%-WATER - 50 ML IVPB SCH ×4 (03:10→20:48)
[2019-08-01] MEDS: ACETAMINOPHEN 325 MG TABLET (FP) PO SCH ×3 (06:17→17:09)
[2019-08-01] MEDS: GABAPENTIN 100 MG CAPSULE (FP) PO SCH ×3 (06:17→21:49)
--- NOTE | 2019-08-01 08:00 | PN ---
Progress Note, Physician Chief Complaint: States her voice is still hoarse but improving. Feels very tired History of Present Illness: Patient is an 83 year old male with a significant past medical history of COPD ( not on home O2) , HTN, HLD, osteoporosis, vertebral compression fractures, DVT ( 04/2019 on Eliquis ) presenting to ED with LLE pain, altered mental status and loose stools. Per chart, patient's son reports that patient has been having worsening dyspnea, orthopnea, productive cough and diarrhea at home. She is being admitted for acute pneumonia. - Current Medication List Current Medications: Active Medications Acetaminophen (Tylenol -) 650 mg PO Q6HPO [facility] Last Admin: 08/01/19 06:17 Dose: Not Given Albuterol Sulfate (Ventolin 0.083% Nebulizer Soln -) 1 amp NEB Q4H PRN PRN Reason: SHORT OF BREATH/WHEEZING Albuterol/Ipratropium (Duoneb -) 1 amp NEB RTID [facility] Last Admin: 07/31/19 20:22 Dose: 1 amp Amlodipine Besylate (Norvasc -) 5 mg PO DAILY [facility] Last Admin: 07/31/19 09:22 Dose: 5 mg Apixaban (Eliquis -) 5 mg PO BID [facility] Last Admin: 07/31/19 21:26 Dose: 5 mg Atorvastatin Calcium (Lipitor -) 20 mg PO HS [facility] Last Admin: 07/31/19 21:26 Dose: 20 mg Bupropion HCl (Wellbutrin Xl -) 150 mg PO DAILY [facility] Last Admin: 07/31/19 09:22 Dose: 150 mg Docusate Sodium (Colace -) 100 mg PO BID [facility] Last Admin: 07/31/19 21:26 Dose: 100 mg Famotidine (Pepcid -) 20 mg PO DAILY [facility] Last Admin: 07/31/19 09:22 Dose: 20 mg Furosemide (Lasix -) 40 mg PO DAILY [facility] Last Admin: 07/31/19 09:21 Dose: 40 mg Gabapentin (Neurontin -) 100 mg PO TID [facility] Last Admin: 08/01/19 06:17 Dose: 100 mg Piperacillin Sod/Tazobactam (Sod 2.25 gm/ Dextrose) 50 mls @ 100 mls/hr IVPB Q6H-IV [facility]; Protocol Last Admin: 08/01/19 03:10 Dose: 100 mls/hr Lidocaine (Lidoderm Patch -) 2 patch TP DAILY [facility] Last Admin: 07/31/19 09:52 Dose: 2 patch Lorazepam (Ativan -) 0.5 mg PO BID PRN PRN Reason: ANXIETY Miscellaneous (Lidoderm Patch Removal) 1 each MC DAILY@2200 [facility] Last Admin: 07/31/19 21:27 Dose: 1 each Nadolol (Corgard -) 40 mg PO DAILY [facility] Last Admin: 07/31/19 09:20 Dose: Not Given Oxycodone HCl (Roxicodone -) 5 mg PO Q6H PRN PRN Reason: PAIN LEVEL 7 - 10 Last Admin: 07/31/19 21:26 Dose: 5 mg Polyethylene Glycol (Miralax (For Daily Use) -) 17 gm PO DAILY [facility] Last Admin: 07/31/19 09:23 Dose: 17 mg Prednisone (Deltasone -) 40 mg PO DAILY [facility] Stop: 08/01/19 10:01 Last Admin: 07/31/19 09:21 Dose: 40 mg Prednisone (Deltasone -) 20 mg PO DAILY [facility] Stop: 08/04/19 10:01 Prednisone (Deltasone -) 10 mg PO DAILY [facility] Stop: 08/07/19 10:01 Prednisone (Deltasone -) 5 mg PO DAILY [facility] Stop: 08/10/19 10:01 Senna (Senna -) 1 tab PO HS [facility] Last Admin: 07/31/19 21:26 Dose: 1 tab Sodium Chloride ([place] Nasal [place] -) 2 spray NS TID PRN PRN Reason: NASAL CONGESTION - Objective Vital Signs: Vital Signs Temperature 98.4 F 08/01/19 06:11 Pulse Rate 60 08/01/19 06:11 Respiratory Rate 20 08/01/19 06:11 Blood Pressure 110/62 08/01/19 06:11 O2 Sat by Pulse Oximetry (%) 97 07/31/19 21:00 Additional Findings/Remarks: Constitutional: Yes: Well Nourished, No Distress, Calm Eyes: Yes: WNL, Conjunctiva Clear HENT: Yes: WNL, Atraumatic, Normocephalic Neck: Yes: WNL, Supple, Trachea Midline Cardiovascular: Yes: WNL, Regular Rate and Rhythm Respiratory: Yes: Regular, Diminished (at bases L>R) Gastrointestinal: Yes: WNL, Normal Bowel Sounds ...Rectal Exam: Yes: Deferred Genitourinary: Yes: WNL Breast(s): Yes: WNL Musculoskeletal: Yes: Muscle Weakness (generalized weakness) Extremities: Yes: WNL Edema: No Peripheral Pulses WNL: Yes Peripheral Pulses: Left Radial: 2+, Right Radial: 2+, Left Doralis Pedis: 2+, Right Dorsalis Pedis: 2+, Left Femoral: 2+, Right Femoral: 2+ Integumentary: Yes: WNL Neurological: Yes: WNL, Alert, Oriented ...Motor Strength: LLE (decreased duo to pain) Psychiatric: Yes: WNL Labs: CBC, BMP 07/31/19 07:28 07/31/19 07:28 INR, PTT INR 2.01 (0.83-1.09) H 07/26/19 15:19 - ....Imaging Chest X-ray: Report Reviewed, Image Reviewed Cat Scan: Report Reviewed (patchy multilobar infiltrates, RUL consolidation increased from prior)) Problem List - Problems (1) COPD (chronic obstructive pulmonary disease) Assessment/Plan: c/w duonebs supplemental O@ to maintain SPO2 >88% Code(s): J44.9 - CHRONIC OBSTRUCTIVE PULMONARY DISEASE, UNSPECIFIED (2) HLD (hyperlipidemia) Assessment/Plan: c/w atorvastatin Code(s): E78.5 - HYPERLIPIDEMIA, UNSPECIFIED (3) Acute diarrhea Assessment/Plan: resolved Code(s): R19.7 - DIARRHEA, UNSPECIFIED (4) Shoulder pain Assessment/Plan: right shoulder and humerus negative for acute fracture states pain is better today pain management with oxycodone prn Code(s): M25.519 - PAIN IN UNSPECIFIED SHOULDER (5) Acute pain of left lower extremity Assessment/Plan: seen by rheumotology pain most likely r/t penudogout c/w lidocaine patches/gabapentin Prednisone 40 mg/d for 3 days then tapering schedule Code(s): M79.605 - PAIN IN LEFT LEG (6) History of DVT of lower extremity Assessment/Plan: c/w eliquis Code(s): Z86.718 - PERSONAL HISTORY OF OTHER VENOUS THROMBOSIS AND EMBOLISM (7) Osteoporosis with pathological fracture Code(s): M80.00XA - AGE-REL OSTEOPOR W CURRENT PATH FRACTURE, UNSP SITE, INIT (8) Pneumonia Assessment/Plan: supplemental O2 c/w zosyn #7/7 will monitor off abx ID following Code(s): J18.9 - PNEUMONIA, UNSPECIFIED ORGANISM (9) Hypertension Assessment/Plan: c/w belia isngh Code(s): I10 - ESSENTIAL (PRIMARY) HYPERTENSION (10) Prophylactic measure Assessment/Plan: FEN adequate PO intake monitor electrolytes low sodium diet DVT c/w elequis Dispo maintain as in pt DNR/DNI discharge planning to home Code(s): Z29.9 - ENCOUNTER FOR PROPHYLACTIC MEASURES, UNSPECIFIED (11) Pseudogout of knee Assessment/Plan: pseudogout per rheum- now on prednisone Code(s): M11.269 - OTHER CHONDROCALCINOSIS, UNSPECIFIED KNEE Visit type - Emergency Visit Emergency Visit: Yes ED Registration Date: 07/26/19 Care time: The patient presented to the Emergency Department on the above date and was hospitalized for further evaluation of their emergent condition. - New Patient This patient is new to me today: No - Critical Care Critical Care patient: No - Discharge Referral Referred to [facility] Med P.C.: No
[2019-08-01] MEDS: ALBUTEROL SO4 2.5/IPRATROPIUM 0.5 INH SOL 3 ML VIAL.NEB. NEB SCH ×3 (08:44→20:40)
[2019-08-01] MEDS: FUROSEMIDE 40 MG TABLET (FP) PO SCH (09:11)
[2019-08-01] MEDS: DOCUSATE SODIUM 100 MG CAPSULE (FP) PO SCH ×2 (09:11→21:49)
[2019-08-01] MEDS: amLODIPine BESYLATE 5 MG TABLET (FP) PO SCH (09:12)
[2019-08-01] MEDS: APIXABAN 5 MG TABLET PO SCH ×2 (09:12→21:49)
[2019-08-01] MEDS: predniSONE 20 MG TABLET (UD) PO SCH (09:12)
[2019-08-01] MEDS: NADOLOL 40 MG TABLET (FP) PO SCH (09:12)
[2019-08-01] MEDS: LIDOCAINE 5% TOPICAL PATCH TP SCH (09:13)
[2019-08-01] MEDS: POLYETHYLENE GLYCOL 3350 119 GM BTL PO SCH (09:14)
[2019-08-01] MEDS: FAMOTIDINE 20 MG TABLET PO SCH (09:14)
--- NOTE | 2019-08-01 12:15 | PN ---
Progress Note (short form) - Note Progress Note: Breathing feels OK today. Diffuse joint pain is somewhat better. No acute events overnight. Intake & Output 07/29/19 07/30/19 07/31/19 08/01/19 23:59 23:59 23:59 23:59 Intake Total 730 600 700 200 Balance 730 600 700 200 Weight 138 lb Last Vital Signs Temp Pulse Resp BP Pulse Ox 98.7 F 71 20 111/55 L 97 08/01/19 09:09 08/01/19 09:09 08/01/19 09:09 08/01/19 09:09 07/31/19 21:00 Active Medications Acetaminophen (Tylenol -) 650 mg PO Q6HPO [facility] Last Admin: 08/01/19 06:17 Dose: Not Given Albuterol Sulfate (Ventolin 0.083% Nebulizer Soln -) 1 amp NEB Q4H PRN PRN Reason: SHORT OF BREATH/WHEEZING Albuterol/Ipratropium (Duoneb -) 1 amp NEB RTID [facility] Last Admin: 08/01/19 08:44 Dose: 1 amp Amlodipine Besylate (Norvasc -) 5 mg PO DAILY [facility] Last Admin: 08/01/19 09:12 Dose: 5 mg Apixaban (Eliquis -) 5 mg PO BID [facility] Last Admin: 08/01/19 09:12 Dose: 5 mg Atorvastatin Calcium (Lipitor -) 20 mg PO HS [facility] Last Admin: 07/31/19 21:26 Dose: 20 mg Bupropion HCl (Wellbutrin Xl -) 150 mg PO DAILY [facility] Last Admin: 08/01/19 09:12 Dose: 150 mg Docusate Sodium (Colace -) 100 mg PO BID [facility] Last Admin: 08/01/19 09:11 Dose: 100 mg Famotidine (Pepcid -) 20 mg PO DAILY [facility] Last Admin: 08/01/19 09:14 Dose: 20 mg Furosemide (Lasix -) 40 mg PO DAILY [facility] Last Admin: 08/01/19 09:11 Dose: 40 mg Gabapentin (Neurontin -) 100 mg PO TID [facility] Last Admin: 08/01/19 06:17 Dose: 100 mg Piperacillin Sod/Tazobactam (Sod 2.25 gm/ Dextrose) 50 mls @ 100 mls/hr IVPB Q6H-IV [facility]; Protocol Last Admin: 08/01/19 09:11 Dose: 100 mls/hr Lidocaine (Lidoderm Patch -) 2 patch TP DAILY [facility] Last Admin: 08/01/19 09:13 Dose: 2 patch Lorazepam (Ativan -) 0.5 mg PO BID PRN PRN Reason: ANXIETY Miscellaneous (Lidoderm Patch Removal) 1 each MC DAILY@2200 [facility] Last Admin: 07/31/19 21:27 Dose: 1 each Nadolol (Corgard -) 40 mg PO DAILY [facility] Last Admin: 08/01/19 09:12 Dose: 40 mg Oxycodone HCl (Roxicodone -) 5 mg PO Q6H PRN PRN Reason: PAIN LEVEL 7 - 10 Last Admin: 07/31/19 21:26 Dose: 5 mg Polyethylene Glycol (Miralax (For Daily Use) -) 17 gm PO DAILY [facility] Last Admin: 08/01/19 09:14 Dose: 17 mg Prednisone (Deltasone -) 20 mg PO DAILY [facility] Stop: 08/04/19 10:01 Prednisone (Deltasone -) 10 mg PO DAILY [facility] Stop: 08/07/19 10:01 Prednisone (Deltasone -) 5 mg PO DAILY [facility] Stop: 08/10/19 10:01 Senna (Senna -) 1 tab PO HS [facility] Last Admin: 07/31/19 21:26 Dose: 1 tab Sodium Chloride ([place] Nasal [place] -) 2 spray NS TID PRN PRN Reason: NASAL CONGESTION Eyes: Yes: Conjunctiva Clear, EOM Intact HENT: Yes: Atraumatic, Normocephalic Neck: Yes: Supple, Trachea Midline Cardiovascular: Yes: Regular Rate and Rhythm Respiratory: Yes: Diminished (decreased breath sounds at the bases) ...Clubbing: No Gastrointestinal: Yes: Normal Bowel Sounds, Soft. No: Tenderness Edema: No Labs: Laboratory Results - last 24 hr 07/31/19 07:28 Neutrophils % (Manual) 95.0 H Band Neutrophils % 0.0 Lymphocytes % (Manual) 5.0 L Monocytes % (Manual) 0 L Eosinophils % (Manual) 0.0 Basophils % (Manual) 0.0 Myelocytes % (Man) 0 Promyelocytes % (Man) 0 Blast Cells % (Manual) 0 Metamyelocytes 0 Hypochromia 1+ Platelet Estimate Normal Polychromasia 0 Poikilocytosis 0 Anisocytosis 0 Microcytosis 0 Macrocytosis 0 [place] Cells 0 Problem List - Problems (1) Pneumonia Code(s): J18.9 - PNEUMONIA, UNSPECIFIED ORGANISM Assessment/Plan Pneumonia Sepsis Lung Nodules HTN Hyperlipidemia h/o DVT Pseudogout - To complete 7 days of Zosyn - O2 to keep SpO2 >90% - inhaled bronchodilators - outpt f/u of chest imaging - continue anticoagulation Dr Cuello
[2019-08-01] MEDS: oxyCODONE HCL 5 MG TABLET PO PRN (17:09)
[2019-08-01] MEDS: ATORVASTATIN CA 20 MG TABLET (FP) PO SCH (21:49)
[2019-08-01] MEDS: SENNOSIDES 8.6MG TABLET (FP) PO SCH (21:49)
[2019-08-01] MEDS: LIDOCAINE PATCH REMOVAL MC SCH (21:50)
[2019-08-02] MEDS: ACETAMINOPHEN 325 MG TABLET (FP) PO SCH ×5 (00:24→21:08)
[2019-08-02] MEDS ORDERED: PIPERACILLIN/TAZOBACTAM 2.25 GM VIAL IVPB ONE ×3 (01:22→16:50)
[2019-08-02] MEDS ORDERED: DEXTROSE 5%-WATER - 50 ML IVPB ONE ×3 (01:23→16:50)
[2019-08-02] MEDS: PIPERACILLIN/TAZOB 2.25 GM 2.25 GM in DEXTROSE 5%-WATER - 50 ML IVPB SCH ×3 (02:36→17:01)
[2019-08-02] MEDS: GABAPENTIN 100 MG CAPSULE (FP) PO SCH ×3 (06:17→21:07)
--- NOTE | 2019-08-02 08:26 | PN ---
Progress Note, Physician Chief Complaint: States she still feels very weak History of Present Illness: Patient is an 83 year old male with a significant past medical history of COPD ( not on home O2) , HTN, HLD, osteoporosis, vertebral compression fractures, DVT ( 04/2019 on Eliquis ) presenting to ED with LLE pain, altered mental status and loose stools. Per chart, patient's son reports that patient has been having worsening dyspnea, orthopnea, productive cough and diarrhea at home. She is being admitted for acute pneumonia. - Current Medication List Current Medications: Active Medications Acetaminophen (Tylenol -) 650 mg PO Q6HPO [facility] Last Admin: 08/02/19 06:17 Dose: 650 mg Albuterol Sulfate (Ventolin 0.083% Nebulizer Soln -) 1 amp NEB Q4H PRN PRN Reason: SHORT OF BREATH/WHEEZING Albuterol/Ipratropium (Duoneb -) 1 amp NEB RTID [facility] Last Admin: 08/01/19 20:40 Dose: 1 amp Amlodipine Besylate (Norvasc -) 5 mg PO DAILY [facility] Last Admin: 08/01/19 09:12 Dose: 5 mg Apixaban (Eliquis -) 5 mg PO BID [facility] Last Admin: 08/01/19 21:49 Dose: 5 mg Atorvastatin Calcium (Lipitor -) 20 mg PO HS [facility] Last Admin: 08/01/19 21:49 Dose: 20 mg Bupropion HCl (Wellbutrin Xl -) 150 mg PO DAILY [facility] Last Admin: 08/01/19 09:12 Dose: 150 mg Docusate Sodium (Colace -) 100 mg PO BID [facility] Last Admin: 08/01/19 21:49 Dose: 100 mg Famotidine (Pepcid -) 20 mg PO DAILY [facility] Last Admin: 08/01/19 09:14 Dose: 20 mg Furosemide (Lasix -) 40 mg PO DAILY [facility] Last Admin: 08/01/19 09:11 Dose: 40 mg Gabapentin (Neurontin -) 100 mg PO TID [facility] Last Admin: 08/02/19 06:17 Dose: 100 mg Piperacillin Sod/Tazobactam (Sod 2.25 gm/ Dextrose) 50 mls @ 100 mls/hr IVPB Q6H-IV [facility]; Protocol Stop: 08/02/19 20:59 Last Admin: 08/02/19 02:36 Dose: 100 mls/hr Lidocaine (Lidoderm Patch -) 2 patch TP DAILY [facility] Last Admin: 08/01/19 09:13 Dose: 2 patch Miscellaneous (Lidoderm Patch Removal) 1 each MC DAILY@2200 [facility] Last Admin: 08/01/19 21:50 Dose: 1 each Nadolol (Corgard -) 40 mg PO DAILY [facility] Last Admin: 08/01/19 09:12 Dose: 40 mg Polyethylene Glycol (Miralax (For Daily Use) -) 17 gm PO DAILY [facility] Last Admin: 08/01/19 09:14 Dose: 17 mg Prednisone (Deltasone -) 20 mg PO DAILY [facility] Stop: 08/04/19 10:01 Prednisone (Deltasone -) 10 mg PO DAILY [facility] Stop: 08/07/19 10:01 Prednisone (Deltasone -) 5 mg PO DAILY [facility] Stop: 08/10/19 10:01 Senna (Senna -) 1 tab PO HS [facility] Last Admin: 08/01/19 21:49 Dose: 1 tab Sodium Chloride ([place] Nasal [place] -) 2 spray NS TID PRN PRN Reason: NASAL CONGESTION - Objective Vital Signs: Vital Signs Temperature 97.9 F 08/02/19 06:30 Pulse Rate 59 L 08/02/19 06:30 Respiratory Rate 20 08/02/19 06:30 Blood Pressure 139/78 08/02/19 06:30 O2 Sat by Pulse Oximetry (%) 96 08/01/19 21:00 Additional Findings/Remarks: Constitutional: Yes: Well Nourished, No Distress, Calm Eyes: Yes: WNL, Conjunctiva Clear HENT: Yes: WNL, Atraumatic, Normocephalic Neck: Yes: WNL, Supple, Trachea Midline Cardiovascular: Yes: WNL, Regular Rate and Rhythm Respiratory: Yes: Regular, Diminished (at bases L>R) Gastrointestinal: Yes: WNL, Normal Bowel Sounds ...Rectal Exam: Yes: Deferred Genitourinary: Yes: WNL Breast(s): Yes: WNL Musculoskeletal: Yes: Muscle Weakness (generalized weakness) Extremities: Yes: WNL Edema: No Peripheral Pulses WNL: Yes Peripheral Pulses: Left Radial: 2+, Right Radial: 2+, Left Doralis Pedis: 2+, Right Dorsalis Pedis: 2+, Left Femoral: 2+, Right Femoral: 2+ Integumentary: Yes: WNL Neurological: Yes: WNL, Alert, Oriented ...Motor Strength: LLE (decreased duo to pain) Psychiatric: Yes: WNL Labs: CBC, BMP 07/31/19 07:28 07/31/19 07:28 INR, PTT INR 2.01 (0.83-1.09) H 07/26/19 15:19 Problem List - Problems (1) COPD (chronic obstructive pulmonary disease) Assessment/Plan: c/w duonebs supplemental O@ to maintain SPO2 >88% Code(s): J44.9 - CHRONIC OBSTRUCTIVE PULMONARY DISEASE, UNSPECIFIED (2) HLD (hyperlipidemia) Assessment/Plan: c/w atorvastatin Code(s): E78.5 - HYPERLIPIDEMIA, UNSPECIFIED (3) Acute diarrhea Assessment/Plan: resolved Code(s): R19.7 - DIARRHEA, UNSPECIFIED (4) Shoulder pain Assessment/Plan: right shoulder and humerus negative for acute fracture states pain is better today pain management with oxycodone prn lidoderm patch daily Code(s): M25.519 - PAIN IN UNSPECIFIED SHOULDER (5) Acute pain of left lower extremity Assessment/Plan: seen by rheumotology pain most likely r/t penudogout c/w lidocaine patches/gabapentin Prednisone 40 mg/d for 3 days then tapering schedule Code(s): M79.605 - PAIN IN LEFT LEG (6) History of DVT of lower extremity Assessment/Plan: c/w eliquis Code(s): Z86.718 - PERSONAL HISTORY OF OTHER VENOUS THROMBOSIS AND EMBOLISM (7) Osteoporosis with pathological fracture Code(s): M80.00XA - AGE-REL OSTEOPOR W CURRENT PATH FRACTURE, UNSP SITE, INIT (8) Pneumonia Assessment/Plan: supplemental O2 c/w zosyn #7/7 will monitor off abx ID following Code(s): J18.9 - PNEUMONIA, UNSPECIFIED ORGANISM (9) Hypertension Assessment/Plan: c/w belia singh Code(s): I10 - ESSENTIAL (PRIMARY) HYPERTENSION (10) Prophylactic measure Assessment/Plan: FEN adequate PO intake monitor electrolytes low sodium diet DVT c/w elequis Dispo maintain as in pt DNR/DNI discharge planning to home Code(s): Z29.9 - ENCOUNTER FOR PROPHYLACTIC MEASURES, UNSPECIFIED (11) Pseudogout of knee Assessment/Plan: pseudogout per rheum- now on prednisone Code(s): M11.269 - OTHER CHONDROCALCINOSIS, UNSPECIFIED KNEE Visit type - Emergency Visit Emergency Visit: Yes ED Registration Date: 07/26/19 Care time: The patient presented to the Emergency Department on the above date and was hospitalized for further evaluation of their emergent condition. - New Patient This patient is new to me today: No - Critical Care Critical Care patient: No - Discharge Referral Referred to [facility] No
[2019-08-02] MEDS: ALBUTEROL SO4 2.5/IPRATROPIUM 0.5 INH SOL 3 ML VIAL.NEB. NEB SCH ×3 (09:09→20:25)
[2019-08-02] MEDS: LIDOCAINE 5% TOPICAL PATCH TP SCH (10:10)
[2019-08-02] MEDS: DOCUSATE SODIUM 100 MG CAPSULE (FP) PO SCH ×2 (10:11→21:07)
[2019-08-02] MEDS: FUROSEMIDE 40 MG TABLET (FP) PO SCH (10:11)
[2019-08-02] MEDS: predniSONE 20 MG TABLET (UD) PO SCH (10:11)
[2019-08-02] MEDS: NADOLOL 40 MG TABLET (FP) PO SCH (10:11)
[2019-08-02] MEDS: APIXABAN 5 MG TABLET PO SCH ×2 (10:11→21:07)
[2019-08-02] MEDS: amLODIPine BESYLATE 5 MG TABLET (FP) PO SCH (10:11)
[2019-08-02] MEDS: FAMOTIDINE 20 MG TABLET PO SCH (10:12)
[2019-08-02] MEDS: POLYETHYLENE GLYCOL 3350 119 GM BTL PO SCH (10:14)
--- NOTE | 2019-08-02 11:31 | PN ---
Progress Note (short form) - Note Progress Note: Breathing feels OK today. No acute events overnight. Intake & Output 07/30/19 07/31/19 08/01/19 08/02/19 23:59 23:59 23:59 23:59 Intake Total 320 230 5720 170 Balance 300 275 6595 170 Weight 138 lb 139 lb 8 oz Last Vital Signs Temp Pulse Resp BP Pulse Ox 98.0 F 61 18 115/65 96 08/02/19 10:00 08/02/19 10:00 08/02/19 10:00 08/02/19 10:00 08/01/19 21:00 Active Medications Acetaminophen (Tylenol -) 650 mg PO Q6HPO [facility] Last Admin: 08/02/19 06:17 Dose: 650 mg Albuterol Sulfate (Ventolin 0.083% Nebulizer Soln -) 1 amp NEB Q4H PRN PRN Reason: SHORT OF BREATH/WHEEZING Albuterol/Ipratropium (Duoneb -) 1 amp NEB RTID [facility] Last Admin: 08/02/19 09:09 Dose: 1 amp Amlodipine Besylate (Norvasc -) 5 mg PO DAILY [facility] Last Admin: 08/02/19 10:11 Dose: 5 mg Apixaban (Eliquis -) 5 mg PO BID [facility] Last Admin: 08/02/19 10:11 Dose: 5 mg Atorvastatin Calcium (Lipitor -) 20 mg PO HS [facility] Last Admin: 08/01/19 21:49 Dose: 20 mg Bupropion HCl (Wellbutrin Xl -) 150 mg PO DAILY [facility] Last Admin: 08/02/19 10:11 Dose: 150 mg Docusate Sodium (Colace -) 100 mg PO BID [facility] Last Admin: 08/02/19 10:11 Dose: 100 mg Famotidine (Pepcid -) 20 mg PO DAILY [facility] Last Admin: 08/02/19 10:12 Dose: 20 mg Furosemide (Lasix -) 40 mg PO DAILY [facility] Last Admin: 08/02/19 10:11 Dose: 40 mg Gabapentin (Neurontin -) 100 mg PO TID [facility] Last Admin: 08/02/19 06:17 Dose: 100 mg Piperacillin Sod/Tazobactam (Sod 2.25 gm/ Dextrose) 50 mls @ 100 mls/hr IVPB Q6H-IV [facility]; Protocol Stop: 08/02/19 20:59 Last Admin: 08/02/19 10:11 Dose: 100 mls/hr Lidocaine (Lidoderm Patch -) 2 patch TP DAILY [facility] Last Admin: 08/02/19 10:10 Dose: 2 patch Miscellaneous (Lidoderm Patch Removal) 1 each MC DAILY@2200 [facility] Last Admin: 08/01/19 21:50 Dose: 1 each Nadolol (Corgard -) 40 mg PO DAILY [facility] Last Admin: 08/02/19 10:11 Dose: 40 mg Polyethylene Glycol (Miralax (For Daily Use) -) 17 gm PO DAILY [facility] Last Admin: 08/02/19 10:14 Dose: Not Given Prednisone (Deltasone -) 20 mg PO DAILY [facility] Stop: 08/04/19 10:01 Last Admin: 08/02/19 10:11 Dose: 20 mg Prednisone (Deltasone -) 10 mg PO DAILY [facility] Stop: 08/07/19 10:01 Prednisone (Deltasone -) 5 mg PO DAILY [facility] Stop: 08/10/19 10:01 Senna (Senna -) 1 tab PO HS [facility] Last Admin: 08/01/19 21:49 Dose: 1 tab Sodium Chloride ([place] Nasal [place] -) 2 spray NS TID PRN PRN Reason: NASAL CONGESTION Eyes: Yes: Conjunctiva Clear, EOM Intact HENT: Yes: Atraumatic, Normocephalic Neck: Yes: Supple, Trachea Midline Cardiovascular: Yes: Regular Rate and Rhythm Respiratory: Yes: Diminished (decreased breath sounds at the bases) ...Clubbing: No Gastrointestinal: Yes: Normal Bowel Sounds, Soft. No: Tenderness Edema: No Labs: Problem List - Problems (1) Pneumonia Code(s): J18.9 - PNEUMONIA, UNSPECIFIED ORGANISM Assessment/Plan Pneumonia Sepsis Lung Nodules HTN Hyperlipidemia h/o DVT Pseudogout - To complete 7 days of Zosyn - O2 to keep SpO2 >90% - inhaled bronchodilators - outpt f/u of chest imaging - continue anticoagulation Dr Cuello
[2019-08-02 11:52] LABS: BASO % 0.3 % (0-2.0); EOS % 0.4 % (0-4.5); HEMATOCRIT 31.4 % (32.4-45.2); LYMPH % 11.5 % (8-40); MCH 27.8 pg (25.7-33.7); MCHC 31.9 g/dl (32.0-36.0); MEAN CELL VOLUME 87.1 fl (80-96); MEAN PLT VOLUME 6.6 fl (7.5-11.1); MONO % 12.2 % (3.8-10.2); NEUT % 75.6 % (42.8-82.8); PLATELET COUNT 617 K/MM3 (134-434); RBC 3.61 M/mm3 (3.60-5.2); RDW 16.4 % (11.6-15.6); WHITE BLOOD COUNT 10.9 K/mm3 (4.0-10.0)
[2019-08-02 12:18] LABS: ALBUMIN 2.3 g/dl (3.4-5.0); BILIRUBIN,TOTAL 0.1 mg/dL (0.2-1); BLOOD UREA NITROGEN 32.5 mg/dL (7-18); CALCIUM 8.5 mg/dL (8.5-10.1); CREATININE 1.1 mg/dL (0.55-1.3); MAGNESIUM 2.6 mg/dL (1.8-2.4)
[2019-08-02] MEDS: ATORVASTATIN CA 20 MG TABLET (FP) PO SCH (21:07)
[2019-08-02] MEDS: SENNOSIDES 8.6MG TABLET (FP) PO SCH (21:07)
[2019-08-02] MEDS: LIDOCAINE PATCH REMOVAL MC SCH (21:08)
[2019-08-02] MEDS ORDERED: oxyCODONE HCL 5 MG TABLET PO ONE (21:26)
[2019-08-03] MEDS: ACETAMINOPHEN 325 MG TABLET (FP) PO SCH ×3 (01:12→13:13)
[2019-08-03] MEDS: GABAPENTIN 100 MG CAPSULE (FP) PO SCH ×2 (05:38→13:14)
[2019-08-03 06:30] VITALS: BP 135/74; TEMP 97.3
[2019-08-03 07:30] LABS: BASO % 0.6 % (0-2.0); EOS % 0.9 % (0-4.5); HEMATOCRIT 31.9 % (32.4-45.2); HEMOGLOBIN 10.2 GM/dL (10.7-15.3); LYMPH % 18.3 % (8-40); MCH 27.3 pg (25.7-33.7); MCHC 31.8 g/dl (32.0-36.0); MEAN CELL VOLUME 85.9 fl (80-96); MEAN PLT VOLUME 6.6 fl (7.5-11.1); MONO % 10.6 % (3.8-10.2); NEUT % 69.6 % (42.8-82.8); PLATELET COUNT 627 K/MM3 (134-434); RBC 3.72 M/mm3 (3.60-5.2); RDW 16.6 % (11.6-15.6); WHITE BLOOD COUNT 9.6 K/mm3 (4.0-10.0)
[2019-08-03] MEDS: ALBUTEROL SO4 2.5/IPRATROPIUM 0.5 INH SOL 3 ML VIAL.NEB. NEB SCH (07:50)
[2019-08-03 07:59] LABS: ALBUMIN 2.3 g/dl (3.4-5.0); BILIRUBIN,TOTAL 0.3 mg/dL (0.2-1); BLOOD UREA NITROGEN 26.4 mg/dL (7-18); CALCIUM 8.6 mg/dL (8.5-10.1); CREATININE 0.9 mg/dL (0.55-1.3); MAGNESIUM 2.6 mg/dL (1.8-2.4); POTASSIUM 4.7 mmol/L (3.5-5.1); TOT PROT 5.8 g/dl (6.4-8.2)
--- NOTE | 2019-08-03 09:56 | DS ---
Physical Exam: SUBJECTIVE: Patient seen and examined OBJECTIVE: Vital Signs Period Temp Pulse Resp BP Sys/Vera Pulse Ox Last 24 Hr 97.3 F-98.6 F 60-73 18-20 107-135/65-78 96 PHYSICAL EXAM Constitutional: Yes: Well Nourished, No Distress, Calm Eyes: Yes: WNL, Conjunctiva Clear HENT: Yes: WNL, Atraumatic, Normocephalic Neck: Yes: WNL, Supple, Trachea Midline Cardiovascular: Yes: WNL, Regular Rate and Rhythm Respiratory: Yes: Regular, Diminished (at bases L>R) Gastrointestinal: Yes: WNL, Normal Bowel Sounds ...Rectal Exam: Yes: Deferred Genitourinary: Yes: WNL Breast(s): Yes: WNL Musculoskeletal: Yes: Muscle Weakness (generalized weakness) Extremities: Yes: WNL Edema: No Peripheral Pulses WNL: Yes Peripheral Pulses: Left Radial: 2+, Right Radial: 2+, Left Doralis Pedis: 2+, Right Dorsalis Pedis: 2+, Left Femoral: 2+, Right Femoral: 2+ Integumentary: Yes: WNL Neurological: Yes: WNL, Alert, Oriented ...Motor Strength: LLE (decreased duo to pain) Psychiatric: Yes: WNL LABS Laboratory Results - last 24 hr 08/02/19 08/02/19 08/03/19 11:30 11:30 06:35 WBC 10.9 H 9.6 RBC 3.61 3.72 Hgb 10.0 L 10.2 L Hct 31.4 L 31.9 L MCV 87.1 85.9 MCH 27.8 27.3 MCHC 31.9 L 31.8 L RDW 16.4 H 16.6 H Plt Count 617 H 627 H MPV 6.6 L 6.6 L Absolute Neuts (auto) 8.3 H 6.7 Neutrophils % 75.6 D 69.6 Lymphocytes % 11.5 D 18.3 D Monocytes % 12.2 H D 10.6 H Eosinophils % 0.4 D 0.9 D Basophils % 0.3 0.6 Nucleated RBC % 0 0 Sodium 139 Potassium 4.0 Chloride 103 Carbon Dioxide 32 Anion Gap 4 L BUN 32.5 H Creatinine 1.1 Est GFR (CKD-EPI)AfAm 53.02 Est GFR (CKD-EPI)NonAf 45.74 Random Glucose 93 Calcium 8.5 Magnesium 2.6 H Total Bilirubin 0.1 L AST 42 H ALT 47 Alkaline Phosphatase 105 Total Protein 6.0 L Albumin 2.3 L 08/03/19 06:35 WBC RBC Hgb Hct MCV MCH MCHC RDW Plt Count MPV Absolute Neuts (auto) Neutrophils % Lymphocytes % Monocytes % Eosinophils % Basophils % Nucleated RBC % Sodium 139 Potassium 4.7 Chloride 104 Carbon Dioxide 29 Anion Gap 6 L BUN 26.4 H Creatinine 0.9 Est GFR (CKD-EPI)AfAm 67.57 Est GFR (CKD-EPI)NonAf 58.30 Random Glucose 82 Calcium 8.6 Magnesium 2.6 H Total Bilirubin 0.3 AST 31 ALT 45 Alkaline Phosphatase 94 Total Protein 5.8 L Albumin 2.3 L HOSPITAL COURSE: Date of Admission:07/26/19 Date of Discharge: 08/03/19 Problem List - Problems (1) COPD (chronic obstructive pulmonary disease) Assessment/Plan: no need for supplemental O@ tolerating RA Code(s): J44.9 - CHRONIC OBSTRUCTIVE PULMONARY DISEASE, UNSPECIFIED (2) HLD (hyperlipidemia) Assessment/Plan: c/w atorvastatin Code(s): E78.5 - HYPERLIPIDEMIA, UNSPECIFIED (3) Acute diarrhea Assessment/Plan: resolved Code(s): R19.7 - DIARRHEA, UNSPECIFIED (4) Shoulder pain Assessment/Plan: right shoulder and humerus negative for acute fracture pain management with oxycodone prn lidoderm patch daily Code(s): M25.519 - PAIN IN UNSPECIFIED SHOULDER (5) Acute pain of left lower extremity Assessment/Plan: seen by rheumotology pain most likely r/t penudogout c/w lidocaine patches/gabapentin Prednisone 40 mg/d for 3 days then tapering schedule Code(s): M79.605 - PAIN IN LEFT LEG (6) History of DVT of lower extremity Assessment/Plan: c/w eliquis Code(s): Z86.718 - PERSONAL HISTORY OF OTHER VENOUS THROMBOSIS AND EMBOLISM (7) Osteoporosis with pathological fracture Code(s): M80.00XA - AGE-REL OSTEOPOR W CURRENT PATH FRACTURE, UNSP SITE, INIT (8) Pneumonia Assessment/Plan: completed 7 day course will monitor off abx ID following Code(s): J18.9 - PNEUMONIA, UNSPECIFIED ORGANISM (9) Hypertension Assessment/Plan: c/w belia singh Code(s): I10 - ESSENTIAL (PRIMARY) HYPERTENSION (10) Pseudogout of knee Assessment/Plan: pseudogout per rheum- now on prednisone Code(s): M11.269 - OTHER CHONDROCALCINOSIS, UNSPECIFIED KNEE Medically stable for discharge to home Minutes to complete discharge: 45 Discharge Summary Problems reviewed: Yes Reason For Visit: HOSPITAL-AQUIRED PNEUMONIA,SEPSIS Current Active Problems Acute diarrhea (Acute) Acute pain of left lower extremity (Acute) Arthritis (Acute) COPD (chronic obstructive pulmonary disease) (Acute) DVT prophylaxis (Acute) HLD (hyperlipidemia) (Acute) History of DVT of lower extremity (Acute) Osteoporosis with pathological fracture (Acute) Pneumonia (Acute) Prophylactic measure (Acute) Prophylactic measure (Acute) Pseudogout involving multiple joints (Acute) Pseudogout of knee (Acute) Sepsis (Acute) Shoulder pain (Acute) Shoulder pain, right (Acute) Sinusitis, acute maxillary (Acute) Hospital Course: HOSPITAL COURSE: Date of Admission:07/26/19 Date of Discharge: 08/03/19 Problem List - Problems (1) COPD (chronic obstructive pulmonary disease) Assessment/Plan: no need for supplemental O@ tolerating RA Code(s): J44.9 - CHRONIC OBSTRUCTIVE PULMONARY DISEASE, UNSPECIFIED (2) HLD (hyperlipidemia) Assessment/Plan: c/w atorvastatin Code(s): E78.5 - HYPERLIPIDEMIA, UNSPECIFIED (3) Acute diarrhea Assessment/Plan: resolved Code(s): R19.7 - DIARRHEA, UNSPECIFIED (4) Shoulder pain Assessment/Plan: right shoulder and humerus negative for acute fracture pain management with oxycodone prn lidoderm patch daily Code(s): M25.519 - PAIN IN UNSPECIFIED SHOULDER (5) Acute pain of left lower extremity Assessment/Plan: seen by rheumotology pain most likely r/t penudogout c/w lidocaine patches/gabapentin Prednisone 40 mg/d for 3 days then tapering schedule Code(s): M79.605 - PAIN IN LEFT LEG (6) History of DVT of lower extremity Assessment/Plan: c/w eliquis Code(s): Z86.718 - PERSONAL HISTORY OF OTHER VENOUS THROMBOSIS AND EMBOLISM (7) Osteoporosis with pathological fracture Code(s): M80.00XA - AGE-REL OSTEOPOR W CURRENT PATH FRACTURE, UNSP SITE, INIT (8) Pneumonia Assessment/Plan: completed 7 day course will monitor off abx ID following Code(s): J18.9 - PNEUMONIA, UNSPECIFIED ORGANISM (9) Hypertension Assessment/Plan: c/w norvasc, corgard Code(s): I10 - ESSENTIAL (PRIMARY) HYPERTENSION (10) Pseudogout of knee Assessment/Plan: pseudogout per rheum- now on prednisone Code(s): M11.269 - OTHER CHONDROCALCINOSIS, UNSPECIFIED KNEE Medically stable for discharge to home Condition: Improved - Instructions Diet, Activity, Other Instructions: DISCHARGE YOUR VISIT You came to the hospital because you had pain in your legs and increasing shortness of breath. You were found to have pneumonia. You were treated with IV antibiotics for IV for 1 week. You were also seen by a rheumotologist and found to have gout in your joints. You were started on steroids and the dose with taper to off stopping on 08/08. MEDICATIONS Please continue to take your home medications as prescribed. There was no changes to your previous medications. New medications Prednisone 20 mg daily 3 days total (08/02, 08/03,08/04) Prednisone 10 mg daily 3 days total (08/05, 08/06,08/07) Prednisone 5 mg daily 3 days total (08/08 08/09,08/10) Lidoderm patch to shoulder daily DIET Continue your home diet ADDITIONAL CARE Please make an appointment to see your primary care provider, Zeynep 2 weeks from today. ADDITIONAL INFORMATION Please call 911 or come directly to the emergency department if you experience unusual headache, vision change, shortness of breath, chest pain, numbness, tingling, loss of alertness/awareness, loss of function, unusual bleeding or any alarming symptoms. Thank you for allowing me to care for you. Yovani Christopher, [facility], [facility] [phone] Referrals: Kelin Adhikari MD [Primary Care Provider] - - Home Medications Comprehensive Discharge Medication List: Ambulatory Orders Amlodipine Besylate [Norvasc -] 5 mg PO DAILY 12/03/18 Atorvastatin Calcium [Lipitor] 20 mg PO HS 12/03/18 Nadolol [Corgard -] 40 mg PO DAILY 12/03/18 Alendronate Sodium [Fosamax] 70 mg PO WEEKLY 07/26/19 Apixaban [Eliquis] 5 mg PO BID 07/26/19 Bupropion HCl [Bupropion Xl] 1 tab PO DAILY 07/26/19 Diclofenac Sodium [Voltaren] 1 applic TP ASDIR 07/26/19 Furosemide [Lasix] 40 mg PO DAILY 07/26/19 Gabapentin [Neurontin] 100 mg PO TID 07/26/19 Ranitidine HCl [Zantac] 150 mg PO DAILY 07/26/19 Acetaminophen [Tylenol .Regular Strength -] 650 mg PO Q6HPO tablet 08/02/19 Docusate Sodium [Colace -] 100 mg PO BID capsule 08/02/19 Lidocaine 5% Patch [Lidoderm -] 2 patch TP DAILY #30 patch 08/02/19 Sodium Chloride Nasal [place] [[place] Nasal [place] -] 2 spray NS TID PRN #1 bottle 08/02/19 predniSONE [Deltasone -] 5 mg PO DAILY #21 tablet 08/02/19 oxyCODONE HCL [Roxicodone -] 5 mg PO DAILY PRN #30 tablet MDD 20 08/03/19 Problem List - Problems (1) COPD (chronic obstructive pulmonary disease) Code(s): J44.9 - CHRONIC OBSTRUCTIVE PULMONARY DISEASE, UNSPECIFIED (2) HLD (hyperlipidemia) Code(s): E78.5 - HYPERLIPIDEMIA, UNSPECIFIED (3) Acute diarrhea Code(s): R19.7 - DIARRHEA, UNSPECIFIED (4) Shoulder pain Code(s): M25.519 - PAIN IN UNSPECIFIED SHOULDER (5) Acute pain of left lower extremity Code(s): M79.605 - PAIN IN LEFT LEG (6) History of DVT of lower extremity Code(s): Z86.718 - PERSONAL HISTORY OF OTHER VENOUS THROMBOSIS AND EMBOLISM (7) Osteoporosis with pathological fracture Code(s): M80.00XA - AGE-REL OSTEOPOR W CURRENT PATH FRACTURE, UNSP SITE, INIT (8) Pneumonia Code(s): J18.9 - PNEUMONIA, UNSPECIFIED ORGANISM (9) Hypertension Code(s): I10 - ESSENTIAL (PRIMARY) HYPERTENSION (10) Prophylactic measure Code(s): Z29.9 - ENCOUNTER FOR PROPHYLACTIC MEASURES, UNSPECIFIED (11) Pseudogout of knee Code(s): M11.269 - OTHER CHONDROCALCINOSIS, UNSPECIFIED KNEE This patient is new to me today: No Emergency Visit: Yes ED Registration Date: 07/26/19 Care time: The patient presented to the Emergency Department on the above date and was hospitalized for further evaluation of their emergent condition. Critical Care patient: No - Discharge Referral Referred to [facility] Med P.C.: No
[2019-08-03 10:51] VITALS: PULSE 75
--- NOTE | 2019-08-03 11:03 | PN ---
Progress Note (short form) - Note Progress Note: Breathing feels OK today. No acute events overnight. Intake & Output 07/31/19 08/01/19 08/02/19 08/03/19 23:59 23:59 23:59 23:59 Intake Total 700 1370 1180 Balance 700 1370 1180 Weight 138 lb 139 lb 8 oz 139 lb 7 oz Last Vital Signs Temp Pulse Resp BP Pulse Ox 97.3 F L 75 20 135/74 94 L 08/03/19 06:00 08/03/19 10:49 08/03/19 06:00 08/03/19 06:00 08/03/19 10:49 Active Medications Acetaminophen (Tylenol -) 650 mg PO Q6HPO [facility] Last Admin: 08/03/19 05:38 Dose: 650 mg Albuterol Sulfate (Ventolin 0.083% Nebulizer Soln -) 1 amp NEB Q4H PRN PRN Reason: SHORT OF BREATH/WHEEZING Albuterol/Ipratropium (Duoneb -) 1 amp NEB RTID [facility] Last Admin: 08/03/19 07:50 Dose: 1 amp Amlodipine Besylate (Norvasc -) 5 mg PO DAILY [facility] Last Admin: 08/02/19 10:11 Dose: 5 mg Apixaban (Eliquis -) 5 mg PO BID [facility] Last Admin: 08/02/19 21:07 Dose: 5 mg Atorvastatin Calcium (Lipitor -) 20 mg PO HS [facility] Last Admin: 08/02/19 21:07 Dose: 20 mg Bupropion HCl (Wellbutrin Xl -) 150 mg PO DAILY [facility] Last Admin: 08/02/19 10:11 Dose: 150 mg Docusate Sodium (Colace -) 100 mg PO BID [facility] Last Admin: 08/02/19 21:07 Dose: 100 mg Famotidine (Pepcid -) 20 mg PO DAILY [facility] Last Admin: 08/02/19 10:12 Dose: 20 mg Furosemide (Lasix -) 40 mg PO DAILY [facility] Last Admin: 08/02/19 10:11 Dose: 40 mg Gabapentin (Neurontin -) 100 mg PO TID [facility] Last Admin: 08/03/19 05:38 Dose: 100 mg Lidocaine (Lidoderm Patch -) 2 patch TP DAILY [facility] Last Admin: 08/02/19 10:10 Dose: 2 patch Miscellaneous (Lidoderm Patch Removal) 1 each MC DAILY@2200 [facility] Last Admin: 08/02/19 21:08 Dose: 1 each Nadolol (Corgard -) 40 mg PO DAILY [facility] Last Admin: 08/02/19 10:11 Dose: 40 mg Polyethylene Glycol (Miralax (For Daily Use) -) 17 gm PO DAILY [facility] Last Admin: 08/02/19 10:14 Dose: Not Given Prednisone (Deltasone -) 20 mg PO DAILY [facility] Stop: 08/04/19 10:01 Last Admin: 08/02/19 10:11 Dose: 20 mg Prednisone (Deltasone -) 10 mg PO DAILY [facility] Stop: 08/07/19 10:01 Prednisone (Deltasone -) 5 mg PO DAILY [facility] Stop: 08/10/19 10:01 Senna (Senna -) 1 tab PO HS [facility] Last Admin: 08/02/19 21:07 Dose: 1 tab Sodium Chloride ([place] Nasal [place] -) 2 spray NS TID PRN PRN Reason: NASAL CONGESTION Eyes: Yes: Conjunctiva Clear, EOM Intact HENT: Yes: Atraumatic, Normocephalic Neck: Yes: Supple, Trachea Midline Cardiovascular: Yes: Regular Rate and Rhythm Respiratory: Yes: Diminished (decreased breath sounds at the bases) ...Clubbing: No Gastrointestinal: Yes: Normal Bowel Sounds, Soft. No: Tenderness Edema: No Labs: Laboratory Results - last 24 hr 08/02/19 08/02/19 08/03/19 11:30 11:30 06:35 WBC 10.9 H 9.6 RBC 3.61 3.72 Hgb 10.0 L 10.2 L Hct 31.4 L 31.9 L MCV 87.1 85.9 MCH 27.8 27.3 MCHC 31.9 L 31.8 L RDW 16.4 H 16.6 H Plt Count 617 H 627 H MPV 6.6 L 6.6 L Absolute Neuts (auto) 8.3 H 6.7 Neutrophils % 75.6 D 69.6 Lymphocytes % 11.5 D 18.3 D Monocytes % 12.2 H D 10.6 H Eosinophils % 0.4 D 0.9 D Basophils % 0.3 0.6 Nucleated RBC % 0 0 Sodium 139 Potassium 4.0 Chloride 103 Carbon Dioxide 32 Anion Gap 4 L BUN 32.5 H Creatinine 1.1 Est GFR (CKD-EPI)AfAm 53.02 Est GFR (CKD-EPI)NonAf 45.74 Random Glucose 93 Calcium 8.5 Magnesium 2.6 H Total Bilirubin 0.1 L AST 42 H ALT 47 Alkaline Phosphatase 105 Total Protein 6.0 L Albumin 2.3 L 08/03/19 06:35 WBC RBC Hgb Hct MCV MCH MCHC RDW Plt Count MPV Absolute Neuts (auto) Neutrophils % Lymphocytes % Monocytes % Eosinophils % Basophils % Nucleated RBC % Sodium 139 Potassium 4.7 Chloride 104 Carbon Dioxide 29 Anion Gap 6 L BUN 26.4 H Creatinine 0.9 Est GFR (CKD-EPI)AfAm 67.57 Est GFR (CKD-EPI)NonAf 58.30 Random Glucose 82 Calcium 8.6 Magnesium 2.6 H Total Bilirubin 0.3 AST 31 ALT 45 Alkaline Phosphatase 94 Total Protein 5.8 L Albumin 2.3 L Problem List - Problems (1) Pneumonia Code(s): J18.9 - PNEUMONIA, UNSPECIFIED ORGANISM Assessment/Plan Pneumonia Sepsis Lung Nodules HTN Hyperlipidemia h/o DVT Pseudogout - Completed 7 days of Zosyn - O2 to keep SpO2 >90% - inhaled bronchodilators - outpt f/u of chest imaging - continue anticoagulation - DC planning Dr Cuello
[2019-08-03] MEDS: LIDOCAINE 5% TOPICAL PATCH TP SCH (11:05)
[2019-08-03] MEDS: NADOLOL 40 MG TABLET (FP) PO SCH (11:06)
[2019-08-03] MEDS: POLYETHYLENE GLYCOL 3350 119 GM BTL PO SCH (11:06)
[2019-08-03] MEDS: APIXABAN 5 MG TABLET PO SCH (11:06)
[2019-08-03] MEDS: FUROSEMIDE 40 MG TABLET (FP) PO SCH (11:06)
[2019-08-03] MEDS: DOCUSATE SODIUM 100 MG CAPSULE (FP) PO SCH (11:06)
[2019-08-03] MEDS: predniSONE 20 MG TABLET (UD) PO SCH (11:06)
[2019-08-03] MEDS: amLODIPine BESYLATE 5 MG TABLET (FP) PO SCH (11:06)
[2019-08-03] MEDS: FAMOTIDINE 20 MG TABLET PO SCH (11:07)
[2019-08-05] MEDS ORDERED: predniSONE 10 MG TABLET (UD) PO SCH (10:00)
[2019-08-08] MEDS ORDERED: predniSONE 5 MG TABLET (UD) PO SCH (10:00)
== END 2019-08-03 13:23 | disposition home health service (06) | DRG 871 ==
LOC: JER 13:40 → JERBED 19:04 → J5S 21:38
PROVIDERS: ADMIT Internal Medicine; ATTEND Nurse Practitioner Acute Care
DX: A41.89 Other specified sepsis (principal); J18.9 Pneumonia, unspecified organism; N17.9 Acute kidney failure, unspecified; M48.55XA Collapsed vertebra, not elsewhere classified, thoracolumbar region, initial encounter for fracture; M80.00XA Age-related osteoporosis with current pathological fracture, unspecified site, initial encounter for fracture; J44.9 Chronic obstructive pulmonary disease, unspecified; I10 Essential (primary) hypertension; E78.5 Hyperlipidemia, unspecified; K21.9 Gastro-esophageal reflux disease without esophagitis; M54.9 Dorsalgia, unspecified; M81.0 Age-related osteoporosis without current pathological fracture; D72.829 Elevated white blood cell count, unspecified; R19.7 Diarrhea, unspecified; R91.8 Other nonspecific abnormal finding of lung field; R50.9 Fever, unspecified; R01.1 Cardiac murmur, unspecified; M79.605 Pain in left leg; J01.00 Acute maxillary sinusitis, unspecified; M25.511 Pain in right shoulder; M19.90 Unspecified osteoarthritis, unspecified site; M11.89 Other specified crystal arthropathies, multiple sites; M11.269 Other chondrocalcinosis, unspecified knee; Z86.718 Personal history of other venous thrombosis and embolism
CPT/HCPCS: 36415; 70450-TC; 71045-TC-FY; 71250-TC; 73030-TC-RT-FY; 73060-TC-RT-FY; 74176-TC; 80053; 81003; 82550; 82803; 83605; 83735; 83880; 84100; 85025; 85610; 85651; 85730; 86038; 86140; 86431; 87040; 87086; 87804; 87899; 93005; 93010; 93306-TC; 93971-TC; 94640; 94761; 97116-GP; 97161-GP; 99285-25; J0131

== ENCOUNTER 2019-10-01 05:46 | Inpatient (IN) | payer OTHER, BC ==
--- NOTE | 2019-10-01 07:38 | PDOC ---
ED Treatment Course - LABORATORY CBC & Chemistry Diagram: 10/01/19 06:40 10/01/19 06:40 Medical Decision Making - Medical Decision Making 10/01/19 07:00 Pt received on signout from Dr. Clifton. 83 y/o female hx of COPD HTN HLD DVT, GERD, osteoporosis, frequent UTI, presenting today with son for left shoulder pain over the past few days, worse this AM. Urine malodorous. Denies trauma/fall. Pain on left shoulder worse with movement. 10/01/19 07:45 Pt reassessed. Reports improvement of pain at rest with the percocet but continues to have pain with movement. Reports that this is her baseline at home with her oxycodone as well. 10/01/19 08:03 PCP: Kelin Adhikari MD 10/01/19 09:02 D/w Dr. Haas, who recommends a CXR for an aortic knob. 10/01/19 09:06 XR left shoulder shows arthritic changes with joint calcification. 10/01/19 09:41 Labs reviewed. Laboratory Last Values WBC 13.3 K/mm3 (4.0-10.0) H 10/01/19 06:40 RBC 3.84 M/mm3 (3.60-5.2) 10/01/19 06:40 Hgb 10.5 GM/dL (10.7-15.3) L 10/01/19 06:40 Hct 32.2 % (32.4-45.2) L 10/01/19 06:40 MCV 83.9 fl (80-96) 10/01/19 06:40 MCH 27.4 pg (25.7-33.7) 10/01/19 06:40 MCHC 32.7 g/dl (32.0-36.0) 10/01/19 06:40 RDW 17.5 % (11.6-15.6) H 10/01/19 06:40 Plt Count 644 K/MM3 (134-434) H 10/01/19 06:40 MPV 6.5 fl (7.5-11.1) L 10/01/19 06:40 ESR 95 mm/hr (0-30) H 10/01/19 06:40 Sodium 139 mmol/L (136-145) 10/01/19 06:40 Potassium 3.9 mmol/L (3.5-5.1) 10/01/19 06:40 Chloride 106 mmol/L (98-107) 10/01/19 06:40 Carbon Dioxide 27 mmol/L (21-32) 10/01/19 06:40 Anion Gap 7 MMOL/L (8-16) L 10/01/19 06:40 BUN 18.1 mg/dL (7-18) H 10/01/19 06:40 Creatinine 1.0 mg/dL (0.55-1.3) 10/01/19 06:40 Est GFR (CKD-EPI)AfAm 59.49 10/01/19 06:40 Est GFR (CKD-EPI)NonAf 51.33 10/01/19 06:40 Random Glucose 93 mg/dL (74-106) 10/01/19 06:40 Calcium 8.6 mg/dL (8.5-10.1) 10/01/19 06:40 Total Bilirubin 0.4 mg/dL (0.2-1) 10/01/19 06:40 AST 13 U/L (15-37) L 10/01/19 06:40 ALT 9 U/L (13-61) L 10/01/19 06:40 Alkaline Phosphatase 118 U/L (45-117) H 10/01/19 06:40 C-Reactive Protein 6.6 MG/DL (0.00-0.3) H 10/01/19 06:40 Total Protein 6.8 g/dl (6.4-8.2) 10/01/19 06:40 Albumin 2.6 g/dl (3.4-5.0) L 10/01/19 06:40 10/01/19 09:42 D/w Dr. Vallejo (rheum) who saw the pt in the hospital. He will come in to evaluate the patient and provide steroid injection. 10/01/19 11:22 CXR shows superior mediastinum obscured by mandibular soft tissues of the neck. Enlarged cardiac silhouette. Prominent hiatal hernia. Mild interstitial lung disease. Demineralized osseous structures. No PTX or large pleural effusion. No vascular congestive changes. No evidence of pulmonary infiltrates. 10/01/19 12:16 UA reviewed. Will start ceftriaxone 1g in the ED. Urine Test Results Urine Color Yellow 10/01/19 09:30 Urine Appearance Cloudy 10/01/19 09:30 Urine pH 7.0 (5.0-8.0) 10/01/19 09:30 Ur Specific [place] 1.025 (1.010-1.035) 10/01/19 09:30 Urine Protein Trace (NEGATIVE) 10/01/19 09:30 Urine Glucose (UA) Negative (NEGATIVE) 10/01/19 09:30 Urine Ketones Negative (NEGATIVE) 10/01/19 09:30 Urine Blood Negative (NEGATIVE) 10/01/19 09:30 Urine Nitrite Positive (NEGATIVE) H 10/01/19 09:30 Urine Bilirubin Negative (NEGATIVE) 10/01/19 09:30 Ur Leukocyte Esterase Trace (NEGATIVE) 10/01/19 09:30 10/01/19 13:55 Pt reassessed with physical therapy. Unable to ambulate. Plan to admit for SNF placement. 10/01/19 14:52 D/w the hospitalist team who accepts the pt for admission. 10/01/19 16:13 Pt reassessed. Reports continued pain. Tylenol ordered. Discharge - Discharge Information Problems reviewed: Yes Clinical Impression/Diagnosis: Left shoulder pain Qualifiers: Chronicity: acute Qualified Code(s): M25.512 - Pain in left shoulder Condition: Stable - Admission Yes - Follow up/Referral - Patient Discharge Instructions - Post Discharge Activity
[2019-10-01 07:46] LABS: HEMATOCRIT 32.2 % (32.4-45.2); HEMOGLOBIN 10.5 GM/dL (10.7-15.3); MCH 27.4 pg (25.7-33.7); MCHC 32.7 g/dl (32.0-36.0); MEAN CELL VOLUME 83.9 fl (80-96); MEAN PLT VOLUME 6.5 fl (7.5-11.1); PLATELET COUNT 644 K/MM3 (134-434); RBC 3.84 M/mm3 (3.60-5.2); RDW 17.5 % (11.6-15.6); WHITE BLOOD COUNT 13.3 K/mm3 (4.0-10.0)
[2019-10-01 08:04] LABS: ALBUMIN 2.6 g/dl (3.4-5.0); BILIRUBIN,TOTAL 0.4 mg/dL (0.2-1); BLOOD UREA NITROGEN 18.1 mg/dL (7-18); CALCIUM 8.6 mg/dL (8.5-10.1); POTASSIUM 3.9 mmol/L (3.5-5.1); TOT PROT 6.8 g/dl (6.4-8.2)
[2019-10-01 09:21] VITALS: BMI 23.3
[2019-10-01 09:28] LABS: ERYTHROCYTE SEDIMENTATION RATE 95 mm/hr (0-30)
[2019-10-01 11:48] LABS: EPI CELLS 13.1 /HPF (0-5/HPF); HYALINE CASTS 12 /lpf (0-8); URINE APPEARANCE CLOUDY; URINE BACTERIA >9000 /hpf (NEGATIVE); URINE BILIRUBIN NEGATIVE (NEGATIVE); URINE COLOR YELLOW; URINE GLUCOSE (UA) NEGATIVE (NEGATIVE); URINE KETONE NEGATIVE (NEGATIVE); URINE LEUK ESTERASE TRACE (NEGATIVE); URINE NITRITE POSITIVE (NEGATIVE); URINE PROTEIN TRACE (NEGATIVE); URINE RBC 2 /hpf (0-4); URINE WBC 6 /hpf (0-5)
[2019-10-01] MEDS ORDERED: CEFTRIAXONE 1 GM in DEXTROSE 5%-WATER - 100 ML IVPB ONE (13:39)
[2019-10-01] MEDS ORDERED: CEFTRIAXONE 1 GM/50 ML BAG ONE (14:09)
[2019-10-01] MEDS ORDERED: morphine CARPU-JECT 2 MG/1 ML DISP.SYRIN IVPUSH ONE (16:10)
--- NOTE | 2019-10-01 16:14 | HP ---
CHIEF COMPLAINT: weakness, left shoulder pain and inability to ambulate PCP: Kelin Adhikari MD HISTORY OF PRESENT ILLNESS: Patient is an 83 year old male with a significant past medical history of COPD (not on home O2) , HTN, HLD, osteoporosis, frequent UTIS, vertebral compression fractures, DVT (04/2019 on Eliquis ) presenting to ED with left shoulder severe pain, over the past few days, worse today with very limited range of motion, and inability to ambulate with increased weakness on bilateral lower extremities. Denies trauma/fall. Pain on left shoulder worse with movement. In the ED she was noted to have a malodorous urine and started on prophylactic ceftriaxone. ER course was notable for: (1) left shoulder xray: shows arthritic changes with joint calcification. (2) Steroid injection given by rhumatology in the ED (3) + ua with + nitrate and bacteria > 9000 Recent Travel: none PAST MEDICAL/SURGICAL HISTORY: COPD (not on home O2) , HTN, HLD, osteoporosis, frequent UTIS, vertebral compression fractures, DVT (04/2019 on Eliquis ) Social History: Smoking: none Alcohol: none Drugs: none Allergies No Known Allergies Allergy (Verified 06/04/15 15:52) HOME MEDICATIONS: Home Medications Medication Instructions Recorded Amlodipine Besylate [Norvasc -] 5 mg PO DAILY 12/03/18 Atorvastatin Calcium [Lipitor] 20 mg PO HS 12/03/18 Nadolol [Corgard -] 40 mg PO DAILY 12/03/18 Alendronate Sodium [Fosamax] 70 mg PO WEEKLY 07/26/19 Apixaban [Eliquis] 5 mg PO BID 07/26/19 Bupropion HCl [Bupropion Xl] 1 tab PO DAILY 07/26/19 Diclofenac Sodium [Voltaren] 1 applic TP ASDIR 07/26/19 Furosemide [Lasix] 40 mg PO DAILY 07/26/19 Gabapentin [Neurontin] 100 mg PO TID 07/26/19 Ranitidine HCl [Zantac] 150 mg PO DAILY 07/26/19 Acetaminophen [Tylenol .Regular 650 mg PO Q6HPO tablet 08/02/19 Strength -] Docusate Sodium [Colace -] 100 mg PO BID capsule 08/02/19 Lidocaine 5% Patch [Lidoderm -] 2 patch TP DAILY #30 patch 08/02/19 Sodium Chloride Nasal [place] [[place] 2 spray NS TID PRN #1 bottle 08/02/19 [place] Nasal [place] -] predniSONE [Deltasone -] 5 mg PO DAILY #21 tablet 08/02/19 oxyCODONE HCL [Roxicodone -] 5 mg PO DAILY PRN #30 tablet MDD 20 08/03/19 REVIEW OF SYSTEMS CONSTITUTIONAL: Absent: fever, chills, diaphoresis, generalized weakness, malaise, loss of appe tite, weight change HEENT: Absent: rhinorrhea, nasal congestion, throat pain, throat swelling, difficulty swallowing, mouth swelling, ear pain, eye pain, visual changes CARDIOVASCULAR: Absent: chest pain, syncope, palpitations, irregular heart rate, lightheadedness, peripheral edema RESPIRATORY: Absent: cough, shortness of breath, dyspnea with exertion, orthopnea, wheezing, stridor, hemoptysis GASTROINTESTINAL: Absent: abdominal pain, abdominal distension, nausea, vomiting, diarrhea, constipation, melena, hematochezia GENITOURINARY: Absent: dysuria, frequency, urgency, hesitancy, hematuria, flank pain, genital pain SKIN: Absent: rash, itching, pallor HEMATOLOGIC/IMMUNOLOGIC: Absent: easy bleeding, easy bruising, lymphadenopathy, frequent infections ENDOCRINE: Absent: unexplained weight gain, unexplained weight loss, heat intolerance, cold intolerance NEUROLOGIC: Absent: headache, focal weakness or paresthesias, seizure, mental status changes, bladder or bowel incontinence PHYSICAL EXAMINATION Vital Signs - 24 hr 10/01/19 10/01/19 10/01/19 06:18 09:45 14:35 Temperature 98.5 F 98.7 F 97.7 F Pulse Rate 77 Pulse Rate [ 70 81 Right Radial] Respiratory 18 20 20 Rate Blood Pressure 134/117 H Blood Pressure 133/76 116/58 L [Right Arm] O2 Sat by Pulse 97 95 95 Oximetry (%) GENERAL: Awake, alert, and fully oriented, in no acute distress. anxious and tearful on exam HEAD: Normal with no signs of trauma. EYES: Pupils equal, round and reactive to light, extraocular movements intact, sclera anicteric, conjunctiva clear. No lid lag. EARS, NOSE, THROAT: Ears normal, nares patent, oropharynx clear without exudates. NECK: Normal range of motion, supple without lymphadenopathy, JVD, or masses. LUNGS: Breath sounds equal, clear to auscultation bilaterally. HEART: Regular rate and rhythm ABDOMEN: Soft, nontender, not distended, normoactive bowel sounds, no guarding, no rebound, no masses. MUSCULOSKELETAL: Normal range of motion at all joints. No bony deformities or tenderness. No CVA tenderness. UPPER EXTREMITIES: No peripheral edema. LOWER EXTREMITIES: No peripheral edema. NEUROLOGICAL: Normal speech. Normal gait. PSYCHIATRIC: Cooperative. Good eye contact. Appropriate mood and affect. SKIN: Warm, dry, normal turgor, no rashes or lesions noted, normal capillary refill. Laboratory Results - last 24 hr 10/01/19 10/01/19 10/01/19 06:40 06:40 09:30 WBC 13.3 H RBC 3.84 Hgb 10.5 L Hct 32.2 L MCV 83.9 MCH 27.4 MCHC 32.7 RDW 17.5 H Plt Count 644 H MPV 6.5 L ESR 95 H Sodium 139 Potassium 3.9 Chloride 106 Carbon Dioxide 27 Anion Gap 7 L BUN 18.1 H Creatinine 1.0 Est GFR (CKD-EPI)AfAm 59.49 Est GFR (CKD-EPI)NonAf 51.33 Random Glucose 93 Calcium 8.6 Total Bilirubin 0.4 AST 13 L ALT 9 L Alkaline Phosphatase 118 H C-Reactive Protein 6.6 H Total Protein 6.8 Albumin 2.6 L Urine Color Yellow Urine Appearance Cloudy Urine pH 7.0 Ur Specific [place] 1.025 Urine Protein Trace Urine Glucose (UA) Negative Urine Ketones Negative Urine Blood Negative Urine Nitrite Positive H Urine Bilirubin Negative Urine Urobilinogen 1.0 Ur Leukocyte Esterase Trace Urine WBC (Auto) 6 Urine RBC (Auto) 2 Urine Casts (Auto) 12 U Epithel Cells (Auto) 13.1 Urine Bacteria (Auto) >9000 ASSESSMENT/PLAN: Problem List - Problem (1) Shoulder pain Assessment/Plan: lidoderm patch on oxycodone 12/05 prn Code(s): M25.519 - PAIN IN UNSPECIFIED SHOULDER (2) Unable to ambulate Assessment/Plan: poor ambulatory status at home. for rehab placement. Code(s): R26.2 - DIFFICULTY IN WALKING, NOT ELSEWHERE CLASSIFIED (3) COPD (chronic obstructive pulmonary disease) Assessment/Plan: not home oxygen dependent and pt is not in acute exacerbation. on 2 liters prn. Code(s): J44.9 - CHRONIC OBSTRUCTIVE PULMONARY DISEASE, UNSPECIFIED (4) History of DVT of lower extremity Assessment/Plan: on eliquis Code(s): Z86.718 - PERSONAL HISTORY OF OTHER VENOUS THROMBOSIS AND EMBOLISM (5) Hypertension Assessment/Plan: bp stable Code(s): I10 - ESSENTIAL (PRIMARY) HYPERTENSION (6) Osteoporosis with pathological fracture Assessment/Plan: physical therapy ordered Code(s): M80.00XA - AGE-REL OSTEOPOR W CURRENT PATH FRACTURE, UNSP SITE, INIT (7) UTI (urinary tract infection) Assessment/Plan: uti noted on UA, urine culture pending, but collected after two doses of ceftriaxone. awaiting results Code(s): N39.0 - URINARY TRACT INFECTION, SITE NOT SPECIFIED (8) Chronic pain disorder Assessment/Plan: pain management consulted Code(s): G89.4 - CHRONIC PAIN SYNDROME (9) DVT prophylaxis Assessment/Plan: on eliquis Code(s): Z29.9 - ENCOUNTER FOR PROPHYLACTIC MEASURES, UNSPECIFIED (10) Prophylactic measure Assessment/Plan: fen tolerating po monitor electrolytes low salt diet Code(s): Z29.9 - ENCOUNTER FOR PROPHYLACTIC MEASURES, UNSPECIFIED Visit type - Emergency Visit Emergency Visit: Yes ED Registration Date: 10/01/19 Care time: The patient presented to the Emergency Department on the above date and was hospitalized for further evaluation of their emergent condition. - New Patient This patient is new to me today: Yes Date on this admission: 10/02/19 - Critical Care Critical Care patient: No
[2019-10-01] MEDS ORDERED: ACETAMINOPHEN 1000 MG/100 ML VIAL (NON FORMULARY) IVPB ONE (16:22)
[2019-10-01] MEDS ORDERED: ACETAMINOPHEN INJECTION 100 ML IVPB ONE (16:22)
[2019-10-01] MEDS ORDERED: ALBUTEROL SO4 0.083% IH SOL 2.5 MG/3 ML VIAL.NEB. NEB PRN (17:45)
[2019-10-01] MEDS ORDERED: oxyCODONE HCL 5 MG TABLET PO PRN (17:46)
[2019-10-01] MEDS ORDERED: SENNOSIDES 8.6MG TABLET (FP) PO PRN (17:47)
[2019-10-01] MEDS ORDERED: ACETAMINOPHEN 325 MG TABLET (FP) PO PRN (17:47)
[2019-10-01] MEDS: LIDOCAINE 5% TOPICAL PATCH TP SCH (17:47)
[2019-10-01] MEDS: SODIUM CHLORIDE 1,000 ML IV SCH (18:40)
--- NOTE | 2019-10-01 19:36 | CONSULT ---
Consult Consult Specialty:: Rheumatology - History of Present Illness History of Present Illness: 83 year old female with a significant past medical history of chondrocalcinosis in multiple joints, COPD (not on home O2) , HTN, HLD, osteoporosis, s/p vertebral compression fractures, and pelvis fracture, GERD, DVT (04/2019 on Eliquis ) admitted with acute pain in the left shoulder and difficulty in walking. She was recently admitted (07/26/19) with bilateral knee pain and pain in the right shoulder. X rays of the knees from 04/21/19 revealed Mild narrowing of the medial compartment (however it is not clear if they are weight bearing) and severe chondrocalcinosis in both knees. The shoulder pain was probably related with acute calcific tendonitis. Last visit I suggested to treat the osteoporosis with Zoledronic acid as she has difficulty taking Alendronate On this occasion, the reports she has had migratory pain involving knees and shoulders. In the last 3 days she has had severe pain in the left shoulder. X ray of the left shoulder revealed a normal joint space and significant chondrocalcinosis and probable calcification of the rotator cuff. - History Source History Provided By: Patient, Family Member, Medical Record - Past Medical History Cardio/Vascular: Yes: HTN, Hyperlipdemia - Alcohol/Substance Use Hx Alcohol Use: No - Smoking History Smoking history: Unknown if ever smoked Have you smoked in the past 12 months: No Aproximately how many cigarettes per day: 0 Home Medications - Allergies Allergies/Adverse Reactions: Allergies Allergy/AdvReac Type Severity Reaction Status Date / Time No Known Allergies Allergy Verified 06/04/15 15:52 - Home Medications Home Medications: Ambulatory Orders Amlodipine Besylate [Norvasc -] 5 mg PO DAILY 12/03/18 Atorvastatin Calcium [Lipitor] 20 mg PO HS 12/03/18 Nadolol [Corgard -] 40 mg PO DAILY 12/03/18 Alendronate Sodium [Fosamax] 70 mg PO WEEKLY 07/26/19 Apixaban [Eliquis] 5 mg PO BID 07/26/19 Bupropion HCl [Bupropion Xl] 1 tab PO DAILY 07/26/19 Diclofenac Sodium [Voltaren] 1 applic TP ASDIR 07/26/19 Furosemide [Lasix] 40 mg PO DAILY 07/26/19 Gabapentin [Neurontin] 100 mg PO TID 07/26/19 Ranitidine HCl [Zantac] 150 mg PO DAILY 07/26/19 Acetaminophen [Tylenol .Regular Strength -] 650 mg PO Q6HPO tablet 08/02/19 Docusate Sodium [Colace -] 100 mg PO BID capsule 08/02/19 Lidocaine 5% Patch [Lidoderm -] 2 patch TP DAILY #30 patch 08/02/19 Sodium Chloride Nasal [place] [[place] Nasal [place] -] 2 spray NS TID PRN #1 bottle 08/02/19 predniSONE [Deltasone -] 5 mg PO DAILY #21 tablet 08/02/19 oxyCODONE HCL [Roxicodone -] 5 mg PO DAILY PRN #30 tablet MDD 20 08/03/19 Review of Systems - Review of Systems Constitutional: reports: Malaise Eyes: reports: No Symptoms HENT: reports: No Symptoms Neck: reports: No Symptoms Cardiovascular: reports: No Symptoms Respiratory: reports: No Symptoms Gastrointestinal: reports: No Symptoms Musculoskeletal: reports: Other (See HPI) Physical Exam Vital Signs: Vital Signs Temperature 98.1 F 10/01/19 18:10 Pulse Rate 74 10/01/19 18:10 Respiratory Rate 20 10/01/19 18:10 Blood Pressure 122/79 10/01/19 18:10 O2 Sat by Pulse Oximetry (%) 95 10/01/19 18:10 Constitutional: Yes: Moderate Distress Eyes: Yes: WNL HENT: Yes: WNL Neck: Yes: WNL Cardiovascular: Yes: WNL Respiratory: Yes: WNL Gastrointestinal: Yes: WNL Musculoskeletal: Yes: Other (Significant pain in the left shoulder,mainly over the grater tuberosity) Labs: CBC, BMP 10/01/19 06:40 10/01/19 06:40 Problem List - Problems (1) Pseudogout involving multiple joints Assessment/Plan: Pain in left shoulder and knees probably related to pseudogout. PROCEDURE. Under aseptic conditions I injected the left subacromial space with 40 mg Depomedrol and 1 ml Lidocaine 1%. Plan: Colchicine 0.6 mg /d Code(s): M11.89 - OTHER SPECIFIED CRYSTAL ARTHROPATHIES, MULTIPLE SITES
[2019-10-02] MEDS: DOCUSATE SODIUM 100 MG CAPSULE (FP) PO SCH ×4 (00:06→22:31)
[2019-10-02] MEDS: POLYETHYLENE GLYCOL 3350 119 GM BTL PO SCH ×3 (00:06→22:31)
[2019-10-02] MEDS: ATORVASTATIN CA 20 MG TABLET (FP) PO SCH ×2 (00:11→22:30)
[2019-10-02] MEDS: GABAPENTIN 100 MG CAPSULE PO SCH ×4 (00:11→22:30)
[2019-10-02] MEDS: APIXABAN 5 MG TABLET PO SCH ×3 (00:11→22:30)
[2019-10-02] MEDS: LIDOCAINE PATCH REMOVAL MC SCH ×2 (00:17→22:32)
[2019-10-02] MEDS: LIDOCAINE 5% TOPICAL PATCH TP SCH (09:21)
[2019-10-02] MEDS: FAMOTIDINE 20 MG TABLET PO SCH (09:22)
[2019-10-02] MEDS: amLODIPine BESYLATE 5 MG TABLET (FP) PO SCH (09:22)
[2019-10-02] MEDS: FUROSEMIDE 40 MG TABLET (FP) PO SCH (09:22)
[2019-10-02] MEDS: NADOLOL 40 MG TABLET (FP) PO SCH (09:22)
[2019-10-02] MEDS: COLCHICINE 0.6 MG CAP PO SCH (09:22)
[2019-10-02 11:02] LABS: HEMATOCRIT 32.8 % (32.4-45.2); HEMOGLOBIN 10.5 GM/dL (10.7-15.3); MCH 27.1 pg (25.7-33.7); MEAN CELL VOLUME 84.6 fl (80-96); PLATELET COUNT 604 K/MM3 (134-434); RBC 3.88 M/mm3 (3.60-5.2); RDW 17.4 % (11.6-15.6); WHITE BLOOD COUNT 16.8 K/mm3 (4.0-10.0)
[2019-10-02] MEDS ORDERED: oxyCODONE HCL 5 MG TABLET PO PRN (11:15)
[2019-10-02 11:26] LABS: ANION GAP 9 MMOL/L (8-16); BLOOD UREA NITROGEN 16.8 mg/dL (7-18); CALCIUM 8.9 mg/dL (8.5-10.1); CHLORIDE 106 mmol/L (98-107); CO2 24 mmol/L (21-32); GLUCOSE,RANDOM 135 mg/dL (74-106); MAGNESIUM 2.1 mg/dL (1.8-2.4); PHOSPHOROUS 3.2 mg/dL (2.5-4.9); POTASSIUM 4.5 mmol/L (3.5-5.1); SODIUM 138 mmol/L (136-145)
[2019-10-02] MEDS ORDERED: ACETAMINOPHEN 325 MG TABLET (FP) PO PRN (11:30)
--- NOTE | 2019-10-02 11:34 | EKG ---
Test Reason : Blood Pressure : / mmHG Vent. Rate : 070 BPM Atrial Rate : 070 BPM P-R Int : 204 ms QRS Dur : 088 ms QT Int : 394 ms P-R-T Axes : 014 -10 -07 degrees QTc Int : 425 ms NORMAL SINUS RHYTHM NONSPECIFIC T WAVE ABNORMALITY ABNORMAL ECG WHEN COMPARED WITH ECG OF 26-JUL-2019 15:57, NONSPECIFIC T WAVE ABNORMALITY NOW EVIDENT IN LATERAL LEADS Confirmed by GONZALO GUNTER MD ([id number]) on 10/02/2019 11:33:35 AM Referred By: Confirmed By:GONZALO GUNTER MD
[2019-10-02] MEDS ORDERED: DEXTROSE 5%-WATER - 50 ML IVPB ONE (11:40)
[2019-10-02] MEDS ORDERED: cefTRIAXone SODIUM 1 GM VIAL ONE (11:40)
[2019-10-02] MEDS: oxyCODONE HCL 5 MG TABLET PO PRN ×2 (11:45→18:43)
[2019-10-02] MEDS: CEFTRIAXONE 1 GM in DEXTROSE 5%-WATER - 50 ML IVPB SCH (12:14)
--- NOTE | 2019-10-02 17:20 | PN ---
Physical Exam: SUBJECTIVE: Patient seen and examined, still with overall generalized pain. OBJECTIVE: Patient is an 83 year old male with a significant past medical history of COPD (not on home O2) , HTN, HLD, osteoporosis, frequent UTIS, vertebral compression fractures, DVT (04/2019 on Eliquis ) presenting to ED with left shoulder severe pain, over the past few days, worse today with very limited range of motion, and inability to ambulate with increased weakness on bilateral lower extremities. Denies trauma/fall. Pain on left shoulder worse with movement. In the ED she was noted to have a malodorous urine and started on prophylactic ceftriaxone. Period Temp Pulse Resp BP Sys/Vera Pulse Ox Last 24 Hr 98.0 F-98.5 F 68-82 18-20 122-149/71-97 94-96 GENERAL: Awake, alert, and fully oriented, in no acute distress. anxious HEAD: Normal with no signs of trauma. EYES: Pupils equal, round and reactive to light, extraocular movements intact, sclera anicteric, conjunctiva clear. No lid lag. EARS, NOSE, THROAT: Ears normal, nares patent, oropharynx clear without exudates. NECK: Normal range of motion, supple without lymphadenopathy, JVD, or masses. LUNGS: Breath sounds equal, clear to auscultation bilaterally. HEART: Regular rate and rhythm ABDOMEN: Soft, nontender, not distended, normoactive bowel sounds, no guarding, no rebound, no masses. MUSCULOSKELETAL: Normal range of motion at all joints. No bony deformities or tenderness. No CVA tenderness. UPPER EXTREMITIES: No peripheral edema. LOWER EXTREMITIES: No peripheral edema. NEUROLOGICAL: Normal speech. Normal gait. PSYCHIATRIC: Cooperative. Good eye contact. Appropriate mood and affect. SKIN: Warm, dry, normal turgor, no rashes or lesions noted, normal capillary refill. Laboratory Results - last 24 hr 10/02/19 10/02/19 10/02/19 10:11 10:11 10:11 WBC 16.8 H RBC 3.88 Hgb 10.5 L Hct 32.8 MCV 84.6 MCH 27.1 MCHC 32.0 RDW 17.4 H Plt Count 604 H MPV 7.0 L Sodium 138 Potassium 4.5 Chloride 106 Carbon Dioxide 24 Anion Gap 9 BUN 16.8 Creatinine 1.0 Est GFR (CKD-EPI)AfAm 59.49 Est GFR (CKD-EPI)NonAf 51.33 Random Glucose 135 H Hemoglobin A1c % 6.4 H Lactic Acid Calcium 8.9 Phosphorus 3.2 Magnesium 2.1 Troponin I < 0.02 10/02/19 12:40 WBC RBC Hgb Hct MCV MCH MCHC RDW Plt Count MPV Sodium Potassium Chloride Carbon Dioxide Anion Gap BUN Creatinine Est GFR (CKD-EPI)AfAm Est GFR (CKD-EPI)NonAf Random Glucose Hemoglobin A1c % Lactic Acid 1.3 Calcium Phosphorus Magnesium Troponin I Active Medications Generic Name Dose Route Start Last Admin Trade Name Freq PRN Reason Stop Dose Admin Acetaminophen 650 mg 10/02/19 11:30 Tylenol - PO Q6H PRN PAIN LEVEL 1 - 3 Albuterol Sulfate 1 amp 10/01/19 17:45 Ventolin 0.083% Nebulizer Soln - NEB Q6H PRN SHORT OF BREATH/WHEEZING Amlodipine Besylate 5 mg 10/02/19 10:00 10/02/19 09:22 Norvasc - PO 5 mg DAILY BHAVYA Administration Apixaban 5 mg 10/01/19 22:00 10/02/19 09:22 Eliquis - PO 5 mg BID BHAVYA Administration Atorvastatin Calcium 20 mg 10/01/19 22:00 10/02/19 00:11 Lipitor - PO 20 mg HS BHAVYA Administration Colchicine 0.6 mg 10/02/19 10:00 10/02/19 09:22 Colcrys PO 0.6 mg DAILY BHAVYA Administration Docusate Sodium 100 mg 10/01/19 22:00 10/02/19 14:11 Colace - PO Not Given TID BHAVYA Famotidine 20 mg 10/02/19 10:00 10/02/19 09:22 Pepcid - PO 20 mg DAILY BHAVYA Administration Furosemide 40 mg 10/02/19 10:00 10/02/19 09:22 Lasix - PO 40 mg DAILY BHAVYA Administration Gabapentin 100 mg 10/01/19 22:00 10/02/19 14:10 Neurontin - PO 100 mg TID BHAVYA Administration Sodium Chloride 1,000 mls @ 42 mls/hr 10/01/19 18:15 10/01/19 18:40 Normal Saline - IV 42 mls/hr ASDIR BHAVYA Administration Ceftriaxone Sodium 1 gm/ 50 mls @ 200 mls/hr 10/02/19 11:15 10/02/19 12:14 Dextrose IVPB 200 mls/hr DAILY BHAVYA Administration Protocol Lidocaine 1 patch 10/01/19 17:45 10/02/19 09:21 Lidoderm Patch - TP 1 patch DAILY BHAVYA Administration Miscellaneous 1 each 10/01/19 22:00 10/02/19 00:17 Lidoderm Patch Removal MC Not Given DAILY@2200 BHAVYA Nadolol 40 mg 10/02/19 10:00 10/02/19 09:22 Corgard - PO 40 mg DAILY BHAVYA Administration Oxycodone HCl 5 mg 10/02/19 11:15 Roxicodone - PO Q4H PRN PAIN LEVEL 4 - 6 Oxycodone HCl 10 mg 10/02/19 11:15 10/02/19 11:45 Roxicodone - PO 10 mg Q6H PRN Administration PAIN LEVEL 7 - 10 Polyethylene Glycol 17 gm 10/01/19 22:00 10/02/19 09:24 Miralax (For Daily Use) - PO 17 gm BID BHAVYA Administration Senna 2 tab 10/01/19 17:47 Senna - PO HS PRN CONSTIPATION ASSESSMENT/PLAN: Problem List - Problems (1) Shoulder pain Assessment/Plan: lidoderm patch on oxycodone 5/10 prn Code(s): M25.519 - PAIN IN UNSPECIFIED SHOULDER (2) Unable to ambulate Assessment/Plan: poor ambulatory status at home. for rehab placement. Code(s): R26.2 - DIFFICULTY IN WALKING, NOT ELSEWHERE CLASSIFIED (3) COPD (chronic obstructive pulmonary disease) Assessment/Plan: not home oxygen dependent and pt is not in acute exacerbation. on 2 liters prn. Code(s): J44.9 - CHRONIC OBSTRUCTIVE PULMONARY DISEASE, UNSPECIFIED (4) History of DVT of lower extremity Assessment/Plan: on eliquis Code(s): Z86.718 - PERSONAL HISTORY OF OTHER VENOUS THROMBOSIS AND EMBOLISM (5) Hypertension Assessment/Plan: bp stable Code(s): I10 - ESSENTIAL (PRIMARY) HYPERTENSION (6) Osteoporosis with pathological fracture Assessment/Plan: physical therapy ordered Code(s): M80.00XA - AGE-REL OSTEOPOR W CURRENT PATH FRACTURE, UNSP SITE, INIT (7) UTI (urinary tract infection) Assessment/Plan: uti noted on UA, urine culture pending, but collected after two doses of ceftriaxone. awaiting results Code(s): N39.0 - URINARY TRACT INFECTION, SITE NOT SPECIFIED (8) Chronic pain disorder Assessment/Plan: pain management consulted Code(s): G89.4 - CHRONIC PAIN SYNDROME (9) DVT prophylaxis Assessment/Plan: on eliquis Code(s): Z29.9 - ENCOUNTER FOR PROPHYLACTIC MEASURES, UNSPECIFIED (10) Prophylactic measure Assessment/Plan: fen tolerating po monitor electrolytes low salt diet Code(s): Z29.9 - ENCOUNTER FOR PROPHYLACTIC MEASURES, UNSPECIFIED Visit type - Emergency Visit Emergency Visit: Yes ED Registration Date: 10/01/19 Care time: The patient presented to the Emergency Department on the above date and was hospitalized for further evaluation of their emergent condition. - New Patient This patient is new to me today: No - Critical Care Critical Care patient: No - Discharge Referral Referred to [facility] Med [facility] No
[2019-10-02] MEDS ORDERED: ONDANSETRON 4 MG/2 ML VIAL IVPUSH ONE (21:09)
[2019-10-02] MEDS: SODIUM CHLORIDE 1,000 ML IV SCH (21:37)
[2019-10-03] MEDS: GABAPENTIN 100 MG CAPSULE PO SCH ×3 (05:32→22:04)
[2019-10-03] MEDS: DOCUSATE SODIUM 100 MG CAPSULE (FP) PO SCH ×3 (05:32→22:04)
[2019-10-03] MEDS ORDERED: cefTRIAXone SODIUM 1 GM VIAL ONE (08:47)
[2019-10-03] MEDS ORDERED: DEXTROSE 5%-WATER - 50 ML IVPB ONE (08:48)
[2019-10-03] MEDS: CEFTRIAXONE 1 GM in DEXTROSE 5%-WATER - 50 ML IVPB SCH (09:03)
[2019-10-03] MEDS: LIDOCAINE 5% TOPICAL PATCH TP SCH (09:03)
[2019-10-03] MEDS: FUROSEMIDE 40 MG TABLET (FP) PO SCH (09:04)
[2019-10-03] MEDS: COLCHICINE 0.6 MG CAP PO SCH (09:04)
[2019-10-03] MEDS: amLODIPine BESYLATE 5 MG TABLET (FP) PO SCH (09:04)
[2019-10-03] MEDS: oxyCODONE HCL 5 MG TABLET PO PRN ×2 (09:04→18:30)
[2019-10-03] MEDS: FAMOTIDINE 20 MG TABLET PO SCH (09:04)
[2019-10-03] MEDS: APIXABAN 5 MG TABLET PO SCH ×2 (09:04→22:04)
[2019-10-03] MEDS: NADOLOL 40 MG TABLET (FP) PO SCH (09:05)
[2019-10-03] MEDS: POLYETHYLENE GLYCOL 3350 119 GM BTL PO SCH ×2 (09:06→22:05)
[2019-10-03 10:33] LABS: BASO % 0.6 % (0-2.0); EOS % 0.2 % (0-4.5); HEMATOCRIT 32.6 % (32.4-45.2); HEMOGLOBIN 10.3 GM/dL (10.7-15.3); LYMPH % 9.8 % (8-40); MCH 27.1 pg (25.7-33.7); MCHC 31.6 g/dl (32.0-36.0); MEAN CELL VOLUME 85.8 fl (80-96); MEAN PLT VOLUME 6.9 fl (7.5-11.1); MONO % 3.4 % (3.8-10.2); PLATELET COUNT 585 K/MM3 (134-434); RDW 17.6 % (11.6-15.6); WHITE BLOOD COUNT 10.4 K/mm3 (4.0-10.0)
[2019-10-03 10:47] LABS: ALBUMIN 2.3 g/dl (3.4-5.0); BILIRUBIN,TOTAL 0.2 mg/dL (0.2-1); BLOOD UREA NITROGEN 19.6 mg/dL (7-18); CALCIUM 8.2 mg/dL (8.5-10.1); CREATININE 0.9 mg/dL (0.55-1.3); MAGNESIUM 1.9 mg/dL (1.8-2.4); POTASSIUM 4.3 mmol/L (3.5-5.1); TOT PROT 6.7 g/dl (6.4-8.2)
[2019-10-03] MEDS: SODIUM CHLORIDE 1,000 ML IV SCH ×2 (13:52→18:29)
--- NOTE | 2019-10-03 14:52 | PN ---
Physical Exam: SUBJECTIVE: Patient seen and examined at the bedside. in no acute distress, feels well today, having some shoulder pain that improves with oxycodone. OBJECTIVE: Patient is an 83 year old male with a significant past medical history of COPD (not on home O2) , HTN, HLD, osteoporosis, frequent UTIS, vertebral compression fractures, DVT (04/2019 on Eliquis ) presenting to ED with left shoulder severe pain, over the past few days, worse today with very limited range of motion, and inability to ambulate with increased weakness on bilateral lower extremities. Denies trauma/fall. Pain on left shoulder worse with movement. In the ED she was noted to have a malodorous urine and started on ceftriaxone. Vital Signs Period Temp Pulse Resp BP Sys/Vera Pulse Ox Last 24 Hr 97.6 F-98.6 F 59-68 18-18 95-151/64-85 93-95 GENERAL: Awake, alert, and fully oriented, in no acute distress. anxious HEAD: Normal with no signs of trauma. EYES: Pupils equal, round and reactive to light, extraocular movements intact, sclera anicteric, conjunctiva clear. No lid lag. EARS, NOSE, THROAT: Ears normal, nares patent, oropharynx clear without exudates. NECK: Normal range of motion, supple without lymphadenopathy, JVD, or masses. LUNGS: Breath sounds equal, clear to auscultation bilaterally. HEART: Regular rate and rhythm ABDOMEN: Soft, nontender, not distended, normoactive bowel sounds, no guarding, no rebound, no masses. MUSCULOSKELETAL: Normal range of motion at all joints. No bony deformities or tenderness. No CVA tenderness. UPPER EXTREMITIES: No peripheral edema. LOWER EXTREMITIES: No peripheral edema. NEUROLOGICAL: Normal speech. Normal gait. PSYCHIATRIC: Cooperative. Good eye contact. Appropriate mood and affect. SKIN: Warm, dry, normal turgor, no rashes or lesions noted, normal capillary refill. Laboratory Results - last 24 hr 10/03/19 10/03/19 10:05 10:05 WBC 10.4 H RBC 3.80 Hgb 10.3 L Hct 32.6 MCV 85.8 MCH 27.1 MCHC 31.6 L RDW 17.6 H Plt Count 585 H MPV 6.9 L Absolute Neuts (auto) 8.9 H Neutrophils % 86.0 H D Lymphocytes % 9.8 D Monocytes % 3.4 L Eosinophils % 0.2 Basophils % 0.6 Nucleated RBC % 0 Sodium 141 Potassium 4.3 Chloride 107 Carbon Dioxide 25 Anion Gap 8 BUN 19.6 H Creatinine 0.9 Est GFR (CKD-EPI)AfAm 67.57 Est GFR (CKD-EPI)NonAf 58.30 Random Glucose 182 H Calcium 8.2 L Magnesium 1.9 Total Bilirubin 0.2 AST 12 L ALT 10 L Alkaline Phosphatase 114 Total Protein 6.7 Albumin 2.3 L Active Medications Generic Name Dose Route Start Last Admin Trade Name Freq PRN Reason Stop Dose Admin Acetaminophen 650 mg 10/02/19 11:30 Tylenol - PO Q6H PRN PAIN LEVEL 1 - 3 Albuterol Sulfate 1 amp 10/01/19 17:45 Ventolin 0.083% Nebulizer Soln - NEB Q6H PRN SHORT OF BREATH/WHEEZING Amlodipine Besylate 5 mg 10/02/19 10:00 10/03/19 09:04 Norvasc - PO 5 mg DAILY BHAVYA Administration Apixaban 5 mg 10/01/19 22:00 10/03/19 09:04 Eliquis - PO 5 mg BID BHAVYA Administration Atorvastatin Calcium 20 mg 10/01/19 22:00 10/02/19 22:30 Lipitor - PO 20 mg HS BHAVYA Administration Colchicine 0.6 mg 10/02/19 10:00 10/03/19 09:04 Colcrys PO 0.6 mg DAILY BHAVYA Administration Docusate Sodium 100 mg 10/01/19 22:00 10/03/19 13:52 Colace - PO Not Given TID BHAVYA Famotidine 20 mg 10/02/19 10:00 10/03/19 09:04 Pepcid - PO 20 mg DAILY BHAVYA Administration Furosemide 40 mg 10/02/19 10:00 10/03/19 09:04 Lasix - PO 40 mg DAILY BHAVYA Administration Gabapentin 100 mg 10/01/19 22:00 10/03/19 13:52 Neurontin - PO 100 mg TID BHAVYA Administration Sodium Chloride 1,000 mls @ 42 mls/hr 10/01/19 18:15 10/03/19 13:52 Normal Saline - IV 42 mls/hr ASDIR BHAVYA Administration Ceftriaxone Sodium 1 gm/ 50 mls @ 200 mls/hr 10/02/19 11:15 10/03/19 09:03 Dextrose IVPB 200 mls/hr DAILY BHAVYA Administration Protocol Lidocaine 1 patch 10/01/19 17:45 10/03/19 09:03 Lidoderm Patch - TP 1 patch DAILY BHAVYA Administration Miscellaneous 1 each 10/01/19 22:00 10/02/19 22:32 Lidoderm Patch Removal MC Not Given DAILY@2200 BHAVYA Nadolol 40 mg 10/02/19 10:00 10/03/19 09:05 Corgard - PO 40 mg DAILY BHAVYA Administration Oxycodone HCl 5 mg 10/02/19 11:15 Roxicodone - PO Q4H PRN PAIN LEVEL 4 - 6 Oxycodone HCl 10 mg 10/02/19 11:15 10/03/19 09:04 Roxicodone - PO 10 mg Q6H PRN Administration PAIN LEVEL 7 - 10 Polyethylene Glycol 17 gm 10/01/19 22:00 10/03/19 09:06 Miralax (For Daily Use) - PO Not Given BID BHAVYA Senna 2 tab 10/01/19 17:47 Senna - PO HS PRN CONSTIPATION ASSESSMENT/PLAN: Problem List - Problems (1) Shoulder pain Assessment/Plan: lidoderm patch on oxycodone 5/10 prn Code(s): M25.519 - PAIN IN UNSPECIFIED SHOULDER (2) Unable to ambulate Assessment/Plan: poor ambulatory status at home. for rehab placement. Code(s): R26.2 - DIFFICULTY IN WALKING, NOT ELSEWHERE CLASSIFIED (3) COPD (chronic obstructive pulmonary disease) Assessment/Plan: not home oxygen dependent and pt is not in acute exacerbation. on 2 liters prn. Code(s): J44.9 - CHRONIC OBSTRUCTIVE PULMONARY DISEASE, UNSPECIFIED (4) History of DVT of lower extremity Assessment/Plan: on eliquis Code(s): Z86.718 - PERSONAL HISTORY OF OTHER VENOUS THROMBOSIS AND EMBOLISM (5) Hypertension Assessment/Plan: bp stable Code(s): I10 - ESSENTIAL (PRIMARY) HYPERTENSION (6) Osteoporosis with pathological fracture Assessment/Plan: physical therapy ordered Code(s): M80.00XA - AGE-REL OSTEOPOR W CURRENT PATH FRACTURE, UNSP SITE, INIT (7) UTI (urinary tract infection) Assessment/Plan: uti noted on UA, urine culture pending, but collected after two doses of ceftriaxone. awaiting results Code(s): N39.0 - URINARY TRACT INFECTION, SITE NOT SPECIFIED (8) Chronic pain disorder Assessment/Plan: pain management consulted Code(s): G89.4 - CHRONIC PAIN SYNDROME (9) DVT prophylaxis Assessment/Plan: on eliquis Code(s): Z29.9 - ENCOUNTER FOR PROPHYLACTIC MEASURES, UNSPECIFIED (10) Hyperglycemia Assessment/Plan: elevated serum glucose in the 180s, likely done after patient ate breakfast a1c borderline monitor with bgm ac bid for 24 hrs Code(s): R73.9 - HYPERGLYCEMIA, UNSPECIFIED (11) Prophylactic measure Assessment/Plan: fen tolerating po monitor electrolytes low salt diet Code(s): Z29.9 - ENCOUNTER FOR PROPHYLACTIC MEASURES, UNSPECIFIED Visit type - Emergency Visit Emergency Visit: Yes ED Registration Date: 10/01/19 Care time: The patient presented to the Emergency Department on the above date and was hospitalized for further evaluation of their emergent condition. - New Patient This patient is new to me today: No - Critical Care Critical Care patient: No - Discharge Referral Referred to [facility] Med P.C.: No
[2019-10-03] MEDS: ATORVASTATIN CA 20 MG TABLET (FP) PO SCH (22:04)
[2019-10-03] MEDS: LIDOCAINE PATCH REMOVAL MC SCH (22:05)
[2019-10-04] MEDS: GABAPENTIN 100 MG CAPSULE PO SCH ×3 (05:35→22:38)
[2019-10-04] MEDS: DOCUSATE SODIUM 100 MG CAPSULE (FP) PO SCH ×3 (05:35→22:39)
[2019-10-04] MEDS: oxyCODONE HCL 5 MG TABLET PO PRN (05:39)
[2019-10-04 09:15] LABS: BASO % 1.3 % (0-2.0); EOS % 0.5 % (0-4.5); HEMATOCRIT 33.9 % (32.4-45.2); HEMOGLOBIN 10.5 GM/dL (10.7-15.3); LYMPH % 10.8 % (8-40); MCHC 30.9 g/dl (32.0-36.0); MEAN CELL VOLUME 87.6 fl (80-96); MEAN PLT VOLUME 6.5 fl (7.5-11.1); MONO % 4.7 % (3.8-10.2); NEUT % 82.7 % (42.8-82.8); PLATELET COUNT 591 K/MM3 (134-434); RBC 3.88 M/mm3 (3.60-5.2); RDW 17.2 % (11.6-15.6); WHITE BLOOD COUNT 11.1 K/mm3 (4.0-10.0)
[2019-10-04 09:44] LABS: ALBUMIN 2.3 g/dl (3.4-5.0); BILIRUBIN,TOTAL 0.1 mg/dL (0.2-1); CALCIUM 8.6 mg/dL (8.5-10.1); CREATININE 0.9 mg/dL (0.55-1.3); MAGNESIUM 2.1 mg/dL (1.8-2.4); POTASSIUM 4.4 mmol/L (3.5-5.1); TOT PROT 6.3 g/dl (6.4-8.2)
[2019-10-04] MEDS ORDERED: cefTRIAXone SODIUM 1 GM VIAL ONE (09:45)
[2019-10-04] MEDS ORDERED: DEXTROSE 5%-WATER - 50 ML IVPB ONE (09:46)
[2019-10-04] MEDS: LIDOCAINE 5% TOPICAL PATCH TP SCH (10:19)
[2019-10-04] MEDS: CEFTRIAXONE 1 GM in DEXTROSE 5%-WATER - 50 ML IVPB SCH (10:20)
[2019-10-04] MEDS: FAMOTIDINE 20 MG TABLET PO SCH (10:21)
[2019-10-04] MEDS: COLCHICINE 0.6 MG CAP PO SCH (10:21)
[2019-10-04] MEDS: amLODIPine BESYLATE 5 MG TABLET (FP) PO SCH (10:21)
[2019-10-04] MEDS: NADOLOL 40 MG TABLET (FP) PO SCH (10:21)
[2019-10-04] MEDS: APIXABAN 5 MG TABLET PO SCH ×2 (10:21→22:38)
[2019-10-04] MEDS: FUROSEMIDE 40 MG TABLET (FP) PO SCH (10:23)
[2019-10-04] MEDS: POLYETHYLENE GLYCOL 3350 119 GM BTL PO SCH ×2 (10:24→22:39)
--- NOTE | 2019-10-04 15:40 | PN ---
Physical Exam: SUBJECTIVE: Patient seen and examined OBJECTIVE: Patient is an 83 year old male with a significant past medical history of COPD (not on home O2) , HTN, HLD, osteoporosis, frequent UTIS, vertebral compression fractures, DVT (04/2019 on Eliquis ) presenting to ED with left shoulder severe pain, over the past few days, worse today with very limited range of motion, and inability to ambulate with increased weakness on bilateral lower extremities. Denies trauma/fall. Pain on left shoulder worse with movement. In the ED she was noted to have a malodorous urine and started on ceftriaxone. Vital Signs Period Temp Pulse Resp BP Sys/Vera Pulse Ox Last 24 Hr 97.6 F-98.5 F 60-72 18-18 109-153/52-86 91-92 GENERAL: Awake, alert, and fully oriented, in no acute distress. anxious HEAD: Normal with no signs of trauma. EYES: Pupils equal, round and reactive to light, extraocular movements intact, sclera anicteric, conjunctiva clear. No lid lag. EARS, NOSE, THROAT: Ears normal, nares patent, oropharynx clear without exudates. NECK: Normal range of motion, supple without lymphadenopathy, JVD, or masses. LUNGS: Breath sounds equal, clear to auscultation bilaterally. HEART: Regular rate and rhythm ABDOMEN: Soft, nontender, not distended, normoactive bowel sounds, no guarding, no rebound, no masses. MUSCULOSKELETAL: Normal range of motion at all joints. No bony deformities or tenderness. No CVA tenderness. UPPER EXTREMITIES: No peripheral edema. LOWER EXTREMITIES: No peripheral edema. NEUROLOGICAL: Normal speech. Normal gait. PSYCHIATRIC: Cooperative. Good eye contact. Appropriate mood and affect. SKIN: Warm, dry, normal turgor, no rashes or lesions noted, normal capillary refill. Laboratory Results - last 24 hr 10/03/19 10/04/19 10/04/19 17:23 09:05 09:05 WBC 11.1 H RBC 3.88 Hgb 10.5 L Hct 33.9 MCV 87.6 MCH 27.0 MCHC 30.9 L RDW 17.2 H Plt Count 591 H MPV 6.5 L Absolute Neuts (auto) 9.1 H Neutrophils % 82.7 Lymphocytes % 10.8 Monocytes % 4.7 Eosinophils % 0.5 D Basophils % 1.3 Nucleated RBC % 0 Sodium 141 Potassium 4.4 Chloride 110 H Carbon Dioxide 25 Anion Gap 7 L BUN 26.0 H Creatinine 0.9 Est GFR (CKD-EPI)AfAm 67.57 Est GFR (CKD-EPI)NonAf 58.30 POC Glucometer 107 Random Glucose 150 H Calcium 8.6 Magnesium 2.1 Total Bilirubin 0.1 L AST 21 ALT 20 Alkaline Phosphatase 102 Total Protein 6.3 L Albumin 2.3 L 10/04/19 12:07 WBC RBC Hgb Hct MCV MCH MCHC RDW Plt Count MPV Absolute Neuts (auto) Neutrophils % Lymphocytes % Monocytes % Eosinophils % Basophils % Nucleated RBC % Sodium Potassium Chloride Carbon Dioxide Anion Gap BUN Creatinine Est GFR (CKD-EPI)AfAm Est GFR (CKD-EPI)NonAf POC Glucometer 86 Random Glucose Calcium Magnesium Total Bilirubin AST ALT Alkaline Phosphatase Total Protein Albumin Active Medications Generic Name Dose Route Start Last Admin Trade Name Freq PRN Reason Stop Dose Admin Acetaminophen 650 mg 10/02/19 11:30 10/04/19 15:00 Tylenol - PO 650 mg Q6H PRN Administration PAIN LEVEL 1 - 3 Albuterol Sulfate 1 amp 10/01/19 17:45 Ventolin 0.083% Nebulizer Soln - NEB Q6H PRN SHORT OF BREATH/WHEEZING Amlodipine Besylate 5 mg 10/02/19 10:00 10/04/19 10:21 Norvasc - PO 5 mg DAILY BHAVYA Administration Apixaban 5 mg 10/01/19 22:00 10/04/19 10:21 Eliquis - PO 5 mg BID BHAVYA Administration Atorvastatin Calcium 20 mg 10/01/19 22:00 10/03/19 22:04 Lipitor - PO 20 mg HS BHAVYA Administration Colchicine 0.6 mg 10/02/19 10:00 10/04/19 10:21 Colcrys PO 0.6 mg DAILY BHAVYA Administration Docusate Sodium 100 mg 10/01/19 22:00 10/04/19 15:06 Colace - PO Not Given TID BHAVYA Famotidine 20 mg 10/02/19 10:00 10/04/19 10:21 Pepcid - PO 20 mg DAILY BHAVYA Administration Furosemide 40 mg 10/02/19 10:00 10/04/19 10:23 Lasix - PO 40 mg DAILY BHAVYA Administration Gabapentin 100 mg 10/01/19 22:00 10/04/19 15:00 Neurontin - PO 100 mg TID BHAVYA Administration Sodium Chloride 1,000 mls @ 42 mls/hr 10/01/19 18:15 10/03/19 18:29 Normal Saline - IV Not Given ASDIR BHAVYA Ceftriaxone Sodium 1 gm/ 50 mls @ 200 mls/hr 10/02/19 11:15 10/04/19 10:20 Dextrose IVPB 200 mls/hr DAILY BHAVYA Administration Protocol Lidocaine 1 patch 10/01/19 17:45 10/04/19 10:19 Lidoderm Patch - TP 1 patch DAILY BHAVYA Administration Miscellaneous 1 each 10/01/19 22:00 10/03/19 22:05 Lidoderm Patch Removal MC 1 each DAILY@2200 BHAVYA Administration Nadolol 40 mg 10/02/19 10:00 10/04/19 10:21 Corgard - PO 40 mg DAILY BHAVYA Administration Ondansetron HCl 4 mg 10/04/19 15:14 Zofran Injection IVPUSH Q6H PRN NAUSEA Oxycodone HCl 5 mg 10/02/19 11:15 Roxicodone - PO Q4H PRN PAIN LEVEL 4 - 6 Oxycodone HCl 10 mg 10/02/19 11:15 10/04/19 05:39 Roxicodone - PO 10 mg Q6H PRN Administration PAIN LEVEL 7 - 10 Polyethylene Glycol 17 gm 10/01/19 22:00 10/04/19 10:24 Miralax (For Daily Use) - PO 17 gm BID BHAVYA Administration Senna 2 tab 10/01/19 17:47 Senna - PO HS PRN CONSTIPATION ASSESSMENT/PLAN: Problem List - Problems (1) Shoulder pain Assessment/Plan: lidoderm patch on oxycodone 5/10 prn Code(s): M25.519 - PAIN IN UNSPECIFIED SHOULDER (2) Unable to ambulate Assessment/Plan: poor ambulatory status at home. for rehab placement. Code(s): R26.2 - DIFFICULTY IN WALKING, NOT ELSEWHERE CLASSIFIED (3) COPD (chronic obstructive pulmonary disease) Assessment/Plan: not home oxygen dependent and pt is not in acute exacerbation. on 2 liters prn. Code(s): J44.9 - CHRONIC OBSTRUCTIVE PULMONARY DISEASE, UNSPECIFIED (4) History of DVT of lower extremity Assessment/Plan: on eliquis Code(s): Z86.718 - PERSONAL HISTORY OF OTHER VENOUS THROMBOSIS AND EMBOLISM (5) Hypertension Assessment/Plan: bp stable Code(s): I10 - ESSENTIAL (PRIMARY) HYPERTENSION (6) Osteoporosis with pathological fracture Assessment/Plan: physical therapy ordered Code(s): M80.00XA - AGE-REL OSTEOPOR W CURRENT PATH FRACTURE, UNSP SITE, INIT (7) UTI (urinary tract infection) Assessment/Plan: uti noted on UA, urine culture pending sensitivities. on ceftriaxone. Code(s): N39.0 - URINARY TRACT INFECTION, SITE NOT SPECIFIED (8) Chronic pain disorder Assessment/Plan: pain management consulted Code(s): G89.4 - CHRONIC PAIN SYNDROME (9) DVT prophylaxis Assessment/Plan: on eliquis Code(s): Z29.9 - ENCOUNTER FOR PROPHYLACTIC MEASURES, UNSPECIFIED (10) Hyperglycemia Assessment/Plan: stable bgms, d/c glucose checks Code(s): R73.9 - HYPERGLYCEMIA, UNSPECIFIED (11) Prophylactic measure Assessment/Plan: fen tolerating po monitor electrolytes low salt diet Code(s): Z29.9 - ENCOUNTER FOR PROPHYLACTIC MEASURES, UNSPECIFIED Visit type - Emergency Visit Emergency Visit: Yes ED Registration Date: 10/01/19 Care time: The patient presented to the Emergency Department on the above date and was hospitalized for further evaluation of their emergent condition. - New Patient This patient is new to me today: No - Critical Care Critical Care patient: No - Discharge Referral Referred to [facility] Med P.C.: No
[2019-10-04] MEDS: ONDANSETRON 4 MG/2 ML VIAL IVPUSH PRN ×2 (15:56→22:49)
[2019-10-04] MEDS: SODIUM CHLORIDE 1,000 ML IV SCH (19:35)
[2019-10-04] MEDS: ATORVASTATIN CA 20 MG TABLET (FP) PO SCH (22:38)
[2019-10-04] MEDS: LIDOCAINE PATCH REMOVAL MC SCH (22:39)
[2019-10-05] MEDS: GABAPENTIN 100 MG CAPSULE PO SCH ×2 (06:01→13:49)
[2019-10-05] MEDS: DOCUSATE SODIUM 100 MG CAPSULE (FP) PO SCH ×2 (06:01→13:53)
[2019-10-05] MEDS ORDERED: MEROPENEM 1 GM in DEXTROSE 5%-WATER 100 ML IVPB ONE (09:45)
[2019-10-05] MEDS ORDERED: MEROPENEM 1 GM VIAL (RESTRICTED TO ID) IVPB ONE (10:00)
[2019-10-05] MEDS ORDERED: DEXTROSE 5%-WATER 100 ML IVPB ONE (10:01)
[2019-10-05] MEDS: oxyCODONE HCL 5 MG TABLET PO PRN (10:03)
[2019-10-05] MEDS: COLCHICINE 0.6 MG CAP PO SCH (10:06)
[2019-10-05] MEDS: FAMOTIDINE 20 MG TABLET PO SCH (10:06)
[2019-10-05] MEDS: FUROSEMIDE 40 MG TABLET (FP) PO SCH (10:06)
[2019-10-05] MEDS: APIXABAN 5 MG TABLET PO SCH (10:06)
[2019-10-05] MEDS: NADOLOL 40 MG TABLET (FP) PO SCH (10:07)
[2019-10-05] MEDS: POLYETHYLENE GLYCOL 3350 119 GM BTL PO SCH (10:07)
[2019-10-05] MEDS: LIDOCAINE 5% TOPICAL PATCH TP SCH (10:07)
[2019-10-05] MEDS: amLODIPine BESYLATE 5 MG TABLET (FP) PO SCH (10:07)
[2019-10-05 11:39] LABS: BASO % 0.8 % (0-2.0); EOS % 1.6 % (0-4.5); HEMATOCRIT 28.8 % (32.4-45.2); HEMOGLOBIN 9.2 GM/dL (10.7-15.3); LYMPH % 12.4 % (8-40); MCHC 31.8 g/dl (32.0-36.0); MEAN PLT VOLUME 6.6 fl (7.5-11.1); MONO % 9.8 % (3.8-10.2); NEUT % 75.4 % (42.8-82.8); PLATELET COUNT 577 K/MM3 (134-434); RBC 3.39 M/mm3 (3.60-5.2); RDW 17.2 % (11.6-15.6); WHITE BLOOD COUNT 10.1 K/mm3 (4.0-10.0)
[2019-10-05 12:04] LABS: ALBUMIN 2.2 g/dl (3.4-5.0); BILIRUBIN,TOTAL 0.2 mg/dL (0.2-1); BLOOD UREA NITROGEN 23.4 mg/dL (7-18); CALCIUM 8.7 mg/dL (8.5-10.1); CREATININE 0.8 mg/dL (0.55-1.3); POTASSIUM 4.3 mmol/L (3.5-5.1); TOT PROT 5.8 g/dl (6.4-8.2)
--- NOTE | 2019-10-05 12:14 | PN ---
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
--- NOTE | 2019-10-05 13:50 | DS ---
Physical Exam: SUBJECTIVE: Patient seen and examined OBJECTIVE: Vital Signs Period Temp Pulse Resp BP Sys/Vera Pulse Ox Last 24 Hr 97.5 F-98.1 F 57-63 18-18 111-131/61-69 94-95 PHYSICAL EXAM GENERAL: The patient is awake, alert, and fully oriented, in no acute distress. HEAD: Normal with no signs of trauma. EYES: PERRL, extraocular movements intact, sclera anicteric, conjunctiva clear. ENT: Ears normal, nares patent, oropharynx clear without exudates, moist mucous membranes. NECK: Trachea midline, full range of motion, supple. LUNGS: Breath sounds equal, clear to auscultation bilaterally, no wheezes, no crackles, no accessory muscle use. HEART: Regular rate and rhythm, S1, S2 without murmur, rub or gallop. ABDOMEN: Soft, nontender, nondistended, normoactive bowel sounds, no guarding, no rebound, no hepatosplenomegaly, no masses. EXTREMITIES: 2+ pulses, warm, well-perfused, no edema. NEUROLOGICAL: Cranial nerves II through XII grossly intact. Normal speech, gait not observed. PSYCH: Normal mood, normal affect. SKIN: Warm, dry, normal turgor, no rashes or lesions noted. LABS Laboratory Results - last 24 hr 10/04/19 10/05/19 10/05/19 17:30 10:40 10:40 WBC 10.1 H RBC 3.39 L Hgb 9.2 L Hct 28.8 L D MCV 85.0 MCH 27.0 MCHC 31.8 L RDW 17.2 H Plt Count 577 H MPV 6.6 L Absolute Neuts (auto) 7.6 Neutrophils % 75.4 Lymphocytes % 12.4 Monocytes % 9.8 D Eosinophils % 1.6 D Basophils % 0.8 Nucleated RBC % 0 Sodium 141 Potassium 4.3 Chloride 107 Carbon Dioxide 29 Anion Gap 5 L BUN 23.4 H Creatinine 0.8 Est GFR (CKD-EPI)AfAm 77.92 Est GFR (CKD-EPI)NonAf 67.23 POC Glucometer 103 Random Glucose 95 Calcium 8.7 Magnesium 2.0 Total Bilirubin 0.2 AST 21 ALT 24 Alkaline Phosphatase 85 Total Protein 5.8 L Albumin 2.2 L HOSPITAL COURSE: Date of Admission:10/01/19 Date of Discharge: 10/05/19 Discharge Summary Problems reviewed: Yes Reason For Visit: LEFT SHOULDER PAIN Current Active Problems Asymptomatic bacteriuria (Acute) Chronic pain disorder (Acute) ESBL E. coli carrier (Acute) Hyperglycemia (Acute) Left shoulder pain (Acute) UTI (urinary tract infection) (Acute) Unable to ambulate (Acute) Condition: Stable - Instructions Diet, Activity, Other Instructions: Discharge to rehab Please follow up with Rheumatology (Dr. Pandey) for left upper arm shoulder discomfort. Referrals: Surinder Vallejo MD [Staff Physician] - Kelin Adhikari MD [Primary Care Provider] - Disposition: HOME - Home Medications Comprehensive Discharge Medication List: Ambulatory Orders Acetaminophen [Tylenol .Regular Strength -] 650 mg PO Q6HPO tablet 08/02/19 Docusate Sodium [Colace -] 100 mg PO BID capsule 08/02/19 Lidocaine 5% Patch [Lidoderm -] 2 patch TP DAILY #30 patch 08/02/19 Sodium Chloride Nasal [place] [[place] Nasal [place] -] 2 spray NS TID PRN #1 bottle 08/02/19 predniSONE [Deltasone -] 5 mg PO DAILY #21 tablet 08/02/19 oxyCODONE HCL [Roxicodone -] 5 mg PO DAILY PRN #30 tablet MDD 20 08/03/19 Albuterol 0.083% Nebulizer Ch[place]elle [Ventolin 0.083% Nebulizer Soln -] 1 amp NEB Q6H PRN amp 10/05/19 Apixaban [Eliquis -] 5 mg PO BID tablet 10/05/19 Atorvastatin Ca [Lipitor] 20 mg PO HS tablet 10/05/19 Colchicine [Colcrys] 0.6 mg PO DAILY cap 10/05/19 Lidocaine 5% Patch [Lidoderm -] 1 patch TP DAILY patch 10/05/19 Nadolol [Corgard -] 40 mg PO DAILY tablet 10/05/19 Polyethylene Glycol 3350 [Miralax 119 gm Btl -] 17 gm PO BID bottle 10/05/19 Sennosides [Senna -] 2 tab PO HS PRN tablet 10/05/19 Problem List - Problems (1) Shoulder pain Code(s): M25.519 - PAIN IN UNSPECIFIED SHOULDER (2) Unable to ambulate Code(s): R26.2 - DIFFICULTY IN WALKING, NOT ELSEWHERE CLASSIFIED (3) COPD (chronic obstructive pulmonary disease) Code(s): J44.9 - CHRONIC OBSTRUCTIVE PULMONARY DISEASE, UNSPECIFIED (4) History of DVT of lower extremity Code(s): Z86.718 - PERSONAL HISTORY OF OTHER VENOUS THROMBOSIS AND EMBOLISM (5) Hypertension Code(s): I10 - ESSENTIAL (PRIMARY) HYPERTENSION (6) Osteoporosis with pathological fracture Code(s): M80.00XA - AGE-REL OSTEOPOR W CURRENT PATH FRACTURE, UNSP SITE, INIT (7) UTI (urinary tract infection) Code(s): N39.0 - URINARY TRACT INFECTION, SITE NOT SPECIFIED (8) Chronic pain disorder Code(s): G89.4 - CHRONIC PAIN SYNDROME (9) DVT prophylaxis Code(s): Z29.9 - ENCOUNTER FOR PROPHYLACTIC MEASURES, UNSPECIFIED (10) Hyperglycemia Code(s): R73.9 - HYPERGLYCEMIA, UNSPECIFIED (11) Prophylactic measure Code(s): Z29.9 - ENCOUNTER FOR PROPHYLACTIC MEASURES, UNSPECIFIED - Discharge Referral Referred to [facility] Med P.C.: No
[2019-10-05 14:47] VITALS: BP 103/59; PULSE 65; TEMP 97.4
== END 2019-10-05 17:09 | DRG 554 ==
LOC: SUPCPDRO 05:46 → JER 05:46 → JERBED 14:51 → J5S 22:26
PROVIDERS: ADMIT Internal Medicine; ATTEND Nurse Practitioner Family
PROC: 3E0U33Z Introduction of Anti-inflammatory into Joints, Percutaneous Approach (ICD-10-PCS; principal; 2019-10-01)
PROC: 3E0U3BZ Introduction of Anesthetic Agent into Joints, Percutaneous Approach (ICD-10-PCS; 2019-10-01)
DX: M11.212 Other chondrocalcinosis, left shoulder (principal); N39.0 Urinary tract infection, site not specified; M80.00XA Age-related osteoporosis with current pathological fracture, unspecified site, initial encounter for fracture; M11.89 Other specified crystal arthropathies, multiple sites; M25.512 Pain in left shoulder; J44.9 Chronic obstructive pulmonary disease, unspecified; I10 Essential (primary) hypertension; E78.5 Hyperlipidemia, unspecified; R82.71 Bacteriuria; K21.9 Gastro-esophageal reflux disease without esophagitis; R26.2 Difficulty in walking, not elsewhere classified; G89.4 Chronic pain syndrome; M11.261 Other chondrocalcinosis, right knee; M11.262 Other chondrocalcinosis, left knee; M75.32 Calcific tendinitis of left shoulder; Z86.718 Personal history of other venous thrombosis and embolism; Z22.39 Carrier of other specified bacterial diseases
CPT/HCPCS: 36415; 71046-TC-FY; 73030-TC-LT-FY; 80048; 80053; 81003; 82962; 83036; 83605; 83735; 84100; 84484; 85025; 85027; 85651; 86140; 87040; 87086; 87186; 93005; 93010; 97116-GP; 97162-GP; 99285-25; J0131; J7030

== ENCOUNTER 2021-02-13 19:41 | Inpatient (IN) | payer OTHER, BC ==
[2021-02-13] MEDS ORDERED: ALBUTEROL SO4 2.5/IPRATROPIUM 0.5 INH SOL 3 ML VIAL.NEB. NEB ONE ×3 (20:06→21:49)
[2021-02-13] MEDS ORDERED: PIPERACILLIN/TAZOB 3.375 GM 3.375 GM in DEXTROSE 5%-WATER - 50 ML IVPB ONE (20:39)
[2021-02-13] MEDS ORDERED: VANCOMYCIN 1 GM in D5W (PRE-DOCKED) 1,000 MG/250 ML IVPB ONE (20:39)
[2021-02-13 20:45] LABS: BASO % 0.5 % (0-2.0); EOS % 0.9 % (0-4.5); HEMATOCRIT 36.1 % (32.4-45.2); HEMOGLOBIN 11.4 GM/dL (10.7-15.3); LYMPH % 6.5 % (8-40); MCH 31.3 pg (25.7-33.7); MCHC 31.7 g/dl (32.0-36.0); MEAN CELL VOLUME 98.5 fl (80-96); MEAN PLT VOLUME 7.6 fl (7.5-11.1); MONO % 6.2 % (3.8-10.2); NEUT % 85.9 % (42.8-82.8); PLATELET COUNT 250 10^3/uL (134-434); RBC 3.66 M/mm3 (3.60-5.2); RDW 15.5 % (11.6-15.6); VENOUS BASE EXCESS -1.1 mmol/L (-2-2); VENOUS O2 SATURATION 95.3 % (70-80); WHITE BLOOD COUNT 10.6 K/mm3 (4.0-10.0)
[2021-02-13 20:47] LABS: VENOUS PCO2 76.2 mmHg (38-52); VENOUS PH 7.193 (7.310-7.410)
[2021-02-13 20:54] LABS: INR 0.98 (0.83-1.09); PROTHROMBIN TIME (PATIENT) 11.9 SEC (9.7-13.0)
[2021-02-13] MEDS ORDERED: VANCOMYCIN 1 GRAM (PRE-DOCKED) 1,000 MG/250 ML BAG IVPB ONE (20:56)
[2021-02-13 20:57] LABS: ACTIVATED PTT 28.7 SECONDS (25.2-36.5)
[2021-02-13] MEDS ORDERED: PIPERACILLIN/TAZOB 3.375 GM 3.375 GM/50 ML BAG IVPB ONE (20:57)
[2021-02-13 21:06] LABS: CHLORIDE 110 mmol/L (98-107); SODIUM 144 mmol/L (136-145)
[2021-02-13 21:07] LABS: ALBUMIN 2.9 g/dl (3.4-5.0); ANION GAP 6 MMOL/L (8-16); CALCIUM 8.2 mg/dL (8.5-10.1); CO2 28 mmol/L (21-32); GLUCOSE,RANDOM 172 mg/dL (74-106); MAGNESIUM 2.4 mg/dL (1.8-2.4)
[2021-02-13 21:09] LABS: BLOOD UREA NITROGEN 41.1 mg/dL (7-18)
[2021-02-13 21:11] LABS: CREATININE 2.2 mg/dL (0.55-1.3); SGPT/ALT 17 U/L (13-61)
[2021-02-13 21:12] LABS: SGOT/AST 18 U/L (15-37)
[2021-02-13 21:13] LABS: BILIRUBIN,TOTAL 0.2 mg/dL (0.2-1); TOT PROT 5.7 g/dl (6.4-8.2)
[2021-02-13 21:14] LABS: ALK PHOS 118 U/L (45-117)
[2021-02-13 21:17] LABS: N-TERMINAL BNP 352.4 pg/ml (5-450)
[2021-02-13] MEDS: ALBUTEROL SO4 2.5/IPRATROPIUM 0.5 INH SOL 3 ML VIAL.NEB. NEB SCH (22:22)
[2021-02-13] MEDS ORDERED: DEXAMETHASONE SOD PHOSPHATE 10 MG/1 ML VIAL IVPUSH ONE (22:48)
[2021-02-13] MEDS ORDERED: LACTATED RINGERS SOLUTION 1000 ML INFUS.BAG IV ONE (22:52)
[2021-02-13 23:40] LABS: LDH 146 U/L (84-246)
[2021-02-14] MEDS: NOREPINEPHRINE NS PREMIX 8,000 MCG/500 ML BAG IVPB SCH ×2 (00:05→23:42)
[2021-02-14 00:06] LABS: ERYTHROCYTE SEDIMENTATION RATE 20 mm/hr (0-30)
[2021-02-14] MEDS ORDERED: VANCOMYCIN 1 GM in D5W (PRE-DOCKED) 1,000 MG/250 ML IVPB ONE ×2 (01:17→22:30)
[2021-02-14 01:20] LABS: ARTERIAL BLOOD GAS BASE EXCESS 0 mmol/L (-2-2); ARTERIAL BLOOD GAS PO2 188.3 mmHg (80-100); ARTERIAL BLOOD GAS pH 7.232 (7.350-7.450)
[2021-02-14] MEDS ORDERED: AZITHROMYCIN IVPB 500 MG/250 ML BAG IVPB ONE (01:30)
[2021-02-14 01:35] LABS: ALLENS TEST POSITIVE
[2021-02-14] MEDS ORDERED: PIPERACILLIN/TAZOB 3.375 GM 3.375 GM in DEXTROSE 5%-WATER - 50 ML IVPB ONE ×3 (03:00→11:45)
[2021-02-14] MEDS ORDERED: LACTATED RINGERS SOLUTION 1000 ML INFUS.BAG IV ONE (05:08)
[2021-02-14 06:42] LABS: BASO % 0.3 % (0-2.0); EOS % 0.1 % (0-4.5); HEMATOCRIT 38.6 % (32.4-45.2); HEMOGLOBIN 11.5 GM/dL (10.7-15.3); LYMPH % 2.9 % (8-40); MCH 29.9 pg (25.7-33.7); MCHC 29.8 g/dl (32.0-36.0); MEAN CELL VOLUME 100.4 fl (80-96); MEAN PLT VOLUME 7.7 fl (7.5-11.1); MONO % 1.2 % (3.8-10.2); NEUT % 95.5 % (42.8-82.8); PLATELET COUNT 223 10^3/uL (134-434); RBC 3.84 M/mm3 (3.60-5.2); RDW 15.5 % (11.6-15.6)
[2021-02-14 06:46] LABS: ARTERIAL BLD GAS O2 SATURATION 97.2 % (95-98); ARTERIAL BLOOD GAS BASE EXCESS -0.7 mmol/L (-2-2); ARTERIAL BLOOD GAS PO2 118.1 mmHg (80-100)
[2021-02-14 06:48] LABS: ARTERIAL BLOOD GAS pH 7.199 (7.350-7.450)
[2021-02-14 06:49] LABS: ALLENS TEST POSITIVE; VENT RATE 16
[2021-02-14 06:57] LABS: CALCIUM 7.9 mg/dL (8.5-10.1)
[2021-02-14 06:58] LABS: ALBUMIN 2.8 g/dl (3.4-5.0); BLOOD UREA NITROGEN 37.4 mg/dL (7-18); MAGNESIUM 2.3 mg/dL (1.8-2.4)
[2021-02-14 07:00] LABS: CREATININE 1.9 mg/dL (0.55-1.3); PHOSPHOROUS 5.6 mg/dL (2.5-4.9)
[2021-02-14 07:01] LABS: BILIRUBIN,TOTAL 0.3 mg/dL (0.2-1); TOT PROT 5.7 g/dl (6.4-8.2)
[2021-02-14] MEDS: ALBUTEROL SO4 2.5/IPRATROPIUM 0.5 INH SOL 3 ML VIAL.NEB. NEB SCH ×5 (07:22→20:20)
[2021-02-14] MEDS ORDERED: DEXTROSE 5%-WATER - 50 ML IVPB ONE ×3 (07:43→17:29)
[2021-02-14] MEDS ORDERED: PIPERACILLIN/TAZOBACTAM 3.375 GM VIAL IVPB ONE ×2 (07:43→11:36)
[2021-02-14] MEDS: HEPARIN NA (PORCINE) 5,000 UNITS/ML 1ML VIAL SQ SCH ×3 (08:01→23:41)
[2021-02-14 09:20] LABS: ANISOCYTOSIS 1+; MACROCYTOSIS 1+; PLATELET ESTIMATE NORMAL
[2021-02-14] MEDS ORDERED: PNEUMOC 13-VAL CONJ-DIP CRM/PF 0.5 ML DISP.SYRIN IM ONE (10:00)
[2021-02-14] MEDS: methylPREDNISolone NA SUCC 40 MG/1 ML VIAL IVPUSH SCH ×2 (11:33→17:38)
[2021-02-14] MEDS ORDERED: SODIUM CHLORIDE 0.45% 1,000 ML IV SCH (12:00)
[2021-02-14 13:26] LABS: ARTERIAL BLD GAS O2 SATURATION 97.7 % (95-98); ARTERIAL BLOOD GAS BASE EXCESS -0.3 mmol/L (-2-2); ARTERIAL BLOOD GAS PO2 108.1 mmHg (80-100); ARTERIAL BLOOD GAS pH 7.348 (7.350-7.450)
[2021-02-14] MEDS ORDERED: PT OWN MED DRAWER 7, Y5N ONE (15:31)
[2021-02-14] MEDS: MUPIROCIN 2% TOPICAL OINTMENT FOR DECOLONIZATION NS SCH ×2 (15:44→23:41)
[2021-02-14 15:49] LABS: EPI CELLS >36 /uL (0-25.1); HYALINE CASTS 2 /uL (0-3.1); PH,URINE 5.5 (5.0-8.0); URINE APPEARANCE CLOUDY; URINE BACTERIA 229 /uL (0-1359); URINE BILIRUBIN NEGATIVE (NEGATIVE); URINE COLOR YELLOW; URINE GLUCOSE (UA) NEGATIVE (NEGATIVE); URINE KETONE NEGATIVE (NEGATIVE); URINE LEUK ESTERASE 1+ (NEGATIVE); URINE NITRITE NEGATIVE (NEGATIVE); URINE PROTEIN NEGATIVE (NEGATIVE); URINE WBC 63 /uL (0-25.8)
[2021-02-14 16:02] LABS: URINE RBC 20 /uL (0-23.9)
[2021-02-14 16:04] LABS: YEAST NONE SEEN (NEGATIVE)
[2021-02-14] MEDS ORDERED: PIPERACILLIN/TAZOBACTAM 2.25 GM VIAL IVPB ONE (17:29)
[2021-02-14] MEDS: PIPERACILLIN/TAZOB 2.25 GM 2.25 GM in DEXTROSE 5%-WATER - 50 ML IVPB SCH (17:37)
[2021-02-14] MEDS ORDERED: CHLORHEXIDINE GLUCONATE 4% CLEANSER FOR DECOLONIZATION TP SCH (22:00)
[2021-02-15] MEDS ORDERED: PIPERACILLIN/TAZOBACTAM 2.25 GM VIAL IVPB ONE ×3 (01:05→17:15)
[2021-02-15] MEDS ORDERED: DEXTROSE 5%-WATER - 50 ML IVPB ONE ×3 (01:05→17:15)
[2021-02-15] MEDS: PIPERACILLIN/TAZOB 2.25 GM 2.25 GM in DEXTROSE 5%-WATER - 50 ML IVPB SCH ×3 (01:18→17:46)
[2021-02-15] MEDS: methylPREDNISolone NA SUCC 40 MG/1 ML VIAL IVPUSH SCH ×3 (01:19→17:46)
[2021-02-15] MEDS: HEPARIN NA (PORCINE) 5,000 UNITS/ML 1ML VIAL SQ SCH ×3 (06:54→21:36)
[2021-02-15 07:33] LABS: BASO % 0.2 % (0-2.0); HEMATOCRIT 37.4 % (32.4-45.2); HEMOGLOBIN 11.8 GM/dL (10.7-15.3); LYMPH % 2.6 % (8-40); MCH 30.7 pg (25.7-33.7); MCHC 31.5 g/dl (32.0-36.0); MEAN CELL VOLUME 97.6 fl (80-96); MEAN PLT VOLUME 8.1 fl (7.5-11.1); MONO % 0.8 % (3.8-10.2); NEUT % 96.4 % (42.8-82.8); PLATELET COUNT 232 10^3/uL (134-434); RBC 3.83 M/mm3 (3.60-5.2); RDW 15.5 % (11.6-15.6)
[2021-02-15 08:01] LABS: MAGNESIUM 2.4 mg/dL (1.8-2.4)
[2021-02-15 08:03] LABS: CALCIUM 8.5 mg/dL (8.5-10.1)
[2021-02-15 08:05] LABS: CREATININE 1.5 mg/dL (0.55-1.3); PHOSPHOROUS 3.2 mg/dL (2.5-4.9)
[2021-02-15] MEDS: ALBUTEROL SO4 2.5/IPRATROPIUM 0.5 INH SOL 3 ML VIAL.NEB. NEB SCH ×4 (08:13→21:00)
[2021-02-15] MEDS: FUROSEMIDE 20 MG TABLET (FP) PO SCH (09:38)
[2021-02-15] MEDS: CARVEDILOL 3.125 MG TABLET (FP) PO SCH ×2 (09:38→21:33)
[2021-02-15] MEDS: MUPIROCIN 2% TOPICAL OINTMENT FOR DECOLONIZATION NS SCH (09:41)
[2021-02-15 09:48] LABS: ANISOCYTOSIS 0; MACROCYTOSIS 0; PLATELET ESTIMATE NORMAL
[2021-02-15] MEDS ORDERED: AZITHROMYCIN IVPB 500 MG/250 ML BAG IVPB SCH (10:00)
[2021-02-15] MEDS ORDERED: SODIUM ZIRCONIUM CYCLOSILICATE (LOKELMA) 5 GM PACKET PO ONE (16:13)
[2021-02-15] MEDS ORDERED: NOREPINEPHRINE NS PREMIX 8,000 MCG/500 ML BAG IVPB SCH (20:39)
[2021-02-15] MEDS ORDERED: MELATONIN 5 MG TABLETS PO ONE (22:30)
[2021-02-16] MEDS ORDERED: PIPERACILLIN/TAZOBACTAM 2.25 GM VIAL IVPB ONE ×3 (00:55→17:11)
[2021-02-16] MEDS ORDERED: DEXTROSE 5%-WATER - 50 ML IVPB ONE ×3 (00:56→17:11)
[2021-02-16] MEDS: PIPERACILLIN/TAZOB 2.25 GM 2.25 GM in DEXTROSE 5%-WATER - 50 ML IVPB SCH ×3 (01:21→17:37)
[2021-02-16] MEDS ORDERED: methylPREDNISolone NA SUCC 40 MG/1 ML VIAL IVPUSH SCH ×2 (02:00→10:00)
[2021-02-16] MEDS: HEPARIN NA (PORCINE) 5,000 UNITS/ML 1ML VIAL SQ SCH ×3 (05:58→21:32)
[2021-02-16 07:46] LABS: HEMOGLOBIN 12.6 GM/dL (10.7-15.3); MCH 30.7 pg (25.7-33.7); MCHC 32.4 g/dl (32.0-36.0); MEAN CELL VOLUME 94.9 fl (80-96); PLATELET COUNT 298 10^3/uL (134-434); RBC 4.11 M/mm3 (3.60-5.2); RDW 15.6 % (11.6-15.6); WHITE BLOOD COUNT 17.9 K/mm3 (4.0-10.0)
[2021-02-16] MEDS ORDERED: hydrALAZINE HCL 10 MG TABLET PO ONE (08:01)
[2021-02-16 08:16] LABS: ALBUMIN 3.2 g/dl (3.4-5.0); MAGNESIUM 2.4 mg/dL (1.8-2.4)
[2021-02-16 08:20] LABS: BILIRUBIN,TOTAL 0.5 mg/dL (0.2-1); CREATININE 1.5 mg/dL (0.55-1.3); PHOSPHOROUS 4.3 mg/dL (2.5-4.9); TOT PROT 6.2 g/dl (6.4-8.2)
[2021-02-16] MEDS: ALBUTEROL SO4 2.5/IPRATROPIUM 0.5 INH SOL 3 ML VIAL.NEB. NEB SCH ×4 (08:45→20:18)
[2021-02-16] MEDS: FUROSEMIDE 20 MG TABLET (FP) PO SCH (09:11)
[2021-02-16] MEDS: LOSARTAN POTASSIUM 25 MG TABLET PO SCH (09:11)
[2021-02-16] MEDS: MULTIVITAMINS (DAILY MVI) TABLET (FP) PO SCH (09:11)
[2021-02-16] MEDS: CARVEDILOL 3.125 MG TABLET (FP) PO SCH ×2 (09:11→21:32)
[2021-02-16] MEDS: AZITHROMYCIN IVPB 500 MG/250 ML BAG IVPB SCH (10:07)
[2021-02-16] MEDS ORDERED: NITROGLYCERIN 2% OINTMENT - 1GM PACKET TD PRN (18:32)
[2021-02-17] MEDS ORDERED: PIPERACILLIN/TAZOBACTAM 2.25 GM VIAL IVPB ONE (02:05)
[2021-02-17] MEDS ORDERED: DEXTROSE 5%-WATER - 50 ML IVPB ONE (02:05)
[2021-02-17] MEDS: PIPERACILLIN/TAZOB 2.25 GM 2.25 GM in DEXTROSE 5%-WATER - 50 ML IVPB SCH (03:06)
[2021-02-17] MEDS: HEPARIN NA (PORCINE) 5,000 UNITS/ML 1ML VIAL SQ SCH ×3 (05:32→22:44)
[2021-02-17] MEDS: ALBUTEROL SO4 2.5/IPRATROPIUM 0.5 INH SOL 3 ML VIAL.NEB. NEB SCH ×4 (07:30→20:33)
[2021-02-17] MEDS ORDERED: LACTULOSE 20 GM/30 ML UDC (FOR ORAL USE ONLY) PO ONE (07:54)
[2021-02-17 08:58] LABS: HEMATOCRIT 38.2 % (32.4-45.2); HEMOGLOBIN 12.4 GM/dL (10.7-15.3); MCHC 32.5 g/dl (32.0-36.0); MEAN CELL VOLUME 95.4 fl (80-96); MEAN PLT VOLUME 8.1 fl (7.5-11.1); PLATELET COUNT 295 10^3/uL (134-434); RDW 15.3 % (11.6-15.6); WHITE BLOOD COUNT 16.3 K/mm3 (4.0-10.0)
[2021-02-17] MEDS: LOSARTAN POTASSIUM 25 MG TABLET PO SCH (09:18)
[2021-02-17] MEDS: FUROSEMIDE 40 MG TABLET (FP) PO SCH (09:18)
[2021-02-17] MEDS: ALLOPURINOL 100 MG TABLET (FP) PO SCH (09:18)
[2021-02-17] MEDS: CARVEDILOL 6.25 MG TABLET (FP) PO SCH ×2 (09:18→22:44)
[2021-02-17] MEDS: MULTIVITAMINS (DAILY MVI) TABLET (FP) PO SCH (09:18)
[2021-02-17] MEDS: AZITHROMYCIN IVPB 500 MG/250 ML BAG IVPB SCH (09:18)
[2021-02-17 09:22] LABS: BLOOD UREA NITROGEN 35.4 mg/dL (7-18); CALCIUM 9.1 mg/dL (8.5-10.1)
[2021-02-17 09:24] LABS: MAGNESIUM 2.4 mg/dL (1.8-2.4)
[2021-02-17 09:25] LABS: CREATININE 1.4 mg/dL (0.55-1.3)
[2021-02-17] MEDS: POLYETHYLENE GLYCOL 3350 119 GM BTL PO SCH ×2 (09:25→22:44)
[2021-02-17 09:26] LABS: PHOSPHOROUS 4.2 mg/dL (2.5-4.9)
[2021-02-17 09:27] LABS: BILIRUBIN,TOTAL 0.6 mg/dL (0.2-1); TOT PROT 5.8 g/dl (6.4-8.2)
[2021-02-17] MEDS ORDERED: predniSONE 20 MG TABLET (UD) PO SCH (10:00)
[2021-02-17] MEDS ORDERED: PT OWN MED DRAWER 7, Y5N ONE (21:59)
[2021-02-17] MEDS: ATORVASTATIN CA 10 MG TABLET (FP) PO SCH (22:44)
[2021-02-17] MEDS: PRAMIPEXOLE DIHYDROCHLORIDE 0.5 MG TABLET PO SCH (22:44)
[2021-02-18] MEDS: HEPARIN NA (PORCINE) 5,000 UNITS/ML 1ML VIAL SQ SCH ×3 (06:03→21:12)
[2021-02-18] MEDS: ALBUTEROL SO4 2.5/IPRATROPIUM 0.5 INH SOL 3 ML VIAL.NEB. NEB SCH ×4 (07:30→19:52)
[2021-02-18 08:05] LABS: HEMATOCRIT 39.1 % (32.4-45.2); HEMOGLOBIN 12.7 GM/dL (10.7-15.3); MCH 31.3 pg (25.7-33.7); MCHC 32.6 g/dl (32.0-36.0); MEAN CELL VOLUME 95.9 fl (80-96); MEAN PLT VOLUME 8.4 fl (7.5-11.1); PLATELET COUNT 279 10^3/uL (134-434); RBC 4.07 M/mm3 (3.60-5.2); RDW 15.4 % (11.6-15.6); WHITE BLOOD COUNT 13.7 K/mm3 (4.0-10.0)
[2021-02-18 08:21] LABS: ALBUMIN 3.1 g/dl (3.4-5.0); BLOOD UREA NITROGEN 31.4 mg/dL (7-18); CALCIUM 8.9 mg/dL (8.5-10.1)
[2021-02-18 08:22] LABS: MAGNESIUM 2.4 mg/dL (1.8-2.4)
[2021-02-18 08:25] LABS: CREATININE 1.3 mg/dL (0.55-1.3)
[2021-02-18 08:26] LABS: PHOSPHOROUS 4.4 mg/dL (2.5-4.9)
[2021-02-18 08:27] LABS: BILIRUBIN,TOTAL 0.6 mg/dL (0.2-1); TOT PROT 5.9 g/dl (6.4-8.2)
[2021-02-18] MEDS: POLYETHYLENE GLYCOL 3350 119 GM BTL PO SCH ×2 (09:50→21:12)
[2021-02-18] MEDS: predniSONE 20 MG TABLET (UD) PO SCH (10:41)
[2021-02-18] MEDS: ALLOPURINOL 100 MG TABLET (FP) PO SCH (10:42)
[2021-02-18] MEDS: CARVEDILOL 6.25 MG TABLET (FP) PO SCH ×2 (10:42→21:12)
[2021-02-18] MEDS: AZITHROMYCIN IVPB 500 MG/250 ML BAG IVPB SCH (10:42)
[2021-02-18] MEDS: MULTIVITAMINS (DAILY MVI) TABLET (FP) PO SCH (10:42)
[2021-02-18] MEDS: FUROSEMIDE 40 MG TABLET (FP) PO SCH (10:42)
[2021-02-18] MEDS: LOSARTAN POTASSIUM 25 MG TABLET PO SCH (10:42)
[2021-02-18] MEDS ORDERED: PT OWN MED DRAWER 7, Y5N ONE (18:22)
[2021-02-18] MEDS: PRAMIPEXOLE DIHYDROCHLORIDE 0.5 MG TABLET PO SCH (21:12)
[2021-02-18] MEDS: ATORVASTATIN CA 10 MG TABLET (FP) PO SCH (21:12)
[2021-02-19] MEDS: HEPARIN NA (PORCINE) 5,000 UNITS/ML 1ML VIAL SQ SCH ×3 (06:02→21:03)
[2021-02-19] MEDS: ALBUTEROL SO4 2.5/IPRATROPIUM 0.5 INH SOL 3 ML VIAL.NEB. NEB SCH ×4 (07:57→20:01)
[2021-02-19] MEDS: predniSONE 20 MG TABLET (UD) PO SCH (09:03)
[2021-02-19] MEDS: CARVEDILOL 6.25 MG TABLET (FP) PO SCH ×2 (09:03→21:03)
[2021-02-19] MEDS: MULTIVITAMINS (DAILY MVI) TABLET (FP) PO SCH (09:03)
[2021-02-19] MEDS: LOSARTAN POTASSIUM 25 MG TABLET PO SCH (09:03)
[2021-02-19] MEDS: ALLOPURINOL 100 MG TABLET (FP) PO SCH (09:03)
[2021-02-19] MEDS: FUROSEMIDE 40 MG TABLET (FP) PO SCH (09:03)
[2021-02-19] MEDS: POLYETHYLENE GLYCOL 3350 119 GM BTL PO SCH ×2 (09:06→21:03)
[2021-02-19] MEDS ORDERED: LOSARTAN POTASSIUM 50 MG TABLET PO SCH (12:21)
[2021-02-19 13:59] VITALS: BMI 25.4
[2021-02-19] MEDS ORDERED: PT OWN MED DRAWER 7, Y5N ONE (20:48)
[2021-02-19] MEDS: ATORVASTATIN CA 10 MG TABLET (FP) PO SCH (21:03)
[2021-02-19] MEDS: PRAMIPEXOLE DIHYDROCHLORIDE 0.5 MG TABLET PO SCH (21:03)
[2021-02-20] MEDS: HEPARIN NA (PORCINE) 5,000 UNITS/ML 1ML VIAL SQ SCH ×2 (06:03→13:22)
[2021-02-20 08:18] LABS: HEMATOCRIT 36.7 % (32.4-45.2); MCH 31.1 pg (25.7-33.7); MCHC 32.6 g/dl (32.0-36.0); MEAN CELL VOLUME 95.5 fl (80-96); MEAN PLT VOLUME 8.3 fl (7.5-11.1); PLATELET COUNT 264 10^3/uL (134-434); RBC 3.85 M/mm3 (3.60-5.2); WHITE BLOOD COUNT 11.4 K/mm3 (4.0-10.0)
[2021-02-20 08:43] LABS: CALCIUM 8.4 mg/dL (8.5-10.1)
[2021-02-20 08:44] LABS: BLOOD UREA NITROGEN 27.1 mg/dL (7-18)
[2021-02-20 08:47] LABS: CREATININE 1.2 mg/dL (0.55-1.3)
[2021-02-20] MEDS ORDERED: PT OWN MED DRAWER 7, Y5N ONE (09:53)
[2021-02-20] MEDS ORDERED: predniSONE 10 MG TABLET (UD) PO SCH (10:00)
[2021-02-20] MEDS: CARVEDILOL 6.25 MG TABLET (FP) PO SCH (10:08)
[2021-02-20] MEDS: ALLOPURINOL 100 MG TABLET (FP) PO SCH (10:08)
[2021-02-20] MEDS: FUROSEMIDE 40 MG TABLET (FP) PO SCH (10:08)
[2021-02-20] MEDS: POLYETHYLENE GLYCOL 3350 119 GM BTL PO SCH (10:18)
[2021-02-20] MEDS: ALBUTEROL SO4 2.5/IPRATROPIUM 0.5 INH SOL 3 ML VIAL.NEB. NEB SCH ×4 (10:49→20:35)
[2021-02-20] MEDS: MULTIVITAMINS (DAILY MVI) TABLET (FP) PO SCH (11:22)
[2021-02-20 17:58] VITALS: BP 145/91; PULSE 76; TEMP 98.5
== END 2021-02-20 21:11 | DRG 871 ==
LOC: JER 19:41 → JERBED 22:16 → JICU 23:59 → J4S 02-15 20:39
PROVIDERS: ADMIT Internal Medicine Pulmonary Disease; ATTEND Student in an Organized Health Care Education/Training Program
PROC: 02H633Z Insertion of Infusion Device into Right Atrium, Percutaneous Approach (ICD-10-PCS; principal; 2021-02-13)
DX: A41.9 Sepsis, unspecified organism (principal); J96.02 Acute respiratory failure with hypercapnia; J96.01 Acute respiratory failure with hypoxia; R65.21 Severe sepsis with septic shock; G92 Toxic encephalopathy; J18.9 Pneumonia, unspecified organism; I50.22 Chronic systolic (congestive) heart failure; N17.9 Acute kidney failure, unspecified; I13.0 Hypertensive heart and chronic kidney disease with heart failure and stage 1 through stage 4 chronic kidney disease, or unspecified chronic kidney disease; J43.9 Emphysema, unspecified; Z86.718 Personal history of other venous thrombosis and embolism; Z86.73 Personal history of transient ischemic attack (TIA), and cerebral infarction without residual deficits; M81.0 Age-related osteoporosis without current pathological fracture; M10.9 Gout, unspecified; F32.9 Major depressive disorder, single episode, unspecified; G25.81 Restless legs syndrome; Z99.81 Dependence on supplemental oxygen; E87.5 Hyperkalemia; D75.89 Other specified diseases of blood and blood-forming organs; F41.9 Anxiety disorder, unspecified; I44.0 Atrioventricular block, first degree; N18.9 Chronic kidney disease, unspecified; K44.9 Diaphragmatic hernia without obstruction or gangrene
CPT/HCPCS: 36415; 36600; 70450-TC; 71045-TC-FY; 71250-TC; 72125-TC; 72170-TC-FY; 80048; 80053; 81003; 82550; 82803; 83605; 83615; 83735; 83880; 84100; 84484; 85025; 85027; 85379; 85610; 85651; 85730; 86140; 86738; 86769; 87040; 87086; 87899; 90670; 93005; 93010; 94640; 94660; 94761; 97116-GP; 97161-GP; 99285-25; C9803; J1100; J1644; U0003; U0005

== ENCOUNTER 2022-01-13 22:12 | Inpatient (IN) | payer OTHER, BC ==
[2022-01-13] MEDS ORDERED: VANCOMYCIN 1 GM in D5W (PRE-DOCKED) 1,000 MG/250 ML IVPB ONE (23:02)
[2022-01-13] MEDS ORDERED: PIPERACILLIN/TAZOB 3.375 GM 3.375 GM in DEXTROSE 5%-WATER - 50 ML IVPB ONE (23:02)
[2022-01-13] MEDS ORDERED: SODIUM CHLORIDE 500 ML IV STA (23:03)
[2022-01-13] MEDS ORDERED: ALBUTEROL SO4 2.5/IPRATROPIUM 0.5 INH SOL 3 ML VIAL.NEB. NEB ONE ×3 (23:09→23:28)
[2022-01-13] MEDS ORDERED: VANCOMYCIN 1 GRAM (PRE-DOCKED) 1,000 MG/250 ML BAG IVPB ONE (23:28)
[2022-01-13] MEDS ORDERED: PIPERACILLIN/TAZOB 3.375 GM 3.375 GM/50 ML BAG IVPB ONE (23:29)
[2022-01-14 02:33] LABS: HEMATOCRIT 35.8 % (32.4-45.2); MCH 30.3 pg (25.7-33.7); MCHC 30.8 g/dl (32.0-36.0); MEAN CELL VOLUME 98.3 fl (80-96); MEAN PLT VOLUME 7.5 fl (7.5-11.1); PLATELET COUNT 280 10^3/uL (134-434); RBC 3.64 M/mm3 (3.60-5.2); RDW 16.5 % (11.6-15.6); WHITE BLOOD COUNT 14.4 K/mm3 (4.0-10.0)
[2022-01-14 02:56] LABS: CHLORIDE 106 mmol/L (98-107); SODIUM 142 mmol/L (136-145)
[2022-01-14 02:58] LABS: CALCIUM 8.6 mg/dL (8.5-10.1); MAGNESIUM 2.4 mg/dL (1.8-2.4)
[2022-01-14 02:59] LABS: ALBUMIN 2.9 g/dl (3.4-5.0); BLOOD UREA NITROGEN 60.7 mg/dL (7-18); CO2 30 mmol/L (21-32)
[2022-01-14 03:02] LABS: CREATININE 2.7 mg/dL (0.55-1.3); PHOSPHOROUS 6.7 mg/dL (2.5-4.9); SGOT/AST 18 U/L (15-37)
[2022-01-14 03:03] LABS: TOT PROT 6.1 g/dl (6.4-8.2)
[2022-01-14 03:04] LABS: BILIRUBIN,TOTAL 0.5 mg/dL (0.2-1)
[2022-01-14 03:05] LABS: ALK PHOS 100 U/L (45-117)
[2022-01-14 03:42] LABS: ANION GAP 5 MMOL/L (8-16); GLUCOSE,RANDOM 150 mg/dL (74-106); SGPT/ALT 18 U/L (13-61)
[2022-01-14 03:43] LABS: N-TERMINAL BNP 37584.9 pg/ml (5-450)
[2022-01-14] MEDS ORDERED: ASPIRIN 81 MG CHEWABLE TABLETS PO ONE (03:57)
[2022-01-14] MEDS ORDERED: DEXTROSE 50%-WATER - 25 GM/50 ML VIAL IVPUSH ONE (04:00)
[2022-01-14] MEDS ORDERED: INSULIN REGULAR HUMAN 100 UNITS/ML *VIAL IVPUSH ONE (04:00)
[2022-01-14] MEDS ORDERED: CALCIUM GLUCONATE 10% - 1,000 MG/10 ML VIAL IVPUSH ONE (04:06)
[2022-01-14] MEDS ORDERED: DEXTROSE 50%-WATER - 25 GM/50 ML VIAL ONE (04:14)
[2022-01-14] MEDS ORDERED: CALCIUM GLUC IN NACL, ISO-OSM 1 GM/50 ML BAG IVPB ONE (04:15)
[2022-01-14] MEDS ORDERED: FUROSEMIDE 40 MG/4 ML INJECTABLE VIAL IVPUSH ONE (04:42)
[2022-01-14] MEDS ORDERED: ASPIRIN 300 MG SUPP.RECT RC ONE (05:53)
[2022-01-14] MEDS ORDERED: FUROSEMIDE 40 MG/4 ML INJECTABLE VIAL ONE (05:56)
[2022-01-14 06:07] LABS: ARTERIAL BLOOD GAS BASE EXCESS -2.6 mmol/L (-2-2); ARTERIAL BLOOD GAS PO2 96.3 mmHg (80-100)
[2022-01-14 06:11] LABS: VENT RATE 22
[2022-01-14] MEDS ORDERED: HEPARIN NA (PORCINE) 5,000 UNITS/ML 1ML VIAL IVPUSH PRN (06:37)
[2022-01-14 06:39] LABS: URINE APPEARANCE CLEAR; URINE BILIRUBIN NEGATIVE (NEGATIVE); URINE COLOR YELLOW; URINE GLUCOSE (UA) NEGATIVE (NEGATIVE); URINE KETONE NEGATIVE (NEGATIVE); URINE LEUK ESTERASE NEGATIVE (NEGATIVE); URINE NITRITE NEGATIVE (NEGATIVE); URINE PROTEIN NEGATIVE (NEGATIVE); URINE UROBILINOGEN 0.2 mg/dL (0.2-1.0)
[2022-01-14] MEDS ORDERED: HEPARIN INFUSION - 25,000 UNITS/500 ML INFUS.BAG IVPB ONE (06:58)
[2022-01-14] MEDS: HEPARIN INFUSION - 25,000 UNITS/500 ML INFUS.BAG IVPB SCH (07:15)
[2022-01-14 08:58] LABS: ANISOCYTOSIS 0; MACROCYTOSIS 0
[2022-01-14] MEDS: DOPAMINE 400 MG/D5W - 400,000 MCG/250 ML INFUS.BAG IVPB SCH (12:10)
[2022-01-14] MEDS: FUROSEMIDE INJECTION 100 MG in SODIUM CHLORIDE 40 ML IVPB SCH (13:10)
[2022-01-14 14:01] LABS: BASO % 0.2 % (0-2.0); EOS % 0.2 % (0-4.5); HEMATOCRIT 38.6 % (32.4-45.2); HEMOGLOBIN 11.8 GM/dL (10.7-15.3); LYMPH % 3.2 % (8-40); MCH 30.1 pg (25.7-33.7); MCHC 30.7 g/dl (32.0-36.0); MEAN CELL VOLUME 98.3 fl (80-96); MEAN PLT VOLUME 8.1 fl (7.5-11.1); MONO % 6.6 % (3.8-10.2); NEUT % 89.8 % (42.8-82.8); PLATELET COUNT 325 10^3/uL (134-434); RBC 3.93 M/mm3 (3.60-5.2); RDW 16.6 % (11.6-15.6); WHITE BLOOD COUNT 14.9 K/mm3 (4.0-10.0)
[2022-01-14 15:37] LABS: ALBUMIN 2.9 g/dl (3.4-5.0); BILIRUBIN,TOTAL 0.7 mg/dL (0.2-1); BLOOD UREA NITROGEN 60.1 mg/dL (7-18); CALCIUM 8.9 mg/dL (8.5-10.1); CREATININE 2.7 mg/dL (0.55-1.3); TOT PROT 6.6 g/dl (6.4-8.2)
[2022-01-14] MEDS ORDERED: ALBUTEROL SO4 0.083% IH SOL 2.5 MG/3 ML VIAL.NEB. NEB STA ×2 (17:22→17:23)
[2022-01-14] MEDS ORDERED: ALBUTEROL SO4 0.083% IH SOL 2.5 MG/3 ML VIAL.NEB. NEB PRN (17:24)
[2022-01-14] MEDS: HEPARIN NA (PORCINE) 5,000 UNITS/ML 1ML VIAL IVPUSH PRN (23:24)
[2022-01-15 06:37] LABS: ARTERIAL BLD GAS O2 SATURATION 95.9 % (95-98); ARTERIAL BLOOD GAS BASE EXCESS 3.4 mmol/L (-2-2); ARTERIAL BLOOD GAS PO2 100.8 mmHg (80-100); ARTERIAL BLOOD GAS pH 7.207 (7.350-7.450)
[2022-01-15 06:38] LABS: ALLENS TEST POSITIVE
[2022-01-15 06:39] LABS: VENT MODE S/T; VENT RATE 18
[2022-01-15] MEDS: HEPARIN INFUSION - 25,000 UNITS/500 ML INFUS.BAG IVPB SCH (07:20)
[2022-01-15 07:39] LABS: BASO % 0.4 % (0-2.0); EOS % 0.2 % (0-4.5); HEMATOCRIT 34.3 % (32.4-45.2); HEMOGLOBIN 10.8 GM/dL (10.7-15.3); LYMPH % 3.6 % (8-40); MCH 30.4 pg (25.7-33.7); MCHC 31.5 g/dl (32.0-36.0); MEAN CELL VOLUME 96.7 fl (80-96); MEAN PLT VOLUME 7.6 fl (7.5-11.1); MONO % 6.1 % (3.8-10.2); NEUT % 89.7 % (42.8-82.8); PLATELET COUNT 305 10^3/uL (134-434); RBC 3.55 M/mm3 (3.60-5.2); RDW 16.2 % (11.6-15.6); WHITE BLOOD COUNT 10.9 K/mm3 (4.0-10.0)
[2022-01-15 08:28] LABS: CALCIUM 8.5 mg/dL (8.5-10.1)
[2022-01-15 08:29] LABS: BLOOD UREA NITROGEN 61.7 mg/dL (7-18); MAGNESIUM 2.4 mg/dL (1.8-2.4)
[2022-01-15 08:32] LABS: CREATININE 2.2 mg/dL (0.55-1.3); PHOSPHOROUS 5.8 mg/dL (2.5-4.9)
[2022-01-15] MEDS: FUROSEMIDE INJECTION 100 MG in SODIUM CHLORIDE 40 ML IVPB SCH ×2 (09:27→16:20)
[2022-01-15] MEDS: HEPARIN NA (PORCINE) 5,000 UNITS/ML 1ML VIAL IVPUSH PRN (09:32)
[2022-01-15] MEDS: DOPAMINE 400 MG/D5W - 400,000 MCG/250 ML INFUS.BAG IVPB SCH (16:19)
[2022-01-15] MEDS ORDERED: ACETAMINOPHEN 1000 MG/100 ML BAG IVPB ONE (16:45)
[2022-01-15] MEDS ORDERED: MELATONIN 5 MG TABLETS PO PRN (22:17)
[2022-01-16 07:16] LABS: HEMATOCRIT 29.9 % (32.4-45.2); HEMOGLOBIN 9.7 GM/dL (10.7-15.3); MCH 30.9 pg (25.7-33.7); MCHC 32.3 g/dl (32.0-36.0); MEAN CELL VOLUME 95.8 fl (80-96); MEAN PLT VOLUME 7.4 fl (7.5-11.1); PLATELET COUNT 362 10^3/uL (134-434); RBC 3.13 M/mm3 (3.60-5.2); RDW 15.8 % (11.6-15.6)
[2022-01-16 08:40] LABS: BLOOD UREA NITROGEN 53.5 mg/dL (7-18); CALCIUM 8.8 mg/dL (8.5-10.1); CREATININE 1.5 mg/dL (0.55-1.3); MAGNESIUM 2.2 mg/dL (1.8-2.4)
[2022-01-16] MEDS: ASPIRIN 81 MG CHEWABLE TABLETS PO SCH (10:58)
[2022-01-16] MEDS: GABAPENTIN 300 MG CAPSULE PO SCH ×3 (13:40→23:14)
[2022-01-16] MEDS: ATORVASTATIN CA 20 MG TABLET (FP) PO SCH ×2 (21:39→23:14)
[2022-01-16] MEDS: MOMETASONE FUROATE 220 MCG/IH INHALER IH SCH ×2 (21:40→23:14)
[2022-01-16] MEDS ORDERED: PRAMIPEXOLE DIHYDROCHLORIDE 0.5 MG TABLET PO SCH (22:00)
[2022-01-17] MEDS: GABAPENTIN 300 MG CAPSULE PO SCH ×3 (06:07→21:54)
[2022-01-17 06:44] LABS: HEMATOCRIT 33.3 % (32.4-45.2); HEMOGLOBIN 10.7 GM/dL (10.7-15.3); MCH 30.8 pg (25.7-33.7); MCHC 32.1 g/dl (32.0-36.0); MEAN CELL VOLUME 95.9 fl (80-96); MEAN PLT VOLUME 7.6 fl (7.5-11.1); PLATELET COUNT 286 10^3/uL (134-434); RBC 3.47 M/mm3 (3.60-5.2); RDW 15.7 % (11.6-15.6); WHITE BLOOD COUNT 8.4 K/mm3 (4.0-10.0)
[2022-01-17 07:10] LABS: ALBUMIN 2.4 g/dl (3.4-5.0); MAGNESIUM 2.1 mg/dL (1.8-2.4)
[2022-01-17 07:13] LABS: CREATININE 1.2 mg/dL (0.55-1.3); PHOSPHOROUS 2.8 mg/dL (2.5-4.9)
[2022-01-17 07:14] LABS: BILIRUBIN,TOTAL 0.6 mg/dL (0.2-1); TOT PROT 5.2 g/dl (6.4-8.2)
[2022-01-17] MEDS ORDERED: ALLOPURINOL 100 MG TABLET (FP) PO SCH (10:00)
[2022-01-17] MEDS ORDERED: FUROSEMIDE 40 MG/4 ML INJECTABLE VIAL IVPUSH SCH (10:00)
[2022-01-17] MEDS ORDERED: TIOTROPIUM BROMIDE 2.5 MCG (SPIRIVA) RESPIMAT INHALER IH SCH (10:00)
[2022-01-17] MEDS: ASPIRIN 81 MG CHEWABLE TABLETS PO SCH (10:08)
[2022-01-17 13:39] VITALS: BMI 25.1
[2022-01-17] MEDS ORDERED: MELATONIN 5 MG TABLETS PO PRN (18:55)
[2022-01-17] MEDS ORDERED: ALBUTEROL SO4 0.083% IH SOL 2.5 MG/3 ML VIAL.NEB. NEB PRN (18:55)
[2022-01-17] MEDS: ATORVASTATIN CA 20 MG TABLET (FP) PO SCH (21:54)
[2022-01-17] MEDS: PRAMIPEXOLE DIHYDROCHLORIDE 0.5 MG TABLET PO SCH (21:54)
[2022-01-17] MEDS: MOMETASONE FUROATE 220 MCG/IH INHALER IH SCH (22:00)
[2022-01-18] MEDS: GABAPENTIN 300 MG CAPSULE PO SCH ×3 (06:16→21:48)
[2022-01-18] MEDS: TIOTROPIUM BROMIDE 2.5 MCG (SPIRIVA) RESPIMAT INHALER IH SCH (09:13)
[2022-01-18] MEDS: ALLOPURINOL 100 MG TABLET (FP) PO SCH (09:16)
[2022-01-18] MEDS: ASPIRIN 81 MG CHEWABLE TABLETS PO SCH (09:16)
[2022-01-18] MEDS ORDERED: FUROSEMIDE 40 MG/4 ML INJECTABLE VIAL IVPUSH SCH (10:00)
[2022-01-18] MEDS: ATORVASTATIN CA 20 MG TABLET (FP) PO SCH (21:47)
[2022-01-18] MEDS: PRAMIPEXOLE DIHYDROCHLORIDE 0.5 MG TABLET PO SCH (21:47)
[2022-01-18] MEDS: MOMETASONE FUROATE 220 MCG/IH INHALER IH SCH (21:49)
[2022-01-19] MEDS: GABAPENTIN 300 MG CAPSULE PO SCH ×3 (06:10→21:22)
[2022-01-19] MEDS: ASPIRIN 81 MG CHEWABLE TABLETS PO SCH (10:08)
[2022-01-19] MEDS: FUROSEMIDE 40 MG TABLET (FP) PO SCH (10:08)
[2022-01-19] MEDS: ALLOPURINOL 100 MG TABLET (FP) PO SCH (10:08)
[2022-01-19] MEDS: TIOTROPIUM BROMIDE 2.5 MCG (SPIRIVA) RESPIMAT INHALER IH SCH (10:09)
[2022-01-19] MEDS: MOMETASONE FUROATE 220 MCG/IH INHALER IH SCH (21:22)
[2022-01-19] MEDS: ATORVASTATIN CA 20 MG TABLET (FP) PO SCH (21:22)
[2022-01-19] MEDS: PRAMIPEXOLE DIHYDROCHLORIDE 0.5 MG TABLET PO SCH (21:22)
[2022-01-20] MEDS: GABAPENTIN 300 MG CAPSULE PO SCH ×3 (06:02→21:29)
[2022-01-20] MEDS: ASPIRIN 81 MG CHEWABLE TABLETS PO SCH (09:10)
[2022-01-20] MEDS: ALLOPURINOL 100 MG TABLET (FP) PO SCH (09:10)
[2022-01-20] MEDS: TIOTROPIUM BROMIDE 2.5 MCG (SPIRIVA) RESPIMAT INHALER IH SCH (09:10)
[2022-01-20] MEDS: FUROSEMIDE 40 MG TABLET (FP) PO SCH (09:10)
[2022-01-20] MEDS: PRAMIPEXOLE DIHYDROCHLORIDE 0.5 MG TABLET PO SCH (21:29)
[2022-01-20] MEDS: ATORVASTATIN CA 20 MG TABLET (FP) PO SCH (21:29)
[2022-01-20] MEDS: MOMETASONE FUROATE 220 MCG/IH INHALER IH SCH (21:30)
[2022-01-21] MEDS: GABAPENTIN 300 MG CAPSULE PO SCH ×3 (06:00→21:52)
[2022-01-21 08:26] LABS: CALCIUM 8.4 mg/dL (8.5-10.1)
[2022-01-21 08:27] LABS: ALBUMIN 2.5 g/dl (3.4-5.0); BLOOD UREA NITROGEN 27.5 mg/dL (7-18)
[2022-01-21 08:30] LABS: CREATININE 1.1 mg/dL (0.55-1.3)
[2022-01-21 08:31] LABS: BILIRUBIN,TOTAL 0.7 mg/dL (0.2-1); TOT PROT 5.3 g/dl (6.4-8.2)
[2022-01-21] MEDS: metoPROLOL SUCCINATE 25 MG TAB.SR.24H (FP) PO SCH (09:36)
[2022-01-21] MEDS: ASPIRIN 81 MG CHEWABLE TABLETS PO SCH (09:37)
[2022-01-21] MEDS: FUROSEMIDE 40 MG TABLET (FP) PO SCH (09:37)
[2022-01-21] MEDS: ALLOPURINOL 100 MG TABLET (FP) PO SCH (09:37)
[2022-01-21] MEDS: TIOTROPIUM BROMIDE 2.5 MCG (SPIRIVA) RESPIMAT INHALER IH SCH (09:38)
[2022-01-21] MEDS ORDERED: PATIENT'S OWN MEDICATION (NON-FORMULARY) (Alendronate Sodium [Alendronate Sodium] 70 MG Ta PO SCH (10:46)
[2022-01-21] MEDS: PRAMIPEXOLE DIHYDROCHLORIDE 0.5 MG TABLET PO SCH (21:51)
[2022-01-21] MEDS: MOMETASONE FUROATE 220 MCG/IH INHALER IH SCH (21:51)
[2022-01-21] MEDS: ATORVASTATIN CA 20 MG TABLET (FP) PO SCH (21:52)
[2022-01-22] MEDS: GABAPENTIN 300 MG CAPSULE PO SCH ×3 (06:41→21:04)
[2022-01-22] MEDS: ALLOPURINOL 100 MG TABLET (FP) PO SCH (10:14)
[2022-01-22] MEDS: ASPIRIN 81 MG CHEWABLE TABLETS PO SCH (10:14)
[2022-01-22] MEDS: FUROSEMIDE 40 MG TABLET (FP) PO SCH (10:14)
[2022-01-22] MEDS: metoPROLOL SUCCINATE 25 MG TAB.SR.24H (FP) PO SCH (10:15)
[2022-01-22] MEDS: TIOTROPIUM BROMIDE 2.5 MCG (SPIRIVA) RESPIMAT INHALER IH SCH (10:15)
[2022-01-22] MEDS: MOMETASONE FUROATE 220 MCG/IH INHALER IH SCH (21:04)
[2022-01-22] MEDS: PRAMIPEXOLE DIHYDROCHLORIDE 0.5 MG TABLET PO SCH (21:04)
[2022-01-22] MEDS: ATORVASTATIN CA 20 MG TABLET (FP) PO SCH (21:04)
[2022-01-23] MEDS: GABAPENTIN 300 MG CAPSULE PO SCH ×2 (06:36→15:06)
[2022-01-23] MEDS: ASPIRIN 81 MG CHEWABLE TABLETS PO SCH (09:07)
[2022-01-23] MEDS: FUROSEMIDE 40 MG TABLET (FP) PO SCH (09:08)
[2022-01-23] MEDS: TIOTROPIUM BROMIDE 2.5 MCG (SPIRIVA) RESPIMAT INHALER IH SCH (09:08)
[2022-01-23] MEDS: ALLOPURINOL 100 MG TABLET (FP) PO SCH (09:08)
[2022-01-23] MEDS: metoPROLOL SUCCINATE 25 MG TAB.SR.24H (FP) PO SCH (09:08)
[2022-01-23 14:17] VITALS: BP 100/96; PULSE 84; TEMP 97.6
== END 2022-01-23 15:32 | DRG 280 ==
LOC: JER 22:12 → JERBED 01-14 00:01 → JICU 01-14 08:48 → J4S 01-17 18:50
PROVIDERS: ADMIT Internal Medicine; ATTEND Internal Medicine
DX: I13.0 Hypertensive heart and chronic kidney disease with heart failure and stage 1 through stage 4 chronic kidney disease, or unspecified chronic kidney disease (principal); J96.21 Acute and chronic respiratory failure with hypoxia; I21.3 ST elevation (STEMI) myocardial infarction of unspecified site; G93.41 Metabolic encephalopathy; R57.0 Cardiogenic shock; I50.23 Acute on chronic systolic (congestive) heart failure; J96.22 Acute and chronic respiratory failure with hypercapnia; J18.9 Pneumonia, unspecified organism; N17.9 Acute kidney failure, unspecified; J42 Unspecified chronic bronchitis; N18.9 Chronic kidney disease, unspecified; R41.82 Altered mental status, unspecified; K21.9 Gastro-esophageal reflux disease without esophagitis; E78.5 Hyperlipidemia, unspecified; E87.5 Hyperkalemia; R53.83 Other fatigue; D72.829 Elevated white blood cell count, unspecified; R53.1 Weakness; R77.8 Other specified abnormalities of plasma proteins; Z99.81 Dependence on supplemental oxygen; Z86.73 Personal history of transient ischemic attack (TIA), and cerebral infarction without residual deficits; Z86.718 Personal history of other venous thrombosis and embolism
CPT/HCPCS: 0241U-QW; 36415; 36600; 70450-TC; 71045-TC-FY; 76604; 80048; 80053; 81003; 82530; 82533; 82550; 82803; 83605; 83735; 83880; 84100; 84439; 84443; 84484; 85025; 85027; 85730; 87040; 87086; 93005; 93010; 93306-TC; 93308; 94660; 97116-GP; 97162-GP; 99291; 99292; C9803-CS; J1644; U0003; U0005

== ENCOUNTER 2022-01-31 11:20 | Inpatient (IN) | payer OTHER, BC ==
[2022-01-31 13:22] LABS: BASO % 0.1 % (0-2.0); EOS % 0.3 % (0-4.5); HEMATOCRIT 30.3 % (32.4-45.2); HEMOGLOBIN 9.6 GM/dL (10.7-15.3); LYMPH % 5.5 % (8-40); MCH 30.2 pg (25.7-33.7); MCHC 31.7 g/dl (32.0-36.0); MEAN CELL VOLUME 95.4 fl (80-96); MEAN PLT VOLUME 7.1 fl (7.5-11.1); MONO % 5.9 % (3.8-10.2); NEUT % 88.2 % (42.8-82.8); PLATELET COUNT 430 10^3/uL (134-434); RBC 3.18 M/mm3 (3.60-5.2); RDW 16.5 % (11.6-15.6); WHITE BLOOD COUNT 11.3 K/mm3 (4.0-10.0)
[2022-01-31 13:28] LABS: INR 1.14 (0.83-1.09); PROTHROMBIN TIME (PATIENT) 13.1 SEC (9.7-13.0)
[2022-01-31 13:30] LABS: ACTIVATED PTT 30.5 SECONDS (25.2-36.5)
[2022-01-31 13:32] LABS: VENOUS BASE EXCESS -1.4 mmol/L (-2-2); VENOUS O2 SATURATION 97.9 % (70-80); VENOUS PCO2 61.7 mmHg (38-52); VENOUS PH 7.251 (7.310-7.410)
[2022-01-31 13:49] LABS: CHLORIDE 105 mmol/L (98-107); SODIUM 139 mmol/L (136-145)
[2022-01-31 13:55] LABS: CALCIUM 8.9 mg/dL (8.5-10.1)
[2022-01-31 13:56] LABS: CO2 27 mmol/L (21-32); GLUCOSE,RANDOM 105 mg/dL (74-106)
[2022-01-31 13:59] LABS: CREATININE 3.4 mg/dL (0.55-1.3); SGOT/AST 212 U/L (15-37); SGPT/ALT 188 U/L (13-61)
[2022-01-31 14:00] LABS: BILIRUBIN,TOTAL 0.8 mg/dL (0.2-1)
[2022-01-31] MEDS ORDERED: VANCOMYCIN 1,000 MG in DEXTROSE 5%-WATER - 250 ML IVPB ONE (14:00)
[2022-01-31] MEDS ORDERED: CEFEPIME HCL/D5W 1 GM/50 ML BAG IVPB ONE (14:00)
[2022-01-31 14:34] LABS: ALK PHOS 189 U/L (45-117); ANION GAP 7 MMOL/L (8-16); BLOOD UREA NITROGEN 76.8 mg/dL (7-18); N-TERMINAL BNP > 35000.0 pg/ml (5-450)
[2022-01-31] MEDS ORDERED: CEFEPIME 1 GM/100 ML BAG IVPB ONE (14:44)
[2022-01-31] MEDS ORDERED: CALCIUM GLUCONATE 10% - 1,000 MG/10 ML VIAL IVPB ONE ×2 (14:46→20:58)
[2022-01-31] MEDS ORDERED: DEXTROSE 50%-WATER - 25 GM/50 ML VIAL IVPUSH ONE ×2 (14:47→20:57)
[2022-01-31] MEDS ORDERED: INSULIN REGULAR HUMAN 100 UNITS/ML *VIAL IVPUSH ONE ×2 (14:48→20:57)
[2022-01-31] MEDS ORDERED: CALCIUM GLUCONATE 10% - 1,000 MG/10 ML VIAL ONE (14:55)
[2022-01-31] MEDS ORDERED: DEXTROSE 50%-WATER 25 GM/50 ML DISP.SYRIN ONE (14:56)
[2022-01-31] MEDS ORDERED: INSULIN REGULAR HUMAN 100 UNITS/ML *VIAL ONE (14:56)
[2022-01-31 15:17] LABS: VENOUS O2 SATURATION 97.8 % (70-80); VENOUS PCO2 63.7 mmHg (38-52); VENOUS PH 7.246 (7.310-7.410)
[2022-01-31] MEDS ORDERED: VANCOMYCIN 1 GRAM (PRE-DOCKED) 1,000 MG/250 ML BAG IVPB ONE (16:12)
[2022-01-31] MEDS ORDERED: SODIUM ZIRCONIUM CYCLOSILICATE (LOKELMA) 5 GM PACKET PO ONE (17:21)
[2022-01-31] MEDS ORDERED: SODIUM ZIRCONIUM CYCLOSILICATE (LOKELMA) 5 GM PACKET ONE (18:09)
[2022-01-31 19:13] LABS: CHLORIDE 105 mmol/L (98-107); SODIUM 140 mmol/L (136-145)
[2022-01-31 19:14] LABS: CALCIUM 8.9 mg/dL (8.5-10.1)
[2022-01-31 19:15] LABS: CO2 29 mmol/L (21-32); GLUCOSE,RANDOM 149 mg/dL (74-106)
[2022-01-31 19:18] LABS: CREATININE 3.3 mg/dL (0.55-1.3)
[2022-01-31 19:25] LABS: ANION GAP 6 MMOL/L (8-16)
[2022-01-31 20:01] LABS: VENOUS BASE EXCESS -4.3 mmol/L (-2-2)
[2022-01-31 20:18] LABS: VENOUS PCO2 70.2 mmHg (38-52); VENOUS PH 7.175 (7.310-7.410)
[2022-01-31] MEDS ORDERED: DEXTROSE 50%-WATER 25 GM/50 ML DISP.SYRIN IVPUSH ONE (21:45)
[2022-01-31] MEDS ORDERED: CALCIUM GLUCONATE IN NACL 1 GM/50 ML BAG IVPB ONE (21:45)
[2022-01-31 21:59] LABS: ALLENS TEST POSITIVE; ARTERIAL BLD GAS O2 SATURATION 97.4 % (95-98); ARTERIAL BLOOD GAS BASE EXCESS -1.4 mmol/L (-2-2); ARTERIAL BLOOD GAS PO2 118.5 mmHg (80-100)
[2022-01-31 22:00] LABS: VENT MODE S/T; VENT RATE 14
[2022-02-01 04:00] LABS: CALCIUM 8.9 mg/dL (8.5-10.1)
[2022-02-01 04:03] LABS: CREATININE 3.2 mg/dL (0.55-1.3)
[2022-02-01 07:33] LABS: BASO % 0.5 % (0-2.0); EOS % 1.4 % (0-4.5); HEMATOCRIT 30.1 % (32.4-45.2); HEMOGLOBIN 9.3 GM/dL (10.7-15.3); LYMPH % 5.6 % (8-40); MCH 30.2 pg (25.7-33.7); MCHC 30.9 g/dl (32.0-36.0); MEAN CELL VOLUME 97.7 fl (80-96); MEAN PLT VOLUME 7.3 fl (7.5-11.1); MONO % 14.7 % (3.8-10.2); NEUT % 77.8 % (42.8-82.8); PLATELET COUNT 380 10^3/uL (134-434); RBC 3.08 M/mm3 (3.60-5.2); RDW 17.3 % (11.6-15.6); WHITE BLOOD COUNT 14.2 K/mm3 (4.0-10.0)
[2022-02-01] MEDS ORDERED: SODIUM ZIRCONIUM CYCLOSILICATE (LOKELMA) 5 GM PACKET PO SCH (10:30)
[2022-02-01] MEDS: HEPARIN NA (PORCINE) 5,000 UNITS/ML 1ML VIAL SQ SCH ×2 (10:58→21:14)
[2022-02-01] MEDS ORDERED: SODIUM CHLORIDE 1,000 ML IV SCH (11:45)
[2022-02-01] MEDS ORDERED: FUROSEMIDE 40 MG/4 ML INJECTABLE VIAL IVPUSH ONE (12:10)
[2022-02-01] MEDS ORDERED: DEXTROSE 5%-0.45% SALINE 1,000 ML IV SCH (12:15)
[2022-02-01] MEDS: SODIUM ZIRCONIUM CYCLOSILICATE (LOKELMA) 5 GM PACKET PO SCH (13:29)
[2022-02-01] MEDS ORDERED: PIPERACILLIN/TAZOBACTAM 2.25 GM VIAL IVPB ONE (14:59)
[2022-02-01] MEDS ORDERED: CEFEPIME 0.5 GM in DEXTROSE 5%-WATER - 100 ML IVPB SCH (15:00)
[2022-02-01] MEDS ORDERED: DEXTROSE 5%-WATER - 50 ML IVPB ONE (15:00)
[2022-02-01] MEDS: PIPERACILLIN/TAZOB 2.25 GM 2.25 GM in DEXTROSE 5%-WATER - 50 ML IVPB SCH (15:15)
[2022-02-02] MEDS ORDERED: DEXTROSE 5%-WATER - 50 ML IVPB ONE ×2 (00:34→08:29)
[2022-02-02] MEDS ORDERED: PIPERACILLIN/TAZOBACTAM 2.25 GM VIAL IVPB ONE ×3 (00:34→16:04)
[2022-02-02] MEDS: PIPERACILLIN/TAZOB 2.25 GM 2.25 GM in DEXTROSE 5%-WATER - 50 ML IVPB SCH ×3 (01:27→17:08)
[2022-02-02 04:06] LABS: URINE APPEARANCE CLEAR; URINE BILIRUBIN NEGATIVE (NEGATIVE); URINE COLOR YELLOW; URINE GLUCOSE (UA) NEGATIVE (NEGATIVE); URINE KETONE NEGATIVE (NEGATIVE); URINE LEUK ESTERASE NEGATIVE (NEGATIVE); URINE NITRITE NEGATIVE (NEGATIVE); URINE PROTEIN NEGATIVE (NEGATIVE); URINE UROBILINOGEN 0.2 mg/dL (0.2-1.0)
[2022-02-02 08:47] LABS: BASO % 0.7 % (0-2.0); EOS % 1.5 % (0-4.5); HEMATOCRIT 29.1 % (32.4-45.2); HEMOGLOBIN 9.3 GM/dL (10.7-15.3); LYMPH % 5.7 % (8-40); MCH 30.8 pg (25.7-33.7); MCHC 31.9 g/dl (32.0-36.0); MEAN CELL VOLUME 96.4 fl (80-96); MEAN PLT VOLUME 7.6 fl (7.5-11.1); MONO % 7.2 % (3.8-10.2); NEUT % 84.9 % (42.8-82.8); PLATELET COUNT 317 10^3/uL (134-434); RBC 3.02 M/mm3 (3.60-5.2); RDW 16.4 % (11.6-15.6); WHITE BLOOD COUNT 9.3 K/mm3 (4.0-10.0)
[2022-02-02 09:05] LABS: CALCIUM 8.5 mg/dL (8.5-10.1)
[2022-02-02 09:08] LABS: CREATININE 2.1 mg/dL (0.55-1.3)
[2022-02-02 09:10] LABS: BILIRUBIN,TOTAL 0.7 mg/dL (0.2-1); TOT PROT 5.2 g/dl (6.4-8.2)
[2022-02-02 09:13] LABS: ALBUMIN 2.4 g/dl (3.4-5.0)
[2022-02-02] MEDS: PANTOPRAZOLE 20 MG TABLET PO SCH (10:01)
[2022-02-02] MEDS: ASPIRIN COATED 81 MG TABLET.EC PO SCH (10:01)
[2022-02-02] MEDS: HEPARIN NA (PORCINE) 5,000 UNITS/ML 1ML VIAL SQ SCH ×2 (10:03→21:31)
[2022-02-02] MEDS: SODIUM ZIRCONIUM CYCLOSILICATE (LOKELMA) 5 GM PACKET PO SCH (10:03)
[2022-02-02] MEDS ORDERED: CEFEPIME 0.5 GM in DEXTROSE 5%-WATER - 100 ML IVPB SCH (15:00)
[2022-02-02] MEDS: DEXTROSE 5%-0.45% SALINE 1,000 ML IV SCH (15:40)
[2022-02-03] MEDS ORDERED: PIPERACILLIN/TAZOBACTAM 2.25 GM VIAL IVPB ONE ×3 (00:25→17:23)
[2022-02-03] MEDS ORDERED: DEXTROSE 5%-WATER - 50 ML IVPB ONE ×2 (00:25→09:27)
[2022-02-03] MEDS: PIPERACILLIN/TAZOB 2.25 GM 2.25 GM in DEXTROSE 5%-WATER - 50 ML IVPB SCH ×3 (01:24→17:44)
[2022-02-03 07:31] LABS: BASO % 0.6 % (0-2.0); EOS % 1.6 % (0-4.5); HEMOGLOBIN 8.9 GM/dL (10.7-15.3); LYMPH % 6.7 % (8-40); MCH 30.8 pg (25.7-33.7); MCHC 31.9 g/dl (32.0-36.0); MEAN CELL VOLUME 96.5 fl (80-96); MEAN PLT VOLUME 7.1 fl (7.5-11.1); MONO % 7.3 % (3.8-10.2); NEUT % 83.8 % (42.8-82.8); PLATELET COUNT 285 10^3/uL (134-434); RDW 16.4 % (11.6-15.6); WHITE BLOOD COUNT 9.8 K/mm3 (4.0-10.0)
[2022-02-03 07:50] LABS: ALBUMIN 2.5 g/dl (3.4-5.0); CALCIUM 8.2 mg/dL (8.5-10.1)
[2022-02-03 07:53] LABS: CREATININE 1.7 mg/dL (0.55-1.3)
[2022-02-03 07:55] LABS: BILIRUBIN,TOTAL 0.7 mg/dL (0.2-1); TOT PROT 5.2 g/dl (6.4-8.2)
[2022-02-03] MEDS: DEXTROSE 5%-0.45% SALINE 1,000 ML IV SCH ×2 (10:19→17:43)
[2022-02-03] MEDS: PANTOPRAZOLE 20 MG TABLET PO SCH (10:56)
[2022-02-03] MEDS: HEPARIN NA (PORCINE) 5,000 UNITS/ML 1ML VIAL SQ SCH ×2 (10:56→21:52)
[2022-02-03] MEDS: ASPIRIN COATED 81 MG TABLET.EC PO SCH (10:56)
[2022-02-04] MEDS ORDERED: DEXTROSE 5%-WATER - 50 ML IVPB ONE ×3 (01:41→17:15)
[2022-02-04] MEDS ORDERED: PIPERACILLIN/TAZOBACTAM 2.25 GM VIAL IVPB ONE ×3 (01:41→17:14)
[2022-02-04] MEDS: PIPERACILLIN/TAZOB 2.25 GM 2.25 GM in DEXTROSE 5%-WATER - 50 ML IVPB SCH ×3 (02:15→17:18)
[2022-02-04] MEDS: ASPIRIN COATED 81 MG TABLET.EC PO SCH (10:07)
[2022-02-04] MEDS: PANTOPRAZOLE 20 MG TABLET PO SCH (10:07)
[2022-02-04] MEDS: HEPARIN NA (PORCINE) 5,000 UNITS/ML 1ML VIAL SQ SCH ×2 (10:07→21:45)
[2022-02-04] MEDS ORDERED: FUROSEMIDE 40 MG/4 ML INJECTABLE VIAL IVPUSH ONE (15:51)
[2022-02-04] MEDS ORDERED: GABAPENTIN 100 MG CAPSULE PO ONE (18:25)
[2022-02-04] MEDS ORDERED: buPROPion HCL 100 MG TABLET PO ONE (18:25)
[2022-02-04] MEDS: PRAMIPEXOLE DIHYDROCHLORIDE 0.5 MG TABLET PO SCH (21:45)
[2022-02-04] MEDS ORDERED: GABAPENTIN 300 MG CAPSULE PO SCH (22:00)
[2022-02-04] MEDS: GABAPENTIN 100 MG CAPSULE PO SCH (22:54)
[2022-02-04] MEDS: MELATONIN 5 MG TABLETS PO PRN (22:54)
[2022-02-05] MEDS ORDERED: DEXTROSE 5%-WATER - 50 ML IVPB ONE ×3 (01:32→16:38)
[2022-02-05] MEDS ORDERED: PIPERACILLIN/TAZOBACTAM 2.25 GM VIAL IVPB ONE ×3 (01:32→16:37)
[2022-02-05] MEDS: ALBUTEROL SO4 2.5/IPRATROPIUM 0.5 INH SOL 3 ML VIAL.NEB. NEB PRN ×2 (02:13→20:45)
[2022-02-05] MEDS: PIPERACILLIN/TAZOB 2.25 GM 2.25 GM in DEXTROSE 5%-WATER - 50 ML IVPB SCH ×3 (02:15→17:01)
[2022-02-05] MEDS: GABAPENTIN 100 MG CAPSULE PO SCH ×3 (06:28→22:21)
[2022-02-05 08:58] LABS: BASO % 0.3 % (0-2.0); HEMATOCRIT 30.9 % (32.4-45.2); HEMOGLOBIN 9.9 GM/dL (10.7-15.3); LYMPH % 6.3 % (8-40); MCH 30.9 pg (25.7-33.7); MCHC 32.1 g/dl (32.0-36.0); MEAN CELL VOLUME 96.3 fl (80-96); MEAN PLT VOLUME 7.5 fl (7.5-11.1); MONO % 6.3 % (3.8-10.2); NEUT % 86.1 % (42.8-82.8); PLATELET COUNT 273 10^3/uL (134-434); RBC 3.21 M/mm3 (3.60-5.2); RDW 17.1 % (11.6-15.6); WHITE BLOOD COUNT 9.2 K/mm3 (4.0-10.0)
[2022-02-05 09:29] LABS: CALCIUM 8.6 mg/dL (8.5-10.1)
[2022-02-05 09:30] LABS: ALBUMIN 2.7 g/dl (3.4-5.0); BLOOD UREA NITROGEN 24.2 mg/dL (7-18)
[2022-02-05 09:34] LABS: BILIRUBIN,TOTAL 0.8 mg/dL (0.2-1)
[2022-02-05 09:35] LABS: CREATININE 1.2 mg/dL (0.55-1.3); TOT PROT 5.7 g/dl (6.4-8.2)
[2022-02-05] MEDS: HEPARIN NA (PORCINE) 5,000 UNITS/ML 1ML VIAL SQ SCH ×2 (10:12→22:21)
[2022-02-05] MEDS: PANTOPRAZOLE 20 MG TABLET PO SCH (10:13)
[2022-02-05] MEDS: ASPIRIN COATED 81 MG TABLET.EC PO SCH (10:13)
[2022-02-05] MEDS ORDERED: FUROSEMIDE 40 MG/4 ML INJECTABLE VIAL IVPUSH ONE (13:15)
[2022-02-05 13:32] VITALS: BMI 25.3
[2022-02-05] MEDS: PRAMIPEXOLE DIHYDROCHLORIDE 0.5 MG TABLET PO SCH (22:21)
[2022-02-06] MEDS ORDERED: PIPERACILLIN/TAZOBACTAM 2.25 GM VIAL IVPB ONE ×3 (01:35→16:54)
[2022-02-06] MEDS ORDERED: DEXTROSE 5%-WATER - 50 ML IVPB ONE ×3 (01:35→16:54)
[2022-02-06] MEDS: PIPERACILLIN/TAZOB 2.25 GM 2.25 GM in DEXTROSE 5%-WATER - 50 ML IVPB SCH ×3 (02:10→17:04)
[2022-02-06] MEDS: GABAPENTIN 100 MG CAPSULE PO SCH ×3 (05:56→22:16)
[2022-02-06] MEDS: ASPIRIN COATED 81 MG TABLET.EC PO SCH (09:43)
[2022-02-06] MEDS: MULTIVITAMINS (DAILY MVI) TABLET (FP) PO SCH (09:43)
[2022-02-06] MEDS: HEPARIN NA (PORCINE) 5,000 UNITS/ML 1ML VIAL SQ SCH ×2 (09:43→22:16)
[2022-02-06] MEDS: ASCORBIC ACID 500 MG TABLET (FP) PO SCH (09:43)
[2022-02-06] MEDS: PANTOPRAZOLE 20 MG TABLET PO SCH (09:43)
[2022-02-06] MEDS: AMINO ACIDS/PROTEIN HYDROLYS 30 ML LIQUID.PKT PO SCH (09:45)
[2022-02-06] MEDS ORDERED: FUROSEMIDE 40 MG/4 ML INJECTABLE VIAL IVPUSH ONE (10:45)
[2022-02-06] MEDS: ALBUTEROL SO4 2.5/IPRATROPIUM 0.5 INH SOL 3 ML VIAL.NEB. NEB SCH ×3 (12:05→20:05)
[2022-02-06] MEDS ORDERED: ACETAMINOPHEN 325 MG TABLET (FP) PO PRN (13:30)
[2022-02-06] MEDS: PRAMIPEXOLE DIHYDROCHLORIDE 0.5 MG TABLET PO SCH (22:16)
[2022-02-07] MEDS ORDERED: DEXTROSE 5%-WATER - 50 ML IVPB ONE ×3 (01:59→17:01)
[2022-02-07] MEDS ORDERED: PIPERACILLIN/TAZOBACTAM 2.25 GM VIAL IVPB ONE ×3 (01:59→17:01)
[2022-02-07] MEDS: PIPERACILLIN/TAZOB 2.25 GM 2.25 GM in DEXTROSE 5%-WATER - 50 ML IVPB SCH ×3 (02:00→18:03)
[2022-02-07] MEDS: GABAPENTIN 100 MG CAPSULE PO SCH ×3 (05:17→21:17)
[2022-02-07] MEDS: ALBUTEROL SO4 2.5/IPRATROPIUM 0.5 INH SOL 3 ML VIAL.NEB. NEB SCH ×4 (07:54→20:36)
[2022-02-07] MEDS ORDERED: FUROSEMIDE 40 MG/4 ML INJECTABLE VIAL IVPUSH ONE (09:01)
[2022-02-07] MEDS: AMINO ACIDS/PROTEIN HYDROLYS 30 ML LIQUID.PKT PO SCH (09:53)
[2022-02-07] MEDS: HEPARIN NA (PORCINE) 5,000 UNITS/ML 1ML VIAL SQ SCH ×2 (09:54→21:17)
[2022-02-07] MEDS: ASCORBIC ACID 500 MG TABLET (FP) PO SCH (09:54)
[2022-02-07] MEDS: ASPIRIN COATED 81 MG TABLET.EC PO SCH (09:54)
[2022-02-07] MEDS: MULTIVITAMINS (DAILY MVI) TABLET (FP) PO SCH (09:54)
[2022-02-07] MEDS: PANTOPRAZOLE 20 MG TABLET PO SCH (09:54)
[2022-02-07 10:20] LABS: BLOOD UREA NITROGEN 30.9 mg/dL (7-18); CALCIUM 8.4 mg/dL (8.5-10.1)
[2022-02-07 10:21] LABS: ALBUMIN 2.6 g/dl (3.4-5.0)
[2022-02-07 10:23] LABS: CREATININE 1.4 mg/dL (0.55-1.3)
[2022-02-07 10:25] LABS: BILIRUBIN,TOTAL 0.6 mg/dL (0.2-1); TOT PROT 5.6 g/dl (6.4-8.2)
[2022-02-07] MEDS: ALPRAZolam 0.25 MG TABLET PO PRN (14:17)
[2022-02-07] MEDS: PRAMIPEXOLE DIHYDROCHLORIDE 0.5 MG TABLET PO SCH (21:17)
[2022-02-08] MEDS ORDERED: DEXTROSE 5%-WATER - 50 ML IVPB ONE ×2 (01:16→09:24)
[2022-02-08] MEDS ORDERED: PIPERACILLIN/TAZOBACTAM 2.25 GM VIAL IVPB ONE ×2 (01:16→09:24)
[2022-02-08] MEDS: PIPERACILLIN/TAZOB 2.25 GM 2.25 GM in DEXTROSE 5%-WATER - 50 ML IVPB SCH ×2 (01:18→09:50)
[2022-02-08] MEDS: GABAPENTIN 100 MG CAPSULE PO SCH ×3 (06:21→21:36)
[2022-02-08] MEDS: ALBUTEROL SO4 2.5/IPRATROPIUM 0.5 INH SOL 3 ML VIAL.NEB. NEB SCH ×4 (08:30→20:05)
[2022-02-08] MEDS: AMINO ACIDS/PROTEIN HYDROLYS 30 ML LIQUID.PKT PO SCH (09:25)
[2022-02-08] MEDS: ASPIRIN COATED 81 MG TABLET.EC PO SCH (09:51)
[2022-02-08] MEDS: HEPARIN NA (PORCINE) 5,000 UNITS/ML 1ML VIAL SQ SCH ×2 (09:51→21:35)
[2022-02-08] MEDS: FUROSEMIDE 40 MG/4 ML INJECTABLE VIAL IVPUSH SCH (09:51)
[2022-02-08] MEDS: ALPRAZolam 0.25 MG TABLET PO PRN (09:52)
[2022-02-08] MEDS: MULTIVITAMINS (DAILY MVI) TABLET (FP) PO SCH (09:52)
[2022-02-08] MEDS: ASCORBIC ACID 500 MG TABLET (FP) PO SCH (09:52)
[2022-02-08] MEDS: PANTOPRAZOLE 20 MG TABLET PO SCH (09:52)
[2022-02-08] MEDS: PRAMIPEXOLE DIHYDROCHLORIDE 0.5 MG TABLET PO SCH (21:36)
[2022-02-09] MEDS: GABAPENTIN 100 MG CAPSULE PO SCH ×3 (06:42→21:26)
[2022-02-09 07:08] LABS: BASO % 0.6 % (0-2.0); EOS % 2.1 % (0-4.5); HEMATOCRIT 31.6 % (32.4-45.2); HEMOGLOBIN 9.8 GM/dL (10.7-15.3); LYMPH % 4.9 % (8-40); MCH 29.9 pg (25.7-33.7); MEAN CELL VOLUME 96.6 fl (80-96); MEAN PLT VOLUME 7.8 fl (7.5-11.1); MONO % 6.1 % (3.8-10.2); NEUT % 86.3 % (42.8-82.8); PLATELET COUNT 307 10^3/uL (134-434); RBC 3.27 M/mm3 (3.60-5.2); RDW 17.6 % (11.6-15.6); WHITE BLOOD COUNT 12.7 K/mm3 (4.0-10.0)
[2022-02-09 07:36] LABS: ALBUMIN 2.4 g/dl (3.4-5.0); BLOOD UREA NITROGEN 30.4 mg/dL (7-18)
[2022-02-09 07:39] LABS: BILIRUBIN,TOTAL 0.5 mg/dL (0.2-1); CREATININE 1.2 mg/dL (0.55-1.3); TOT PROT 5.3 g/dl (6.4-8.2)
[2022-02-09 07:42] LABS: CALCIUM 8.1 mg/dL (8.5-10.1)
[2022-02-09] MEDS: ALBUTEROL SO4 2.5/IPRATROPIUM 0.5 INH SOL 3 ML VIAL.NEB. NEB SCH ×4 (08:28→20:31)
[2022-02-09] MEDS: ASPIRIN COATED 81 MG TABLET.EC PO SCH (09:31)
[2022-02-09] MEDS: AMINO ACIDS/PROTEIN HYDROLYS 30 ML LIQUID.PKT PO SCH (09:31)
[2022-02-09] MEDS: HEPARIN NA (PORCINE) 5,000 UNITS/ML 1ML VIAL SQ SCH ×2 (09:31→21:26)
[2022-02-09] MEDS: MULTIVITAMINS (DAILY MVI) TABLET (FP) PO SCH (09:31)
[2022-02-09] MEDS: PANTOPRAZOLE 20 MG TABLET PO SCH (09:31)
[2022-02-09] MEDS: ASCORBIC ACID 500 MG TABLET (FP) PO SCH (09:31)
[2022-02-09] MEDS: FUROSEMIDE 40 MG/4 ML INJECTABLE VIAL IVPUSH SCH (09:31)
[2022-02-09] MEDS: ALPRAZolam 0.25 MG TABLET PO PRN (14:24)
[2022-02-09] MEDS ORDERED: PIPERACILLIN/TAZOBACTAM 3.375 GM VIAL IVPB ONE ×2 (15:28→17:06)
[2022-02-09] MEDS: PIPERACILLIN/TAZOB 3.375 GM 3.375 GM in DEXTROSE 5%-WATER - 50 ML IVPB SCH ×2 (15:34→17:59)
[2022-02-09] MEDS: PRAMIPEXOLE DIHYDROCHLORIDE 0.5 MG TABLET PO SCH (21:26)
[2022-02-10] MEDS ORDERED: PIPERACILLIN/TAZOBACTAM 3.375 GM VIAL IVPB ONE ×3 (02:45→17:16)
[2022-02-10] MEDS ORDERED: DEXTROSE 5%-WATER - 50 ML IVPB ONE ×3 (02:45→17:16)
[2022-02-10] MEDS: PIPERACILLIN/TAZOB 3.375 GM 3.375 GM in DEXTROSE 5%-WATER - 50 ML IVPB SCH ×3 (03:17→17:22)
[2022-02-10] MEDS: GABAPENTIN 100 MG CAPSULE PO SCH ×3 (05:51→22:53)
[2022-02-10] MEDS: ALBUTEROL SO4 2.5/IPRATROPIUM 0.5 INH SOL 3 ML VIAL.NEB. NEB SCH ×4 (07:57→20:30)
[2022-02-10] MEDS: ASPIRIN COATED 81 MG TABLET.EC PO SCH (09:02)
[2022-02-10] MEDS: MULTIVITAMINS (DAILY MVI) TABLET (FP) PO SCH (09:02)
[2022-02-10] MEDS: PANTOPRAZOLE 20 MG TABLET PO SCH (09:02)
[2022-02-10] MEDS: AMINO ACIDS/PROTEIN HYDROLYS 30 ML LIQUID.PKT PO SCH (09:02)
[2022-02-10] MEDS: ASCORBIC ACID 500 MG TABLET (FP) PO SCH (09:02)
[2022-02-10] MEDS: FUROSEMIDE 40 MG/4 ML INJECTABLE VIAL IVPUSH SCH (09:03)
[2022-02-10] MEDS: HEPARIN NA (PORCINE) 5,000 UNITS/ML 1ML VIAL SQ SCH ×2 (09:03→22:52)
[2022-02-10] MEDS: AMINO ACIDS 4.25%/D5W 1,000 ML IV SCH (12:31)
[2022-02-10] MEDS: ALPRAZolam 0.25 MG TABLET PO PRN (13:11)
[2022-02-10] MEDS ORDERED: FAT EMULSIONS 20% 250 ML PREMIX INFUS.BAG IV SCH (22:00)
[2022-02-10] MEDS: PRAMIPEXOLE DIHYDROCHLORIDE 0.5 MG TABLET PO SCH (22:53)
[2022-02-10] MEDS: FAT EMULSION/OLIVE/SOY/PHOSPHO 250 ML IV SCH (23:54)
[2022-02-11] MEDS: PIPERACILLIN/TAZOB 3.375 GM 3.375 GM in DEXTROSE 5%-WATER - 50 ML IVPB SCH ×3 (02:28→17:38)
[2022-02-11] MEDS ORDERED: DEXTROSE 5%-WATER - 50 ML IVPB ONE ×3 (05:41→17:12)
[2022-02-11] MEDS ORDERED: PIPERACILLIN/TAZOBACTAM 3.375 GM VIAL IVPB ONE ×3 (05:41→17:12)
[2022-02-11] MEDS: GABAPENTIN 100 MG CAPSULE PO SCH ×3 (06:29→21:18)
[2022-02-11] MEDS: ALBUTEROL SO4 2.5/IPRATROPIUM 0.5 INH SOL 3 ML VIAL.NEB. NEB SCH (08:28)
[2022-02-11 08:58] LABS: BASO % 1.4 % (0-2.0); EOS % 1.5 % (0-4.5); HEMATOCRIT 33.4 % (32.4-45.2); HEMOGLOBIN 10.1 GM/dL (10.7-15.3); LYMPH % 3.7 % (8-40); MCH 29.6 pg (25.7-33.7); MCHC 30.4 g/dl (32.0-36.0); MEAN CELL VOLUME 97.6 fl (80-96); MEAN PLT VOLUME 7.9 fl (7.5-11.1); MONO % 4.5 % (3.8-10.2); NEUT % 88.9 % (42.8-82.8); PLATELET COUNT 357 10^3/uL (134-434); RBC 3.42 M/mm3 (3.60-5.2); RDW 17.9 % (11.6-15.6); WHITE BLOOD COUNT 12.7 K/mm3 (4.0-10.0)
[2022-02-11] MEDS: ASCORBIC ACID 500 MG TABLET (FP) PO SCH (09:10)
[2022-02-11] MEDS: MULTIVITAMINS (DAILY MVI) TABLET (FP) PO SCH (09:10)
[2022-02-11] MEDS: PANTOPRAZOLE 20 MG TABLET PO SCH (09:10)
[2022-02-11] MEDS: ASPIRIN COATED 81 MG TABLET.EC PO SCH (09:10)
[2022-02-11] MEDS: AMINO ACIDS/PROTEIN HYDROLYS 30 ML LIQUID.PKT PO SCH (09:10)
[2022-02-11 09:13] LABS: ALBUMIN 2.6 g/dl (3.4-5.0); BLOOD UREA NITROGEN 33.7 mg/dL (7-18); CALCIUM 8.7 mg/dL (8.5-10.1)
[2022-02-11 09:16] LABS: CREATININE 1.2 mg/dL (0.55-1.3)
[2022-02-11 09:17] LABS: BILIRUBIN,TOTAL 0.5 mg/dL (0.2-1); TOT PROT 5.8 g/dl (6.4-8.2)
[2022-02-11] MEDS: FUROSEMIDE 40 MG/4 ML INJECTABLE VIAL IVPUSH SCH (09:19)
[2022-02-11] MEDS: HEPARIN NA (PORCINE) 5,000 UNITS/ML 1ML VIAL SQ SCH ×2 (09:20→21:18)
[2022-02-11] MEDS: AMINO ACIDS 4.25%/D5W 1,000 ML IV SCH ×2 (11:35→17:38)
[2022-02-11] MEDS: PRAMIPEXOLE DIHYDROCHLORIDE 0.5 MG TABLET PO SCH (21:18)
[2022-02-11] MEDS: FAT EMULSION/OLIVE/SOY/PHOSPHO 250 ML IV SCH (21:18)
[2022-02-11] MEDS: MELATONIN 5 MG TABLETS PO PRN (23:53)
[2022-02-12] MEDS ORDERED: PIPERACILLIN/TAZOBACTAM 3.375 GM VIAL IVPB ONE ×3 (01:18→17:23)
[2022-02-12] MEDS ORDERED: DEXTROSE 5%-WATER - 50 ML IVPB ONE ×3 (01:19→17:23)
[2022-02-12] MEDS: PIPERACILLIN/TAZOB 3.375 GM 3.375 GM in DEXTROSE 5%-WATER - 50 ML IVPB SCH ×3 (01:24→17:32)
[2022-02-12] MEDS: GABAPENTIN 100 MG CAPSULE PO SCH ×3 (05:59→22:19)
[2022-02-12 08:44] LABS: CALCIUM 8.7 mg/dL (8.5-10.1)
[2022-02-12 08:45] LABS: BLOOD UREA NITROGEN 45.3 mg/dL (7-18)
[2022-02-12 08:48] LABS: CREATININE 1.3 mg/dL (0.55-1.3)
[2022-02-12] MEDS: PANTOPRAZOLE 20 MG TABLET PO SCH (10:00)
[2022-02-12] MEDS: ASCORBIC ACID 500 MG TABLET (FP) PO SCH (10:00)
[2022-02-12] MEDS: AMINO ACIDS/PROTEIN HYDROLYS 30 ML LIQUID.PKT PO SCH (10:00)
[2022-02-12] MEDS: MULTIVITAMINS (DAILY MVI) TABLET (FP) PO SCH (10:00)
[2022-02-12] MEDS: ASPIRIN COATED 81 MG TABLET.EC PO SCH (10:00)
[2022-02-12] MEDS: HEPARIN NA (PORCINE) 5,000 UNITS/ML 1ML VIAL SQ SCH ×2 (10:19→22:19)
[2022-02-12] MEDS: FUROSEMIDE 40 MG/4 ML INJECTABLE VIAL IVPUSH SCH (10:19)
[2022-02-12] MEDS: AMINO ACIDS 4.25%/D5W 1,000 ML IV SCH ×2 (13:01→18:57)
[2022-02-12] MEDS ORDERED: FUROSEMIDE 40 MG/4 ML INJECTABLE VIAL IVPUSH ONE (14:00)
[2022-02-12] MEDS: PRAMIPEXOLE DIHYDROCHLORIDE 0.5 MG TABLET PO SCH (22:19)
[2022-02-12] MEDS: FAT EMULSION/OLIVE/SOY/PHOSPHO 250 ML IV SCH (22:27)
[2022-02-13] MEDS ORDERED: PIPERACILLIN/TAZOBACTAM 3.375 GM VIAL IVPB ONE ×3 (02:50→20:39)
[2022-02-13] MEDS ORDERED: DEXTROSE 5%-WATER - 50 ML IVPB ONE ×3 (02:51→20:40)
[2022-02-13] MEDS: PIPERACILLIN/TAZOB 3.375 GM 3.375 GM in DEXTROSE 5%-WATER - 50 ML IVPB SCH ×3 (02:54→20:59)
[2022-02-13] MEDS: GABAPENTIN 100 MG CAPSULE PO SCH ×2 (05:25→15:29)
[2022-02-13] MEDS: AMINO ACIDS/PROTEIN HYDROLYS 30 ML LIQUID.PKT PO SCH (08:26)
[2022-02-13] MEDS: MULTIVITAMINS (DAILY MVI) TABLET (FP) PO SCH (11:03)
[2022-02-13] MEDS: PANTOPRAZOLE 20 MG TABLET PO SCH (11:03)
[2022-02-13] MEDS: ASCORBIC ACID 500 MG TABLET (FP) PO SCH (11:03)
[2022-02-13] MEDS: ASPIRIN COATED 81 MG TABLET.EC PO SCH (11:04)
[2022-02-13] MEDS: FUROSEMIDE 40 MG/4 ML INJECTABLE VIAL IVPUSH SCH (11:04)
[2022-02-13] MEDS ORDERED: FUROSEMIDE 40 MG/4 ML INJECTABLE VIAL IVPUSH SCH (14:00)
[2022-02-13 21:18] VITALS: BP 116/69; TEMP 97.8
[2022-02-13 21:36] VITALS: PULSE 92
[2022-02-13] MEDS: AMINO ACIDS 4.25%/D5W 1,000 ML IV SCH (21:39)
[2022-02-13] MEDS: HEPARIN NA (PORCINE) 5,000 UNITS/ML 1ML VIAL SQ SCH (21:40)
== END 2022-02-13 23:30 | disposition expired | DRG 871 ==
LOC: JER 11:20 → JERBED 17:23 → J4W 19:19 → JERBED 02-07 22:09 → J4W 02-07 22:13
PROVIDERS: ADMIT Internal Medicine; ATTEND Internal Medicine
DX: A41.9 Sepsis, unspecified organism (principal); J96.02 Acute respiratory failure with hypercapnia; J18.9 Pneumonia, unspecified organism; G93.41 Metabolic encephalopathy; J96.01 Acute respiratory failure with hypoxia; I21.3 ST elevation (STEMI) myocardial infarction of unspecified site; I50.33 Acute on chronic diastolic (congestive) heart failure; I13.0 Hypertensive heart and chronic kidney disease with heart failure and stage 1 through stage 4 chronic kidney disease, or unspecified chronic kidney disease; N17.9 Acute kidney failure, unspecified; I47.1 Supraventricular tachycardia; E87.2 Acidosis; E87.0 Hyperosmolality and hypernatremia; E87.5 Hyperkalemia; N18.9 Chronic kidney disease, unspecified; F03.90 Unspecified dementia, unspecified severity, without behavioral disturbance, psychotic disturbance, mood disturbance, and anxiety; I25.10 Atherosclerotic heart disease of native coronary artery without angina pectoris; E78.5 Hyperlipidemia, unspecified; J44.9 Chronic obstructive pulmonary disease, unspecified; E86.0 Dehydration
CPT/HCPCS: 0241U-QW; 36415; 36600; 70450-TC; 71045-TC-FY; 71250-TC; 80048; 80053; 81003; 82803; 82962; 83605; 83735; 83880; 84484; 85025; 85610; 85730; 87040; 87086; 93005; 93010; 94640; 94660; 97116-GP; 97162-GP; 99291; J1644